=== PATIENT | male | born 1960 | race Caucasian/White ===

== ENCOUNTER 2019-03-13 01:02 | Emergency (ER) | payer BC ==
[2019-03-13 01:11] VITALS: TEMP 97.8
--- NOTE | 2019-03-13 01:55 | ED ---
Neck Injury/Pain HPI - General Chief Complaint: Neck Pain/Injury Stated Complaint: Facial Numbness,Neck Pain Time Seen by Provider: 03/13/19 01:54 Mode of arrival: ambulatory Limitations: no limitations - History of Present Illness Initial Comments: Je is a 58-year-old gentleman up against the ER today for evaluation of neck pain and right lower face pierced seizures. Patient reports he's been experiencing some tightness in the right side of his posterior neck for about 3 weeks. He states that earlier today he was at work when he turned his head and his neck popped. He reports near complete resolution of the discomfort in his neck since that time however after returning home from work he noticed some tingly for numb sensation on the right side of his lower jaw. This persisted throughout the night is not painful he doesn't have any facial droop or drooling. He is having no trouble speaking swallowing or eating. However the tingling became concerning so he came to the ER for evaluation. Patient has no history of TIAs paresthesias in the past. He denies other injuries. - Related Data Allergies Allergy/AdvReac Type Severity Reaction Status Date / Time No Known Allergies Allergy Verified 03/13/19 01:11 Review of Systems ROS Statement: Those systems with pertinent positive or pertinent negative responses have been documented in the HPI. ROS Other: All systems not noted in ROS Statement are negative. Past Medical History Past Medical History: No Reported History History of Any Multi-Drug Resistant Organisms: None Reported Past Surgical History: No Surgical Hx Reported Past Psychological History: No Psychological Hx Reported Smoking Status: Current every day smoker Past Alcohol Use History: Occasional Past Drug Use History: None Reported General Exam - General Exam Comments Initial Comments: Physical Exam GENERAL: Patient is well-developed and well-nourished. Patient is nontoxic and well- hydrated and is in no distress. HENT: Normocephalic, Atraumatic. EYES: PERRL, EOMI PULMONARY: Unlabored respirations. No audible rales rhonchi or wheezing was noted. CARDIOVASCULAR: There is a regular rate and rhythm without any murmurs gallops or rubs. No carotid bruit ABDOMEN: Soft and nontender with normal bowel sounds. SKIN: Skin is clear with no lesions or rashes and otherwise unremarkable. : Deferred NEUROLOGIC: Patient is alert and oriented x3. Moving all extremities spontaneously Cranial nerves II through XII are grossly intact Face is symmetric, there is no facial droop Speech is clear and fluid Tongue protrudes midline MUSCULOSKELETAL: Normal extremities with adequate strength and full range of motion. No lower extremity swelling or edema. No calf tenderness. PSYCHIATRIC: Normal psychiatric evaluation. Limitations: no limitations Course Vital Signs 03/13/19 01:07 Temperature 97.8 F Pulse Rate 75 Respiratory 20 Rate Blood Pressure 131/80 O2 Sat by Pulse 100 Oximetry Medical Decision Making - Medical Decision Making The patient was seen and evaluated history is obtained from the patient at bedside next line patient reported weeks of neck pain, neck pain resolved after he popped his neck however he then noted some pierced seizures in the V3 distribution of cranial nerve V On the right side. Labs were ordered to assess kidney function which was normal patient had a CT angiogram of the head and neck which was normal Results were discussed with the patient at bedside. I did offer to keep the patient in observation to be evaluated by neurology however patient for discharge home he has a appointment with his primary care physician scheduled for later today. All questions pertaining care were answered to the best of my ability return parameters were discussed the patient was discharged home in stable condition. - Lab Data Result diagrams: 03/13/19 02:50 03/13/19 02:50 Lab Results 03/13/19 03/13/19 Range/Units 02:50 02:50 WBC 5.7 (3.8-10.6) k/uL RBC 4.46 (4.30-5.90) m/uL Hgb 13.7 (13.0-17.5) gm/dL Hct 40.0 (39.0-53.0) % MCV 89.8 (80.0-100.0) fL MCH 30.7 (25.0-35.0) pg MCHC 34.1 (31.0-37.0) g/dL RDW 15.1 (11.5-15.5) % Plt Count 326 (150-450) k/uL Neutrophils % 51 % Lymphocytes % 33 % Monocytes % 8 % Eosinophils % 5 % Basophils % 1 % Neutrophils # 2.9 (1.3-7.7) k/uL Lymphocytes # 1.9 (1.0-4.8) k/uL Monocytes # 0.4 (0-1.0) k/uL Eosinophils # 0.3 (0-0.7) k/uL Basophils # 0.0 (0-0.2) k/uL Sodium 138 (137-145) mmol/L Potassium 3.8 (3.5-5.1) mmol/L Chloride 103 (98-107) mmol/L Carbon Dioxide 23 (22-30) mmol/L Anion Gap 12 mmol/L BUN 10 (9-20) mg/dL Creatinine 0.89 (0.66-1.25) mg/dL Est GFR (CKD-EPI)AfAm >90 (>60 ml/min/1.73 sqM) Est GFR (CKD-EPI)NonAf >90 (>60 ml/min/1.73 sqM) Glucose 108 H (74-99) mg/dL Calcium 9.3 (8.4-10.2) mg/dL Total Bilirubin 0.3 (0.2-1.3) mg/dL AST 29 (17-59) U/L ALT 27 (21-72) U/L Alkaline Phosphatase 38 (38-126) U/L Total Protein 6.9 (6.3-8.2) g/dL Albumin 4.2 (3.5-5.0) g/dL Disposition Clinical Impression: Paresthesia Disposition: HOME SELF-CARE Condition: Stable Instructions (If sedation given, give patient instructions): Cervical Strain (ED) Is patient prescribed a controlled substance at d/c from ED?: No Referrals: Araseli Greene MD [Primary Care Provider] - 1-2 days
[2019-03-13 03:21] LABS: ALT 27 U/L (21-72); AST 29 U/L (17-59); African American GFR (CKD) >90 (>60 ml/min/1.73 sqM); Albumin 4.2 g/dL (3.5-5.0); Alkaline Phosphatase 38 U/L (38-126); Anion Gap 12 mmol/L; Blood Urea Nitrogen 10 mg/dL (9-20); Calcium 9.3 mg/dL (8.4-10.2); Carbon Dioxide 23 mmol/L (22-30); Chloride 103 mmol/L (98-107); Glucose 108 mg/dL (74-99); Potassium 3.8 mmol/L (3.5-5.1); Sodium 138 mmol/L (137-145); Total Bilirubin 0.3 mg/dL (0.2-1.3); Total Protein 6.9 g/dL (6.3-8.2)
--- NOTE | 2019-03-13 03:56 | CT ---
EXAMINATION TYPE: CT angio head neck DATE OF EXAM: 03/13/2019 HISTORY: Facial numbness COMPARISON: None CT DLP: 1508.00 mGycm. Automated Exposure Control for Dose Reduction was Utilized. TECHNIQUE: CTA scan of the neck is performed with IV Contrast, patient injected with 65 mL of Isovue 370, axial images are obtained, coronal and sagittal reformatted images are reviewed. Three-D recons tructed images are created on an independent workstation and reviewed. FINDINGS: Noncontrast images of the brain show some cerebral cortical atrophy. There is no mass effect nor midl ine shift. There is no sign of intracranial hemorrhage. There is evidence of mild sphenoid sinusitis. There is arterial flow in both vertebral arteries. There is arterial flow in the common internal and external carotid arteries bilaterally. There is bilateral arterial flow in the subclavian arteries. T here is minimal plaque formation at the carotid artery bifurcations. There is less than 10% stenosis. There is no evidence of carotid or vertebral artery aneurysm or dissection. There is arterial flow in the vertebrobasilar artery system. There is arterial flow in the anterior m iddle and posterior cerebral arteries. There is no evidence of intracranial arterial stenosis. There is normal contrast opacification of the venous sinuses. There is mild ectasia of the tip of the basil ar artery that measures 5 mm. There is no evidence of neovascularity. There is no mass effect. There is wide patency of the right posterior communicating artery. Right posterior cerebral artery fills mo stly through the posterior communicating artery. IMPRESSION: Negative CT angiogram of the neck. Minimal plaque at the carotid artery bifurcations. No evidence of stenosis. 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 Otherwise negative exam. No evidence of i ntracranial arterial stenosis.
[2019-03-13 04:05] LABS: Basophils % (A) 1 %; Eosinophils # (A) 0.3 k/uL (0-0.7); Eosinophils % (A) 5 %; HGB 13.7 gm/dL (13.0-17.5); Lymphocytes # (A) 1.9 k/uL (1.0-4.8); Lymphocytes % (A) 33 %; MCH 30.7 pg (25.0-35.0); MCHC 34.1 g/dL (31.0-37.0); MCV 89.8 fL (80.0-100.0); Monocytes # (A) 0.4 k/uL (0-1.0); Monocytes % (A) 8 %; Neutrophils # (A) 2.9 k/uL (1.3-7.7); Neutrophils % (A) 51 %; Platelet Count 326 k/uL (150-450); RBC 4.46 m/uL (4.30-5.90); RDW 15.1 % (11.5-15.5); WBC 5.7 k/uL (3.8-10.6)
[2019-03-13 04:35] VITALS: BP 103/64; PULSE 78; RESP 18
== END 2019-03-13 04:25 | disposition home or self-care (01) ==
LOC: EC 01:02
DX: R20.2 Paresthesia of skin (principal); R56.9 Unspecified convulsions; M54.2 Cervicalgia; F17.200 Nicotine dependence, unspecified, uncomplicated
CPT/HCPCS: 36415; 80053; 85025; 70496; 70498; 99284; Q9967

== ENCOUNTER 2022-09-13 07:05 | Inpatient (IN) | payer BC ==
[2022-09-13] MEDS ORDERED: ONDANSETRON 4 MG/2 ML VIAL IVP STA (07:20)
[2022-09-13] MEDS ORDERED: SODIUM CHLORIDE 0.9% 1,000 ML IV STA (07:20)
[2022-09-13] MEDS ORDERED: THIAMINE 100 MG/ML 2 ML VIAL IM STA (07:25)
[2022-09-13] MEDS: LORazepam 2 MG/ML INJ IV PRN ×6 (07:38→22:13)
[2022-09-13 07:48] LABS: INR 1.2 (<1.2); Partial Thromboplastin Time 23.4 sec (22.0-30.0); Prothrombin Time 12.5 sec (9.0-12.0)
[2022-09-13 07:55] LABS: Albumin 3.4 g/dL (3.5-5.0); Magnesium 2.3 mg/dL (1.6-2.3); Potassium 4.3 mmol/L (3.5-5.1); Total Bilirubin 2.3 mg/dL (0.2-1.3); Total Protein 6.1 g/dL (6.3-8.2)
[2022-09-13] MEDS ORDERED: HYDROcodone/APAP 7.5-325MG 1 EACH TAB PO ONE (07:57)
[2022-09-13 08:08] LABS: Basophils % (A) 0 %; Eosinophils % (A) 0 %; HCT 38.2 % (39.0-53.0); HGB 13.2 gm/dL (13.0-17.5); Lymphocytes # (A) 0.7 k/uL (1.0-4.8); Lymphocytes % (A) 7 %; MCH 28.4 pg (25.0-35.0); MCHC 34.5 g/dL (31.0-37.0); MCV 82.2 fL (80.0-100.0); Mean Platelet Volume 7.7; Monocytes # (A) 0.6 k/uL (0-1.0); Monocytes % (A) 6 %; Neutrophils # (A) 8.5 k/uL (1.3-7.7); Neutrophils % (A) 86 %; Platelet Count 188 k/uL (150-450); RBC 4.65 m/uL (4.30-5.90); RDW 11.8 % (11.5-15.5); WBC 9.9 k/uL (3.8-10.6)
--- NOTE | 2022-09-13 08:08 | ED ---
Fall HPI - General Chief Complaint: Fall Stated Complaint: Fall Time Seen by Provider: 09/13/22 07:09 Source: EMS Mode of arrival: EMS - History of Present Illness Initial Comments: 62-year-old male with past medical history of alcohol abuse presents to the emergency department for multiple falls. Family is at bedside and states that the patient has not eaten any solid foods in 10 days. He has been drinking a significant amount of beer and recently "added whiskey to his diet". He has been drinking every day for the past 2 years. Reports that his last drink was last night at 11 PM. He has been having multiple falls and therefore family called EMS this morning. He denies any head trauma. Bruising noted to the right cheek however mother states that this has been there for several months. He denies any injuries from the falls. He has had significant diarrhea. No black or bloody stools. He has had some incontinence. No fevers. No sick contacts. Denies any chest pain or shortness of breath. Denies any drug use. Family states that he weighs has a tremor. Reports that his increased respiratory rate has been persistent for the past month. No other alleviating, precipitating or modifying factors - Related Data Home Medications Medication Instructions Recorded Confirmed Atorvastatin Calcium [Lipitor] 80 mg PO HS 09/13/22 09/13/22 Fenofibrate Nanocrystallized 145 mg PO DAILY 09/13/22 09/13/22 [Fenofibrate] HYDROcodone/APAP 7.5-325MG [[place] 1 tab PO QID 09/13/22 09/13/22 7.5-325] Naloxone HCl [Narcan] 4 mg NASAL DIRECTED PRN 09/13/22 09/13/22 PARoxetine HCL [Paxil] 20 mg PO DAILY 09/13/22 09/13/22 hydrOXYzine HCL [Atarax] 25 - 50 mg PO HS 09/13/22 09/13/22 lisinopriL [Zestril] 10 mg PO DAILY 09/13/22 09/13/22 Allergies Allergy/AdvReac Type Severity Reaction Status Date / Time No Known Allergies Allergy Verified 09/13/22 07:32 Review of Systems ROS Statement: Those systems with pertinent positive or pertinent negative responses have been documented in the HPI. ROS Other: All systems not noted in ROS Statement are negative. Past Medical History Past Medical History: No Reported History History of Any Multi-Drug Resistant Organisms: None Reported Past Surgical History: No Surgical Hx Reported Past Psychological History: No Psychological Hx Reported Past Alcohol Use History: Occasional Past Drug Use History: None Reported - Past Family History Mother History Unknown: Yes Family Medical History: Diabetes Mellitus, Hyperlipidemia, Hypertension Father History Unknown: Yes Family Medical History: Cancer, Hypertension General Exam Limitations: altered mental status General appearance: alert, in no apparent distress Head exam: Present: atraumatic, normocephalic, normal inspection Eye exam: Present: normal appearance, PERRL, EOMI. Absent: scleral icterus, conjunctival injection, periorbital swelling ENT exam: Present: normal exam, mucous membranes dry Neck exam: Present: normal inspection. Absent: tenderness, meningismus, lymphadenopathy Respiratory exam: Present: normal lung sounds bilaterally. Absent: respiratory distress, wheezes, rales, rhonchi, stridor Cardiovascular Exam: Present: normal rhythm, tachycardia, normal heart sounds. Absent: systolic murmur, diastolic murmur, rubs, gallop, clicks GI/Abdominal exam: Present: soft, normal bowel sounds, other (tachypnia). Absent: distended, tenderness, guarding, rebound, rigid Extremities exam: Present: normal inspection, full ROM, normal capillary refill. Absent: tenderness, pedal edema, joint swelling, calf tenderness Back exam: Present: normal inspection Neurological exam: Present: alert, oriented X3, CN II-XII intact Psychiatric exam: Present: normal affect, normal mood Skin exam: Present: warm, dry, intact, normal color. Absent: rash Course Vital Signs 09/13/22 09/13/22 09/13/22 07:10 07:48 08:00 Temperature 98.4 F Pulse Rate 111 H 120 H Respiratory 30 H 30 H Rate Blood Pressure 133/69 134/85 105/91 O2 Sat by Pulse 92 L 96 96 Oximetry 09/13/22 09/13/22 09/13/22 08:45 09:00 09:15 Temperature Pulse Rate 99 97 Respiratory 36 H 21 19 Rate Blood Pressure 142/123 121/103 O2 Sat by Pulse 95 Oximetry 09/13/22 09/13/22 09/13/22 09:30 09:45 10:00 Temperature Pulse Rate 98 92 Respiratory 24 19 Rate Blood Pressure 121/103 121/103 94/78 O2 Sat by Pulse 95 89 L 95 Oximetry 09/13/22 09/13/22 09/13/22 10:15 10:30 10:51 Temperature Pulse Rate 90 94 94 Respiratory 16 20 21 Rate Blood Pressure 88/67 97/63 O2 Sat by Pulse 96 95 95 Oximetry 09/13/22 10:52 Temperature Pulse Rate 92 Respiratory 26 H Rate Blood Pressure 97/61 O2 Sat by Pulse 96 Oximetry - Reevaluation(s) Reevaluation #1: Awaiting Dr. Handley call back 09/13/22 09:20 Reevaluation #2: Spoke with Dr. Barajas - will repeat sodium right now 09/13/22 09:34 Reevaluation #3: [employer]ile Attendant paged twice without callback 09/13/22 10:07 Medical Decision Making - Medical Decision Making Was pt. sent in by a medical professional or institution (, PA, [employer]ISHER, urgent care, hospital, or group home...) When possible be specific @ -No Did you speak to anyone other than the patient for history (EMS, parent, family, police, friend...)? What history was obtained from this source @ -EMS, mom, sister Did you review nursing and triage notes (agree or disagree)? Why? @ -I reviewed and agree with nursing and triage notes Were old charts reviewed (outside hosp., previous admission, EMS record, old EKG, old radiological studies, urgent care reports/EKG's, group home records)? Report findings @ -No old charts were reviewed Differential Diagnosis (chest pain, altered mental status, abdominal pain women, abdominal pain men, vaginal bleeding, weakness, fever, dyspnea, syncope, headache, dizziness, GI bleed, back pain, seizure, CVA, palpatations, mental health, musculoskeletal)? @ -alcohol withdrawal, alcohol intoxication, hyponatremia EKG interpreted by me (3pts min.). @ -As above X-rays interpreted by me (1pt min.). @ -yes CT interpreted by me (1pt min.). @ -None done U/S interpreted by me (1pt. min.). @ -None done What testing was considered but not performed or refused? (CT, X-rays, U/S, labs)? Why? @ -None What meds were considered but not given or refused? Why? @ -None Did you discuss the management of the patient with other professionals (professionals i.e. , PA, [employer]ER, lab, RT, psych nurse, social insurance adviser, intellectual property lawyer, teacher, occupational medicine officer, shelter case manager)? Give summary @ -hospitalist, programming director Was smoking cessation discussed for >3mins.? @ -No Was critical care preformed (if so, how long)? @ -48 minutes Were there social determinants of health that impacted care today? How? (Homelessness, low income, unemployed, alcoholism, drug addiction, transportation, low edu. Level, literacy, decrease access to med. care, nursing home, rehab)? @ -alcoholism Was there de-escalation of care discussed even if they declined (Discuss DNR or withdrawal of care, Hospice)? DNR status @ -Yes - spoke with mom and sister at length that patient likely will end up on the ventilator. He demonstrates signs of significant alcohol withdrawal less than 12 hours after his last drink. DTs are likely to get worse and patient may need airway protection, family was okay with this What co-morbidities impacted this encounter? (DM, HTN, Smoking, COPD, CAD, Cancer, CVA, ARF, Chemo, Hep., AIDS, mental health diagnosis, sleep apnea, morbid obesity)? @ -Alcoholism Was patient admitted / discharged? Hospital course, mention meds given and route, prescriptions, significant lab abnormalities, going to OR and other pertinent info. @ -Admitted Undiagnosed new problem with uncertain prognosis? @ -yes Drug Therapy requiring intensive monitoring for toxicity (Heparin, Nitro, Insulin, Cardizem)? @ -No Were any procedures done? @ -No Diagnosis/symptom? @ -acute dt, alcohol withdrawal, hyponatremia Acute, or Chronic, or Acute on Chronic? @ -acute Uncomplicated (without systemic symptoms) or Complicated (systemic symptoms)? @ -complicated Side effects of treatment? @ -No Exacerbation, Progression, or Severe Exacerbation? @ -No Poses a threat to life or bodily function? How? (Chest pain, [place], SD, pneumonia, PE, COPD, DKA, ARF, appy, cholecystitis, CVA, Diverticulitis, Homicidal, Suicidal, threat to staff... and all critical care pts) @ -yes - Lab Data Result diagrams: 09/16/22 04:35 09/16/22 04:35 Lab Results 09/13/22 09/13/22 09/13/22 Range/Units 07:31 07:31 07:31 WBC 9.9 (3.8-10.6) k/uL RBC 4.65 (4.30-5.90) m/uL Hgb 13.2 (13.0-17.5) gm/dL Hct 38.2 L (39.0-53.0) % MCV 82.2 (80.0-100.0) fL MCH 28.4 (25.0-35.0) pg MCHC 34.5 (31.0-37.0) g/dL RDW 11.8 (11.5-15.5) % Plt Count 188 (150-450) k/uL MPV 7.7 Neutrophils % 86 % Lymphocytes % 7 % Monocytes % 6 % Eosinophils % 0 % Basophils % 0 % Neutrophils # 8.5 H (1.3-7.7) k/uL Lymphocytes # 0.7 L (1.0-4.8) k/uL Monocytes # 0.6 (0-1.0) k/uL Eosinophils # 0.0 (0-0.7) k/uL Basophils # 0.0 (0-0.2) k/uL PT 12.5 H (9.0-12.0) sec INR 1.2 H (<1.2) APTT 23.4 (22.0-30.0) sec Sodium 114 L* (137-145) mmol/L Potassium 4.3 (3.5-5.1) mmol/L Chloride 80 L (98-107) mmol/L Carbon Dioxide 14 L (22-30) mmol/L Anion Gap 20 mmol/L BUN 15 (9-20) mg/dL Creatinine 1.16 (0.66-1.25) mg/dL Est GFR (CKD-EPI)AfAm 78 (>60 ml/min/1.73 sqM) Est GFR (CKD-EPI)NonAf 67 (>60 ml/min/1.73 sqM) Glucose 161 H (74-99) mg/dL Osmolality (280-301) mosm/kg Lactic Ac Sepsis Rflx Plasma Lactic Acid Juan F (0.7-2.0) mmol/L Calcium 8.0 L (8.4-10.2) mg/dL Magnesium 2.3 (1.6-2.3) mg/dL Total Bilirubin 2.3 H (0.2-1.3) mg/dL AST 93 H (17-59) U/L ALT 79 H (4-49) U/L Alkaline Phosphatase 77 (38-126) U/L Troponin I (0.000-0.034) ng/mL Total Protein 6.1 L (6.3-8.2) g/dL Albumin 3.4 L (3.5-5.0) g/dL Urine Osmolality (50-1400) mosm/kg Ur Random Sodium (40-220) mmol/L Serum Alcohol mg/dL 09/13/22 09/13/22 09/13/22 Range/Units 07:31 07:31 08:00 WBC (3.8-10.6) k/uL RBC (4.30-5.90) m/uL Hgb (13.0-17.5) gm/dL Hct (39.0-53.0) % MCV (80.0-100.0) fL MCH (25.0-35.0) pg MCHC (31.0-37.0) g/dL RDW (11.5-15.5) % Plt Count (150-450) k/uL MPV Neutrophils % % Lymphocytes % % Monocytes % % Eosinophils % % Basophils % % Neutrophils # (1.3-7.7) k/uL Lymphocytes # (1.0-4.8) k/uL Monocytes # (0-1.0) k/uL Eosinophils # (0-0.7) k/uL Basophils # (0-0.2) k/uL PT (9.0-12.0) sec INR (<1.2) APTT (22.0-30.0) sec Sodium (137-145) mmol/L Potassium (3.5-5.1) mmol/L Chloride (98-107) mmol/L Carbon Dioxide (22-30) mmol/L Anion Gap mmol/L BUN (9-20) mg/dL Creatinine (0.66-1.25) mg/dL Est GFR (CKD-EPI)AfAm (>60 ml/min/1.73 sqM) Est GFR (CKD-EPI)NonAf (>60 ml/min/1.73 sqM) Glucose (74-99) mg/dL Osmolality (280-301) mosm/kg Lactic Ac Sepsis Rflx Y Plasma Lactic Acid Juan F 10.6 H* (0.7-2.0) mmol/L Calcium (8.4-10.2) mg/dL Magnesium (1.6-2.3) mg/dL Total Bilirubin (0.2-1.3) mg/dL AST (17-59) U/L ALT (4-49) U/L Alkaline Phosphatase (38-126) U/L Troponin I <0.012 (0.000-0.034) ng/mL Total Protein (6.3-8.2) g/dL Albumin (3.5-5.0) g/dL Urine Osmolality (50-1400) mosm/kg Ur Random Sodium (40-220) mmol/L Serum Alcohol mg/dL 09/13/22 09/13/22 09/13/22 Range/Units 08:16 08:16 08:16 WBC (3.8-10.6) k/uL RBC (4.30-5.90) m/uL Hgb (13.0-17.5) gm/dL Hct (39.0-53.0) % MCV (80.0-100.0) fL MCH (25.0-35.0) pg MCHC (31.0-37.0) g/dL RDW (11.5-15.5) % Plt Count (150-450) k/uL MPV Neutrophils % % Lymphocytes % % Monocytes % % Eosinophils % % Basophils % % Neutrophils # (1.3-7.7) k/uL Lymphocytes # (1.0-4.8) k/uL Monocytes # (0-1.0) k/uL Eosinophils # (0-0.7) k/uL Basophils # (0-0.2) k/uL PT (9.0-12.0) sec INR (<1.2) APTT (22.0-30.0) sec Sodium (137-145) mmol/L Potassium (3.5-5.1) mmol/L Chloride (98-107) mmol/L Carbon Dioxide (22-30) mmol/L Anion Gap mmol/L BUN (9-20) mg/dL Creatinine (0.66-1.25) mg/dL Est GFR (CKD-EPI)AfAm (>60 ml/min/1.73 sqM) Est GFR (CKD-EPI)NonAf (>60 ml/min/1.73 sqM) Glucose (74-99) mg/dL Osmolality 251 L (280-301) mosm/kg Lactic Ac Sepsis Rflx Plasma Lactic Acid Juan F (0.7-2.0) mmol/L Calcium (8.4-10.2) mg/dL Magnesium (1.6-2.3) mg/dL Total Bilirubin (0.2-1.3) mg/dL AST (17-59) U/L ALT (4-49) U/L Alkaline Phosphatase (38-126) U/L Troponin I (0.000-0.034) ng/mL Total Protein (6.3-8.2) g/dL Albumin (3.5-5.0) g/dL Urine Osmolality 499 (50-1400) mosm/kg Ur Random Sodium <20 L (40-220) mmol/L Serum Alcohol <10 mg/dL - EKG Data EKG Comments: EKG demonstrates sinus tachycardia with a rate of 103. TX interval 210. QRS 88. QTC of 420. No acute ST segment elevations or depressions Critical Care Time Critical Care Time: Yes Critical Care Time: 48 minutes Disposition Clinical Impression: Multiple falls, Alcohol withdrawal, Delirium tremens, Hyponatremia Disposition: ADMITTED IP TO THIS [facility] Condition: Serious Is patient prescribed a controlled substance at d/c from ED?: No Time of Disposition: 08:43 Decision to Admit Reason: Admit from EC Decision Date: 09/13/22 Decision Time: 08:43
[2022-09-13 08:43] LABS: Alcohol <10 mg/dL
[2022-09-13] MEDS ORDERED: SODIUM CHLORIDE 0.9% 500 ML 500 ML IV ONE (08:51)
--- NOTE | 2022-09-13 09:01 | XR ---
EXAMINATION TYPE: XR chest 1V portable DATE OF EXAM: 09/13/2022 HISTORY: Shortness of breath. COMPARISON: None. TECHNIQUE: Single view of the chest is submitted. FINDINGS: Demonstrated are scattered senescent parenchymal change. There is no evidence for focal infiltrate. The heart is stable. Hilar and mediastinal structures are within normal limits. Degenerative changes are seen of the dorsal spine. IMPRESSION: 1. Chronic changes without evidence for acute pulmonary disease.
[2022-09-13] MEDS ORDERED: NALOXONE 0.4 MG/ML 1 ML VIAL IV PRN (09:07)
[2022-09-13] MEDS ORDERED: Magnesium Replacement Protocol 1 EACH MISC MISCELLANE PRN (09:07)
[2022-09-13] MEDS ORDERED: Potassium Replacement Protocol 1 EACH MISC MISCELLANE PRN (09:07)
[2022-09-13] MEDS ORDERED: SODIUM CHLORIDE 3%(HYPERTONIC) 500 ML IV SCH ×2 (10:45→17:49)
[2022-09-13 10:51] LABS: Glucose,Whole Blood 124 mg/dL (70-110)
[2022-09-13 11:28] LABS: Appearance,Urine Cloudy (Clear); Bacteria,Urine Rare /hpf; Bilirubin,Urine 1+ (Negative); Blood,Urine Large (Negative); Color,Urine Dark Yellow; Glucose,Urine (UA) Negative (Negative); Ketones,Urine Negative (Negative); Leukocyte Esterase,Urine Trace (Negative); Mucus,Urine Rare /hpf; Nitrite,Urine Negative (Negative); Protein,Urine 1+ (Negative); RBC,Urine 55 /hpf (0-5); Squamous Epithelial Cell,Urine 1 /hpf (0-4); WBC,Urine 9 /hpf (0-5)
--- NOTE | 2022-09-13 12:39 | P.CNPUL ---
History of Present Illness Consult date: 09/13/22 Chief complaint: Altered mental status History of present illness: 62-year-old male patient, alcoholic, brought into the hospital on [facility] as the patient has not been eating any food for the past 10 days. He has been drinking significantly and he drinks beer and whiskey. He is an alcoholic and has been drinking excessively over the past 2 years at least. He has had multiple falls at home. No injuries to his head or traumatic head injury. He has bruises over the right cheek. No nausea. No emesis. No aspiration. No seizure activity has been noted. No reported chest pain or shortness of breath. No history of any substance abuse other than alcohol. As the patient was brought into the hospital, the patient was found to be in delirium tremens, increased confusion, agitation and tremors. He was given Ativan on the Route to the hospital. Upon arrival, alcohol level was less than 10, his sodium level was 114, bicarb is 15 with a creatinine of 1.1, normal coagulation profile, his troponin was negative, urine osmolality was 499, urine sodium was less than 20, WBC count at 9.9 with hemoglobin 15.3 and a platelet count of 188. The LFTs are abnormal with an AST of 93, ALT of 79, bilirubin level is at 2.3 and the lactic acid level is down to 1.6. The chest x-ray shows no acute abnormalities. Past Medical History Past Medical History: No Reported History, Hyperlipidemia, Hypertension Additional Past Medical History / Comment(s): alcoholism History of Any Multi-Drug Resistant Organisms: None Reported Past Surgical History: No Surgical Hx Reported Past Psychological History: No Psychological Hx Reported Past Alcohol Use History: Occasional Past Drug Use History: None Reported Medications and Allergies Home Medications Medication Instructions Recorded Confirmed Type Atorvastatin Calcium [Lipitor] 80 mg PO HS 09/13/22 09/13/22 History Fenofibrate Nanocrystallized 145 mg PO DAILY 09/13/22 09/13/22 History [Fenofibrate] HYDROcodone/APAP 7.5-325MG [[place] 1 tab PO QID 09/13/22 09/13/22 History 7.5-325] Naloxone HCl [Narcan] 4 mg NASAL DIRECTED PRN 09/13/22 09/13/22 History PARoxetine HCL [Paxil] 20 mg PO DAILY 09/13/22 09/13/22 History hydrOXYzine HCL [Atarax] 25 - 50 mg PO HS 09/13/22 09/13/22 History lisinopriL [Zestril] 10 mg PO DAILY 09/13/22 09/13/22 History Allergies Allergy/AdvReac Type Severity Reaction Status Date / Time No Known Allergies Allergy Verified 09/13/22 07:32 Physical Exam Vitals: Vital Signs Temp Pulse Resp BP Pulse Ox 09/13/22 11:15 88 19 130/79 94 L 09/13/22 11:00 98.5 F 91 15 137/87 93 L 09/13/22 10:52 92 26 H 97/61 96 09/13/22 10:51 94 21 95 09/13/22 10:30 94 20 97/63 95 09/13/22 10:15 90 16 88/67 96 09/13/22 10:00 92 19 94/78 95 09/13/22 09:45 121/103 89 L 09/13/22 09:30 98 24 121/103 95 09/13/22 09:15 97 19 121/103 09/13/22 09:00 99 21 142/123 09/13/22 08:45 36 H 95 09/13/22 08:00 120 H 30 H 105/91 96 09/13/22 07:48 134/85 96 09/13/22 07:10 98.4 F 111 H 30 H 133/69 92 L Intake and Output 09/12/22 09/13/22 09/13/22 22:59 06:59 14:59 Intake Total 15 Output Total 150 Balance -135 Intake: IV 15 Sodium Chloride 3%( 15 Hypertonic) 500 ml @ 30 mls/hr IV .[id number] [facility] Rx #:[id number] Output: Urine 150 Other: Weight 102.058 kg Gen. appearance the patient is calm, sedated, has some resting tremors, on room air oxygen with a pulse ox of 92% The patient appeared well nourished and normally developed. Vital signs as documented. Head exam is unremarkable. No scleral icterus or corneal arcus noted. Neck is without jugular venous distension, thyromegaly, or carotid bruits. Carotid upstrokes are brisk bilaterally. Lungs are clear to auscultation and percussion. Cardiac exam reveals the PMI to be normally sized and situated. Rhythm is regular. First and second heart sounds normal. No murmurs, rubs or gallops. Abdominal exam reveals normal bowel sounds, no masses, no organomegaly and no aortic enlargement. Extremities are nonedematous and both femoral and pedal pulses are normal.Examination of the skin revealed no evidence of significant rashes, suspicious appearing nevi or other concerning lesions. Neurologically, the patient is sedated on of the effect of Ativan. He grimaces to painful stimulation any withdrawal to painful stimulation all 4 extremities. Pupils are equal and reactive to light around 3-4 mm in size. No facial asymmetry. Results - Laboratory Findings CBC and BMP: 09/13/22 07:31 09/13/22 10:43 PT/INR, D-dimer PT 12.5 sec (9.0-12.0) H 09/13/22 07:31 INR 1.2 (<1.2) H 09/13/22 07:31 Abnormal lab findings: Abnormal Labs 09/13/22 09/13/22 09/13/22 07:31 07:31 07:31 Hct 38.2 L Neutrophils # 8.5 H Lymphocytes # 0.7 L PT 12.5 H INR 1.2 H Sodium 114 L* Chloride 80 L Carbon Dioxide 14 L Glucose 161 H POC Glucose (mg/dL) Osmolality Plasma Lactic Acid Juan F Calcium 8.0 L Total Bilirubin 2.3 H AST 93 H ALT 79 H Total Protein 6.1 L Albumin 3.4 L Urine Protein Urine Blood Urine Bilirubin Ur Leukocyte Esterase Urine RBC Urine WBC Urine Bacteria Urine Mucus 09/13/22 09/13/22 09/13/22 07:31 08:16 09:40 Hct Neutrophils # Lymphocytes # PT INR Sodium 113 L* Chloride Carbon Dioxide Glucose POC Glucose (mg/dL) Osmolality 251 L Plasma Lactic Acid Juan F 10.6 H* Calcium Total Bilirubin AST ALT Total Protein Albumin Urine Protein Urine Blood Urine Bilirubin Ur Leukocyte Esterase Urine RBC Urine WBC Urine Bacteria Urine Mucus 09/13/22 09/13/22 09/13/22 10:43 10:49 11:00 Hct Neutrophils # Lymphocytes # PT INR Sodium 114 L* Chloride Carbon Dioxide Glucose POC Glucose (mg/dL) 124 H Osmolality Plasma Lactic Acid Juan F Calcium Total Bilirubin AST ALT Total Protein Albumin Urine Protein 1+ H Urine Blood Large H Urine Bilirubin 1+ H Ur Leukocyte Esterase Trace H Urine RBC 55 H Urine WBC 9 H Urine Bacteria Rare H Urine Mucus Rare H - Diagnostic Findings Chest x-ray: image reviewed Assessment and Plan Plan: Altered mental status, secondary to above a combination of alcohol withdrawal syndrome/delirium tremens and acute hyponatremia Alcoholic Acute hyperchloremic hypernatremia, could be related to excessive beer drinking. Consider also possibility of hypovolemic hyponatremia. Possibility of SIADH cannot be completely ruled out. Patient is currently on hypertonic saline, 3% normal saline at rate of 46 and hour. Alcoholic liver disease with mild elevation of the LFTs History of fall secondary to above Hypertension Hyperlipidemia Plan Continue hypertonic saline infusion Sodium levels every 4 hours Nephrology consultation IV Protonix Lovenox for DVT prophylaxis Continue with Ativan regarding alcohol withdrawal syndrome Thiamine Precedex if needed Aspiration precautions We'll continue to follow. Family the bedside.
--- NOTE | 2022-09-13 12:52 | P.NPCON ---
History of Present Illness - Reason for Consult hyponatremia - History of Present Illness Patient is a 62-year-old male with history of significant alcohol abuse. Patient apparently has 30 beers a day along with 20-30 shots of whiskey daily. He is brought into the hospital with increased weakness. Patient has also been confused and agitated having significant tremors. These symptoms were noted mostly after initial evaluation in the ER. Alcohol level was less than 10. Sodium was noted to be at 114. Serum creatinine 1.1. Urine osmolality was 499 and urine sodium less than 20 Patient received 1 L saline bolus in the ER. Repeat sodium was 113. Patient has been transferred to ICU and started on 3% saline at 30 mL an hour. He is currently not communicating much. Lactic acid was elevated at 10 and it is down to 1.6. No history of fever chills nausea vomiting abdominal pain or diarrhea [place] at Review of Systems As per HPI Past Medical History Past Medical History: No Reported History, Hyperlipidemia, Hypertension Additional Past Medical History / Comment(s): alcoholism History of Any Multi-Drug Resistant Organisms: None Reported Past Surgical History: No Surgical Hx Reported Past Psychological History: No Psychological Hx Reported Past Alcohol Use History: Occasional Past Drug Use History: None Reported Medications and Allergies Home Medications Medication Instructions Recorded Confirmed Type Atorvastatin Calcium [Lipitor] 80 mg PO HS 09/13/22 09/13/22 History Fenofibrate Nanocrystallized 145 mg PO DAILY 09/13/22 09/13/22 History [Fenofibrate] HYDROcodone/APAP 7.5-325MG [[place] 1 tab PO QID 09/13/22 09/13/22 History 7.5-325] Naloxone HCl [Narcan] 4 mg NASAL DIRECTED PRN 09/13/22 09/13/22 History PARoxetine HCL [Paxil] 20 mg PO DAILY 09/13/22 09/13/22 History hydrOXYzine HCL [Atarax] 25 - 50 mg PO HS 09/13/22 09/13/22 History lisinopriL [Zestril] 10 mg PO DAILY 09/13/22 09/13/22 History Allergies Allergy/AdvReac Type Severity Reaction Status Date / Time No Known Allergies Allergy Verified 09/13/22 07:32 Physical Exam Vitals: Vital Signs Temp Pulse Resp BP Pulse Ox 09/13/22 12:30 88 11 L 108/67 94 L 09/13/22 12:15 86 16 111/72 09/13/22 12:00 87 15 118/77 92 L 09/13/22 11:45 89 14 114/65 09/13/22 11:30 86 17 120/71 09/13/22 11:15 88 19 130/79 94 L 09/13/22 11:00 98.5 F 91 15 137/87 93 L 09/13/22 10:52 92 26 H 97/61 96 09/13/22 10:51 94 21 95 09/13/22 10:30 94 20 97/63 95 09/13/22 10:15 90 16 88/67 96 09/13/22 10:00 92 19 94/78 95 09/13/22 09:45 121/103 89 L 09/13/22 09:30 98 24 121/103 95 09/13/22 09:15 97 19 121/103 09/13/22 09:00 99 21 142/123 09/13/22 08:45 36 H 95 09/13/22 08:00 120 H 30 H 105/91 96 09/13/22 07:48 134/85 96 09/13/22 07:10 98.4 F 111 H 30 H 133/69 92 L Intake and Output 09/12/22 09/13/22 09/13/22 22:59 06:59 14:59 Intake Total 45 Output Total 300 Balance -255 Intake: IV 45 Sodium Chloride 3%( 45 Hypertonic) 500 ml @ 30 mls/hr IV .[id number] [facility] Rx #:[id number] Output: Urine 300 Other: Weight 102.058 kg Patient is sleeping but does open his eyes as per nursing staff. He does not communicate much Examination of the heart S1 and S2 Examination lungs bilateral breath sounds are heard Abdomen is soft obese nontender Examination of the lower extremities shows no edema Patient had tremors earlier on today, currently not seeing on exam Results - Lab Results Most recent lab results Calcium 8.0 mg/dL (8.4-10.2) L 09/13/22 07:31 Magnesium 2.3 mg/dL (1.6-2.3) 09/13/22 07:31 09/13/22 07:31 09/13/22 10:43 Assessment and Plan Assessment: 1. Hyponatremia associated with excessive beer/alcohol intake. Patient also appears hypovolemic. He has received a liter of normal saline bolus in the ER. Serum sodium did not change much. Started on 3% saline as there has been change in mentation. There is also most likely a component of withdrawal and DTs. Urine osmolality 499, urine sodium less than 20 2. EtOH abuse 3. Alcoholic liver disease with mildly elevated liver enzymes 4. History of hypertension 5. Microscopic hematuria possibly related to Lal insertion 6. Anion gap metabolic acidosis associated with lactic acidosis Plan: Continue with 3% saline. Repeat sodium in 4 hours Start bicarb drip based on repeat labs. Composition of bicarb drip to be based on his repeat labs in 4 hours. Thank you for the consultation. We will continue to follow the patient with you during his hospitalization
[2022-09-13 13:17] LABS: African American GFR (CKD) >90 (>60 ml/min/1.73 sqM); Anion Gap 5 mmol/L; Blood Urea Nitrogen 17 mg/dL (9-20); Calcium 7.2 mg/dL (8.4-10.2); Carbon Dioxide 23 mmol/L (22-30); Chloride 87 mmol/L (98-107); Glucose 113 mg/dL (74-99); Non-African American GFR(CKD) >90 (>60 ml/min/1.73 sqM); Potassium 3.9 mmol/L (3.5-5.1)
[2022-09-13 13:32] LABS: Sodium 115 mmol/L (137-145)
--- NOTE | 2022-09-13 14:29 | P.HPIM ---
History of Present Illness H&P Date: 09/13/22 History of present illness;. Patient is 62-year-old gentleman with past medical history significant for alcohol abuse, presented to the ER because of multiple falls. Family is at bedside and states that the patient has not eaten any solid foods in 10 days. He has been drinking a significant amount of beer and recently "added whiskey to his diet". He has been drinking every day for the past 2 years. Reports that his last drink was last night at 11 PM. He has been having multiple falls and therefore family called EMS this morning. Patient was worked in the ER, initial lab work showed hemoglobin of 13.0, PTT 20.5, INR 1.2, sodium 140, potassium 4.3, chloride 80, carbonate 14, anion gap 20, lactate level 10.6. Chest x-ray was negative for any acute cardiac process. Patient was admitted to ICU for further evaluation and treatment REVIEW OF SYSTEMS: Detailed review of systems cannot be obtained from patient's current mental mental status PHYSICAL EXAMINATION: GENERAL: The patient is lethargic, not in any acute distress. Well developed, well nourished. HEENT: Pupils are round and equally reacting to light. EOMI. No scleral icterus. No conjunctival pallor. Normocephalic, atraumatic. No pharyngeal erythema. No thyromegaly. CARDIOVASCULAR: S1 and S2 present. No murmurs, rubs, or gallops. PULMONARY: Chest is clear to auscultation, no wheezing or crackles. ABDOMEN: Soft, nontender, nondistended, normoactive bowel sounds. No palpable organomegaly. MUSCULOSKELETAL: No joint swelling or deformity. EXTREMITIES: No cyanosis, clubbing, or pedal edema. NEUROLOGICAL: Gross neurological examination did not reveal any focal deficits. SKIN: No rashes. Assessment and plan Acute metabolic encephalopathy Alcohol withdrawal syndrome Dts Alcohol Abuse Hyponatremia Plan; Monitor vital signs monitor CBC Monitor CMP Continue CIWA protocol Continue Ativan per protocol Continue high-dose thiamine and folic acid Continue hypertonic saline per nephrology Aspiration precautions Patient might require Precedex drip, ICU consulted Past Medical History Past Medical History: No Reported History Additional Past Medical History / Comment(s): alcoholism History of Any Multi-Drug Resistant Organisms: None Reported Past Surgical History: No Surgical Hx Reported Past Psychological History: No Psychological Hx Reported Past Alcohol Use History: Occasional Past Drug Use History: None Reported Medications and Allergies Home Medications Medication Instructions Recorded Confirmed Type Atorvastatin Calcium [Lipitor] 80 mg PO HS 09/13/22 09/13/22 History Fenofibrate Nanocrystallized 145 mg PO DAILY 09/13/22 09/13/22 History [Fenofibrate] HYDROcodone/APAP 7.5-325MG [[place] 1 tab PO QID 09/13/22 09/13/22 History 7.5-325] Naloxone HCl [Narcan] 4 mg NASAL DIRECTED PRN 09/13/22 09/13/22 History PARoxetine HCL [Paxil] 20 mg PO DAILY 09/13/22 09/13/22 History hydrOXYzine HCL [Atarax] 25 - 50 mg PO HS 09/13/22 09/13/22 History lisinopriL [Zestril] 10 mg PO DAILY 09/13/22 09/13/22 History Allergies Allergy/AdvReac Type Severity Reaction Status Date / Time No Known Allergies Allergy Verified 09/13/22 07:32 Physical Exam Vitals: Vital Signs Temp Pulse Resp BP Pulse Ox 09/13/22 13:30 84 14 94 L 09/13/22 13:15 86 16 110/69 93 L 09/13/22 12:45 83 13 119/84 93 L 09/13/22 12:30 88 11 L 108/67 94 L 09/13/22 12:15 86 16 111/72 09/13/22 12:00 87 30 H 118/77 92 L 09/13/22 11:45 89 14 114/65 09/13/22 11:30 86 17 120/71 09/13/22 11:15 88 19 130/79 94 L 09/13/22 11:00 98.5 F 91 15 137/87 93 L 09/13/22 10:52 92 26 H 97/61 96 09/13/22 10:51 94 21 95 09/13/22 10:30 94 20 97/63 95 09/13/22 10:15 90 16 88/67 96 09/13/22 10:00 92 19 94/78 95 09/13/22 09:45 121/103 89 L 09/13/22 09:30 98 24 121/103 95 09/13/22 09:15 97 19 121/103 09/13/22 09:00 99 21 142/123 09/13/22 08:45 36 H 95 09/13/22 08:00 120 H 30 H 105/91 96 09/13/22 07:48 134/85 96 09/13/22 07:10 98.4 F 111 H 30 H 133/69 92 L Intake and Output 09/12/22 09/13/22 09/13/22 22:59 06:59 14:59 Intake Total 75 Output Total 380 Balance -305 Intake: IV 75 Sodium Chloride 3%( 75 Hypertonic) 500 ml @ 30 mls/hr IV .[id number] [facility] Rx #:[id number] Output: Urine 380 Other: Voiding Method Indwelling Catheter Weight 102.058 kg Results CBC & Chem 7: 09/13/22 07:31 09/13/22 12:55 Labs: Abnormal Lab Results - Last 24 Hours (Table) 09/13/22 09/13/22 09/13/22 Range/Units 07:31 07:31 07:31 Hct 38.2 L (39.0-53.0) % Neutrophils # 8.5 H (1.3-7.7) k/uL Lymphocytes # 0.7 L (1.0-4.8) k/uL PT 12.5 H (9.0-12.0) sec INR 1.2 H (<1.2) Sodium 114 L* (137-145) mmol/L Chloride 80 L (98-107) mmol/L Carbon Dioxide 14 L (22-30) mmol/L Glucose 161 H (74-99) mg/dL POC Glucose (mg/dL) (70-110) mg/dL Osmolality (280-301) mosm/kg Plasma Lactic Acid Juan F (0.7-2.0) mmol/L Calcium 8.0 L (8.4-10.2) mg/dL Total Bilirubin 2.3 H (0.2-1.3) mg/dL AST 93 H (17-59) U/L ALT 79 H (4-49) U/L Total Protein 6.1 L (6.3-8.2) g/dL Albumin 3.4 L (3.5-5.0) g/dL Urine Protein (Negative) Urine Blood (Negative) Urine Bilirubin (Negative) Ur Leukocyte Esterase (Negative) Urine RBC (0-5) /hpf Urine WBC (0-5) /hpf Urine Bacteria (None) /hpf Urine Mucus (None) /hpf Ur Random Sodium (40-220) mmol/L 09/13/22 09/13/22 09/13/22 Range/Units 07:31 08:16 08:16 Hct (39.0-53.0) % Neutrophils # (1.3-7.7) k/uL Lymphocytes # (1.0-4.8) k/uL PT (9.0-12.0) sec INR (<1.2) Sodium (137-145) mmol/L Chloride (98-107) mmol/L Carbon Dioxide (22-30) mmol/L Glucose (74-99) mg/dL POC Glucose (mg/dL) (70-110) mg/dL Osmolality 251 L (280-301) mosm/kg Plasma Lactic Acid Juan F 10.6 H* (0.7-2.0) mmol/L Calcium (8.4-10.2) mg/dL Total Bilirubin (0.2-1.3) mg/dL AST (17-59) U/L ALT (4-49) U/L Total Protein (6.3-8.2) g/dL Albumin (3.5-5.0) g/dL Urine Protein (Negative) Urine Blood (Negative) Urine Bilirubin (Negative) Ur Leukocyte Esterase (Negative) Urine RBC (0-5) /hpf Urine WBC (0-5) /hpf Urine Bacteria (None) /hpf Urine Mucus (None) /hpf Ur Random Sodium <20 L (40-220) mmol/L 09/13/22 09/13/22 09/13/22 Range/Units 09:40 10:43 10:49 Hct (39.0-53.0) % Neutrophils # (1.3-7.7) k/uL Lymphocytes # (1.0-4.8) k/uL PT (9.0-12.0) sec INR (<1.2) Sodium 113 L* 114 L* (137-145) mmol/L Chloride (98-107) mmol/L Carbon Dioxide (22-30) mmol/L Glucose (74-99) mg/dL POC Glucose (mg/dL) 124 H (70-110) mg/dL Osmolality (280-301) mosm/kg Plasma Lactic Acid Juan F (0.7-2.0) mmol/L Calcium (8.4-10.2) mg/dL Total Bilirubin (0.2-1.3) mg/dL AST (17-59) U/L ALT (4-49) U/L Total Protein (6.3-8.2) g/dL Albumin (3.5-5.0) g/dL Urine Protein (Negative) Urine Blood (Negative) Urine Bilirubin (Negative) Ur Leukocyte Esterase (Negative) Urine RBC (0-5) /hpf Urine WBC (0-5) /hpf Urine Bacteria (None) /hpf Urine Mucus (None) /hpf Ur Random Sodium (40-220) mmol/L 09/13/22 09/13/22 Range/Units 11:00 12:55 Hct (39.0-53.0) % Neutrophils # (1.3-7.7) k/uL Lymphocytes # (1.0-4.8) k/uL PT (9.0-12.0) sec INR (<1.2) Sodium 115 L* (137-145) mmol/L Chloride 87 L (98-107) mmol/L Carbon Dioxide (22-30) mmol/L Glucose 113 H (74-99) mg/dL POC Glucose (mg/dL) (70-110) mg/dL Osmolality (280-301) mosm/kg Plasma Lactic Acid Juan F (0.7-2.0) mmol/L Calcium 7.2 L (8.4-10.2) mg/dL Total Bilirubin (0.2-1.3) mg/dL AST (17-59) U/L ALT (4-49) U/L Total Protein (6.3-8.2) g/dL Albumin (3.5-5.0) g/dL Urine Protein 1+ H (Negative) Urine Blood Large H (Negative) Urine Bilirubin 1+ H (Negative) Ur Leukocyte Esterase Trace H (Negative) Urine RBC 55 H (0-5) /hpf Urine WBC 9 H (0-5) /hpf Urine Bacteria Rare H (None) /hpf Urine Mucus Rare H (None) /hpf Ur Random Sodium (40-220) mmol/L
[2022-09-13] MEDS: ENOXAPARIN 40 MG/0.4 ML SYRINGE SQ SCH (15:09)
[2022-09-13] MEDS: PANTOPRAZOLE 40 MG/10 ML VIAL IVP SCH (15:09)
[2022-09-13] MEDS: DEXMEDETOMIDINE/0.9% NACL(PMX) 400 MCG in EMPTY BAG 1 BAG IV SCH (15:45)
[2022-09-13 17:16] LABS: African American GFR (CKD) >90 (>60 ml/min/1.73 sqM); Anion Gap 6 mmol/L; Blood Urea Nitrogen 17 mg/dL (9-20); Calcium 7.2 mg/dL (8.4-10.2); Carbon Dioxide 24 mmol/L (22-30); Chloride 88 mmol/L (98-107); Glucose 94 mg/dL (74-99); Non-African American GFR(CKD) >90 (>60 ml/min/1.73 sqM)
[2022-09-13 17:40] LABS: Sodium 118 mmol/L (137-145)
[2022-09-13] MEDS ORDERED: propofoL 100 ML IV ONE (21:36)
[2022-09-13] MEDS ORDERED: SUCCINYLCHOLINE CHLORIDE 200 MG/10 ML VIAL IV ONE (21:48)
[2022-09-13] MEDS ORDERED: PROPOFOL 10 MG/ML 20 ML VIAL IV ONE (21:48)
[2022-09-13 22:16] LABS: ABG Base Excess -1.8 mmol/L; ABG HCO3 23 mmol/L (21-25); ABG PCO2 37 mmHg (35-45); ABG PO2 308 mmHg (83-108); ABG TCO2 24 mmol/L (19-24); Allen Test Performed? Yes
--- NOTE | 2022-09-13 22:37 | XR ---
EXAMINATION TYPE: XR chest 1V portable DATE OF EXAM: 09/13/2022 COMPARISON: Today HISTORY: Respiratory failure TECHNIQUE: FINDINGS: There is an endotracheal tube 3 cm from the lorie. There is nasogastric tube in the stomac h. There is minimal pulmonary congestion. Heart size is normal. No pleural effusion. There are chest leads. IMPRESSION: Mild pulmonary congestion but no heart failure or pulmonary consolidation.
[2022-09-13 23:52] LABS: Glucose,Whole Blood 96 mg/dL (70-110)
[2022-09-14 03:39] LABS: Basophils % (A) 0 %; Eosinophils # (A) 0.1 k/uL (0-0.7); Eosinophils % (A) 1 %; HCT 32.2 % (39.0-53.0); HGB 11.4 gm/dL (13.0-17.5); Lymphocytes # (A) 0.7 k/uL (1.0-4.8); Lymphocytes % (A) 14 %; MCH 29.4 pg (25.0-35.0); MCHC 35.3 g/dL (31.0-37.0); MCV 83.3 fL (80.0-100.0); Mean Platelet Volume 7.6; Monocytes # (A) 0.4 k/uL (0-1.0); Monocytes % (A) 8 %; Neutrophils % (A) 75 %; Platelet Count 129 k/uL (150-450); RBC 3.87 m/uL (4.30-5.90); RDW 12.4 % (11.5-15.5); WBC 5.3 k/uL (3.8-10.6)
[2022-09-14 03:43] LABS: African American GFR (CKD) >90 (>60 ml/min/1.73 sqM); Anion Gap 7 mmol/L; Blood Urea Nitrogen 17 mg/dL (9-20); Calcium 7.4 mg/dL (8.4-10.2); Carbon Dioxide 22 mmol/L (22-30); Chloride 95 mmol/L (98-107); Glucose 79 mg/dL (74-99); Non-African American GFR(CKD) 89 (>60 ml/min/1.73 sqM); Potassium 3.8 mmol/L (3.5-5.1); Sodium 124 mmol/L (137-145)
[2022-09-14] MEDS ORDERED: POTASSIUM BICARBONATE/CIT AC 20 MEQ TABLET.EFF NG-TUBE SCH (04:00)
[2022-09-14] MEDS: LORazepam 2 MG/ML INJ IV PRN ×2 (04:48→23:13)
[2022-09-14 05:04] LABS: ABG Base Excess -1.4 mmol/L; ABG HCO3 23 mmol/L (21-25); ABG PCO2 36 mmHg (35-45); ABG PH 7.42 (7.35-7.45); ABG PO2 179 mmHg (83-108); ABG TCO2 24 mmol/L (19-24); Allen Test Performed? Yes
[2022-09-14] MEDS: DEXMEDETOMIDINE/0.9% NACL(PMX) 400 MCG in EMPTY BAG 1 BAG IV SCH (06:17)
--- NOTE | 2022-09-14 08:51 | P.PN ---
Subjective Progress Note Date: 09/14/22 62-year-old male patient, alcoholic, brought into the hospital on family request. EMS as the patient has not been eating any food for the past 10 days. He has been drinking significantly and he drinks beer and whiskey. He is an alcoholic and has been drinking excessively over the past 2 years at least. He has had multiple falls at home. No injuries to his head or traumatic head injury. He has bruises over the right cheek. No nausea. No emesis. No aspiration. No seizure activity has been noted. No reported chest pain or shortness of breath. No history of any substance abuse other than alcohol. As the patient was brought into the hospital, the patient was found to be in delirium tremens, increased confusion, agitation and tremors. He was given Ativan on the Route to the hospital. Upon arrival, alcohol level was less than 10, his sodium level was 114, bicarb is 15 with a creatinine of 1.1, normal coagulation profile, his troponin was negative, urine osmolality was 499, urine sodium was less than 20, WBC count at 9.9 with hemoglobin 15.3 and a platelet count of 188. The LFTs are abnormal with an AST of 93, ALT of 79, bilirubin level is at 2.3 and the lactic acid level is down to 1.6. The chest x-ray shows no acute abnormalities. On today's evaluation of 09/14/2022, the patient is intubated on a mechanical ventilator. The patient is, comfortable. Overnight, the patient was becoming progressively more agitated and he has required increased dose of Ativan and he was maximized on Precedex without any adequate control of the situation. Based on that, the patient had to be intubated on placed on a mechanical ventilator. No seizure activity was witnessed. The patient was essentially having delirium tremens. This morning, the patient is intubated on a mechanical ventilator. He is on assist control mode at a rate of 20, tidal volume of 500, FiO2 of 50% with a PEEP of 5. His blood gas from today shows a pH of 7.42 with a pCO2 of 36 and pO2 of 179. His chest x-ray from today shows adequate expansion of both lungs. ET tube is in good location. There is no evidence of any pneumothorax. No areas of any consolidation or airspace disease. No respiratory secretions. The patient is oxygenating and ventilating adequately. Is currently on propofol which is running at 75 mL an hour. His well sedated. He is taken off the hypertonic saline. His sodium gradually improved and this morning is up to 124 and subsequently 125. The rest of the electrolytes show a potassium level of 3.8 and these to be replaced, BUN is at 70 with a creatinine of 0.9. His white cell count is 5.3 with a hemoglobin of 11.4 and a platelet count of 129. Lal cath is in place. Urine output is adequate. He is afebrile. Liver function tests were not obtained. Calcium levels at 7.4. Blood sugars at 96. Objective - Vital Signs Vital signs: Vital Signs Temp 98.2 F 09/14/22 04:00 Pulse 80 09/14/22 08:00 Resp 20 09/14/22 08:00 BP 110/70 09/14/22 08:00 Pulse Ox 99 09/14/22 08:00 FiO2 50 09/14/22 08:00 Intake & Output 09/13/22 09/14/22 09/14/22 18:59 06:59 18:59 Intake Total 222.552 407.483 10 Output Total 1255 1800 300 Balance -1032.448 -1392.517 -290 Weight 102.058 kg 104 kg Intake: IV 220 100 10 0.9 Sodium Chloride 10 Sodium Chloride 3%( 220 100 Hypertonic) 500 ml @ 30 mls/hr IV .[id number] [facility] Rx #:[id number] Intake, IV Titration 2.552 307.483 Amount Dexmedetomidine/0.9% NaCl 2.552 64.041 (Pmx) 400 mcg In Empty Bag 1 bag @ 0.2 MCG/KG/HR 5.103 mls/hr IV .[id number] [facility] Rx#:[id number] propofoL 1,000 mg In 243.442 Empty Bag 1 bag @ 15 MCG/ KG/MIN 9.185 mls/hr IV . [id number] [facility] Rx#:[id number] Output: Urine 1255 1800 300 Other: Voiding Method Indwelling Catheter Indwelling Catheter - Exam Gen. appearance the patient is intubated on a mechanical ventilator, currently sedated on propofol, he is calm and comfortable, not in acute respiratory distress. Head exam was generally normal. There was no scleral icterus or corneal arcus. Mucous membranes were moist. Neck was supple and without jugular venous distension, thyromegaly, or carotid bruits. Carotids were easily palpable bilaterally. There was no adenopathy. The patient has an orogastric and orotracheal tube and both of these were in place Lungs were clear to auscultation and percussion, and with normal diaphragmatic excursion. No wheezes or rales were noted. Cardiac exam revealed the PMI to be normally situated and sized. The rhythm was regular and no extrasystoles were noted during several minutes of auscultation. The first and second heart sounds were normal and physiologic splitting of the second heart sound was noted. There were no murmurs, rubs, clicks, or gallops. Abdominal exam revealed normal bowel sounds. The abdomen was soft, non-tender, and without masses, organomegaly, or appreciable enlargement of the abdominal aorta. Examination of the extremities revealed easily palpable radial, femoral and pedal pulses. There was no cyanosis, clubbing or edema. Neurologically, the patient grimaces to painful stimulation. He withdraws to pain. Ablation all 4 extremities. Pupils are equal reactive to light and around 3 mm in size. No facial asymmetry. The patient has an adequate cough and an adequate gag. - Labs CBC & Chem 7: 09/14/22 03:11 09/14/22 07:00 Labs: Abnormal Lab Results - Last 24 Hours (Table) 09/13/22 09/13/22 09/13/22 Range/Units 08:16 08:16 09:40 RBC (4.30-5.90) m/uL Hgb (13.0-17.5) gm/dL Hct (39.0-53.0) % Plt Count (150-450) k/uL Lymphocytes # (1.0-4.8) k/uL ABG pO2 (83-108) mmHg ABG O2 Saturation (94-97) % Sodium 113 L* (137-145) mmol/L Chloride (98-107) mmol/L Glucose (74-99) mg/dL POC Glucose (mg/dL) (70-110) mg/dL Osmolality 251 L (280-301) mosm/kg Calcium (8.4-10.2) mg/dL Urine Protein (Negative) Urine Blood (Negative) Urine Bilirubin (Negative) Ur Leukocyte Esterase (Negative) Urine RBC (0-5) /hpf Urine WBC (0-5) /hpf Urine Bacteria (None) /hpf Urine Mucus (None) /hpf Ur Random Sodium <20 L (40-220) mmol/L 09/13/22 09/13/22 09/13/22 Range/Units 10:43 10:49 11:00 RBC (4.30-5.90) m/uL Hgb (13.0-17.5) gm/dL Hct (39.0-53.0) % Plt Count (150-450) k/uL Lymphocytes # (1.0-4.8) k/uL ABG pO2 (83-108) mmHg ABG O2 Saturation (94-97) % Sodium 114 L* (137-145) mmol/L Chloride (98-107) mmol/L Glucose (74-99) mg/dL POC Glucose (mg/dL) 124 H (70-110) mg/dL Osmolality (280-301) mosm/kg Calcium (8.4-10.2) mg/dL Urine Protein 1+ H (Negative) Urine Blood Large H (Negative) Urine Bilirubin 1+ H (Negative) Ur Leukocyte Esterase Trace H (Negative) Urine RBC 55 H (0-5) /hpf Urine WBC 9 H (0-5) /hpf Urine Bacteria Rare H (None) /hpf Urine Mucus Rare H (None) /hpf Ur Random Sodium (40-220) mmol/L 09/13/22 09/13/22 09/13/22 Range/Units 12:55 16:45 21:34 RBC (4.30-5.90) m/uL Hgb (13.0-17.5) gm/dL Hct (39.0-53.0) % Plt Count (150-450) k/uL Lymphocytes # (1.0-4.8) k/uL ABG pO2 (83-108) mmHg ABG O2 Saturation (94-97) % Sodium 115 L* 118 L* 121 L (137-145) mmol/L Chloride 87 L 88 L (98-107) mmol/L Glucose 113 H (74-99) mg/dL POC Glucose (mg/dL) (70-110) mg/dL Osmolality (280-301) mosm/kg Calcium 7.2 L 7.2 L (8.4-10.2) mg/dL Urine Protein (Negative) Urine Blood (Negative) Urine Bilirubin (Negative) Ur Leukocyte Esterase (Negative) Urine RBC (0-5) /hpf Urine WBC (0-5) /hpf Urine Bacteria (None) /hpf Urine Mucus (None) /hpf Ur Random Sodium (40-220) mmol/L 09/13/22 09/14/22 09/14/22 Range/Units 22:13 03:11 03:11 RBC 3.87 L (4.30-5.90) m/uL Hgb 11.4 L (13.0-17.5) gm/dL Hct 32.2 L (39.0-53.0) % Plt Count 129 L (150-450) k/uL Lymphocytes # 0.7 L (1.0-4.8) k/uL ABG pO2 308 H (83-108) mmHg ABG O2 Saturation 100.0 H (94-97) % Sodium 124 L (137-145) mmol/L Chloride 95 L (98-107) mmol/L Glucose (74-99) mg/dL POC Glucose (mg/dL) (70-110) mg/dL Osmolality (280-301) mosm/kg Calcium 7.4 L (8.4-10.2) mg/dL Urine Protein (Negative) Urine Blood (Negative) Urine Bilirubin (Negative) Ur Leukocyte Esterase (Negative) Urine RBC (0-5) /hpf Urine WBC (0-5) /hpf Urine Bacteria (None) /hpf Urine Mucus (None) /hpf Ur Random Sodium (40-220) mmol/L 09/14/22 09/14/22 09/14/22 Range/Units 03:11 05:00 07:00 RBC (4.30-5.90) m/uL Hgb (13.0-17.5) gm/dL Hct (39.0-53.0) % Plt Count (150-450) k/uL Lymphocytes # (1.0-4.8) k/uL ABG pO2 179 H (83-108) mmHg ABG O2 Saturation 100.0 H (94-97) % Sodium 124 L 125 L (137-145) mmol/L Chloride (98-107) mmol/L Glucose (74-99) mg/dL POC Glucose (mg/dL) (70-110) mg/dL Osmolality (280-301) mosm/kg Calcium (8.4-10.2) mg/dL Urine Protein (Negative) Urine Blood (Negative) Urine Bilirubin (Negative) Ur Leukocyte Esterase (Negative) Urine RBC (0-5) /hpf Urine WBC (0-5) /hpf Urine Bacteria (None) /hpf Urine Mucus (None) /hpf Ur Random Sodium (40-220) mmol/L Assessment and Plan Plan: Acute delirium tremens, failed conventional treatment with benzodiazepines and Precedex and the patient had to be intubated and placed on a mechanical ventilator and currently is on propofol to control his agitation. Currently intubated on a mechanical ventilator Acute hypoxic respiratory failure, improved post intubation. Noted the patient may have also an underlying component of obstructive sleep apnea as the patient was snoring and having prolonged apneas while being on a combination of Ativan and Precedex. Currently oxygenating and ventilating well. Chest x-ray findings are stable. Altered mental status, secondary to above a combination of alcohol withdrawal syndrome/delirium tremens and acute hyponatremia, sodium level is improving Alcoholic Acute hyperchloremic hypernatremia, could be related to excessive beer drinking. Consider also possibility of hypovolemic hyponatremia. Possibility of SIADH cannot be completely ruled out. Patient is currently on hypertonic saline, 3% normal saline. Subsequent sodium level improved and his sodium level is up to 125. The patient was taken off the hypertonic saline solution currently is on normal saline at rate of 20 mL an hour. Alcoholic liver disease with mild elevation of the LFTs History of fall secondary to above Hypertension Hyperlipidemia Plan Continue ventilator support no ventilator changes other than dropped FiO2 down to 40% We'll establish lines Continue propofol running at 75 mcg/kg/m and titrate for agitation and restlessness The patient needs to stay on a mechanical ventilator for the next 24-48 hours to treat his delirium tremens Sodium levels every 4 hours, the patient was taken off the episodic saline and the patient is currently on normal saline Nephrology consultation regarding the hyponatremia Initiate enteral feeding for nutritional support IV Protonix Lovenox for DVT prophylaxis Continue with Ativan regarding alcohol withdrawal syndrome Thiamine Aspiration precautions We'll continue to follow. Family the bedside. Condition is obviously critical and we'll continue to follow make further recommendations based on patient's progress. He was sent a mechanical ventilator for now. There is a critical care evaluation that was done in more than 30 minutes. Time with Patient: Greater than 30
[2022-09-14] MEDS ORDERED: THIAMINE 100 MG TAB PO SCH (09:00)
[2022-09-14] MEDS: THIAMINE 100 MG/ML 2 ML VIAL IVP SCH (10:29)
[2022-09-14] MEDS: CHLORHEXIDINE GLUCONATE 15 ML CUP MUCOUS MEM SCH ×2 (10:29→20:45)
[2022-09-14] MEDS: PANTOPRAZOLE 40 MG/10 ML VIAL IVP SCH (10:29)
[2022-09-14] MEDS: ENOXAPARIN 40 MG/0.4 ML SYRINGE SQ SCH (10:32)
--- NOTE | 2022-09-14 11:19 | P.PN ---
Subjective Patient is seen for follow-up for hyponatremia associated with excessive alcohol intake as well as a hypovolemic component. Status post 3% saline Serum sodium at 124 today. 3% saline has been discontinued. Agitation from DTs had significantly worsened and patient was eventually intubated. He is currently on the vent FiO2 is at 40%. Good urine output Hemodynamically stable Objective - Vital Signs Vital signs: Vital Signs Temp 98.2 F 09/14/22 04:00 Pulse 78 09/14/22 10:00 Resp 20 09/14/22 10:00 BP 116/76 09/14/22 10:00 Pulse Ox 99 09/14/22 10:00 FiO2 40 09/14/22 10:00 Intake & Output 09/13/22 09/14/22 09/14/22 18:59 06:59 18:59 Intake Total 222.552 407.483 50 Output Total 1255 1800 550 Balance -1032.448 -1392.517 -500 Weight 102.058 kg 104 kg 104 kg Intake: IV 220 100 50 0.9 Sodium Chloride 50 Sodium Chloride 3%( 220 100 Hypertonic) 500 ml @ 30 mls/hr IV .[id number] [facility] Rx #:[id number] Intake, IV Titration 2.552 307.483 Amount Dexmedetomidine/0.9% NaCl 2.552 64.041 (Pmx) 400 mcg In Empty Bag 1 bag @ 0.2 MCG/KG/HR 5.103 mls/hr IV .[id number] [facility] Rx#:[id number] propofoL 1,000 mg In 243.442 Empty Bag 1 bag @ 15 MCG/ KG/MIN 9.185 mls/hr IV . [id number] [facility] Rx#:[id number] Output: Urine 1255 1800 550 Other: Voiding Method Indwelling Catheter Indwelling Catheter Indwelling Catheter - Exam Patient is sedated and on the vent Examination of the heart S1 and S2 Examination of the lungs bilateral breath sounds are heard Abdomen is soft nontender Examination of the lower extremities shows no evidence of edema [employer] exam could not be performed - Labs CBC & Chem 7: 09/14/22 03:11 09/14/22 09:22 Labs: Abnormal Lab Results - Last 24 Hours (Table) 09/13/22 09/13/22 09/13/22 Range/Units 08:16 10:43 11:00 RBC (4.30-5.90) m/uL Hgb (13.0-17.5) gm/dL Hct (39.0-53.0) % Plt Count (150-450) k/uL Lymphocytes # (1.0-4.8) k/uL ABG pO2 (83-108) mmHg ABG O2 Saturation (94-97) % Sodium 114 L* (137-145) mmol/L Chloride (98-107) mmol/L Glucose (74-99) mg/dL Calcium (8.4-10.2) mg/dL Urine Protein 1+ H (Negative) Urine Blood Large H (Negative) Urine Bilirubin 1+ H (Negative) Ur Leukocyte Esterase Trace H (Negative) Urine RBC 55 H (0-5) /hpf Urine WBC 9 H (0-5) /hpf Urine Bacteria Rare H (None) /hpf Urine Mucus Rare H (None) /hpf Ur Random Sodium <20 L (40-220) mmol/L 09/13/22 09/13/22 09/13/22 Range/Units 12:55 16:45 21:34 RBC (4.30-5.90) m/uL Hgb (13.0-17.5) gm/dL Hct (39.0-53.0) % Plt Count (150-450) k/uL Lymphocytes # (1.0-4.8) k/uL ABG pO2 (83-108) mmHg ABG O2 Saturation (94-97) % Sodium 115 L* 118 L* 121 L (137-145) mmol/L Chloride 87 L 88 L (98-107) mmol/L Glucose 113 H (74-99) mg/dL Calcium 7.2 L 7.2 L (8.4-10.2) mg/dL Urine Protein (Negative) Urine Blood (Negative) Urine Bilirubin (Negative) Ur Leukocyte Esterase (Negative) Urine RBC (0-5) /hpf Urine WBC (0-5) /hpf Urine Bacteria (None) /hpf Urine Mucus (None) /hpf Ur Random Sodium (40-220) mmol/L 09/13/22 09/14/22 09/14/22 Range/Units 22:13 03:11 03:11 RBC 3.87 L (4.30-5.90) m/uL Hgb 11.4 L (13.0-17.5) gm/dL Hct 32.2 L (39.0-53.0) % Plt Count 129 L (150-450) k/uL Lymphocytes # 0.7 L (1.0-4.8) k/uL ABG pO2 308 H (83-108) mmHg ABG O2 Saturation 100.0 H (94-97) % Sodium 124 L (137-145) mmol/L Chloride 95 L (98-107) mmol/L Glucose (74-99) mg/dL Calcium 7.4 L (8.4-10.2) mg/dL Urine Protein (Negative) Urine Blood (Negative) Urine Bilirubin (Negative) Ur Leukocyte Esterase (Negative) Urine RBC (0-5) /hpf Urine WBC (0-5) /hpf Urine Bacteria (None) /hpf Urine Mucus (None) /hpf Ur Random Sodium (40-220) mmol/L 09/14/22 09/14/22 09/14/22 Range/Units 03:11 05:00 07:00 RBC (4.30-5.90) m/uL Hgb (13.0-17.5) gm/dL Hct (39.0-53.0) % Plt Count (150-450) k/uL Lymphocytes # (1.0-4.8) k/uL ABG pO2 179 H (83-108) mmHg ABG O2 Saturation 100.0 H (94-97) % Sodium 124 L 125 L (137-145) mmol/L Chloride (98-107) mmol/L Glucose (74-99) mg/dL Calcium (8.4-10.2) mg/dL Urine Protein (Negative) Urine Blood (Negative) Urine Bilirubin (Negative) Ur Leukocyte Esterase (Negative) Urine RBC (0-5) /hpf Urine WBC (0-5) /hpf Urine Bacteria (None) /hpf Urine Mucus (None) /hpf Ur Random Sodium (40-220) mmol/L 09/14/22 Range/Units 09:22 RBC (4.30-5.90) m/uL Hgb (13.0-17.5) gm/dL Hct (39.0-53.0) % Plt Count (150-450) k/uL Lymphocytes # (1.0-4.8) k/uL ABG pO2 (83-108) mmHg ABG O2 Saturation (94-97) % Sodium 125 L (137-145) mmol/L Chloride (98-107) mmol/L Glucose (74-99) mg/dL Calcium (8.4-10.2) mg/dL Urine Protein (Negative) Urine Blood (Negative) Urine Bilirubin (Negative) Ur Leukocyte Esterase (Negative) Urine RBC (0-5) /hpf Urine WBC (0-5) /hpf Urine Bacteria (None) /hpf Urine Mucus (None) /hpf Ur Random Sodium (40-220) mmol/L Assessment and Plan Assessment: 1. Hyponatremia associated with excessive beer/alcohol intake and hypovolemic component. Status post 3% saline. Urine osmolality 499, urine sodium less than 20 2. EtOH abuse 3. Alcoholic liver disease with mildly elevated liver enzymes 4. History of hypertension 5. Microscopic hematuria possibly related to Lal insertion 6. Anion gap metabolic acidosis associated with lactic acidosis, improved 7. DTs Plan: Continue off of 3% saline. Repeat sodium in 4-6 hours Sedation for DTs
--- NOTE | 2022-09-14 13:12 | P.PN ---
Subjective Progress Note Date: 09/14/22 Patient is 62-year-old gentleman with past medical history significant for alcohol abuse, presented to the ER because of multiple falls. Family is at bedside and states that the patient has not eaten any solid foods in 10 days. He has been drinking a significant amount of beer and recently "added whiskey to his diet". He has been drinking every day for the past 2 years. Reports that his last drink was last night at 11 PM. He has been having multiple falls and therefore family called EMS this morning. Patient was worked in the ER, initial lab work showed hemoglobin of 13.0, PTT 20.5, INR 1.2, sodium 140, potassium 4.3, chloride 80, carbonate 14, anion gap 20, lactate level 10.6. Chest x-ray was negative for any acute cardiac process. Patient was admitted to ICU for further evaluation and treatment 09/14. Patient seen and examined. Patient overnight became more agitated, was maxed out on precedex Drip. Patient had to be intubated. Currently comfortable on mechanical ventilation. Vital signs stable REVIEW OF SYSTEMS: Unable to obtain a review of systems patient is currently intubated PHYSICAL EXAMINATION: GENERAL: Currently intubated on mechanical ventilation HEENT: Pupils are round and equally reacting to light. CARDIOVASCULAR: S1 and S2 present. No murmurs, rubs, or gallops. PULMONARY: Chest is clear to auscultation, no wheezing or crackles. ABDOMEN: Soft, nontender, nondistended, normoactive bowel sounds. No palpable organomegaly. MUSCULOSKELETAL: No joint swelling or deformity. EXTREMITIES: No cyanosis, clubbing, or pedal edema. NEUROLOGICAL: Unable to obtain neurological exam because patient is currently intubated SKIN: No rashes. Assessment and plan Acute hypoxic respiratory failure currently on mechanical ventilation Acute delirium tremens Alcohol withdrawal syndrome Alcohol Abuse Hyponatremia Plan; Continue vent management per ICU Continue propranolol per ICU Monitor vital signs Monitor CBC Monitor CMP Continue telemetry monitoring Continue IV fluids Patient started on enteral tube feeding Continue Precedex drip Continue high-dose thiamine and folic acid ICU following Nephrology on board Objective - Vital Signs Vital signs: Vital Signs Temp 98.2 F 09/14/22 04:00 Pulse 78 09/14/22 10:00 Resp 20 09/14/22 10:00 BP 116/76 09/14/22 10:00 Pulse Ox 99 09/14/22 10:00 FiO2 40 09/14/22 10:00 Intake & Output 09/13/22 09/14/22 09/14/22 18:59 06:59 18:59 Intake Total 222.552 407.483 50 Output Total 1255 1800 550 Balance -1032.448 -1392.517 -500 Weight 102.058 kg 104 kg Intake: IV 220 100 50 0.9 Sodium Chloride 50 Sodium Chloride 3%( 220 100 Hypertonic) 500 ml @ 30 mls/hr IV .[id number] [facility] Rx #:[id number] Intake, IV Titration 2.552 307.483 Amount Dexmedetomidine/0.9% NaCl 2.552 64.041 (Pmx) 400 mcg In Empty Bag 1 bag @ 0.2 MCG/KG/HR 5.103 mls/hr IV .[id number] [facility] Rx#:[id number] propofoL 1,000 mg In 243.442 Empty Bag 1 bag @ 15 MCG/ KG/MIN 9.185 mls/hr IV . [id number] [facility] Rx#:[id number] Output: Urine 1255 1800 550 Other: Voiding Method Indwelling Catheter Indwelling Catheter - Labs CBC & Chem 7: 09/14/22 03:11 09/14/22 12:48 Labs: Abnormal Lab Results - Last 24 Hours (Table) 09/13/22 09/13/22 09/13/22 Range/Units 08:16 09:40 10:43 RBC (4.30-5.90) m/uL Hgb (13.0-17.5) gm/dL Hct (39.0-53.0) % Plt Count (150-450) k/uL Lymphocytes # (1.0-4.8) k/uL ABG pO2 (83-108) mmHg ABG O2 Saturation (94-97) % Sodium 113 L* 114 L* (137-145) mmol/L Chloride (98-107) mmol/L Glucose (74-99) mg/dL POC Glucose (mg/dL) (70-110) mg/dL Calcium (8.4-10.2) mg/dL Urine Protein (Negative) Urine Blood (Negative) Urine Bilirubin (Negative) Ur Leukocyte Esterase (Negative) Urine RBC (0-5) /hpf Urine WBC (0-5) /hpf Urine Bacteria (None) /hpf Urine Mucus (None) /hpf Ur Random Sodium <20 L (40-220) mmol/L 09/13/22 09/13/22 09/13/22 Range/Units 10:49 11:00 12:55 RBC (4.30-5.90) m/uL Hgb (13.0-17.5) gm/dL Hct (39.0-53.0) % Plt Count (150-450) k/uL Lymphocytes # (1.0-4.8) k/uL ABG pO2 (83-108) mmHg ABG O2 Saturation (94-97) % Sodium 115 L* (137-145) mmol/L Chloride 87 L (98-107) mmol/L Glucose 113 H (74-99) mg/dL POC Glucose (mg/dL) 124 H (70-110) mg/dL Calcium 7.2 L (8.4-10.2) mg/dL Urine Protein 1+ H (Negative) Urine Blood Large H (Negative) Urine Bilirubin 1+ H (Negative) Ur Leukocyte Esterase Trace H (Negative) Urine RBC 55 H (0-5) /hpf Urine WBC 9 H (0-5) /hpf Urine Bacteria Rare H (None) /hpf Urine Mucus Rare H (None) /hpf Ur Random Sodium (40-220) mmol/L 09/13/22 09/13/22 09/13/22 Range/Units 16:45 21:34 22:13 RBC (4.30-5.90) m/uL Hgb (13.0-17.5) gm/dL Hct (39.0-53.0) % Plt Count (150-450) k/uL Lymphocytes # (1.0-4.8) k/uL ABG pO2 308 H (83-108) mmHg ABG O2 Saturation 100.0 H (94-97) % Sodium 118 L* 121 L (137-145) mmol/L Chloride 88 L (98-107) mmol/L Glucose (74-99) mg/dL POC Glucose (mg/dL) (70-110) mg/dL Calcium 7.2 L (8.4-10.2) mg/dL Urine Protein (Negative) Urine Blood (Negative) Urine Bilirubin (Negative) Ur Leukocyte Esterase (Negative) Urine RBC (0-5) /hpf Urine WBC (0-5) /hpf Urine Bacteria (None) /hpf Urine Mucus (None) /hpf Ur Random Sodium (40-220) mmol/L 09/14/22 09/14/22 09/14/22 Range/Units 03:11 03:11 03:11 RBC 3.87 L (4.30-5.90) m/uL Hgb 11.4 L (13.0-17.5) gm/dL Hct 32.2 L (39.0-53.0) % Plt Count 129 L (150-450) k/uL Lymphocytes # 0.7 L (1.0-4.8) k/uL ABG pO2 (83-108) mmHg ABG O2 Saturation (94-97) % Sodium 124 L 124 L (137-145) mmol/L Chloride 95 L (98-107) mmol/L Glucose (74-99) mg/dL POC Glucose (mg/dL) (70-110) mg/dL Calcium 7.4 L (8.4-10.2) mg/dL Urine Protein (Negative) Urine Blood (Negative) Urine Bilirubin (Negative) Ur Leukocyte Esterase (Negative) Urine RBC (0-5) /hpf Urine WBC (0-5) /hpf Urine Bacteria (None) /hpf Urine Mucus (None) /hpf Ur Random Sodium (40-220) mmol/L 09/14/22 09/14/22 09/14/22 Range/Units 05:00 07:00 09:22 RBC (4.30-5.90) m/uL Hgb (13.0-17.5) gm/dL Hct (39.0-53.0) % Plt Count (150-450) k/uL Lymphocytes # (1.0-4.8) k/uL ABG pO2 179 H (83-108) mmHg ABG O2 Saturation 100.0 H (94-97) % Sodium 125 L 125 L (137-145) mmol/L Chloride (98-107) mmol/L Glucose (74-99) mg/dL POC Glucose (mg/dL) (70-110) mg/dL Calcium (8.4-10.2) mg/dL Urine Protein (Negative) Urine Blood (Negative) Urine Bilirubin (Negative) Ur Leukocyte Esterase (Negative) Urine RBC (0-5) /hpf Urine WBC (0-5) /hpf Urine Bacteria (None) /hpf Urine Mucus (None) /hpf Ur Random Sodium (40-220) mmol/L
[2022-09-14] MEDS: ATORVASTATIN 80 MG TAB PO SCH (20:45)
[2022-09-15 00:17] LABS: Glucose,Whole Blood 91 mg/dL (70-110)
[2022-09-15] MEDS: DEXMEDETOMIDINE/0.9% NACL(PMX) 400 MCG in EMPTY BAG 1 BAG IV SCH ×6 (02:47→22:23)
[2022-09-15 04:51] LABS: ABG Base Excess 1.1 mmol/L; ABG HCO3 25 mmol/L (21-25); ABG Oxygen Saturation 97.8 % (94-97); ABG PCO2 33 mmHg (35-45); ABG PH 7.48 (7.35-7.45); ABG PO2 83 mmHg (83-108); ABG TCO2 26 mmol/L (19-24); Allen Test Performed? Yes
[2022-09-15 05:58] LABS: Glucose,Whole Blood 111 mg/dL (70-110)
[2022-09-15 06:37] LABS: Basophils % (A) 0 %; Eosinophils # (A) 0.1 k/uL (0-0.7); Eosinophils % (A) 1 %; HCT 32.1 % (39.0-53.0); HGB 11.1 gm/dL (13.0-17.5); Lymphocytes # (A) 0.8 k/uL (1.0-4.8); Lymphocytes % (A) 14 %; MCH 29.4 pg (25.0-35.0); MCHC 34.7 g/dL (31.0-37.0); MCV 84.8 fL (80.0-100.0); Mean Platelet Volume 7.3; Monocytes # (A) 0.4 k/uL (0-1.0); Monocytes % (A) 7 %; Neutrophils # (A) 4.5 k/uL (1.3-7.7); Neutrophils % (A) 76 %; Platelet Count 146 k/uL (150-450); RBC 3.79 m/uL (4.30-5.90); RDW 12.6 % (11.5-15.5); WBC 5.9 k/uL (3.8-10.6)
[2022-09-15 07:08] LABS: ALT 74 U/L (4-49); AST 150 U/L (17-59); African American GFR (CKD) >90 (>60 ml/min/1.73 sqM); Albumin 2.7 g/dL (3.5-5.0); Alkaline Phosphatase 88 U/L (38-126); Anion Gap 8 mmol/L; Blood Urea Nitrogen 14 mg/dL (9-20); Calcium 7.5 mg/dL (8.4-10.2); Carbon Dioxide 24 mmol/L (22-30); Chloride 95 mmol/L (98-107); Glucose 93 mg/dL (74-99); Non-African American GFR(CKD) >90 (>60 ml/min/1.73 sqM); Potassium 3.5 mmol/L (3.5-5.1); Sodium 127 mmol/L (137-145); Total Bilirubin 2.2 mg/dL (0.2-1.3); Total Protein 5.2 g/dL (6.3-8.2)
[2022-09-15] MEDS ORDERED: Potassium Replacement Protocol 1 EACH MISC MISCELLANE PRN (07:11)
--- NOTE | 2022-09-15 07:59 | XR ---
EXAMINATION TYPE: XR chest 1V portable DATE OF EXAM: 09/15/2022 COMPARISON: 09/13/2022 HISTORY: Tube placement TECHNIQUE: Single frontal view of the chest is obtained. FINDINGS: ET tube is approximately 4 cm above lorie. Subsegmental changes at the left lung base wit h tiny effusion. No failure or pneumothorax. Heart size stable. IMPRESSION: 1. Left basilar atelectasis or infiltrate with tiny effusion.
[2022-09-15] MEDS: POTASSIUM BICARBONATE/CIT AC 20 MEQ TABLET.EFF NG-TUBE SCH ×2 (08:15→09:26)
--- NOTE | 2022-09-15 08:49 | P.PN ---
Subjective Progress Note Date: 09/15/22 62-year-old male patient, alcoholic, brought into the hospital on family request. EMS as the patient has not been eating any food for the past 10 days. He has been drinking significantly and he drinks beer and whiskey. He is an alcoholic and has been drinking excessively over the past 2 years at least. He has had multiple falls at home. No injuries to his head or traumatic head injury. He has bruises over the right cheek. No nausea. No emesis. No aspiration. No seizure activity has been noted. No reported chest pain or shortness of breath. No history of any substance abuse other than alcohol. As the patient was brought into the hospital, the patient was found to be in delirium tremens, increased confusion, agitation and tremors. He was given Ativan on the Route to the hospital. Upon arrival, alcohol level was less than 10, his sodium level was 114, bicarb is 15 with a creatinine of 1.1, normal coagulation profile, his troponin was negative, urine osmolality was 499, urine sodium was less than 20, WBC count at 9.9 with hemoglobin 15.3 and a platelet count of 188. The LFTs are abnormal with an AST of 93, ALT of 79, bilirubin level is at 2.3 and the lactic acid level is down to 1.6. The chest x-ray shows no acute abnormalities. On today's evaluation of 09/14/2022, the patient is intubated on a mechanical ventilator. The patient is, comfortable. Overnight, the patient was becoming progressively more agitated and he has required increased dose of Ativan and he was maximized on Precedex without any adequate control of the situation. Based on that, the patient had to be intubated on placed on a mechanical ventilator. No seizure activity was witnessed. The patient was essentially having delirium tremens. This morning, the patient is intubated on a mechanical ventilator. He is on assist control mode at a rate of 20, tidal volume of 500, FiO2 of 50% with a PEEP of 5. His blood gas from today shows a pH of 7.42 with a pCO2 of 36 and pO2 of 179. His chest x-ray from today shows adequate expansion of both lungs. ET tube is in good location. There is no evidence of any pneumothorax. No areas of any consolidation or airspace disease. No respiratory secretions. The patient is oxygenating and ventilating adequately. Is currently on propofol which is running at 75 mL an hour. His well sedated. He is taken off the hypertonic saline. His sodium gradually improved and this morning is up to 124 and subsequently 125. The rest of the electrolytes show a potassium level of 3.8 and these to be replaced, BUN is at 70 with a creatinine of 0.9. His white cell count is 5.3 with a hemoglobin of 11.4 and a platelet count of 129. Lal cath is in place. Urine output is adequate. He is afebrile. Liver function tests were not obtained. Calcium levels at 7.4. Blood sugars at 96. On today's evaluation of 09/15/2022, seeing the patient for a follow-up. As mentioned, this is a case of DTs, the patient is currently intubated on a mechanical ventilator, sedated with a combination of propofol and is also requiring on enough dose of Ativan throughout the night. The patient this morning is on propofol which is running at 55 mcg/kg/m. He is coming comfortable. The triglyceride levels are elevated and I'm in the process of switching the propofol to Precedex. The same time, his mentation will be evaluated. His abdomen is to wean will be also evaluated on a daily basis. He has remained hemodynamically stable over the past 24 hours. He remains on mechanical ventilator on assist control mode with a rate of 20, tidal volume of 500, FiO2 40% with a PEEP of 5. Blood gases from today shows a pH of 7.5 with a pCO2 of 33 and pO2 of 83. His chest x-ray from today shows no acute abnormalities. The orotracheal tube is in a good location. The lungs are adequately expanded and there are no significant infiltration. There may be some small left-sided pleural effusion/atelectasis. His seconds at 5.9 with a hemoglobin 11.1 and a platelet count of 146. Sodium level has gradually come up to 127. Is currently on IV fluids with normal saline at rate of 20 mL an hour. Urine output is adequate for now. He is on enteral feeding and the patient is receiving vital high-protein at the rate of 10 mL an hour. No seizure activity has been noted. No fever. No significant orotracheal secretions. No other issues for now. His condition is stable. Objective - Vital Signs Vital signs: Vital Signs Temp 100.3 F H 09/15/22 05:30 Pulse 88 09/15/22 07:00 Resp 20 09/15/22 07:00 BP 134/77 09/15/22 06:00 Pulse Ox 96 09/15/22 07:00 FiO2 40 09/15/22 07:32 Intake & Output 09/14/22 09/15/22 09/15/22 18:59 06:59 18:59 Intake Total 654.198 806.470 30 Output Total 1015 875 75 Balance -360.802 -68.530 -45 Weight 104 kg 103 kg Intake: IV 210 240 20 0.9 Sodium Chloride 210 240 20 Intake, IV Titration 384.198 446.470 Amount propofoL 1,000 mg In 384.198 446.470 Empty Bag 1 bag @ 15 MCG/ KG/MIN 9.185 mls/hr IV . [id number] [facility] Rx#:[id number] Tube Feeding 60 120 10 Output: Urine 1015 875 75 Other: Voiding Method Indwelling Catheter Indwelling Catheter # Bowel Movements 1 ABP, PAP, CO, CI - Last Documented Arterial Blood Pressure 131/59 - Exam Gen. appearance the patient is intubated on a mechanical ventilator, currently sedated on propofol, he is calm and comfortable, not in acute respiratory distress. Head exam was generally normal. There was no scleral icterus or corneal arcus. Mucous membranes were moist. Neck was supple and without jugular venous distension, thyromegaly, or carotid bruits. Carotids were easily palpable bilaterally. There was no adenopathy. The patient has an orogastric and orotracheal tube and both of these were in place Lungs were clear to auscultation and percussion, and with normal diaphragmatic excursion. No wheezes or rales were noted. Cardiac exam revealed the PMI to be normally situated and sized. The rhythm was regular and no extrasystoles were noted during several minutes of auscultation. The first and second heart sounds were normal and physiologic splitting of the second heart sound was noted. There were no murmurs, rubs, clicks, or gallops. Abdominal exam revealed normal bowel sounds. The abdomen was soft, non-tender, and without masses, organomegaly, or appreciable enlargement of the abdominal aorta. Examination of the extremities revealed easily palpable radial, femoral and pedal pulses. There was no cyanosis, clubbing or edema. Neurologically, the patient grimaces to painful stimulation. He withdraws to pain. Ablation all 4 extremities. Pupils are equal reactive to light and around 3 mm in size. No facial asymmetry. The patient has an adequate cough and an adequate gag. - Labs CBC & Chem 7: 09/15/22 05:50 09/15/22 05:50 Labs: Abnormal Lab Results - Last 24 Hours (Table) 09/14/22 09/14/22 09/14/22 Range/Units 09:22 12:48 19:05 RBC (4.30-5.90) m/uL Hgb (13.0-17.5) gm/dL Hct (39.0-53.0) % Plt Count (150-450) k/uL Lymphocytes # (1.0-4.8) k/uL ABG pH (7.35-7.45) ABG pCO2 (35-45) mmHg ABG Total CO2 (19-24) mmol/L ABG O2 Saturation (94-97) % Sodium 125 L 125 L 125 L (137-145) mmol/L Chloride (98-107) mmol/L POC Glucose (mg/dL) (70-110) mg/dL Calcium (8.4-10.2) mg/dL Total Bilirubin (0.2-1.3) mg/dL AST (17-59) U/L ALT (4-49) U/L Total Protein (6.3-8.2) g/dL Albumin (3.5-5.0) g/dL Triglycerides 455.00 H (0.00-149.00) mg/dL 09/15/22 09/15/22 09/15/22 Range/Units 04:49 05:50 05:50 RBC 3.79 L (4.30-5.90) m/uL Hgb 11.1 L (13.0-17.5) gm/dL Hct 32.1 L (39.0-53.0) % Plt Count 146 L (150-450) k/uL Lymphocytes # 0.8 L (1.0-4.8) k/uL ABG pH 7.48 H (7.35-7.45) ABG pCO2 33 L (35-45) mmHg ABG Total CO2 26 H (19-24) mmol/L ABG O2 Saturation 97.8 H (94-97) % Sodium 127 L (137-145) mmol/L Chloride 95 L (98-107) mmol/L POC Glucose (mg/dL) (70-110) mg/dL Calcium 7.5 L (8.4-10.2) mg/dL Total Bilirubin 2.2 H (0.2-1.3) mg/dL AST 150 H (17-59) U/L ALT 74 H (4-49) U/L Total Protein 5.2 L (6.3-8.2) g/dL Albumin 2.7 L (3.5-5.0) g/dL Triglycerides (0.00-149.00) mg/dL 09/15/22 Range/Units 05:57 RBC (4.30-5.90) m/uL Hgb (13.0-17.5) gm/dL Hct (39.0-53.0) % Plt Count (150-450) k/uL Lymphocytes # (1.0-4.8) k/uL ABG pH (7.35-7.45) ABG pCO2 (35-45) mmHg ABG Total CO2 (19-24) mmol/L ABG O2 Saturation (94-97) % Sodium (137-145) mmol/L Chloride (98-107) mmol/L POC Glucose (mg/dL) 111 H (70-110) mg/dL Calcium (8.4-10.2) mg/dL Total Bilirubin (0.2-1.3) mg/dL AST (17-59) U/L ALT (4-49) U/L Total Protein (6.3-8.2) g/dL Albumin (3.5-5.0) g/dL Triglycerides (0.00-149.00) mg/dL Microbiology - Last 24 Hours (Table) 09/14/22 08:05 Gram Stain - Preliminary Sputum Sputum Culture - Preliminary Assessment and Plan Plan: Acute delirium tremens, failed conventional treatment with benzodiazepines and Precedex and the patient had to be intubated and placed on a mechanical ventilator and currently is on propofol to control his agitation. Currently intubated on a mechanical ventilator. The patient was intubated on the 09/13/22 and the patient has been kept on sedation since. He remains on propofol and Ativan is also being utilized Acute hypoxic respiratory failure, improved post intubation. Noted the patient may have also an underlying component of obstructive sleep apnea as the patient was snoring and having prolonged apneas while being on a combination of Ativan and Precedex. Currently oxygenating and ventilating well. Chest x-ray findings are stable. Acute hypertriglyceridemia, exacerbated by the use of propofol at the higher dose Altered mental status, secondary to above a combination of alcohol withdrawal s yndrome/delirium tremens and acute hyponatremia, sodium level is improving, sodium level is at 127 Alcoholic Acute hyperchloremic hypernatremia, improving and a sodium level is up to 127 Alcoholic liver disease with mild elevation of the LFTs History of fall secondary to above Hypertension Hyperlipidemia Plan Continue ventilator support and dropped her respiratory rate down to 14 We'll establish lines, arterial line was inserted Gradually wean this patient off the propofol and use Precedex and continue using Ativan as needed based on the protocol The patient needs to stay on a mechanical ventilator and this will largely depend on his level of alertness and mentation His mental status will be reassessed today His sodium level is improving and the free water flushes of been discontinued Continue normal saline at rate of 20 mL an hour Continue vital high-protein IV Protonix Lovenox for DVT prophylaxis Continue with Ativan regarding alcohol withdrawal syndrome Thiamine Aspiration precautions We'll continue to follow. Family the bedside. Condition is obviously critical and we'll continue to follow make further recommendations based on patient's progress. He was sent a mechanical ventilator for now. There is a critical care evaluation that was done in more than 30 minutes. Time with Patient: Greater than 30
[2022-09-15] MEDS: CHLORHEXIDINE GLUCONATE 15 ML CUP MUCOUS MEM SCH ×2 (09:25→21:16)
[2022-09-15] MEDS: PANTOPRAZOLE 40 MG/10 ML VIAL IVP SCH (09:25)
[2022-09-15] MEDS: THIAMINE 100 MG/ML 2 ML VIAL IVP SCH (09:26)
[2022-09-15] MEDS: ENOXAPARIN 40 MG/0.4 ML SYRINGE SQ SCH (09:38)
[2022-09-15] MEDS: PARoxetine 20 MG TAB PO SCH (09:38)
--- NOTE | 2022-09-15 10:32 | P.PN ---
Subjective Patient is seen for follow-up for hyponatremia associated with excessive alcohol intake as well as a hypovolemic component. Status post 3% saline Currently off of IV fluids and free water flushes. Serum sodium at 127 today. Patient remains intubated however he was able to follow commands this morning. Hemodynamically stable. Objective - Vital Signs Vital signs: Vital Signs Temp 100.3 F H 09/15/22 05:30 Pulse 88 09/15/22 07:00 Resp 20 09/15/22 07:00 BP 134/77 09/15/22 06:00 Pulse Ox 96 09/15/22 07:00 FiO2 40 09/15/22 07:32 Intake & Output 09/14/22 09/15/22 09/15/22 18:59 06:59 18:59 Intake Total 654.198 806.470 127.976 Output Total 1015 875 75 Balance -360.802 -68.530 52.976 Weight 104 kg 103 kg Intake: IV 210 240 20 0.9 Sodium Chloride 210 240 20 Intake, IV Titration 384.198 446.470 97.976 Amount propofoL 1,000 mg In 384.198 446.470 97.976 Empty Bag 1 bag @ 15 MCG/ KG/MIN 9.185 mls/hr IV . [id number] [facility] Rx#:[id number] Tube Feeding 60 120 10 Output: Urine 1015 875 75 Other: Voiding Method Indwelling Catheter Indwelling Catheter # Bowel Movements 1 ABP, PAP, CO, CI - Last Documented Arterial Blood Pressure 131/59 - Exam Patient is sedated and on the vent Examination of the heart S1 and S2 Examination of the lungs bilateral breath sounds are heard Abdomen is soft nontender Examination of the lower extremities shows no evidence of edema CRNA exam could not be performed - Labs CBC & Chem 7: 09/15/22 05:50 09/15/22 05:50 Labs: Abnormal Lab Results - Last 24 Hours (Table) 09/14/22 09/14/22 09/14/22 Range/Units 09:22 12:48 19:05 RBC (4.30-5.90) m/uL Hgb (13.0-17.5) gm/dL Hct (39.0-53.0) % Plt Count (150-450) k/uL Lymphocytes # (1.0-4.8) k/uL ABG pH (7.35-7.45) ABG pCO2 (35-45) mmHg ABG Total CO2 (19-24) mmol/L ABG O2 Saturation (94-97) % Sodium 125 L 125 L (137-145) mmol/L Chloride (98-107) mmol/L POC Glucose (mg/dL) (70-110) mg/dL Calcium (8.4-10.2) mg/dL Total Bilirubin (0.2-1.3) mg/dL AST (17-59) U/L ALT (4-49) U/L Total Protein (6.3-8.2) g/dL Albumin (3.5-5.0) g/dL Triglycerides 455.00 H (0.00-149.00) mg/dL 09/15/22 09/15/22 09/15/22 Range/Units 04:49 05:50 05:50 RBC 3.79 L (4.30-5.90) m/uL Hgb 11.1 L (13.0-17.5) gm/dL Hct 32.1 L (39.0-53.0) % Plt Count 146 L (150-450) k/uL Lymphocytes # 0.8 L (1.0-4.8) k/uL ABG pH 7.48 H (7.35-7.45) ABG pCO2 33 L (35-45) mmHg ABG Total CO2 26 H (19-24) mmol/L ABG O2 Saturation 97.8 H (94-97) % Sodium 127 L (137-145) mmol/L Chloride 95 L (98-107) mmol/L POC Glucose (mg/dL) (70-110) mg/dL Calcium 7.5 L (8.4-10.2) mg/dL Total Bilirubin 2.2 H (0.2-1.3) mg/dL AST 150 H (17-59) U/L ALT 74 H (4-49) U/L Total Protein 5.2 L (6.3-8.2) g/dL Albumin 2.7 L (3.5-5.0) g/dL Triglycerides (0.00-149.00) mg/dL 09/15/22 Range/Units 05:57 RBC (4.30-5.90) m/uL Hgb (13.0-17.5) gm/dL Hct (39.0-53.0) % Plt Count (150-450) k/uL Lymphocytes # (1.0-4.8) k/uL ABG pH (7.35-7.45) ABG pCO2 (35-45) mmHg ABG Total CO2 (19-24) mmol/L ABG O2 Saturation (94-97) % Sodium (137-145) mmol/L Chloride (98-107) mmol/L POC Glucose (mg/dL) 111 H (70-110) mg/dL Calcium (8.4-10.2) mg/dL Total Bilirubin (0.2-1.3) mg/dL AST (17-59) U/L ALT (4-49) U/L Total Protein (6.3-8.2) g/dL Albumin (3.5-5.0) g/dL Triglycerides (0.00-149.00) mg/dL Microbiology - Last 24 Hours (Table) 09/14/22 08:05 Gram Stain - Preliminary Sputum Sputum Culture - Preliminary Assessment and Plan Assessment: 1. Hyponatremia associated with excessive beer/alcohol intake and hypovolemic component. Status post 3% saline. Urine osmolality 499, urine sodium less than 20 2. EtOH abuse 3. Alcoholic liver disease with mildly elevated liver enzymes 4. History of hypertension 5. Microscopic hematuria possibly related to Lal insertion 6. Anion gap metabolic acidosis associated with lactic acidosis, improved 7. DTs Plan: Continue off of IV fluids Repeat sodium at known Continue off of free water flushes as well
[2022-09-15] MEDS: LORazepam 2 MG/ML INJ IV PRN ×3 (11:09→18:59)
[2022-09-15] MEDS: SODIUM CHLORIDE 0.9% 1,000 ML IV SCH (13:45)
--- NOTE | 2022-09-15 15:19 | P.PN ---
Subjective Progress Note Date: 09/15/22 Patient is 62-year-old gentleman with past medical history significant for alcohol abuse, presented to the ER because of multiple falls. Family is at bedside and states that the patient has not eaten any solid foods in 10 days. He has been drinking a significant amount of beer and recently "added whiskey to his diet". He has been drinking every day for the past 2 years. Reports that his last drink was last night at 11 PM. He has been having multiple falls and therefore family called EMS this morning. Patient was worked in the ER, initial lab work showed hemoglobin of 13.0, PTT 20.5, INR 1.2, sodium 140, potassium 4.3, chloride 80, carbonate 14, anion gap 20, lactate level 10.6. Chest x-ray was negative for any acute cardiac process. Patient was admitted to ICU for further evaluation and treatment 09/14. Patient seen and examined. Patient overnight became more agitated, was maxed out on precedex Drip. Patient had to be intubated. Currently comfortable on mechanical ventilation. Vital signs stable 09/15. Patient seen and examined. Continues to be on mechanical ventilation. Currently on propofol and Precedex REVIEW OF SYSTEMS: Unable to obtain a review of systems patient is currently intubated PHYSICAL EXAMINATION: GENERAL: Currently intubated on mechanical ventilation HEENT: Pupils are round and equally reacting to light. CARDIOVASCULAR: S1 and S2 present. No murmurs, rubs, or gallops. PULMONARY: Chest is clear to auscultation, no wheezing or crackles. ABDOMEN: Soft, nontender, nondistended, normoactive bowel sounds. No palpable organomegaly. MUSCULOSKELETAL: No joint swelling or deformity. EXTREMITIES: No cyanosis, clubbing, or pedal edema. NEUROLOGICAL: Unable to obtain neurological exam because patient is currently intubated SKIN: No rashes. Assessment and plan Acute hypoxic respiratory failure currently on mechanical ventilation Acute delirium tremens Alcohol withdrawal syndrome Alcohol Abuse Hyponatremia Plan; Continue vent management per ICU Continue propranolol per ICU Monitor vital signs Monitor CBC Monitor CMP Continue telemetry monitoring Continue IV fluids Continue enteral tube feeding Continue to wean off propofol and continue with Precedex drip Continue high-dose thiamine and folic acid ICU following Nephrology on board Objective - Vital Signs Vital signs: Vital Signs Temp 99.4 F 09/15/22 12:00 Pulse 64 03/29/23 14:45 Resp 23 09/15/22 14:45 BP 129/81 09/15/22 12:15 Pulse Ox 98 09/15/22 14:45 FiO2 40 09/15/22 14:44 Intake & Output 09/14/22 09/15/22 09/15/22 18:59 06:59 18:59 Intake Total 654.198 806.470 431.333 Output Total 1015 875 845 Balance -360.802 -68.530 -413.667 Weight 104 kg 103 kg Intake: IV 210 240 181 0.9 Sodium Chloride 210 240 161 Invasive Line 6 20 Intake, IV Titration 384.198 446.470 200.333 Amount Dexmedetomidine/0.9% NaCl 93.172 (Pmx) 400 mcg In Empty Bag 1 bag @ 0.2 MCG/KG/HR 5.15 mls/hr IV .[id number] [facility] Rx#:[id number] propofoL 1,000 mg In 384.198 446.470 107.161 Empty Bag 1 bag @ 15 MCG/ KG/MIN 9.185 mls/hr IV . [id number] [facility] Rx#:[id number] Tube Feeding 60 120 50 Output: Urine 1015 875 845 Other: Voiding Method Indwelling Catheter Indwelling Catheter Indwelling Catheter # Bowel Movements 1 ABP, PAP, CO, CI - Last Documented Arterial Blood Pressure 162/74 - Labs CBC & Chem 7: 09/15/22 05:50 09/15/22 12:23 Labs: Abnormal Lab Results - Last 24 Hours (Table) 09/14/22 09/14/22 09/15/22 Range/Units 09:22 19:05 04:49 RBC (4.30-5.90) m/uL Hgb (13.0-17.5) gm/dL Hct (39.0-53.0) % Plt Count (150-450) k/uL Lymphocytes # (1.0-4.8) k/uL ABG pH 7.48 H (7.35-7.45) ABG pCO2 33 L (35-45) mmHg ABG Total CO2 26 H (19-24) mmol/L ABG O2 Saturation 97.8 H (94-97) % Sodium 125 L (137-145) mmol/L Chloride (98-107) mmol/L POC Glucose (mg/dL) (70-110) mg/dL Calcium (8.4-10.2) mg/dL Total Bilirubin (0.2-1.3) mg/dL AST (17-59) U/L ALT (4-49) U/L Total Protein (6.3-8.2) g/dL Albumin (3.5-5.0) g/dL Triglycerides 455.00 H (0.00-149.00) mg/dL 09/15/22 09/15/22 09/15/22 Range/Units 05:50 05:50 05:57 RBC 3.79 L (4.30-5.90) m/uL Hgb 11.1 L (13.0-17.5) gm/dL Hct 32.1 L (39.0-53.0) % Plt Count 146 L (150-450) k/uL Lymphocytes # 0.8 L (1.0-4.8) k/uL ABG pH (7.35-7.45) ABG pCO2 (35-45) mmHg ABG Total CO2 (19-24) mmol/L ABG O2 Saturation (94-97) % Sodium 127 L (137-145) mmol/L Chloride 95 L (98-107) mmol/L POC Glucose (mg/dL) 111 H (70-110) mg/dL Calcium 7.5 L (8.4-10.2) mg/dL Total Bilirubin 2.2 H (0.2-1.3) mg/dL AST 150 H (17-59) U/L ALT 74 H (4-49) U/L Total Protein 5.2 L (6.3-8.2) g/dL Albumin 2.7 L (3.5-5.0) g/dL Triglycerides (0.00-149.00) mg/dL 09/15/22 Range/Units 12:23 RBC (4.30-5.90) m/uL Hgb (13.0-17.5) gm/dL Hct (39.0-53.0) % Plt Count (150-450) k/uL Lymphocytes # (1.0-4.8) k/uL ABG pH (7.35-7.45) ABG pCO2 (35-45) mmHg ABG Total CO2 (19-24) mmol/L ABG O2 Saturation (94-97) % Sodium 127 L (137-145) mmol/L Chloride (98-107) mmol/L POC Glucose (mg/dL) (70-110) mg/dL Calcium (8.4-10.2) mg/dL Total Bilirubin (0.2-1.3) mg/dL AST (17-59) U/L ALT (4-49) U/L Total Protein (6.3-8.2) g/dL Albumin (3.5-5.0) g/dL Triglycerides (0.00-149.00) mg/dL Microbiology - Last 24 Hours (Table) 09/14/22 08:05 Gram Stain - Preliminary Sputum Sputum Culture - Preliminary
[2022-09-15] MEDS: cloNIDine HCL 0.2 MG TAB PO SCH ×2 (15:53→21:16)
[2022-09-15] MEDS ORDERED: SODIUM CHLORIDE 0.9% 1,000 ML IV ONE (17:11)
[2022-09-15] MEDS: SODIUM CHLORIDE 0.9% 80 ML with fentaNYL (PF) 1,000 MCG IV SCH ×2 (20:04)
[2022-09-15 20:37] LABS: Chloride 100 mmol/L (98-107)
[2022-09-15 20:38] LABS: African American GFR (CKD) >90 (>60 ml/min/1.73 sqM); Anion Gap 8 mmol/L; Blood Urea Nitrogen 14 mg/dL (9-20); Calcium 7.1 mg/dL (8.4-10.2); Carbon Dioxide 20 mmol/L (22-30); Glucose 121 mg/dL (74-99); Non-African American GFR(CKD) >90 (>60 ml/min/1.73 sqM); Sodium 128 mmol/L (137-145)
[2022-09-15] MEDS: ATORVASTATIN 80 MG TAB PO SCH (21:16)
[2022-09-16] MEDS: hydrALAZINE HCL 20 MG/ML 1 ML VIAL IVP PRN ×4 (00:27→21:18)
[2022-09-16] MEDS: DEXMEDETOMIDINE/0.9% NACL(PMX) 400 MCG in EMPTY BAG 1 BAG IV SCH ×7 (00:35→22:03)
[2022-09-16] MEDS: LORazepam 2 MG/ML INJ IV PRN ×4 (02:55→23:12)
[2022-09-16] MEDS: SODIUM CHLORIDE 0.9% 80 ML with fentaNYL (PF) 1,000 MCG IV SCH ×8 (03:15→23:49)
[2022-09-16 04:37] LABS: ABG Base Excess -3.4 mmol/L; ABG HCO3 22 mmol/L (21-25); ABG Oxygen Saturation 97.8 % (94-97); ABG PCO2 36 mmHg (35-45); ABG PH 7.39 (7.35-7.45); ABG PO2 95 mmHg (83-108); ABG TCO2 23 mmol/L (19-24)
[2022-09-16 04:40] LABS: Allen Test Performed? no
[2022-09-16 04:56] LABS: Basophils % (A) 0 %; Eosinophils # (A) 0.2 k/uL (0-0.7); Eosinophils % (A) 2 %; HCT 33.2 % (39.0-53.0); Lymphocytes # (A) 0.9 k/uL (1.0-4.8); Lymphocytes % (A) 13 %; MCH 28.6 pg (25.0-35.0); MCHC 33.2 g/dL (31.0-37.0); Mean Platelet Volume 7.9; Monocytes # (A) 0.5 k/uL (0-1.0); Monocytes % (A) 7 %; Neutrophils % (A) 75 %; Platelet Count 158 k/uL (150-450); RBC 3.86 m/uL (4.30-5.90); RDW 12.6 % (11.5-15.5); WBC 6.7 k/uL (3.8-10.6)
[2022-09-16 05:35] LABS: African American GFR (CKD) >90 (>60 ml/min/1.73 sqM); Anion Gap 8 mmol/L; Blood Urea Nitrogen 14 mg/dL (9-20); Calcium 7.2 mg/dL (8.4-10.2); Carbon Dioxide 20 mmol/L (22-30); Chloride 101 mmol/L (98-107); Glucose 113 mg/dL (74-99); Non-African American GFR(CKD) >90 (>60 ml/min/1.73 sqM); Potassium 4.2 mmol/L (3.5-5.1); Sodium 129 mmol/L (137-145)
[2022-09-16] MEDS: PANTOPRAZOLE 40 MG/10 ML VIAL IVP SCH (08:21)
[2022-09-16] MEDS: CHLORHEXIDINE GLUCONATE 15 ML CUP MUCOUS MEM SCH ×2 (08:21→21:18)
[2022-09-16] MEDS: ENOXAPARIN 40 MG/0.4 ML SYRINGE SQ SCH (08:21)
[2022-09-16] MEDS: PARoxetine 20 MG TAB PO SCH (08:21)
[2022-09-16] MEDS: THIAMINE 100 MG/ML 2 ML VIAL IVP SCH (08:27)
[2022-09-16] MEDS: SODIUM CHLORIDE 0.9% 1,000 ML IV SCH ×2 (08:27→10:00)
[2022-09-16] MEDS: cloNIDine HCL 0.2 MG TAB PO SCH ×3 (08:27→21:18)
--- NOTE | 2022-09-16 08:36 | XR ---
EXAMINATION TYPE: XR chest 1V portable DATE OF EXAM: 09/16/2022 COMPARISON: 09/15/2022 INDICATION: Tube placement TECHNIQUE: Single frontal view of the chest is obtained. FINDINGS: The heart size is normal. The pulmonary vasculature is normal. Some mild infiltrate may be along the left base. Correlate for subsegmental atelectasis. Endotracheal tube is in place with tip above the lorie. Nasogastric tube transverses the thorax. IMPRESSION: 1. Suggestion of mild subsegmental atelectasis left base. 2. Lines and catheters discussed above.
--- NOTE | 2022-09-16 09:48 | P.PN ---
Subjective Progress Note Date: 09/16/22 62-year-old male patient, alcoholic, brought into the hospital on family request. EMS as the patient has not been eating any food for the past 10 days. He has been drinking significantly and he drinks beer and whiskey. He is an alcoholic and has been drinking excessively over the past 2 years at least. He has had multiple falls at home. No injuries to his head or traumatic head injury. He has bruises over the right cheek. No nausea. No emesis. No aspiration. No seizure activity has been noted. No reported chest pain or shortness of breath. No history of any substance abuse other than alcohol. As the patient was brought into the hospital, the patient was found to be in delirium tremens, increased confusion, agitation and tremors. He was given Ativan on the Route to the hospital. Upon arrival, alcohol level was less than 10, his sodium level was 114, bicarb is 15 with a creatinine of 1.1, normal coagulation profile, his troponin was negative, urine osmolality was 499, urine sodium was less than 20, WBC count at 9.9 with hemoglobin 15.3 and a platelet count of 188. The LFTs are abnormal with an AST of 93, ALT of 79, bilirubin level is at 2.3 and the lactic acid level is down to 1.6. The chest x-ray shows no acute abnormalities. On today's evaluation of 09/14/2022, the patient is intubated on a mechanical ventilator. The patient is, comfortable. Overnight, the patient was becoming progressively more agitated and he has required increased dose of Ativan and he was maximized on Precedex without any adequate control of the situation. Based on that, the patient had to be intubated on placed on a mechanical ventilator. No seizure activity was witnessed. The patient was essentially having delirium tremens. This morning, the patient is intubated on a mechanical ventilator. He is on assist control mode at a rate of 20, tidal volume of 500, FiO2 of 50% with a PEEP of 5. His blood gas from today shows a pH of 7.42 with a pCO2 of 36 and pO2 of 179. His chest x-ray from today shows adequate expansion of both lungs. ET tube is in good location. There is no evidence of any pneumothorax. No areas of any consolidation or airspace disease. No respiratory secretions. The patient is oxygenating and ventilating adequately. Is currently on propofol which is running at 75 mL an hour. His well sedated. He is taken off the hypertonic saline. His sodium gradually improved and this morning is up to 124 and subsequently 125. The rest of the electrolytes show a potassium level of 3.8 and these to be replaced, BUN is at 70 with a creatinine of 0.9. His white cell count is 5.3 with a hemoglobin of 11.4 and a platelet count of 129. Lal cath is in place. Urine output is adequate. He is afebrile. Liver function tests were not obtained. Calcium levels at 7.4. Blood sugars at 96. On today's evaluation of 09/15/2022, seeing the patient for a follow-up. As mentioned, this is a case of DTs, the patient is currently intubated on a mechanical ventilator, sedated with a combination of propofol and is also requiring on enough dose of Ativan throughout the night. The patient this morning is on propofol which is running at 55 mcg/kg/m. He is coming comfortable. The triglyceride levels are elevated and I'm in the process of switching the propofol to Precedex. The same time, his mentation will be evaluated. His abdomen is to wean will be also evaluated on a daily basis. He has remained hemodynamically stable over the past 24 hours. He remains on mechanical ventilator on assist control mode with a rate of 20, tidal volume of 500, FiO2 40% with a PEEP of 5. Blood gases from today shows a pH of 7.5 with a pCO2 of 33 and pO2 of 83. His chest x-ray from today shows no acute abnormalities. The orotracheal tube is in a good location. The lungs are adequately expanded and there are no significant infiltration. There may be some small left-sided pleural effusion/atelectasis. His seconds at 5.9 with a hemoglobin 11.1 and a platelet count of 146. Sodium level has gradually come up to 127. Is currently on IV fluids with normal saline at rate of 20 mL an hour. Urine output is adequate for now. He is on enteral feeding and the patient is receiving vital high-protein at the rate of 10 mL an hour. No seizure activity has been noted. No fever. No significant orotracheal secretions. No other issues for now. His condition is stable. On 09/16/2022, the patient is being seen for a follow-up. We managed to get the patient off the propofol and the patient is currently on Precedex which is running at the highest dose of 1.4 mcg/kg/h and the patient is also on fentanyl at 1 mcg/kg/h. Arousable, lethargic, not consistent in following commands, neurologic exam is nonfocal and he continues to move all 4 extremities. He has a very strong cough reflex patient will being suctioned. He remains on a mechanical ventilator. His urine output was low and he was given a bolus of normal saline yesterday which improved his urine output. His electrolytes today are stable. His sodium level is currently at 129 with a potassium level of 4.2, BUN is at 40 with a creatinine of 0.7. His CBC is also stable with a hemoglobin of 11 and a platelet count of 158. On a separate note, the patient remains on a mechanical ventilator. Is currently on a assist control mode rate of 14, tidal volume of 500, FiO2 40% with a PEEP of 5. There is improvement in his acid base status. His pH is at 7.39 with a pCO2 of 36 and pO2 of 95. Repeat chest x-ray from today shows stable findings. No evidence of any pneumonia. There is left lower lobe atelectasis. ET tube is in a I location an NG tube is in place. Is receiving enteral feeding for nutritional support. Is on vital high-protein at the rate of 10 mL an hour. He did spike a temperature 100.5 today. He has been spiking low-grade fever since yesterday. Objective - Vital Signs Vital signs: Vital Signs Temp 100.5 F H 09/16/22 08:00 Pulse 68 09/16/22 08:15 Resp 18 09/16/22 08:15 BP 155/94 09/16/22 07:15 Pulse Ox 94 L 09/16/22 08:15 FiO2 40 09/16/22 08:39 Intake & Output 09/15/22 09/16/22 09/16/22 18:59 06:59 18:59 Intake Total 9855.624 2272.610 215.524 Output Total 981 440 120 Balance 906.118 837.610 95.524 Weight 103 kg Intake: IV 1485.5 636 116 0.9 Sodium Chloride 193 36 6 Invasive Line 4 10 Invasive Line 6 30 Sodium Chloride 0.9% 1, 262.5 600 100 000 ml @ 50 mls/hr IV . Q20H [facility] Rx#:[id number] Sodium Chloride 0.9% 1, 1000 000 ml @ 999 mls/hr IV . Q1H1M ONE Rx#:[id number] Intake, IV Titration 281.618 521.610 89.524 Amount Dexmedetomidine/0.9% NaCl 174.457 447.622 89.524 (Pmx) 400 mcg In Empty Bag 1 bag @ 0.2 MCG/KG/HR 5.15 mls/hr IV .[id number] [facility] Rx#:[id number] Sodium Chloride 0.9% 80 73.988 ml @ 1 MCG/KG/HR 10.3 mls /hr IV .[id number] [facility] with fentaNYL (PF) 1,000 mcg Rx#:[id number] propofoL 1,000 mg In 107.161 Empty Bag 1 bag @ 15 MCG/ KG/MIN 9.185 mls/hr IV . [id number] [facility] Rx#:[id number] Tube Feeding 120 120 10 Output: Urine 981 440 120 Other: Voiding Method Indwelling Catheter Indwelling Catheter ABP, PAP, CO, CI - Last Documented Arterial Blood Pressure 167/73 - Exam Gen. appearance the patient is intubated on a mechanical ventilator, currently sedated on Precedex and fentanyl he is calm and comfortable, not in acute respiratory distress. Head exam was generally normal. There was no scleral icterus or corneal arcus. Mucous membranes were moist. Neck was supple and without jugular venous distension, thyromegaly, or carotid bruits. Carotids were easily palpable bilaterally. There was no adenopathy. The patient has an orogastric and orotracheal tube and both of these were in place Lungs were clear to auscultation and percussion, and with normal diaphragmatic excursion. No wheezes or rales were noted. Cardiac exam revealed the PMI to be normally situated and sized. The rhythm was regular and no extrasystoles were noted during several minutes of auscultation. The first and second heart sounds were normal and physiologic splitting of the second heart sound was noted. There were no murmurs, rubs, clicks, or gallops. Abdominal exam revealed normal bowel sounds. The abdomen was soft, non-tender, and without masses, organomegaly, or appreciable enlargement of the abdominal aorta. Examination of the extremities revealed easily palpable radial, femoral and pedal pulses. There was no cyanosis, clubbing or edema. Neurologically, the patient grimaces to painful stimulation. He withdraws to pain. Ablation all 4 extremities. Pupils are equal reactive to light and around 3 mm in size. No facial asymmetry. The patient has an adequate cough and an adequate gag. - Labs CBC & Chem 7: 09/16/22 04:35 09/16/22 04:35 Labs: Abnormal Lab Results - Last 24 Hours (Table) 09/15/22 09/15/22 09/16/22 Range/Units 12:23 19:28 04:32 RBC (4.30-5.90) m/uL Hgb (13.0-17.5) gm/dL Hct (39.0-53.0) % Lymphocytes # (1.0-4.8) k/uL ABG O2 Saturation 97.8 H (94-97) % Sodium 127 L 128 L (137-145) mmol/L Carbon Dioxide 20 L (22-30) mmol/L Glucose 121 H (74-99) mg/dL Calcium 7.1 L (8.4-10.2) mg/dL 09/16/22 09/16/22 Range/Units 04:35 04:35 RBC 3.86 L (4.30-5.90) m/uL Hgb 11.0 L (13.0-17.5) gm/dL Hct 33.2 L (39.0-53.0) % Lymphocytes # 0.9 L (1.0-4.8) k/uL ABG O2 Saturation (94-97) % Sodium 129 L (137-145) mmol/L Carbon Dioxide 20 L (22-30) mmol/L Glucose 113 H (74-99) mg/dL Calcium 7.2 L (8.4-10.2) mg/dL Microbiology - Last 24 Hours (Table) 09/14/22 08:05 Gram Stain - Preliminary Sputum Sputum Culture - Preliminary Assessment and Plan Plan: Acute delirium tremens, failed conventional treatment with benzodiazepines and Precedex and the patient had to be intubated and placed on a mechanical ventilator and currently is on Precedex and fentanyl drips to control his agitation. Currently intubated on a mechanical ventilator. The patient was intubated on the 09/13/22 and the patient has been kept on sedation since. He remains on Precedex and fentanyl and Ativan is also being utilized Acute hypoxic respiratory failure, improved post intubation. Noted the patient may have also an underlying component of obstructive sleep apnea as the patient was snoring and having prolonged apneas while being on a combination of Ativan and Precedex. Currently oxygenating and ventilating well. Chest x-ray findings are stable.. Noted the patient is having low-grade fever and there is a left lower lobe atelectasis/infiltrates. Consider possibility of a hospital-acquired pneumonia. The patient will be started on IV Zosyn. Pro-calcitonin level will be checked. Sputum samples will be also obtained. Acute hypertriglyceridemia, exacerbated by the use of propofol at the higher dose in addition to some baseline hypertriglyceridemia. The patient was taken off the propofol. Altered mental status, secondary to above a combination of alcohol withdrawal syndrome/delirium tremens and acute hyponatremia, sodium level is improving, sodium level is at 129 Alcoholic Acute hyperchloremic hypernatremia, improving and a sodium level is up to 129 Alcoholic liver disease with mild elevation of the LFTs History of fall secondary to above Hypertension Hyperlipidemia Plan Continue ventilator support and no changes for today Check sputum Gram stain and culture, check pro calcitonin level Start the patient IV Zosyn as an empiric antibiotic coverage for suspected left lower lobe hospital-acquired pneumonia We will gradually wean off the fentanyl and keep some baseline Precedex Assess his mental status and his level of education and decide if he is potentially amenable Continue vital high-protein Increase IV fluids to normal saline at the rate of 75 mL an hour IV Protonix Lovenox for DVT prophylaxis Continue with Ativan regarding alcohol withdrawal syndrome Thiamine Aspiration precautions We'll continue to follow. Family the bedside. Condition is obviously critical and we'll continue to follow make further recommendations based on patient's progress. He was sent a mechanical ventilator for now. There is a critical care evaluation that was done in more than 30 minutes.
--- NOTE | 2022-09-16 11:42 | P.PN ---
Subjective Patient is seen for follow-up for hyponatremia associated with excessive alcohol intake as well as a hypovolemic component. Status post 3% saline Started normal saline last night at 50 mL an hour. Serum sodium was 129 this morning and saline has been increased to 75 mL per hour. Patient remains intubated however he opens his eyes, responds to verbal stimuli but does not follow commands Hemodynamically stable. Objective - Vital Signs Vital signs: Vital Signs Temp 100.5 F H 09/16/22 08:00 Pulse 69 09/16/22 10:00 Resp 20 09/16/22 10:00 BP 155/94 09/16/22 07:15 Pulse Ox 95 09/16/22 10:00 FiO2 40 09/16/22 11:34 Intake & Output 09/15/22 09/16/22 09/16/22 18:59 06:59 18:59 Intake Total 3710.928 1849.610 346.524 Output Total 981 440 180 Balance 906.118 837.610 166.524 Weight 103 kg Intake: IV 1485.5 636 247 0.9 Sodium Chloride 193 36 12 Invasive Line 4 10 Invasive Line 6 30 Sodium Chloride 0.9% 1, 262.5 600 225 000 ml @ 50 mls/hr IV . Q20H [facility] Rx#:[id number] Sodium Chloride 0.9% 1, 1000 000 ml @ 999 mls/hr IV . Q1H1M ONE Rx#:[id number] Intake, IV Titration 281.618 521.610 89.524 Amount Dexmedetomidine/0.9% NaCl 174.457 447.622 89.524 (Pmx) 400 mcg In Empty Bag 1 bag @ 0.2 MCG/KG/HR 5.15 mls/hr IV .[id number] [facility] Rx#:[id number] Sodium Chloride 0.9% 80 73.988 ml @ 1 MCG/KG/HR 10.3 mls /hr IV .[id number] [facility] with fentaNYL (PF) 1,000 mcg Rx#:[id number] propofoL 1,000 mg In 107.161 Empty Bag 1 bag @ 15 MCG/ KG/MIN 9.185 mls/hr IV . [id number] [facility] Rx#:[id number] Tube Feeding 120 120 10 Output: Urine 981 440 180 Other: Voiding Method Indwelling Catheter Indwelling Catheter ABP, PAP, CO, CI - Last Documented Arterial Blood Pressure 153/63 - Exam Patient is sedated and on the vent Examination of the heart S1 and S2 Examination of the lungs bilateral breath sounds are heard Abdomen is soft nontender Examination of the lower extremities shows no evidence of edema SALVAGE GRINDER exam could not be performed - Labs CBC & Chem 7: 09/16/22 04:35 09/16/22 04:35 Labs: Abnormal Lab Results - Last 24 Hours (Table) 09/15/22 09/15/22 09/16/22 Range/Units 12:23 19:28 04:32 RBC (4.30-5.90) m/uL Hgb (13.0-17.5) gm/dL Hct (39.0-53.0) % Lymphocytes # (1.0-4.8) k/uL ABG O2 Saturation 97.8 H (94-97) % Sodium 127 L 128 L (137-145) mmol/L Carbon Dioxide 20 L (22-30) mmol/L Glucose 121 H (74-99) mg/dL Calcium 7.1 L (8.4-10.2) mg/dL 09/16/22 09/16/22 Range/Units 04:35 04:35 RBC 3.86 L (4.30-5.90) m/uL Hgb 11.0 L (13.0-17.5) gm/dL Hct 33.2 L (39.0-53.0) % Lymphocytes # 0.9 L (1.0-4.8) k/uL ABG O2 Saturation (94-97) % Sodium 129 L (137-145) mmol/L Carbon Dioxide 20 L (22-30) mmol/L Glucose 113 H (74-99) mg/dL Calcium 7.2 L (8.4-10.2) mg/dL Microbiology - Last 24 Hours (Table) 09/14/22 08:05 Gram Stain - Preliminary Sputum Sputum Culture - Preliminary Assessment and Plan Assessment: 1. Hyponatremia associated with excessive beer/alcohol intake and hypovolemic component. Status post 3% saline. Urine osmolality 499, urine sodium less than 20. Currently maintained on normal saline. 2. EtOH abuse 3. Alcoholic liver disease with mildly elevated liver enzymes 4. History of hypertension 5. Microscopic hematuria possibly related to Lal insertion 6. Anion gap metabolic acidosis associated with lactic acidosis, improved 7. DTs Plan: Continue saline Repeat sodium this afternoon Continue off of free water flushes.
[2022-09-16] MEDS: PIPERACILLIN-TAZOBACTAM 3.375 GM in SODIUM CHLORIDE 0.9% 100 ML IVPB SCH ×2 (12:55→17:51)
[2022-09-16] MEDS ORDERED: ACETAMINOPHEN IV (For NPO) 1,000 MG in EMPTY BAG 1 BAG IVPB PRN (13:29)
--- NOTE | 2022-09-16 15:11 | P.PCN ---
Date of Procedure: 09/14/22 Preoperative Diagnosis: Delirium tremens Postoperative Diagnosis: Acute hypoxic respiratory failure, delirium tremens Procedure(s) Performed: Insertion of arterial line Anesthesia: local Surgeon: Taylor Scott [employer] Supervisor #1: Isaak Myers Pathology: none sent Condition: critical Disposition: ICU Operative Findings: Indication: Hemodynamic monitoring. A time-out was completed verifying correct patient, procedure, site, positioning, and implant(s) or special equipment if applicable. Allens test was performed to ensure adequate perfusion. The patient s left wrist was prepped and draped in sterile fashion. 1% Lidocaine was used to anesthetize the area. An 18G Arrow arterial line was introduced into the radial artery. The catheter was threaded over the guide wire and the needle was removed with appropriate pulsatile blood return. Blood loss was minimal. The catheter was then sutured in place to the skin and a sterile dressing applied. Perfusion to the extremity distal to the point of catheter insertion was checked and found to be adequate. The patient tolerated the procedure well and there were no complications.
[2022-09-16] MEDS: ATORVASTATIN 80 MG TAB PO SCH (21:18)
[2022-09-17] MEDS: DEXMEDETOMIDINE/0.9% NACL(PMX) 400 MCG in EMPTY BAG 1 BAG IV SCH ×8 (00:39→21:51)
[2022-09-17] MEDS: SODIUM CHLORIDE 0.9% 80 ML with fentaNYL (PF) 1,000 MCG IV SCH ×6 (03:56→17:07)
[2022-09-17] MEDS: LORazepam 2 MG/ML INJ IV PRN ×4 (04:21→20:21)
[2022-09-17] MEDS: PIPERACILLIN-TAZOBACTAM 3.375 GM in SODIUM CHLORIDE 0.9% 100 ML IVPB SCH ×3 (04:27→17:06)
[2022-09-17 04:53] LABS: HCT 31.4 % (39.0-53.0); HGB 10.5 gm/dL (13.0-17.5); MCH 29.1 pg (25.0-35.0); MCHC 33.4 g/dL (31.0-37.0); Platelet Count 206 k/uL (150-450); RBC 3.61 m/uL (4.30-5.90); RDW 12.7 % (11.5-15.5)
[2022-09-17 05:02] LABS: ALT 67 U/L (4-49); AST 88 U/L (17-59); African American GFR (CKD) >90 (>60 ml/min/1.73 sqM); Albumin 2.7 g/dL (3.5-5.0); Alkaline Phosphatase 83 U/L (38-126); Anion Gap 7 mmol/L; Blood Urea Nitrogen 16 mg/dL (9-20); Calcium 7.3 mg/dL (8.4-10.2); Carbon Dioxide 22 mmol/L (22-30); Chloride 104 mmol/L (98-107); Glucose 108 mg/dL (74-99); Magnesium 2.3 mg/dL (1.6-2.3); Non-African American GFR(CKD) >90 (>60 ml/min/1.73 sqM); Potassium 3.9 mmol/L (3.5-5.1); Sodium 133 mmol/L (137-145); Total Protein 5.2 g/dL (6.3-8.2)
[2022-09-17] MEDS: SODIUM CHLORIDE 0.9% 1,000 ML IV SCH ×2 (05:46→17:09)
[2022-09-17 05:47] LABS: ABG Base Excess -4.1 mmol/L; ABG HCO3 22 mmol/L (21-25); ABG Oxygen Saturation 97.3 % (94-97); ABG PCO2 40 mmHg (35-45); ABG PH 7.34 (7.35-7.45); ABG PO2 93 mmHg (83-108); ABG TCO2 23 mmol/L (19-24); Allen Test Performed? Yes
[2022-09-17] MEDS ORDERED: POTASSIUM BICARBONATE/CIT AC 20 MEQ TABLET.EFF NG-TUBE SCH (06:00)
--- NOTE | 2022-09-17 07:44 | XR ---
EXAMINATION TYPE: XR chest 1V portable DATE OF EXAM: 09/17/2022 COMPARISON: 09/16/2022 HISTORY: Postsurgical TECHNIQUE: Single frontal view of the chest is obtained. FINDINGS: ET and NG tube stable. Bilateral consolidation and small effusion. Heart is enlarged. The risks. Limited inspiration. IMPRESSION: Bilateral consolidation and small effusion in the basis of postoperative atelectasis. Mi ld venous congestion not excluded. Findings stable.
[2022-09-17] MEDS: PARoxetine 20 MG TAB PO SCH (08:44)
[2022-09-17] MEDS: THIAMINE 100 MG/ML 2 ML VIAL IVP SCH (08:44)
[2022-09-17] MEDS: PANTOPRAZOLE 40 MG/10 ML VIAL IVP SCH (08:45)
[2022-09-17] MEDS: CHLORHEXIDINE GLUCONATE 15 ML CUP MUCOUS MEM SCH ×2 (08:45→20:20)
[2022-09-17] MEDS: cloNIDine HCL 0.2 MG TAB PO SCH ×3 (08:45→20:21)
[2022-09-17] MEDS: ENOXAPARIN 40 MG/0.4 ML SYRINGE SQ SCH (08:45)
[2022-09-17] MEDS ORDERED: FUROSEMIDE 10 MG/ML 4 ML VIAL IV STA (11:20)
--- NOTE | 2022-09-17 11:25 | P.PN ---
Subjective Progress Note Date: 09/17/22 62-year-old male patient, alcoholic, brought into the hospital on family request. EMS as the patient has not been eating any food for the past 10 days. He has been drinking significantly and he drinks beer and whiskey. He is an alcoholic and has been drinking excessively over the past 2 years at least. He has had multiple falls at home. No injuries to his head or traumatic head injury. He has bruises over the right cheek. No nausea. No emesis. No aspiration. No seizure activity has been noted. No reported chest pain or shortness of breath. No history of any substance abuse other than alcohol. As the patient was brought into the hospital, the patient was found to be in delirium tremens, increased confusion, agitation and tremors. He was given Ativan on the Route to the hospital. Upon arrival, alcohol level was less than 10, his sodium level was 114, bicarb is 15 with a creatinine of 1.1, normal coagulation profile, his troponin was negative, urine osmolality was 499, urine sodium was less than 20, WBC count at 9.9 with hemoglobin 15.3 and a platelet count of 188. The LFTs are abnormal with an AST of 93, ALT of 79, bilirubin level is at 2.3 and the lactic acid level is down to 1.6. The chest x-ray shows no acute abnormalities. On today's evaluation of 09/14/2022, the patient is intubated on a mechanical ventilator. The patient is, comfortable. Overnight, the patient was becoming progressively more agitated and he has required increased dose of Ativan and he was maximized on Precedex without any adequate control of the situation. Based on that, the patient had to be intubated on placed on a mechanical ventilator. No seizure activity was witnessed. The patient was essentially having delirium tremens. This morning, the patient is intubated on a mechanical ventilator. He is on assist control mode at a rate of 20, tidal volume of 500, FiO2 of 50% with a PEEP of 5. His blood gas from today shows a pH of 7.42 with a pCO2 of 36 and pO2 of 179. His chest x-ray from today shows adequate expansion of both lungs. ET tube is in good location. There is no evidence of any pneumothorax. No areas of any consolidation or airspace disease. No respiratory secretions. The patient is oxygenating and ventilating adequately. Is currently on propofol which is running at 75 mL an hour. His well sedated. He is taken off the hypertonic saline. His sodium gradually improved and this morning is up to 124 and subsequently 125. The rest of the electrolytes show a potassium level of 3.8 and these to be replaced, BUN is at 70 with a creatinine of 0.9. His white cell count is 5.3 with a hemoglobin of 11.4 and a platelet count of 129. Lal cath is in place. Urine output is adequate. He is afebrile. Liver function tests were not obtained. Calcium levels at 7.4. Blood sugars at 96. On today's evaluation of 09/15/2022, seeing the patient for a follow-up. As mentioned, this is a case of DTs, the patient is currently intubated on a mechanical ventilator, sedated with a combination of propofol and is also requiring on enough dose of Ativan throughout the night. The patient this morning is on propofol which is running at 55 mcg/kg/m. He is coming comfortable. The triglyceride levels are elevated and I'm in the process of switching the propofol to Precedex. The same time, his mentation will be evaluated. His abdomen is to wean will be also evaluated on a daily basis. He has remained hemodynamically stable over the past 24 hours. He remains on mechanical ventilator on assist control mode with a rate of 20, tidal volume of 500, FiO2 40% with a PEEP of 5. Blood gases from today shows a pH of 7.5 with a pCO2 of 33 and pO2 of 83. His chest x-ray from today shows no acute abnormalities. The orotracheal tube is in a good location. The lungs are adequately expanded and there are no significant infiltration. There may be some small left-sided pleural effusion/atelectasis. His seconds at 5.9 with a hemoglobin 11.1 and a platelet count of 146. Sodium level has gradually come up to 127. Is currently on IV fluids with normal saline at rate of 20 mL an hour. Urine output is adequate for now. He is on enteral feeding and the patient is receiving vital high-protein at the rate of 10 mL an hour. No seizure activity has been noted. No fever. No significant orotracheal secretions. No other issues for now. His condition is stable. On 09/16/2022, the patient is being seen for a follow-up. We managed to get the patient off the propofol and the patient is currently on Precedex which is running at the highest dose of 1.4 mcg/kg/h and the patient is also on fentanyl at 1 mcg/kg/h. Arousable, lethargic, not consistent in following commands, neurologic exam is nonfocal and he continues to move all 4 extremities. He has a very strong cough reflex patient will being suctioned. He remains on a mechanical ventilator. His urine output was low and he was given a bolus of normal saline yesterday which improved his urine output. His electrolytes today are stable. His sodium level is currently at 129 with a potassium level of 4.2, BUN is at 40 with a creatinine of 0.7. His CBC is also stable with a hemoglobin of 11 and a platelet count of 158. On a separate note, the patient remains on a mechanical ventilator. Is currently on a assist control mode rate of 14, tidal volume of 500, FiO2 40% with a PEEP of 5. There is improvement in his acid base status. His pH is at 7.39 with a pCO2 of 36 and pO2 of 95. Repeat chest x-ray from today shows stable findings. No evidence of any pneumonia. There is left lower lobe atelectasis. ET tube is in a I location an NG tube is in place. Is receiving enteral feeding for nutritional support. Is on vital high-protein at the rate of 10 mL an hour. He did spike a temperature 100.5 today. He has been spiking low-grade fever since yesterday. On 09/17/2022, the patient is being seen for a follow-up. Note that this morning, the patient is on a combination of Precedex 1.4 mcg/kg/h and fentanyl at 2 mcg/kg/h. We were able to discontinue propofol. Yesterday, the patient was arousing on a sedation holiday. Nevertheless, he never got to point where he was following commands and he was getting progressively more agitated. At the same time was having fever and the left lower lobe pneumonia was suspected. Based on that, the sedation holiday was aborted and the patient was kept on a mechanical ventilator. The same will be done today. The patient is on assist control mode at a rate of 14, tidal volume of 500, FiO2 of 40% with a PEEP of 5. The chest x-ray showing cardiac regular and left lower lobe consolidation/infiltrate. The white cell count at 6 with a hemoglobin of 10.05 and the patient is not having any fever at this point. Blood pressure was a pH of 7.34 with a pCO2 of 40 and pO2 of 93. BUN is at 60 with a creatinine of 0.58. Sodiums of 133 and a potassium level of 3.9. He does have some mild transaminitis. He remains on vital high-protein running at the rate of 40 mL an hour. IV fluids are currently in the form of 0.9 saline at the rate of 75 mL an hour. Urine output is adequate at 50 mL an hour. Pro-calcitonin level is at 0.14. Objective - Vital Signs Vital signs: Vital Signs Temp 98.6 F 09/17/22 08:00 Pulse 74 09/17/22 11:00 Resp 14 09/17/22 11:00 BP 131/81 09/17/22 08:00 Pulse Ox 95 09/17/22 11:00 FiO2 40 09/17/22 08:00 Intake & Output 09/16/22 09/17/22 09/17/22 18:59 06:59 18:59 Intake Total 2002.485 7822.229 661.255 Output Total 555 430 220 Balance 999.139 0751.229 441.255 Weight 103 kg 105 kg 105 kg Intake: IV 891 966 378 0.9 Sodium Chloride 36 36 3 Invasive Line 4 30 30 Sodium Chloride 0.9% 1, 450 000 ml @ 50 mls/hr IV . Q20H [facility] Rx#:[id number] Sodium Chloride 0.9% 1, 375 900 375 000 ml @ 75 mls/hr IV . [id number] [facility] Rx#:[id number] Intake, IV Titration 436.086 518.229 283.255 Amount Dexmedetomidine/0.9% NaCl 336.086 333.426 99.138 (Pmx) 400 mcg In Empty Bag 1 bag @ 0.2 MCG/KG/HR 5.15 mls/hr IV .[id number] [facility] Rx#:[id number] Piperacillin-Tazobactam 3 100 .375 gm In Sodium Chloride 0.9% 100 ml @ 25 mls/hr IVPB Q8H [facility] Rx#: [id number] Sodium Chloride 0.9% 80 100.000 184.803 84.117 ml @ 1 MCG/KG/HR 10.3 mls /hr IV .[id number] [facility] with fentaNYL (PF) 1,000 mcg Rx#:[id number] Tube Feeding 90 300 Output: Urine 555 430 220 Other: Voiding Method Indwelling Catheter Indwelling Catheter Indwelling Catheter ABP, PAP, CO, CI - Last Documented Arterial Blood Pressure 143/69 - Exam Gen. appearance the patient is intubated on a mechanical ventilator, currently sedated on Precedex and fentanyl he is calm and comfortable, not in acute respiratory distress. Head exam was generally normal. There was no scleral icterus or corneal arcus. Mucous membranes were moist. Neck was supple and without jugular venous distension, thyromegaly, or carotid bruits. Carotids were easily palpable bilaterally. There was no adenopathy. The patient has an orogastric and orotracheal tube and both of these were in place Lungs were clear to auscultation and percussion, and with normal diaphragmatic excursion. No wheezes or rales were noted. Cardiac exam revealed the PMI to be normally situated and sized. The rhythm was regular and no extrasystoles were noted during several minutes of auscultation. The first and second heart sounds were normal and physiologic splitting of the second heart sound was noted. There were no murmurs, rubs, clicks, or gallops. Abdominal exam revealed normal bowel sounds. The abdomen was soft, non-tender, and without masses, organomegaly, or appreciable enlargement of the abdominal aorta. Examination of the extremities revealed easily palpable radial, femoral and pedal pulses. There was no cyanosis, clubbing or edema. Neurologically, the patient grimaces to painful stimulation. He withdraws to pain. Ablation all 4 extremities. Pupils are equal reactive to light and around 3 mm in size. No facial asymmetry. The patient has an adequate cough and an adequate gag. - Labs CBC & Chem 7: 09/17/22 04:38 09/17/22 04:38 Labs: Abnormal Lab Results - Last 24 Hours (Table) 09/16/22 09/17/22 09/17/22 Range/Units 04:35 04:38 04:38 RBC 3.61 L (4.30-5.90) m/uL Hgb 10.5 L (13.0-17.5) gm/dL Hct 31.4 L (39.0-53.0) % ABG pH (7.35-7.45) ABG O2 Saturation (94-97) % Sodium 133 L (137-145) mmol/L Creatinine 0.58 L (0.66-1.25) mg/dL Glucose 108 H (74-99) mg/dL Calcium 7.3 L (8.4-10.2) mg/dL Total Bilirubin 2.0 H (0.2-1.3) mg/dL AST 88 H (17-59) U/L ALT 67 H (4-49) U/L Total Protein 5.2 L (6.3-8.2) g/dL Albumin 2.7 L (3.5-5.0) g/dL Procalcitonin 0.14 H (0.02-0.09) ng/mL 09/17/22 Range/Units 05:46 RBC (4.30-5.90) m/uL Hgb (13.0-17.5) gm/dL Hct (39.0-53.0) % ABG pH 7.34 L (7.35-7.45) ABG O2 Saturation 97.3 H (94-97) % Sodium (137-145) mmol/L Creatinine (0.66-1.25) mg/dL Glucose (74-99) mg/dL Calcium (8.4-10.2) mg/dL Total Bilirubin (0.2-1.3) mg/dL AST (17-59) U/L ALT (4-49) U/L Total Protein (6.3-8.2) g/dL Albumin (3.5-5.0) g/dL Procalcitonin (0.02-0.09) ng/mL Microbiology - Last 24 Hours (Table) 09/16/22 15:19 Gram Stain - Preliminary Sputum Sputum Culture - Preliminary 09/14/22 08:05 Gram Stain - Final Sputum Sputum Culture - Final Assessment and Plan Plan: Acute delirium tremens, failed conventional treatment with benzodiazepines and Precedex and the patient had to be intubated and placed on a mechanical ventilator and currently is on Precedex and fentanyl drips to control his agitation. Currently intubated on a mechanical ventilator. The patient was intubated on the 09/13/22 and the patient has been kept on sedation since. He remains on Precedex and fentanyl and Ativan is also being utilized. The patient failed a sedation holiday yesterday Acute fever, improved and the patient is currently afebrile Suspect hospital-acquired left lower lobe pneumonia, pro-calcitonin level is mildly elevated and the patient is currently on Zosyn chest x-ray showing left lower lobe pneumonia. Acute hypoxic respiratory failure, improved post intubation. Noted the patient may have also an underlying component of obstructive sleep apnea as the patient was snoring and having prolonged apneas while being on a combination of Ativan and Precedex. Currently oxygenating and ventilating well. Chest x-ray findings are stable.. Noted the patient is having low-grade fever and there is a left lower lobe atelectasis/infiltrates. Consider possibility of a hospital-acquired pneumonia. The patient will be started on IV Zosyn. Pro-calcitonin level will be checked. Sputum samples will be also obtained. Acute hypertriglyceridemia, exacerbated by the use of propofol at the higher dose in addition to some baseline hypertriglyceridemia. The patient was taken off the propofol. Altered mental status, secondary to above a combination of alcohol withdrawal syndrome/delirium tremens and acute hyponatremia, sodium level is improving, sodium level is at 133 and the patient is currently on normal saline at rate of 75 mL an hour Alcoholic Acute hyperchloremic hypernatremia, improving and a sodium level is up to 133 Alcoholic liver disease with mild elevation of the LFTs History of fall secondary to above Hypertension Hyperlipidemia Plan Continue ventilator support and no changes for today Change IV fluids to KVO Check sputum Gram stain and culture, check pro calcitonin level was mildly elevated and the patient was covered with IV Zosyn We will gradually wean off the fentanyl and keep some baseline Precedex Assess his mental status and his level of education and decide if he is potentially amenable Continue vital high-protein IV Protonix Lovenox for DVT prophylaxis Continue with Ativan regarding alcohol withdrawal syndrome Thiamine Aspiration precautions We'll continue to follow. Family the bedside. Condition is obviously critical and we'll continue to follow make further recommendations based on patient's progress. He was sent a mechanical ventilator for now. There is a critical care evaluation that was done in more than 30 minutes. I have discussed the findings with the family. We'll continue with our sedation holiday, assess mentation, assess his evidence to wean and decide accordingly.
[2022-09-17 11:49] LABS: Glucose,Whole Blood 118 mg/dL (70-110)
--- NOTE | 2022-09-17 14:58 | P.PN ---
Subjective Patient is seen for follow-up for hyponatremia associated with excessive alcohol intake as well as a hypovolemic component. Status post 3% saline Patient remains intubated however he opens his eyes, responds to verbal stimuli but does not follow commands Hemodynamically stable. Maintained on normal saline now. Increased to 75cc/hr yesterday. Sodium at 133 today. Free water flushes on hold. Objective - Vital Signs Vital signs: Vital Signs Temp 99.5 F 09/17/22 12:00 Pulse 80 09/17/22 14:00 Resp 17 09/17/22 14:00 BP 131/81 09/17/22 08:00 Pulse Ox 94 L 09/17/22 14:00 FiO2 40 09/17/22 12:00 Intake & Output 09/16/22 09/17/22 09/17/22 18:59 06:59 18:59 Intake Total 9318.366 5851.229 973.626 Output Total 555 430 290 Balance 227.159 3370.229 683.626 Weight 103 kg 105 kg 105 kg Intake: IV 891 966 403 0.9 Sodium Chloride 36 36 18 Invasive Line 4 30 30 Sodium Chloride 0.9% 1, 375 900 385 000 ml @ 10 mls/hr IV . Q24H [facility] Rx#:[id number] Sodium Chloride 0.9% 1, 450 000 ml @ 50 mls/hr IV . Q20H [facility] Rx#:[id number] Intake, IV Titration 436.086 518.229 570.626 Amount Dexmedetomidine/0.9% NaCl 336.086 333.426 297.156 (Pmx) 400 mcg In Empty Bag 1 bag @ 0.2 MCG/KG/HR 5.15 mls/hr IV .[id number] [facility] Rx#:[id number] Piperacillin-Tazobactam 3 100 .375 gm In Sodium Chloride 0.9% 100 ml @ 25 mls/hr IVPB Q8H [facility] Rx#: [id number] Sodium Chloride 0.9% 80 100.000 184.803 173.470 ml @ 1 MCG/KG/HR 10.3 mls /hr IV .[id number] [facility] with fentaNYL (PF) 1,000 mcg Rx#:[id number] Tube Feeding 90 300 Output: Urine 555 430 290 Other: Voiding Method Indwelling Catheter Indwelling Catheter Indwelling Catheter ABP, PAP, CO, CI - Last Documented Arterial Blood Pressure 142/64 - Exam Patient is sedated and on the vent Examination of the heart S1 and S2 Examination of the lungs bilateral breath sounds are heard Abdomen is soft nontender Examination of the lower extremities shows no evidence of edema [employer] exam could not be performed - Labs CBC & Chem 7: 09/17/22 04:38 09/17/22 11:55 Labs: Abnormal Lab Results - Last 24 Hours (Table) 09/16/22 09/17/22 09/17/22 Range/Units 04:35 04:38 04:38 RBC 3.61 L (4.30-5.90) m/uL Hgb 10.5 L (13.0-17.5) gm/dL Hct 31.4 L (39.0-53.0) % ABG pH (7.35-7.45) ABG O2 Saturation (94-97) % Sodium 133 L (137-145) mmol/L Creatinine 0.58 L (0.66-1.25) mg/dL Glucose 108 H (74-99) mg/dL POC Glucose (mg/dL) (70-110) mg/dL Calcium 7.3 L (8.4-10.2) mg/dL Total Bilirubin 2.0 H (0.2-1.3) mg/dL AST 88 H (17-59) U/L ALT 67 H (4-49) U/L Total Protein 5.2 L (6.3-8.2) g/dL Albumin 2.7 L (3.5-5.0) g/dL Procalcitonin 0.14 H (0.02-0.09) ng/mL 09/17/22 09/17/22 09/17/22 Range/Units 05:46 11:47 11:55 RBC (4.30-5.90) m/uL Hgb (13.0-17.5) gm/dL Hct (39.0-53.0) % ABG pH 7.34 L (7.35-7.45) ABG O2 Saturation 97.3 H (94-97) % Sodium 135 L (137-145) mmol/L Creatinine (0.66-1.25) mg/dL Glucose (74-99) mg/dL POC Glucose (mg/dL) 118 H (70-110) mg/dL Calcium (8.4-10.2) mg/dL Total Bilirubin (0.2-1.3) mg/dL AST (17-59) U/L ALT (4-49) U/L Total Protein (6.3-8.2) g/dL Albumin (3.5-5.0) g/dL Procalcitonin (0.02-0.09) ng/mL Microbiology - Last 24 Hours (Table) 09/16/22 15:19 Gram Stain - Preliminary Sputum Sputum Culture - Preliminary 09/14/22 08:05 Gram Stain - Final Sputum Sputum Culture - Final Assessment and Plan Assessment: 1. Hyponatremia associated with excessive beer/alcohol intake and hypovolemic component. Status post 3% saline. Urine osmolality 499, urine sodium less than 20. Currently maintained on normal saline. 2. EtOH abuse 3. Alcoholic liver disease with mildly elevated liver enzymes 4. History of hypertension 5. Microscopic hematuria possibly related to Lal insertion 6. Anion gap metabolic acidosis associated with lactic acidosis, improved 7. DTs Plan: Continue saline Repeat sodium at noon Continue to hold free water flushes.
[2022-09-17] MEDS: hydrALAZINE HCL 20 MG/ML 1 ML VIAL IVP PRN (17:06)
[2022-09-17] MEDS: ATORVASTATIN 80 MG TAB PO SCH (20:21)
[2022-09-18] MEDS: LORazepam 2 MG/ML INJ IV PRN ×4 (00:15→15:33)
[2022-09-18] MEDS: SODIUM CHLORIDE 0.9% 80 ML with fentaNYL (PF) 1,000 MCG IV SCH ×2 (00:15)
--- NOTE | 2022-09-18 00:24 | P.PN ---
Subjective Progress Note Date: 09/16/22 Patient is 62-year-old gentleman with past medical history significant for alcohol abuse, presented to the ER because of multiple falls. Family is at bedside and states that the patient has not eaten any solid foods in 10 days. He has been drinking a significant amount of beer and recently "added whiskey to his diet". He has been drinking every day for the past 2 years. Reports that his last drink was last night at 11 PM. He has been having multiple falls and therefore family called EMS this morning. Patient was worked in the ER, initial lab work showed hemoglobin of 13.0, PTT 20.5, INR 1.2, sodium 140, potassium 4.3, chloride 80, carbonate 14, anion gap 20, lactate level 10.6. Chest x-ray w as negative for any acute cardiac process. Patient was admitted to ICU for further evaluation and treatment 09/14. Patient seen and examined. Patient overnight became more agitated, was maxed out on precedex Drip. Patient had to be intubated. Currently comfortable on mechanical ventilation. Vital signs stable 09/15. Patient seen and examined. Continues to be on mechanical ventilation. Currently on propofol and Precedex 09/16/2022 Patient is currently in the MICU. Remains on mechanical ventilator. AC 14 with tidal volume of 500 and FiO2 40% and PEEP of 5. Currently on Precedex. Chest x-ray showed suggestion of mild subsegmental atelectasis left base. Patient is being continued on antibiotics and follow-up Zosyn. Laboratory data showed WBC 6.7 hemoglobin 11.0 and platelets 158 Sodium 129 potassium 4.2 chloride 101 bicarb is 20 BUN 14 and creatinine 0.7 and calcium 7.8 and procalcitonin level was 0.14. Current medications reviewed. REVIEW OF SYSTEMS: Unable to obtain a review of systems patient is currently intubated PHYSICAL EXAMINATION: GENERAL: Currently intubated on mechanical ventilation HEENT: Pupils are round and equally reacting to light. CARDIOVASCULAR: S1 and S2 present. No murmurs, rubs, or gallops. PULMONARY: Chest is clear to auscultation, no wheezing or crackles. ABDOMEN: Soft, nontender, nondistended, normoactive bowel sounds. No palpable organomegaly. MUSCULOSKELETAL: No joint swelling or deformity. EXTREMITIES: No cyanosis, clubbing, or pedal edema. NEUROLOGICAL: Unable to obtain neurological exam because patient is currently intubated SKIN: No rashes. Assessment and plan Acute delirium tremens. Patient is currently intubated and on mechanical ventilator. Was on propofol. Currently on Precedex. Acute hypoxic respiratory failure requiring mechanical ventilator. Alcohol withdrawal syndrome Alcohol Abuse Hyponatremia GI and DVT prophylaxis Plan; Patient is on mechanical ventilator. Off propofol. Currently on Precedex. Continue with empiric antibiotics for home Zosyn. IV hydration with normal saline. Continue telemetry monitoring. Continue with thiamine multivitamins and folic acid. Nephrology and critical care team and nephrology is on board. Discussed with the family at bedside in detail. Objective - Vital Signs Vital signs: Vital Signs Temp 100.5 F H 09/16/22 08:00 Pulse 69 09/16/22 10:00 Resp 20 09/16/22 10:00 BP 155/94 09/16/22 07:15 Pulse Ox 95 09/16/22 10:00 FiO2 40 09/16/22 11:34 Intake & Output 09/15/22 09/16/22 09/16/22 18:59 06:59 18:59 Intake Total 3137.781 7985.610 346.524 Output Total 981 440 180 Balance 906.118 837.610 166.524 Weight 103 kg Intake: IV 1485.5 636 247 0.9 Sodium Chloride 193 36 12 Invasive Line 4 10 Invasive Line 6 30 Sodium Chloride 0.9% 1, 262.5 600 225 000 ml @ 50 mls/hr IV . Q20H [facility] Rx#:[id number] Sodium Chloride 0.9% 1, 1000 000 ml @ 999 mls/hr IV . Q1H1M [facility] Rx#:[id number] Intake, IV Titration 281.618 521.610 89.524 Amount Dexmedetomidine/0.9% NaCl 174.457 447.622 89.524 (Pmx) 400 mcg In Empty Bag 1 bag @ 0.2 MCG/KG/HR 5.15 mls/hr IV .[id number] [facility] Rx#:[id number] Sodium Chloride 0.9% 80 73.988 ml @ 1 MCG/KG/HR 10.3 mls /hr IV .[id number] [facility] with fentaNYL (PF) 1,000 mcg Rx#:[id number] propofoL 1,000 mg In 107.161 Empty Bag 1 bag @ 15 MCG/ KG/MIN 9.185 mls/hr IV . [id number] [facility] Rx#:[id number] Tube Feeding 120 120 10 Output: Urine 981 440 180 Other: Voiding Method Indwelling Catheter Indwelling Catheter ABP, PAP, CO, CI - Last Documented Arterial Blood Pressure 153/63 - Labs CBC & Chem 7: 09/17/22 04:38 09/17/22 17:45 Labs: Abnormal Lab Results - Last 24 Hours (Table) 09/15/22 09/15/22 09/16/22 Range/Units 12:23 19:28 04:32 RBC (4.30-5.90) m/uL Hgb (13.0-17.5) gm/dL Hct (39.0-53.0) % Lymphocytes # (1.0-4.8) k/uL ABG O2 Saturation 97.8 H (94-97) % Sodium 127 L 128 L (137-145) mmol/L Carbon Dioxide 20 L (22-30) mmol/L Glucose 121 H (74-99) mg/dL Calcium 7.1 L (8.4-10.2) mg/dL 09/16/22 09/16/22 Range/Units 04:35 04:35 RBC 3.86 L (4.30-5.90) m/uL Hgb 11.0 L (13.0-17.5) gm/dL Hct 33.2 L (39.0-53.0) % Lymphocytes # 0.9 L (1.0-4.8) k/uL ABG O2 Saturation (94-97) % Sodium 129 L (137-145) mmol/L Carbon Dioxide 20 L (22-30) mmol/L Glucose 113 H (74-99) mg/dL Calcium 7.2 L (8.4-10.2) mg/dL Microbiology - Last 24 Hours (Table) 09/14/22 08:05 Gram Stain - Preliminary Sputum Sputum Culture - Preliminary
--- NOTE | 2022-09-18 00:28 | P.PN ---
Subjective Progress Note Date: 09/17/22 Patient is 62-year-old gentleman with past medical history significant for alcohol abuse, presented to the ER because of multiple falls. Family is at bedside and states that the patient has not eaten any solid foods in 10 days. He has been drinking a significant amount of beer and recently "added whiskey to his diet". He has been drinking every day for the past 2 years. Reports that his last drink was last night at 11 PM. He has been having multiple falls and therefore family called EMS this morning. Patient was worked in the ER, initial lab work showed hemoglobin of 13.0, PTT 20.5, INR 1.2, sodium 140, potassium 4.3, chloride 80, carbonate 14, anion gap 20, lactate level 10.6. Chest x-ray w as negative for any acute cardiac process. Patient was admitted to ICU for further evaluation and treatment 09/14. Patient seen and examined. Patient overnight became more agitated, was maxed out on precedex Drip. Patient had to be intubated. Currently comfortable on mechanical ventilation. Vital signs stable 09/15. Patient seen and examined. Continues to be on mechanical ventilation. Currently on propofol and Precedex 09/16/2022 Patient is currently in the MICU. Remains on mechanical ventilator. AC 14 with tidal volume of 500 and FiO2 40% and PEEP of 5. Currently on Precedex. Chest x-ray showed suggestion of mild subsegmental atelectasis left base. Patient is being continued on antibiotics and follow-up Zosyn. Laboratory data showed WBC 6.7 hemoglobin 11.0 and platelets 158 Sodium 129 potassium 4.2 chloride 101 bicarb is 20 BUN 14 and creatinine 0.7 and calcium 7.8 and procalcitonin level was 0.14. 09/17/2022 Patient is currently in the MICU. On mechanical ventilator. Continued on Precedex and fentanyl. Patient was agitated and was having increased work of breathing with sedation holiday yesterday and was started back on mechanical ventilator with sedation. Chest x-ray showed bilateral consolidation and small effusion in the basis of postoperative atelectasis. Mild venous congestion not excluded. Findings stable. Laboratory data showed WBC 6.0 hemoglobin 10.5 and platelets 206 Sodium 133 potassium 3.9 chloride 104 bicarb is 22 BUN 16 and creatinine 0.58 and calcium 7.3. Albumin 2.7. Patient is being cannula antibiotics in the home Zosyn. Was given a dose of IV Lasix today. Current medications reviewed. REVIEW OF SYSTEMS: Unable to obtain a review of systems patient is currently intubated PHYSICAL EXAMINATION: GENERAL: Currently intubated on mechanical ventilation HEENT: Pupils are round and equally reacting to light. CARDIOVASCULAR: S1 and S2 present. No murmurs, rubs, or gallops. PULMONARY: Chest is clear to auscultation, no wheezing or crackles. ABDOMEN: Soft, nontender, nondistended, normoactive bowel sounds. No palpable organomegaly. MUSCULOSKELETAL: No joint swelling or deformity. EXTREMITIES: No cyanosis, clubbing, or pedal edema. NEUROLOGICAL: Unable to obtain neurological exam because patient is currently intubated SKIN: No rashes. Assessment and plan Acute delirium tremens. Patient is currently intubated and on mechanical ventilator. off propofol. Currently on Precedex. Acute hypoxic respiratory failure requiring mechanical ventilator. Alcohol withdrawal syndrome Alcohol Abuse Hyponatremia GI and DVT prophylaxis Plan; Patient is on mechanical ventilator. Off propofol. Currently on Precedex. Continue with weaning trial with sedation holiday. Continue with empiric antibiotics for home Zosyn. IV hydration with normal saline. Continue telemetry monitoring. Continue with thiamine multivitamins and folic acid. Nephrology and critical care team and nephrology is on board. Discussed with the family at bedside in detail. Objective - Vital Signs Vital signs: Vital Signs Temp 97.4 F L 09/17/22 20:00 Pulse 87 09/17/22 22:00 Resp 17 09/17/22 22:00 BP 140/85 09/17/22 21:00 Pulse Ox 94 L 09/17/22 22:00 FiO2 40 09/17/22 20:00 Intake & Output 09/17/22 09/17/22 09/18/22 06:59 18:59 06:59 Intake Total 8652.879 3829.174 121.833 Output Total 430 635 125 Balance 1354.229 554.174 -3.167 Weight 105 kg 105 kg Intake: IV 966 494 26 0.9 Sodium Chloride 36 39 6 Invasive Line 4 30 Sodium Chloride 0.9% 1, 900 455 20 000 ml @ 10 mls/hr IV . Q24H [facility] Rx#:[id number] Intake, IV Titration 518.229 695.174 95.833 Amount Dexmedetomidine/0.9% NaCl 333.426 392.345 95.833 (Pmx) 400 mcg In Empty Bag 1 bag @ 0.2 MCG/KG/HR 5.15 mls/hr IV .[id number] [facility] Rx#:[id number] Piperacillin-Tazobactam 3 100 .375 gm In Sodium Chloride 0.9% 100 ml @ 25 mls/hr IVPB Q8H [facility] Rx#: [id number] Sodium Chloride 0.9% 80 184.803 202.829 ml @ 1 MCG/KG/HR 10.3 mls /hr IV .[id number] [facility] with fentaNYL (PF) 1,000 mcg Rx#:[id number] Tube Feeding 300 Output: Urine 430 635 125 Other: Voiding Method Indwelling Catheter Indwelling Catheter Indwelling Catheter ABP, PAP, CO, CI - Last Documented Arterial Blood Pressure 143/63 - Labs CBC & Chem 7: 09/17/22 04:38 09/17/22 17:45 Labs: Abnormal Lab Results - Last 24 Hours (Table) 09/16/22 09/17/22 09/17/22 Range/Units 04:35 04:38 04:38 RBC 3.61 L (4.30-5.90) m/uL Hgb 10.5 L (13.0-17.5) gm/dL Hct 31.4 L (39.0-53.0) % ABG pH (7.35-7.45) ABG O2 Saturation (94-97) % Sodium 133 L (137-145) mmol/L Creatinine 0.58 L (0.66-1.25) mg/dL Glucose 108 H (74-99) mg/dL POC Glucose (mg/dL) (70-110) mg/dL Calcium 7.3 L (8.4-10.2) mg/dL Total Bilirubin 2.0 H (0.2-1.3) mg/dL AST 88 H (17-59) U/L ALT 67 H (4-49) U/L Total Protein 5.2 L (6.3-8.2) g/dL Albumin 2.7 L (3.5-5.0) g/dL Procalcitonin 0.14 H (0.02-0.09) ng/mL 09/17/22 09/17/2209/17/23 Range/Units 05:46 11:47 11:55 RBC (4.30-5.90) m/uL Hgb (13.0-17.5) gm/dL Hct (39.0-53.0) % ABG pH 7.34 L (7.35-7.45) ABG O2 Saturation 97.3 H (94-97) % Sodium 135 L (137-145) mmol/L Creatinine (0.66-1.25) mg/dL Glucose (74-99) mg/dL POC Glucose (mg/dL) 118 H (70-110) mg/dL Calcium (8.4-10.2) mg/dL Total Bilirubin (0.2-1.3) mg/dL AST (17-59) U/L ALT (4-49) U/L Total Protein (6.3-8.2) g/dL Albumin (3.5-5.0) g/dL Procalcitonin (0.02-0.09) ng/mL 09/17/22 Range/Units 17:45 RBC (4.30-5.90) m/uL Hgb (13.0-17.5) gm/dL Hct (39.0-53.0) % ABG pH (7.35-7.45) ABG O2 Saturation (94-97) % Sodium 134 L (137-145) mmol/L Creatinine (0.66-1.25) mg/dL Glucose (74-99) mg/dL POC Glucose (mg/dL) (70-110) mg/dL Calcium (8.4-10.2) mg/dL Total Bilirubin (0.2-1.3) mg/dL AST (17-59) U/L ALT (4-49) U/L Total Protein (6.3-8.2) g/dL Albumin (3.5-5.0) g/dL Procalcitonin (0.02-0.09) ng/mL Microbiology - Last 24 Hours (Table) 09/16/22 15:19 Gram Stain - Preliminary Sputum Sputum Culture - Preliminary
[2022-09-18 00:34] LABS: Glucose,Whole Blood 148 mg/dL (70-110)
[2022-09-18] MEDS: DEXMEDETOMIDINE/0.9% NACL(PMX) 400 MCG in EMPTY BAG 1 BAG IV SCH ×6 (01:22→21:19)
[2022-09-18] MEDS: PIPERACILLIN-TAZOBACTAM 3.375 GM in SODIUM CHLORIDE 0.9% 100 ML IVPB SCH ×3 (01:46→16:57)
[2022-09-18] MEDS: hydrALAZINE HCL 20 MG/ML 1 ML VIAL IVP PRN ×2 (04:52→16:03)
[2022-09-18 05:27] LABS: HCT 29.6 % (39.0-53.0); HGB 10.2 gm/dL (13.0-17.5); MCH 29.8 pg (25.0-35.0); MCHC 34.4 g/dL (31.0-37.0); MCV 86.7 fL (80.0-100.0); Mean Platelet Volume 7.5; Platelet Count 227 k/uL (150-450); RBC 3.41 m/uL (4.30-5.90); RDW 12.7 % (11.5-15.5); WBC 4.7 k/uL (3.8-10.6)
[2022-09-18 06:08] LABS: ABG Base Excess 1.9 mmol/L; ABG HCO3 26 mmol/L (21-25); ABG Oxygen Saturation 95.2 % (94-97); ABG PCO2 36 mmHg (35-45); ABG PH 7.46 (7.35-7.45); ABG PO2 70 mmHg (83-108); ABG TCO2 27 mmol/L (19-24); Allen Test Performed? Yes
[2022-09-18 06:25] LABS: Potassium 3.8 mmol/L (3.5-5.1)
[2022-09-18 06:26] LABS: ALT 59 U/L (4-49); AST 68 U/L (17-59); African American GFR (CKD) >90 (>60 ml/min/1.73 sqM); Albumin 2.5 g/dL (3.5-5.0); Alkaline Phosphatase 81 U/L (38-126); Anion Gap 3 mmol/L; Blood Urea Nitrogen 18 mg/dL (9-20); Calcium 7.3 mg/dL (8.4-10.2); Carbon Dioxide 27 mmol/L (22-30); Chloride 106 mmol/L (98-107); Glucose 123 mg/dL (74-99); Non-African American GFR(CKD) >90 (>60 ml/min/1.73 sqM); Sodium 136 mmol/L (137-145); Total Bilirubin 1.4 mg/dL (0.2-1.3); Total Protein 4.9 g/dL (6.3-8.2)
[2022-09-18] MEDS ORDERED: Potassium Replacement Protocol 1 EACH MISC MISCELLANE PRN (06:26)
--- NOTE | 2022-09-18 07:12 | XR ---
EXAMINATION TYPE: XR chest 1V portable DATE OF EXAM: 09/18/2022 CLINICAL HISTORY: Difficulty breathing progress study. TECHNIQUE: Single AP portable semiupright view of the chest is obtained. COMPARISON: Chest x-ray from one day earlier and older studies FINDINGS: Stable endotracheal and orogastric tubes. Persistent cardiomegaly. Persistent low lung vol umes and chronic parenchymal changes with left basilar opacity. Right lung remains clear. Osseous str uctures are intact. IMPRESSION: Cardiomegaly and low lung volumes with left basilar acute infiltrate and/or atelectasis r edemonstrated. No significant change from one day earlier.
[2022-09-18] MEDS ORDERED: POTASSIUM BICARBONATE/CIT AC 20 MEQ TABLET.EFF NG-TUBE SCH (08:00)
[2022-09-18] MEDS ORDERED: FUROSEMIDE 10 MG/ML 4 ML VIAL IV STA (08:10)
--- NOTE | 2022-09-18 08:13 | P.PN ---
Subjective Progress Note Date: 09/18/22 62-year-old male patient, alcoholic, brought into the hospital on family request. EMS as the patient has not been eating any food for the past 10 days. He has been drinking significantly and he drinks beer and whiskey. He is an alcoholic and has been drinking excessively over the past 2 years at least. He has had multiple falls at home. No injuries to his head or traumatic head injury. He has bruises over the right cheek. No nausea. No emesis. No aspiration. No seizure activity has been noted. No reported chest pain or shortness of breath. No history of any substance abuse other than alcohol. As the patient was brought into the hospital, the patient was found to be in delirium tremens, increased confusion, agitation and tremors. He was given Ativan on the Route to the hospital. Upon arrival, alcohol level was less than 10, his sodium level was 114, bicarb is 15 with a creatinine of 1.1, normal coagulation profile, his troponin was negative, urine osmolality was 499, urine sodium was less than 20, WBC count at 9.9 with hemoglobin 15.3 and a platelet count of 188. The LFTs are abnormal with an AST of 93, ALT of 79, bilirubin level is at 2.3 and the lactic acid level is down to 1.6. The chest x-ray shows no acute abnormalities. On today's evaluation of 09/14/2022, the patient is intubated on a mechanical ventilator. The patient is, comfortable. Overnight, the patient was becoming progressively more agitated and he has required increased dose of Ativan and he was maximized on Precedex without any adequate control of the situation. Based on that, the patient had to be intubated on placed on a mechanical ventilator. No seizure activity was witnessed. The patient was essentially having delirium tremens. This morning, the patient is intubated on a mechanical ventilator. He is on assist control mode at a rate of 20, tidal volume of 500, FiO2 of 50% with a PEEP of 5. His blood gas from today shows a pH of 7.42 with a pCO2 of 36 and pO2 of 179. His chest x-ray from today shows adequate expansion of both lungs. ET tube is in good location. There is no evidence of any pneumothorax. No areas of any consolidation or airspace disease. No respiratory secretions. The patient is oxygenating and ventilating adequately. Is currently on propofol which is running at 75 mL an hour. His well sedated. He is taken off the hypertonic saline. His sodium gradually improved and this morning is up to 124 and subsequently 125. The rest of the electrolytes show a potassium level of 3.8 and these to be replaced, BUN is at 70 with a creatinine of 0.9. His white cell count is 5.3 with a hemoglobin of 11.4 and a platelet count of 129. Lal cath is in place. Urine output is adequate. He is afebrile. Liver function tests were not obtained. Calcium levels at 7.4. Blood sugars at 96. On today's evaluation of 09/15/2022, seeing the patient for a follow-up. As mentioned, this is a case of DTs, the patient is currently intubated on a mechanical ventilator, sedated with a combination of propofol and is also requiring on enough dose of Ativan throughout the night. The patient this morning is on propofol which is running at 55 mcg/kg/m. He is coming comfortable. The triglyceride levels are elevated and I'm in the process of switching the propofol to Precedex. The same time, his mentation will be evaluated. His abdomen is to wean will be also evaluated on a daily basis. He has remained hemodynamically stable over the past 24 hours. He remains on mechanical ventilator on assist control mode with a rate of 20, tidal volume of 500, FiO2 40% with a PEEP of 5. Blood gases from today shows a pH of 7.5 with a pCO2 of 33 and pO2 of 83. His chest x-ray from today shows no acute abnormalities. The orotracheal tube is in a good location. The lungs are adequately expanded and there are no significant infiltration. There may be some small left-sided pleural effusion/atelectasis. His seconds at 5.9 with a hemoglobin 11.1 and a platelet count of 146. Sodium level has gradually come up to 127. Is currently on IV fluids with normal saline at rate of 20 mL an hour. Urine output is adequate for now. He is on enteral feeding and the patient is receiving vital high-protein at the rate of 10 mL an hour. No seizure activity has been noted. No fever. No significant orotracheal secretions. No other issues for now. His condition is stable. On 09/16/2022, the patient is being seen for a follow-up. We managed to get the patient off the propofol and the patient is currently on Precedex which is running at the highest dose of 1.4 mcg/kg/h and the patient is also on fentanyl at 1 mcg/kg/h. Arousable, lethargic, not consistent in following commands, neurologic exam is nonfocal and he continues to move all 4 extremities. He has a very strong cough reflex patient will being suctioned. He remains on a mechanical ventilator. His urine output was low and he was given a bolus of normal saline yesterday which improved his urine output. His electrolytes today are stable. His sodium level is currently at 129 with a potassium level of 4.2, BUN is at 40 with a creatinine of 0.7. His CBC is also stable with a hemoglobin of 11 and a platelet count of 158. On a separate note, the patient remains on a mechanical ventilator. Is currently on a assist control mode rate of 14, tidal volume of 500, FiO2 40% with a PEEP of 5. There is improvement in his acid base status. His pH is at 7.39 with a pCO2 of 36 and pO2 of 95. Repeat chest x-ray from today shows stable findings. No evidence of any pneumonia. There is left lower lobe atelectasis. ET tube is in a I location an NG tube is in place. Is receiving enteral feeding for nutritional support. Is on vital high-protein at the rate of 10 mL an hour. He did spike a temperature 100.5 today. He has been spiking low-grade fever since yesterday. On 09/17/2022, the patient is being seen for a follow-up. Note that this morning, the patient is on a combination of Precedex 1.4 mcg/kg/h and fentanyl at 2 mcg/kg/h. We were able to discontinue propofol. Yesterday, the patient was arousing on a sedation holiday. Nevertheless, he never got to point where he was following commands and he was getting progressively more agitated. At the same time was having fever and the left lower lobe pneumonia was suspected. Based on that, the sedation holiday was aborted and the patient was kept on a mechanical ventilator. The same will be done today. The patient is on assist control mode at a rate of 14, tidal volume of 500, FiO2 of 40% with a PEEP of 5. The chest x-ray showing cardiac regular and left lower lobe consolidation/infiltrate. The white cell count at 6 with a hemoglobin of 10.05 and the patient is not having any fever at this point. Blood pressure was a pH of 7.34 with a pCO2 of 40 and pO2 of 93. BUN is at 60 with a creatinine of 0.58. Sodiums of 133 and a potassium level of 3.9. He does have some mild transaminitis. He remains on vital high-protein running at the rate of 40 mL an hour. IV fluids are currently in the form of 0.9 saline at the rate of 75 mL an hour. Urine output is adequate at 50 mL an hour. Pro-calcitonin level is at 0.14. 09/18/2022, the patient is being given a sedation holiday. Earlier this morning is at 7 AM, the patient was taken off the fentanyl. Is currently on Precedex running at 0.9 mcg/kg/h. He is following some simple commands. He remains profoundly weak. He has sweating and somewhat diaphoretic. It's possible that there may be some ongoing withdrawals. Nevertheless, he is able to squeeze using his hands upon demand. Is following some simple commands. When the process of monitoring the patient and weaning of his Precedex slowly. He may need some background Precedex running as were weaning patient off the sedation. Meanwhile, the patient will be kept on a mechanical ventilator. Is on assist control mode at the rate of 40 with a tidal volume of 500 and FiO2 of 40% with a PEEP of 5. Chest x-rays available quality, no new changes. His pH is at 7.46 with a pCO2 of 36 and pO2 of 70. The white cell cause of 4.7 with a hemoglobin of 10.2. BUN is at 80 with a creatinine of 0.6. Sodium is at 136. He remains on IV Zosyn. Sputum Gram stain and culture still pending. The pro-calcitonin level was at 0.14. He is afebrile. He is receiving vital high-protein at the rate of 60 mL an hour. He was noted to have a temperature spike at around 4:00 yesterday afternoon with a T-max of 101.4. His net fluid balance is positive at least 5 L over the past 3 days and over the past 24 hours has been +1.3 L. Objective - Vital Signs Vital signs: Vital Signs Temp 98.6 F 09/18/22 04:00 Pulse 80 09/18/22 07:00 Resp 21 09/18/22 07:00 BP 160/87 09/18/22 07:00 Pulse Ox 94 L 09/18/22 07:00 FiO2 40 09/18/22 07:41 Intake & Output 09/17/22 09/18/22 09/18/22 18:59 06:59 18:59 Intake Total 7145.767 8078.730 83 Output Total 635 575 35 Balance 554.174 767.730 48 Weight 105 kg 109.955 kg Intake: IV 494 213 23 0.9 Sodium Chloride 39 33 3 Sodium Chloride 0.9% 1, 455 180 20 000 ml @ 10 mls/hr IV . Q24H [facility] Rx#:[id number] Intake, IV Titration 695.174 519.730 Amount Dexmedetomidine/0.9% NaCl 392.345 306.172 (Pmx) 400 mcg In Empty Bag 1 bag @ 0.2 MCG/KG/HR 5.15 mls/hr IV .[id number] [facility] Rx#:[id number] Piperacillin-Tazobactam 3 100 100 .375 gm In Sodium Chloride 0.9% 100 ml @ 25 mls/hr IVPB Q8H [facility] Rx#: [id number] Sodium Chloride 0.9% 80 202.829 113.558 ml @ 1 MCG/KG/HR 10.3 mls /hr IV .[id number] [facility] with fentaNYL (PF) 1,000 mcg Rx#:[id number] Tube Feeding 610 60 Output: Urine 635 575 35 Other: Voiding Method Indwelling Catheter Indwelling Catheter ABP, PAP, CO, CI - Last Documented Arterial Blood Pressure 143/63 - Exam Gen. appearance the patient is intubated on a mechanical ventilator, currently sedated on Precedex and off fentanyl he is calm and comfortable, not in acute respiratory distress. The patient is in the process of receiving a sedation holiday. Is gradually waking up. At times, he is noted to cough. Slightly diaphoretic and sweaty. Head exam was generally normal. There was no scleral icterus or corneal arcus. Mucous membranes were moist. Neck was supple and without jugular venous distension, thyromegaly, or carotid bruits. Carotids were easily palpable bilaterally. There was no adenopathy. The patient has an orogastric and orotracheal tube and both of these were in place Lungs were clear to auscultation and percussion, and with normal diaphragmatic excursion. No wheezes or rales were noted. Cardiac exam revealed the PMI to be normally situated and sized. The rhythm was regular and no extrasystoles were noted during several minutes of auscultation. The first and second heart sounds were normal and physiologic splitting of the second heart sound was noted. There were no murmurs, rubs, clicks, or gallops. Abdominal exam revealed normal bowel sounds. The abdomen was soft, non-tender, and without masses, organomegaly, or appreciable enlargement of the abdominal aorta. Examination of the extremities revealed easily palpable radial, femoral and pedal pulses. There was no cyanosis, clubbing or edema. Neurologically, the patient grimaces to painful stimulation. He withdraws to pain. Ablation all 4 extremities. Pupils are equal reactive to light and around 3 mm in size. No facial asymmetry. The patient has an adequate cough and an adequate gag. He was able to follow some simple commands based on my morning evaluation. Still deeply sedated. - Labs CBC & Chem 7: 09/18/22 04:25 09/18/22 04:25 Labs: Abnormal Lab Results - Last 24 Hours (Table) 09/17/22 09/17/22 09/17/22 Range/Units 11:47 11:55 17:45 RBC (4.30-5.90) m/uL Hgb (13.0-17.5) gm/dL Hct (39.0-53.0) % ABG pH (7.35-7.45) ABG pO2 (83-108) mmHg ABG HCO3 (21-25) mmol/L ABG Total CO2 (19-24) mmol/L Sodium 135 L 134 L (137-145) mmol/L Creatinine (0.66-1.25) mg/dL Glucose (74-99) mg/dL POC Glucose (mg/dL) 118 H (70-110) mg/dL Calcium (8.4-10.2) mg/dL Total Bilirubin (0.2-1.3) mg/dL AST (17-59) U/L ALT (4-49) U/L Total Protein (6.3-8.2) g/dL Albumin (3.5-5.0) g/dL 09/18/22 09/18/22 09/18/22 Range/Units 00:32 04:25 04:25 RBC 3.41 L (4.30-5.90) m/uL Hgb 10.2 L (13.0-17.5) gm/dL Hct 29.6 L (39.0-53.0) % ABG pH (7.35-7.45) ABG pO2 (83-108) mmHg ABG HCO3 (21-25) mmol/L ABG Total CO2 (19-24) mmol/L Sodium 136 L (137-145) mmol/L Creatinine 0.61 L (0.66-1.25) mg/dL Glucose 123 H (74-99) mg/dL POC Glucose (mg/dL) 148 H (70-110) mg/dL Calcium 7.3 L (8.4-10.2) mg/dL Total Bilirubin 1.4 H (0.2-1.3) mg/dL AST 68 H (17-59) U/L ALT 59 H (4-49) U/L Total Protein 4.9 L (6.3-8.2) g/dL Albumin 2.5 L (3.5-5.0) g/dL 09/18/22 Range/Units 05:45 RBC (4.30-5.90) m/uL Hgb (13.0-17.5) gm/dL Hct (39.0-53.0) % ABG pH 7.46 H (7.35-7.45) ABG pO2 70 L (83-108) mmHg ABG HCO3 26 H (21-25) mmol/L ABG Total CO2 27 H (19-24) mmol/L Sodium (137-145) mmol/L Creatinine (0.66-1.25) mg/dL Glucose (74-99) mg/dL POC Glucose (mg/dL) (70-110) mg/dL Calcium (8.4-10.2) mg/dL Total Bilirubin (0.2-1.3) mg/dL AST (17-59) U/L ALT (4-49) U/L Total Protein (6.3-8.2) g/dL Albumin (3.5-5.0) g/dL Microbiology - Last 24 Hours (Table) 09/16/22 15:19 Gram Stain - Preliminary Sputum Sputum Culture - Preliminary Assessment and Plan Plan: Acute delirium tremens, failed conventional treatment with benzodiazepines and Precedex and the patient had to be intubated and placed on a mechanical venti lator and currently is on Precedex and fentanyl drips to control his agitation. Currently intubated on a mechanical ventilator. The patient was intubated on the 09/13/22 and the patient has been kept on sedation since. He remains on Precedex and fentanyl and Ativan is also being utilized. The patient failed a sedation holiday yesterday, due to extreme agitation and failure to show reasonable neurologic recovery and alertness. The same is being done today. The patient is currently off fentanyl, Precedex is gradually being weaned off also. Acute fever, improved and the patient is currently afebrile, last temperature spike was 101.4 from yesterday, remains on IV Zosyn, cultures are negative Suspect hospital-acquired left lower lobe pneumonia, pro-calcitonin level is mildly elevated and the patient is currently on Zosyn chest x-ray showing left lower lobe pneumonia. Acute hypoxic respiratory failure, improved post intubation. Noted the patient may have also an underlying component of obstructive sleep apnea as the patient was snoring and having prolonged apneas while being on a combination of Ativan and Precedex. Currently oxygenating and ventilating well. Chest x-ray findings are stable.. Noted the patient is having low-grade fever and there is a left lower lobe atelectasis/infiltrates. Consider possibility of a hospital-acquired pneumonia. The patient will be started on IV Zosyn. Pro-calcitonin level will be checked. Sputum samples will be also obtained. Acute hypertriglyceridemia, exacerbated by the use of propofol at the higher dose in addition to some baseline hypertriglyceridemia. The patient was taken off the propofol. Altered mental status, secondary to above a combination of alcohol withdrawal syndrome/delirium tremens and acute hyponatremia, sodium level is improving, sodium level is at 133 and the patient is currently on normal saline at rate of 75 mL an hour Alcoholic Acute hyperchloremic hypernatremia, improving and a sodium level is up to 133 Alcoholic liver disease with mild elevation of the LFTs History of fall secondary to above Hypertension Hyperlipidemia Enteral feeding for nutritional support with vital high-protein Plan We'll continue our efforts to do daily sedation holidays and assess the patient's mentation and readiness to wean Continue ventilator support and no changes for today Change IV fluids to KVO Is a patient dose of Lasix 40 mg IV push His hyponatremia has recovered Check sputum Gram stain and culture was done and there is also still pending, check pro calcitonin level was mildly elevated and the patient was covered with IV Zosyn We will gradually wean off Precedex Assess his mental status and his level of education and decide if he is potentially amenable Continue vital high-protein IV Protonix Lovenox for DVT prophylaxis Continue with Ativan regarding alcohol withdrawal syndrome Thiamine Aspiration precautions We'll continue to follow. Family the bedside. Condition is obviously critical and we'll continue to follow make further recommendations based on patient's progress. He was sent a mechanical ventilator for now. There is a critical care evaluation that was done in more than 30 minutes. I have discussed the findings with the family. We'll continue with our sedation holiday, assess mentation, assess his evidence to wean and decide accordingly. Time with Patient: Greater than 30
[2022-09-18] MEDS: PANTOPRAZOLE 40 MG/10 ML VIAL IVP SCH (08:23)
[2022-09-18] MEDS: ENOXAPARIN 40 MG/0.4 ML SYRINGE SQ SCH (08:23)
[2022-09-18] MEDS: CHLORHEXIDINE GLUCONATE 15 ML CUP MUCOUS MEM SCH ×2 (08:23→20:32)
[2022-09-18] MEDS: PARoxetine 20 MG TAB PO SCH (08:24)
[2022-09-18] MEDS: cloNIDine HCL 0.2 MG TAB PO SCH ×3 (08:24→20:32)
[2022-09-18] MEDS: THIAMINE 100 MG/ML 2 ML VIAL IVP SCH (08:24)
[2022-09-18 09:26] LABS: ABG Base Excess 4.2 mmol/L; ABG HCO3 27 mmol/L (21-25); ABG Oxygen Saturation 97.9 % (94-97); ABG PCO2 34 mmHg (35-45); ABG PH 7.51 (7.35-7.45); ABG PO2 82 mmHg (83-108); ABG TCO2 28 mmol/L (19-24)
[2022-09-18 09:28] LABS: Allen Test Performed? no
[2022-09-18 11:51] LABS: Glucose,Whole Blood 134 mg/dL (70-110)
--- NOTE | 2022-09-18 14:21 | P.PN ---
Subjective Progress Note Date: 09/18/22 Follow-up for hyponatremia. Family at bedside. Good urine output. Objective - Vital Signs Vital signs: Vital Signs Temp 99.9 F H 09/18/22 12:00 Pulse 86 09/18/22 13:30 Resp 28 H 09/18/22 13:30 BP 160/85 09/18/22 10:00 Pulse Ox 94 L 09/18/22 13:30 FiO2 40 09/18/22 08:00 Intake & Output 09/17/22 09/18/22 09/18/22 18:59 06:59 18:59 Intake Total 3372.873 1044.730 1141.271 Output Total 466 402 3477 Balance 554.174 767.730 -463.729 Weight 105 kg 109.955 kg Intake: IV 494 213 312 0.9 Sodium Chloride 39 33 6 Invasive Line 4 6 Invasive Line 6 180 Piperacillin-Tazobactam 3 100 .375 gm In Sodium Chloride 0.9% 100 ml @ 25 mls/hr IVPB Q8H [facility] Rx#: [id number] Sodium Chloride 0.9% 1, 455 180 20 000 ml @ 10 mls/hr IV . Q24H [facility] Rx#:[id number] Intake, IV Titration 695.174 519.730 89.271 Amount Dexmedetomidine/0.9% NaCl 392.345 306.172 89.271 (Pmx) 400 mcg In Empty Bag 1 bag @ 0.2 MCG/KG/HR 5.15 mls/hr IV .[id number] [facility] Rx#:[id number] Piperacillin-Tazobactam 3 100 100 .375 gm In Sodium Chloride 0.9% 100 ml @ 25 mls/hr IVPB Q8H [facility] Rx#: [id number] Sodium Chloride 0.9% 80 202.829 113.558 ml @ 1 MCG/KG/HR 10.3 mls /hr IV .[id number] [facility] with fentaNYL (PF) 1,000 mcg Rx#:[id number] Tube Feeding 610 240 Other 500 Output: Urine 343 425 0074 Other: Voiding Method Indwelling Catheter Indwelling Catheter Indwelling Catheter ABP, PAP, CO, CI - Last Documented Arterial Blood Pressure 159/69 - Exam No acute distress S1-S2 heard Decreased breath sounds Edema - Labs CBC & Chem 7: 09/18/22 04:25 09/18/22 04:25 Labs: Abnormal Lab Results - Last 24 Hours (Table) 09/17/22 09/18/22 09/18/22 Range/Units 17:45 00:32 04:25 RBC 3.41 L (4.30-5.90) m/uL Hgb 10.2 L (13.0-17.5) gm/dL Hct 29.6 L (39.0-53.0) % ABG pH (7.35-7.45) ABG pCO2 (35-45) mmHg ABG pO2 (83-108) mmHg ABG HCO3 (21-25) mmol/L ABG Total CO2 (19-24) mmol/L ABG O2 Saturation (94-97) % Sodium 134 L (137-145) mmol/L Creatinine (0.66-1.25) mg/dL Glucose (74-99) mg/dL POC Glucose (mg/dL) 148 H (70-110) mg/dL Calcium (8.4-10.2) mg/dL Total Bilirubin (0.2-1.3) mg/dL AST (17-59) U/L ALT (4-49) U/L Total Protein (6.3-8.2) g/dL Albumin (3.5-5.0) g/dL 09/18/22 09/18/22 09/18/22 Range/Units 04:25 05:45 09:25 RBC (4.30-5.90) m/uL Hgb (13.0-17.5) gm/dL Hct (39.0-53.0) % ABG pH 7.46 H 7.51 H (7.35-7.45) ABG pCO2 34 L (35-45) mmHg ABG pO2 70 L 82 L (83-108) mmHg ABG HCO3 26 H 27 H (21-25) mmol/L ABG Total CO2 27 H 28 H (19-24) mmol/L ABG O2 Saturation 97.9 H (94-97) % Sodium 136 L (137-145) mmol/L Creatinine 0.61 L (0.66-1.25) mg/dL Glucose 123 H (74-99) mg/dL POC Glucose (mg/dL) (70-110) mg/dL Calcium 7.3 L (8.4-10.2) mg/dL Total Bilirubin 1.4 H (0.2-1.3) mg/dL AST 68 H (17-59) U/L ALT 59 H (4-49) U/L Total Protein 4.9 L (6.3-8.2) g/dL Albumin 2.5 L (3.5-5.0) g/dL 09/18/22 Range/Units 11:50 RBC (4.30-5.90) m/uL Hgb (13.0-17.5) gm/dL Hct (39.0-53.0) % ABG pH (7.35-7.45) ABG pCO2 (35-45) mmHg ABG pO2 (83-108) mmHg ABG HCO3 (21-25) mmol/L ABG Total CO2 (19-24) mmol/L ABG O2 Saturation (94-97) % Sodium (137-145) mmol/L Creatinine (0.66-1.25) mg/dL Glucose (74-99) mg/dL POC Glucose (mg/dL) 134 H (70-110) mg/dL Calcium (8.4-10.2) mg/dL Total Bilirubin (0.2-1.3) mg/dL AST (17-59) U/L ALT (4-49) U/L Total Protein (6.3-8.2) g/dL Albumin (3.5-5.0) g/dL Microbiology - Last 24 Hours (Table) 09/16/22 15:19 Gram Stain - Preliminary Sputum Sputum Culture - Preliminary Gram Neg Bacilli Assessment and Plan Assessment: #1 hyponatremia multifactorial, status post 3% saline. #2 EtOH abuse #3 alcoholic liver disease #4 volume overload with edema #5. Delirium tremens Plan: #1 sodium back to baseline. #2 agree with Lasix, increase to 40 IV twice a day #3 daily labs
[2022-09-18] MEDS ORDERED: ACETAMINOPHEN IV (For NPO) 1,000 MG in EMPTY BAG 1 BAG IVPB PRN (15:58)
[2022-09-18] MEDS ORDERED: HALOPERIDOL LACTATE 5 MG/ML 1 ML VIAL IVP STA (16:13)
[2022-09-18] MEDS: SODIUM CHLORIDE 0.9% 1,000 ML IV SCH (16:50)
[2022-09-18] MEDS: MIDAZOLAM HCL 50 MG in SODIUM CHLORIDE 0.9% 40 ML IV SCH (18:46)
[2022-09-18] MEDS: CLEVIDIPINE BUTYRATE 25 MG in EMPTY BAG 1 BAG IV SCH (20:05)
[2022-09-18] MEDS: ATORVASTATIN 80 MG TAB PO SCH (20:32)
[2022-09-19] MEDS: DEXMEDETOMIDINE/0.9% NACL(PMX) 400 MCG in EMPTY BAG 1 BAG IV SCH ×7 (00:06→22:55)
[2022-09-19] MEDS: MIDAZOLAM HCL 50 MG in SODIUM CHLORIDE 0.9% 40 ML IV SCH (00:06)
[2022-09-19] MEDS: CLEVIDIPINE BUTYRATE 25 MG in EMPTY BAG 1 BAG IV SCH ×5 (01:03→18:40)
[2022-09-19] MEDS: PIPERACILLIN-TAZOBACTAM 3.375 GM in SODIUM CHLORIDE 0.9% 100 ML IVPB SCH ×3 (01:07→18:40)
[2022-09-19 04:45] LABS: ALT 60 U/L (4-49); AST 70 U/L (17-59); African American GFR (CKD) >90 (>60 ml/min/1.73 sqM); Albumin 2.6 g/dL (3.5-5.0); Alkaline Phosphatase 75 U/L (38-126); Anion Gap 5 mmol/L; Blood Urea Nitrogen 15 mg/dL (9-20); Calcium 7.8 mg/dL (8.4-10.2); Carbon Dioxide 26 mmol/L (22-30); Chloride 107 mmol/L (98-107); Glucose 106 mg/dL (74-99); Non-African American GFR(CKD) >90 (>60 ml/min/1.73 sqM); Potassium 3.6 mmol/L (3.5-5.1); Sodium 138 mmol/L (137-145); Total Bilirubin 1.4 mg/dL (0.2-1.3); Total Protein 5.1 g/dL (6.3-8.2)
[2022-09-19] MEDS: POTASSIUM CHLORIDE 10 MEQ in WATER FOR INJECTION 1 100ML.BAG IVPB SCH ×2 (05:00→06:13)
[2022-09-19 05:16] LABS: HCT 30.3 % (39.0-53.0); HGB 10.5 gm/dL (13.0-17.5); MCH 29.4 pg (25.0-35.0); MCHC 34.7 g/dL (31.0-37.0); MCV 84.7 fL (80.0-100.0); Mean Platelet Volume 8.1; Platelet Count 272 k/uL (150-450); RBC 3.57 m/uL (4.30-5.90); WBC 4.5 k/uL (3.8-10.6)
--- NOTE | 2022-09-19 06:54 | XR ---
EXAMINATION TYPE: XR chest 1V portable DATE OF EXAM: 09/19/2022 CLINICAL HISTORY: Difficulty breathing progress study. TECHNIQUE: Single AP portable semiupright view of the chest is obtained. COMPARISON: Chest x-ray from one day earlier and older studies FINDINGS: Interval extubation with removal of endotracheal and orogastric tubes. Persistent cardiomegaly. Improved inspiration. Increased interstitial markings bilaterally. Osseous s tructures are intact. IMPRESSION: Interval extubation. Improved inspiration. Cardiomegaly with mild to moderate interstitia l edema is present.
[2022-09-19 07:17] LABS: Band Neutrophils % 1 %; Eosinophils # (M) 0.09 k/uL (0-0.7); Lymphocytes # (M) 0.86 k/uL (1.0-4.8); Monocytes # (M) 0.27 k/uL (0-1.0); Neutrophils % (M) 72 %; Nucleated Red Blood Cells 0 /100 WBC (0-0); Total Cells Counted 100
[2022-09-19] MEDS ORDERED: PROPOFOL 10 MG/ML 20 ML VIAL IV ONE (07:53)
[2022-09-19] MEDS ORDERED: propofoL 100 ML IV ONE (07:54)
[2022-09-19] MEDS ORDERED: CISATRACURIUM 2 MG/ML 5 ML VIAL IV ONE ×2 (07:54→09:34)
--- NOTE | 2022-09-19 07:56 | P.PN ---
Subjective Progress Note Date: 09/19/22 62-year-old male patient, alcoholic, brought into the hospital on family request. EMS as the patient has not been eating any food for the past 10 days. He has been drinking significantly and he drinks beer and whiskey. He is an alcoholic and has been drinking excessively over the past 2 years at least. He has had multiple falls at home. No injuries to his head or traumatic head injury. He has bruises over the right cheek. No nausea. No emesis. No aspiration. No seizure activity has been noted. No reported chest pain or shortness of breath. No history of any substance abuse other than alcohol. As the patient was brought into the hospital, the patient was found to be in delirium tremens, increased confusion, agitation and tremors. He was given Ativan on the Route to the hospital. Upon arrival, alcohol level was less than 10, his sodium level was 114, bicarb is 15 with a creatinine of 1.1, normal coagulation profile, his troponin was negative, urine osmolality was 499, urine sodium was less than 20, WBC count at 9.9 with hemoglobin 15.3 and a platelet count of 188. The LFTs are abnormal with an AST of 93, ALT of 79, bilirubin level is at 2.3 and the lactic acid level is down to 1.6. The chest x-ray shows no acute abnormalities. On today's evaluation of 09/14/2022, the patient is intubated on a mechanical ventilator. The patient is, comfortable. Overnight, the patient was becoming progressively more agitated and he has required increased dose of Ativan and he was maximized on Precedex without any adequate control of the situation. Based on that, the patient had to be intubated on placed on a mechanical ventilator. No seizure activity was witnessed. The patient was essentially having delirium tremens. This morning, the patient is intubated on a mechanical ventilator. He is on assist control mode at a rate of 20, tidal volume of 500, FiO2 of 50% with a PEEP of 5. His blood gas from today shows a pH of 7.42 with a pCO2 of 36 and pO2 of 179. His chest x-ray from today shows adequate expansion of both lungs. ET tube is in good location. There is no evidence of any pneumothorax. No areas of any consolidation or airspace disease. No respiratory secretions. The patient is oxygenating and ventilating adequately. Is currently on propofol which is running at 75 mL an hour. His well sedated. He is taken off the hypertonic saline. His sodium gradually improved and this morning is up to 124 and subsequently 125. The rest of the electrolytes show a potassium level of 3.8 and these to be replaced, BUN is at 70 with a creatinine of 0.9. His white cell count is 5.3 with a hemoglobin of 11.4 and a platelet count of 129. Lal cath is in place. Urine output is adequate. He is afebrile. Liver function tests were not obtained. Calcium levels at 7.4. Blood sugars at 96. On today's evaluation of 09/15/2022, seeing the patient for a follow-up. As mentioned, this is a case of DTs, the patient is currently intubated on a mechanical ventilator, sedated with a combination of propofol and is also requiring on enough dose of Ativan throughout the night. The patient this morning is on propofol which is running at 55 mcg/kg/m. He is coming comfortable. The triglyceride levels are elevated and I'm in the process of switching the propofol to Precedex. The same time, his mentation will be evaluated. His abdomen is to wean will be also evaluated on a daily basis. He has remained hemodynamically stable over the past 24 hours. He remains on mechanical ventilator on assist control mode with a rate of 20, tidal volume of 500, FiO2 40% with a PEEP of 5. Blood gases from today shows a pH of 7.5 with a pCO2 of 33 and pO2 of 83. His chest x-ray from today shows no acute abnormalities. The orotracheal tube is in a good location. The lungs are adequately expanded and there are no significant infiltration. There may be some small left-sided pleural effusion/atelectasis. His seconds at 5.9 with a hemoglobin 11.1 and a platelet count of 146. Sodium level has gradually come up to 127. Is currently on IV fluids with normal saline at rate of 20 mL an hour. Urine output is adequate for now. He is on enteral feeding and the patient is receiving vital high-protein at the rate of 10 mL an hour. No seizure activity has been noted. No fever. No significant orotracheal secretions. No other issues for now. His condition is stable. On 09/16/2022, the patient is being seen for a follow-up. We managed to get the patient off the propofol and the patient is currently on Precedex which is running at the highest dose of 1.4 mcg/kg/h and the patient is also on fentanyl at 1 mcg/kg/h. Arousable, lethargic, not consistent in following commands, neurologic exam is nonfocal and he continues to move all 4 extremities. He has a very strong cough reflex patient will being suctioned. He remains on a mechanical ventilator. His urine output was low and he was given a bolus of normal saline yesterday which improved his urine output. His electrolytes today are stable. His sodium level is currently at 129 with a potassium level of 4.2, BUN is at 40 with a creatinine of 0.7. His CBC is also stable with a hemoglobin of 11 and a platelet count of 158. On a separate note, the patient remains on a mechanical ventilator. Is currently on a assist control mode rate of 14, tidal volume of 500, FiO2 40% with a PEEP of 5. There is improvement in his acid base status. His pH is at 7.39 with a pCO2 of 36 and pO2 of 95. Repeat chest x-ray from today shows stable findings. No evidence of any pneumonia. There is left lower lobe atelectasis. ET tube is in a I location an NG tube is in place. Is receiving enteral feeding for nutritional support. Is on vital high-protein at the rate of 10 mL an hour. He did spike a temperature 100.5 today. He has been spiking low-grade fever since yesterday. On 09/17/2022, the patient is being seen for a follow-up. Note that this morning, the patient is on a combination of Precedex 1.4 mcg/kg/h and fentanyl at 2 mcg/kg/h. We were able to discontinue propofol. Yesterday, the patient was arousing on a sedation holiday. Nevertheless, he never got to point where he was following commands and he was getting progressively more agitated. At the same time was having fever and the left lower lobe pneumonia was suspected. Based on that, the sedation holiday was aborted and the patient was kept on a mechanical ventilator. The same will be done today. The patient is on assist control mode at a rate of 14, tidal volume of 500, FiO2 of 40% with a PEEP of 5. The chest x-ray showing cardiac regular and left lower lobe consolidation/infiltrate. The white cell count at 6 with a hemoglobin of 10.05 and the patient is not having any fever at this point. Blood pressure was a pH of 7.34 with a pCO2 of 40 and pO2 of 93. BUN is at 60 with a creatinine of 0.58. Sodiums of 133 and a potassium level of 3.9. He does have some mild transaminitis. He remains on vital high-protein running at the rate of 40 mL an hour. IV fluids are currently in the form of 0.9 saline at the rate of 75 mL an hour. Urine output is adequate at 50 mL an hour. Pro-calcitonin level is at 0.14. 09/18/2022, the patient is being given a sedation holiday. Earlier this morning is at 7 AM, the patient was taken off the fentanyl. Is currently on Precedex running at 0.9 mcg/kg/h. He is following some simple commands. He remains profoundly weak. He has sweating and somewhat diaphoretic. It's possible that there may be some ongoing withdrawals. Nevertheless, he is able to squeeze using his hands upon demand. Is following some simple commands. When the process of monitoring the patient and weaning of his Precedex slowly. He may need some background Precedex running as were weaning patient off the sedation. Meanwhile, the patient will be kept on a mechanical ventilator. Is on assist control mode at the rate of 40 with a tidal volume of 500 and FiO2 of 40% with a PEEP of 5. Chest x-rays available quality, no new changes. His pH is at 7.46 with a pCO2 of 36 and pO2 of 70. The white cell cause of 4.7 with a hemoglobin of 10.2. BUN is at 80 with a creatinine of 0.6. Sodium is at 136. He remains on IV Zosyn. Sputum Gram stain and culture still pending. The pro-calcitonin level was at 0.14. He is afebrile. He is receiving vital high-protein at the rate of 60 mL an hour. He was noted to have a temperature spike at around 4:00 yesterday afternoon with a T-max of 101.4. His net fluid balance is positive at least 5 L over the past 3 days and over the past 24 hours has been +1.3 L. 4 2022, I'm seeing the patient for a follow-up. Patient was weaned off the fentanyl yesterday and he was kept on a low-dose Precedex. Subsequently, he was able to follow commands and he looks quite comfortable. We gave him a spontaneous breathing trial and he did well and at that point, we decided to go ahead and extubate the patient. The patient was extubated on 09/18/2022. He did well for quite some time and subsequently became more agitated, restless, a nd continued to have encephalopathy and tremors. He was moving all 4 extremities without any limitation. At that point, the Precedex dose was gradually increased. He was given Haldol. Based on failure to control his agitation, I started him on low-dose Versed drip which is currently running at 4 mg an hour. He is also on Precedex at 1.4 mcg/kg/m. His blood pressure was elevated and he is also on Cleviprex 8 mg an hour. patient is arousable. He is only oriented 1. His breathing is nonlabored. He is on oxygen at 10 L and his pulse ox in the order of 91%. Repeat chest x-ray was done today and the chest x-ray shows or respiratory efforts, cardiomegaly and some mild interstitial edema. IV fluids are currently at 20 mL an hour. BUN is a 50 with a creatinine of 0.5. His sodium level is at 138. The white cell cause of 4.5 with a hemoglobin of 10.5 and a platelet count of 272. Mild transaminitis related to his chronic alcoholic liver disease with a bilirubin level of 1.4. No seizure activity has been noted. No aspiration the patient is currently nothing by mouth. He has an arterial line in his left upper extremity. He is afebrile this morning. He remains on IV Zosyn. Sputum Gram stain is showing gram-negative bacillus. Objective - Vital Signs Vital signs: Vital Signs Temp 97.7 F 09/19/22 04:00 Pulse 86 09/19/22 07:00 Resp 20 09/19/22 07:00 BP 144/86 09/19/22 07:00 Pulse Ox 93 L 09/19/22 07:00 FiO2 40 09/18/22 08:00 Intake & Output 09/18/22 09/19/22 09/19/22 18:59 06:59 18:59 Intake Total 1558.271 813.000 3 Output Total 2029 1120 100 Balance -471.729 -307.000 -97 Weight 108.273 kg Intake: IV 529 316 3 0.9 Sodium Chloride 30 36 3 Invasive Line 4 9 Invasive Line 6 270 270 Invasive Line 7 10 Piperacillin-Tazobactam 3 200 .375 gm In Sodium Chloride 0.9% 100 ml @ 25 mls/hr IVPB Q8H [facility] Rx#: [id number] Sodium Chloride 0.9% 1, 20 000 ml @ 10 mls/hr IV . Q24H [facility] Rx#:[id number] Intake, IV Titration 289.271 497.000 Amount Clevidipine Butyrate 25 79.567 mg In Empty Bag 1 bag @ 1 MG/HR 2 mls/hr IV .Q24H [facility] Rx#:[id number] Dexmedetomidine/0.9% NaCl 289.271 396.734 (Pmx) 400 mcg In Empty Bag 1 bag @ 0.2 MCG/KG/HR 5.15 mls/hr IV .[id number] [facility] Rx#:[id number] Midazolam HCl 50 mg In 20.699 Sodium Chloride 0.9% 40 ml @ 2 MG/HR 2 mls/hr IV .Q24H [facility] Rx#:[id number] Tube Feeding 240 Other 500 Output: Urine 2029 1120 100 Other: Voiding Method Indwelling Catheter Indwelling Catheter ABP, PAP, CO, CI - Last Documented Arterial Blood Pressure 158/69 - Exam Gen. appearance the patient is extubated currently on 10 L of action by nasal cannula. He is on a combination of Versed and high-dose Precedex. Unfortunately, he remains encephalopathic. Currently is on a 4 point restraint. A following commands regularly. Head exam was generally normal. There was no scleral icterus or corneal arcus. Mucous membranes were moist. Neck was supple and without jugular venous distension, thyromegaly, or carotid bruits. Carotids were easily palpable bilaterally. There was no adenopathy. The patient has an orogastric and orotracheal tube and both of these were in place Lungs were clear to auscultation and percussion, and with normal diaphragmatic excursion. No wheezes or rales were noted. Cardiac exam revealed the PMI to be normally situated and sized. The rhythm was regular and no extrasystoles were noted during several minutes of auscultation. The first and second heart sounds were normal and physiologic splitting of the second heart sound was noted. There were no murmurs, rubs, clicks, or gallops. Abdominal exam revealed normal bowel sounds. The abdomen was soft, non-tender, and without masses, organomegaly, or appreciable enlargement of the abdominal aorta. Examination of the extremities revealed easily palpable radial, femoral and pedal pulses. There was no cyanosis, clubbing or edema. Neurologically, the patient grimaces to painful stimulation. He withdraws to pain. Moving all 4 extremities. Patient remains significantly lethargic, at times restless and agitated builds up with limited amount of stimulation. pupils are equal and reactive to light. No facial asymmetry. - Labs CBC & Chem 7: 09/19/22 04:05 09/19/22 04:05 Labs: Abnormal Lab Results - Last 24 Hours (Table) 09/18/22 09/18/22 09/19/22 Range/Units 09:25 11:50 04:05 RBC 3.57 L (4.30-5.90) m/uL Hgb 10.5 L (13.0-17.5) gm/dL Hct 30.3 L (39.0-53.0) % Lymphocytes # (Manual) 0.86 L (1.0-4.8) k/uL ABG pH 7.51 H (7.35-7.45) ABG pCO2 34 L (35-45) mmHg ABG pO2 82 L (83-108) mmHg ABG HCO3 27 H (21-25) mmol/L ABG Total CO2 28 H (19-24) mmol/L ABG O2 Saturation 97.9 H (94-97) % Creatinine (0.66-1.25) mg/dL Glucose (74-99) mg/dL POC Glucose (mg/dL) 134 H (70-110) mg/dL Calcium (8.4-10.2) mg/dL Total Bilirubin (0.2-1.3) mg/dL AST (17-59) U/L ALT (4-49) U/L Total Protein (6.3-8.2) g/dL Albumin (3.5-5.0) g/dL 09/19/22 Range/Units 04:05 RBC (4.30-5.90) m/uL Hgb (13.0-17.5) gm/dL Hct (39.0-53.0) % Lymphocytes # (Manual) (1.0-4.8) k/uL ABG pH (7.35-7.45) ABG pCO2 (35-45) mmHg ABG pO2 (83-108) mmHg ABG HCO3 (21-25) mmol/L ABG Total CO2 (19-24) mmol/L ABG O2 Saturation (94-97) % Creatinine 0.53 L (0.66-1.25) mg/dL Glucose 106 H (74-99) mg/dL POC Glucose (mg/dL) (70-110) mg/dL Calcium 7.8 L (8.4-10.2) mg/dL Total Bilirubin 1.4 H (0.2-1.3) mg/dL AST 70 H (17-59) U/L ALT 60 H (4-49) U/L Total Protein 5.1 L (6.3-8.2) g/dL Albumin 2.6 L (3.5-5.0) g/dL Microbiology - Last 24 Hours (Table) 09/16/22 15:19 Gram Stain - Preliminary Sputum Sputum Culture - Preliminary Gram Neg Bacilli Assessment and Plan Plan: Acute delirium tremens, failed conventional treatment with benzodiazepines and Precedex and the patient had to be intubated and placed on a mechanical ventilator and currently is on Precedex and fentanyl drips to control his agitation. Currently intubated on a mechanical ventilator. The patient was intubated on the 09/13/22 and the patient was extubated on 09/18/2022. After some limited success initially, the patient continued to have encephalopathy and active signs of delirium tremens. He was maximized on Precedex and he was also kept on Versed at 4 mg an hour. Unfortunately, his condition this morning is suboptimal and there is obvious concerns with airway protection specially him be ing on a Versed drip. Based on that, I am going to reintubate this patient. Acute hypoxic respiratory failure currently on 10 L of oxygen by nasal cannula, rule out a component of pneumonia and the patient has gram-negative bacillus in the sputum. Acute fever, improved and the patient is currently afebrile, last temperature spike was 101.4 from yesterday, remains on IV Zosyn, cultures are pending and the patient on gram-negative bacillus in the sputum. Suspect hospital-acquired left lower lobe pneumonia, pro-calcitonin level is mildly elevated and the patient is currently on Zosyn chest x-ray showing left lower lobe pneumonia. The chest x-ray from today showing diffuse bilateral pulmonary infiltrates/interstitial edema. Left lower lobe consolidation is somewhat improved. Acute hypertriglyceridemia, exacerbated by the use of propofol at the higher dose in addition to some baseline hypertriglyceridemia. The patient was taken off the propofol. Altered mental status, secondary to above a combination of alcohol withdrawal syndrome/delirium tremens and acute hyponatremia, sodium level is improving, sodium level is at 133 and the patient is currently on normal saline at rate of 75 mL an hour Alcoholic Acute hyperchloremic hypernatremia, improving and a sodium level is up to 138 Alcoholic liver disease with mild elevation of the LFTs History of fall secondary to above Hypertension Hyperlipidemia Enteral feeding for nutritional support with vital high-protein Plan The patient was extubated yesterday. Unfortunately, neurologically is still not absolutely ready. Is still requiring a combination of Precedex and Versed drip. I'm concerned of his underlying respiratory status and possibility of having respiratory compromise while being on both of these infusions. I'm going to reintubate the patient Was titrated Versed drip We'll continue the Precedex Change IV fluids to KVO His hyponatremia has recovered Check sputum Gram stain and culture was done and there is also still pending for now it's growing gram-negative bacillus , check pro calcitonin level was mildly elevated and the patient was covered with IV Zosyn Continue vital high-protein, tube feeds are going to be restarted IV Protonix Lovenox for DVT prophylaxis Thiamine Aspiration precautions We'll continue to follow. Family the bedside. Condition is obviously critical and we'll continue to follow make further recommendations based on patient's progress. He was sent a mechanical ventil ator for now. There is a critical care evaluation that was done in more than 30 minutes. I am going to reintubate the patient for reasons mentioned above Time with Patient: Greater than 30
--- NOTE | 2022-09-19 08:59 | P.PCN ---
Date of Procedure: 09/19/22 Preoperative Diagnosis: Acute hypoxic respiratory failure Postoperative Diagnosis: Acute hypoxic respiratory failure Procedure(s) Performed: Central line insertion, intubation Surgeon: Taylor Scott Condition: critical Disposition: ICU Operative Findings: Indication: Respiratory compromise. A time-out was completed verifying correct patient, procedure, site, positioning, and implant(s) or special equipment if applicable. The patient was positioned appropriately and a #8 endotracheal tube was placed under direct laryngoscopy. The tube was anchored at 22 cm at the teeth. Correct placement was confirmed by presence of bilateral breath sounds without air sounds in the abdomen on auscultation. An end-tidal CO2 monitor was also used to confirm tracheal placement of the ET tube. A chest x-ray was ordered to assess for pneumothorax and verify endotracheal tube placement. The patient tolerated the procedure well and there were no complications. Indication: Hemodynamic monitoring/Intravenous access. A time-out was completed verifying correct patient, procedure, site, positioning , and implant(s) or special equipment if applicable. The patient was placed in a dependent position appropriate for central line placement based on the vein to be cannulated. The patients left neck was prepped and draped in sterile fashion. 1% Lidocaine was used to anesthetize the surrounding skin area. A triple lumen 9F Cordis catheter was introduced into the left internal jugular vein using Seldinger technique. The catheter was threaded smoothly over the guide wire and appropriate blood return was obtained. Each lumen of the catheter was evacuated of air and flushed with sterile sa line. The catheter was then sutured in place to the skin and a sterile dressing applied. Perfusion to the extremity distal to the point of catheter insertion was checked and found to be adequate. The patient tolerated the procedure well and there were no complications.
--- NOTE | 2022-09-19 09:24 | XR ---
EXAMINATION TYPE: XR chest 1V DATE OF EXAM: 09/19/2022 CLINICAL HISTORY: Difficulty breathing have to be intubated. TECHNIQUE: Single AP portable semiupright view of the chest is obtained. COMPARISON: Chest x-ray from earlier today FINDINGS: There is new left internal jugular central venous catheter with tip terminating in SVC. Th ere is new endotracheal tube with tip terminating at the aortic knob level approximately 3 cm above t he lorie. There is new orogastric tube with tip projecting below diaphragm. Persistent bilateral increased opacities and left basilar opacity now silhouetting left hemidiaphragm . Cardiac silhouette size is stable and upper limits of normal. Osseous structures are intact. . IMPRESSION: 1. New endotracheal and orogastric tubes are satisfactory in position. 2. New left internal jugular central venous catheter terminating in SVC without pneumothorax. 3. Persistent bilateral multifocal acute infiltrates and/or edema similar to prior. Worsening left ba silar opacity could reflect worsening acute infiltrate and/or atelectasis at this level.
[2022-09-19] MEDS ORDERED: SODIUM CHLORIDE 0.9% 80 ML with fentaNYL (PF) 1,000 MCG IV SCH ×2 (09:45)
--- NOTE | 2022-09-19 10:09 | XR ---
EXAMINATION TYPE: XR chest 1V portable DATE OF EXAM: 09/19/2022 CLINICAL HISTORY: Difficulty breathing progress study. TECHNIQUE: Single AP portable supine view of the chest is obtained. COMPARISON: Chest x-ray from earlier today FINDINGS: Stable left internal jugular central venous catheter, endotracheal tube, and orogastric tu be. Persistent bilateral increased opacities. Cardiac silhouette size is mildly enlarged. Osseous structu res are intact. IMPRESSION: Mild cardiomegaly with bilateral multifocal acute edema and/or infiltrates and small bila teral pleural effusions redemonstrated. No significant change from most recent study earlier today.
[2022-09-19] MEDS: PANTOPRAZOLE 40 MG/10 ML VIAL IVP SCH (10:18)
[2022-09-19] MEDS: cloNIDine HCL 0.2 MG TAB PO SCH ×3 (10:19→20:43)
[2022-09-19] MEDS: ENOXAPARIN 40 MG/0.4 ML SYRINGE SQ SCH (10:19)
[2022-09-19] MEDS: THIAMINE 100 MG/ML 2 ML VIAL IVP SCH (10:21)
[2022-09-19] MEDS: PARoxetine 20 MG TAB PO SCH (10:21)
[2022-09-19] MEDS: MIDAZOLAM HCL 200 MG in SODIUM CHLORIDE 0.9% 60 ML IV SCH ×2 (10:52→19:45)
[2022-09-19] MEDS: CHLORHEXIDINE GLUCONATE 15 ML CUP MUCOUS MEM SCH ×2 (10:59→20:42)
[2022-09-19 13:23] LABS: ABG HCO3 23 mmol/L (21-25); ABG PCO2 40 mmHg (35-45); ABG PH 7.37 (7.35-7.45); ABG PO2 221 mmHg (83-108); ABG TCO2 24 mmol/L (19-24); Allen Test Performed? Yes
[2022-09-19] MEDS: SODIUM CHLORIDE 0.9% 1,000 ML IV SCH (14:00)
[2022-09-19] MEDS: SODIUM CHLORIDE 0.9% IV SCH ×4 (14:24→23:39)
[2022-09-19] MEDS: FENTANYL IV SCH ×4 (14:24→23:39)
--- NOTE | 2022-09-19 15:10 | P.PN ---
Subjective Progress Note Date: 09/19/22 Follow-up for hyponatremia.Good urine output, 3 L in the last 24 hours. Objective - Vital Signs Vital signs: Vital Signs Temp 98.8 F 09/19/22 12:00 Pulse 69 09/19/22 14:30 Resp 19 09/19/22 14:30 BP 135/87 09/19/22 14:15 Pulse Ox 96 09/19/22 14:30 FiO2 60 09/19/22 13:32 Intake & Output 09/18/22 09/19/22 09/19/22 18:59 06:59 18:59 Intake Total 1558.271 813.000 522.590 Output Total 2030 1120 350 Balance -471.729 -307.000 172.590 Weight 108.273 kg Intake: IV 529 316 132 0.9 Sodium Chloride 30 36 12 Invasive Line 4 9 Invasive Line 6 270 270 20 Invasive Line 7 10 Piperacillin-Tazobactam 3 200 100 .375 gm In Sodium Chloride 0.9% 100 ml @ 25 mls/hr IVPB Q8H [facility] Rx#: [id number] Sodium Chloride 0.9% 1, 20 000 ml @ 10 mls/hr IV . Q24H [facility] Rx#:[id number] Intake, IV Titration 289.271 497.000 390.590 Amount Clevidipine Butyrate 25 79.567 50 mg In Empty Bag 1 bag @ 1 MG/HR 2 mls/hr IV .Q24H [facility] Rx#:[id number] Dexmedetomidine/0.9% NaCl 289.271 396.734 200 (Pmx) 400 mcg In Empty Bag 1 bag @ 0.2 MCG/KG/HR 5.15 mls/hr IV .[id number] [facility] Rx#:[id number] Midazolam HCl 50 mg In 20.699 50.000 Sodium Chloride 0.9% 40 ml @ 2 MG/HR 2 mls/hr IV .Q24H [facility] Rx#:[id number] Sodium Chloride 0.9% 80 90.59 ml @ 2 MCG/KG/HR 21.655 mls/hr IV .Q4H38M [facility] with fentaNYL (PF) 1,000 mcg Rx#:[id number] Tube Feeding 240 0 Other 500 Output: Urine 2030 1120 350 Other: Voiding Method Indwelling Catheter Indwelling Catheter Indwelling Catheter ABP, PAP, CO, CI - Last Documented Arterial Blood Pressure 115/81 - Exam No acute distress S1-S2 heard Decreased breath sounds Edema - Labs CBC & Chem 7: 09/19/22 04:05 09/19/22 04:05 Labs: Abnormal Lab Results - Last 24 Hours (Table) 09/19/22 09/19/22 09/19/22 Range/Units 04:05 04:05 13:18 RBC 3.57 L (4.30-5.90) m/uL Hgb 10.5 L (13.0-17.5) gm/dL Hct 30.3 L (39.0-53.0) % Lymphocytes # (Manual) 0.86 L (1.0-4.8) k/uL ABG pO2 221 H (83-108) mmHg ABG O2 Saturation 100.0 H (94-97) % Creatinine 0.53 L (0.66-1.25) mg/dL Glucose 106 H (74-99) mg/dL Calcium 7.8 L (8.4-10.2) mg/dL Total Bilirubin 1.4 H (0.2-1.3) mg/dL AST 70 H (17-59) U/L ALT 60 H (4-49) U/L Total Protein 5.1 L (6.3-8.2) g/dL Albumin 2.6 L (3.5-5.0) g/dL Microbiology - Last 24 Hours (Table) 09/16/22 15:19 Gram Stain - Preliminary Sputum Sputum Culture - Preliminary Gram Neg Bacilli Assessment and Plan Assessment: #1 hyponatremia multifactorial, status post 3% saline. #2 EtOH abuse #3 alcoholic liver disease #4 volume overload with edema #5. Delirium tremens Plan: #1 sodium back to baseline. #2 on Lasix as needed. #3 daily labs
[2022-09-19 16:35] LABS: Glucose,Whole Blood 113 mg/dL (70-110)
[2022-09-19] MEDS: ATORVASTATIN 80 MG TAB PO SCH (20:42)
[2022-09-20] MEDS: PIPERACILLIN-TAZOBACTAM 3.375 GM in SODIUM CHLORIDE 0.9% 100 ML IVPB SCH ×3 (01:55→17:32)
--- NOTE | 2022-09-20 01:57 | P.PN ---
Subjective Progress Note Date: 09/18/22 Patient is 62-year-old gentleman with past medical history significant for alcohol abuse, presented to the ER because of multiple falls. Family is at bedside and states that the patient has not eaten any solid foods in 10 days. He has been drinking a significant amount of beer and recently "added whiskey to his diet". He has been drinking every day for the past 2 years. Reports that his last drink was last night at 11 PM. He has been having multiple falls and therefore family called EMS this morning. Patient was worked in the ER, initial lab work showed hemoglobin of 13.0, PTT 20.5, INR 1.2, sodium 140, potassium 4.3, chloride 80, carbonate 14, anion gap 20, lactate level 10.6. Chest x-ray w as negative for any acute cardiac process. Patient was admitted to ICU for further evaluation and treatment 09/14. Patient seen and examined. Patient overnight became more agitated, was maxed out on precedex Drip. Patient had to be intubated. Currently comfortable on mechanical ventilation. Vital signs stable 09/15. Patient seen and examined. Continues to be on mechanical ventilation. Currently on propofol and Precedex 09/16/2022 Patient is currently in the MICU. Remains on mechanical ventilator. AC 14 with tidal volume of 500 and FiO2 40% and PEEP of 5. Currently on Precedex. Chest x-ray showed suggestion of mild subsegmental atelectasis left base. Patient is being continued on antibiotics and follow-up Zosyn. Laboratory data showed WBC 6.7 hemoglobin 11.0 and platelets 158 Sodium 129 potassium 4.2 chloride 101 bicarb is 20 BUN 14 and creatinine 0.7 and calcium 7.8 and procalcitonin level was 0.14. 09/17/2022 Patient is currently in the MICU. On mechanical ventilator. Continued on Precedex and fentanyl. Patient was agitated and was having increased work of breathing with sedation holiday yesterday and was started back on mechanical ventilator with sedation. Chest x-ray showed bilateral consolidation and small effusion in the basis of postoperative atelectasis. Mild venous congestion not excluded. Findings stable. Laboratory data showed WBC 6.0 hemoglobin 10.5 and platelets 206 Sodium 133 potassium 3.9 chloride 104 bicarb is 22 BUN 16 and creatinine 0.58 and calcium 7.3. Albumin 2.7. Patient is being cannula antibiotics in the home Zosyn. Was given a dose of IV Lasix today. 09/18/2022 Patient was extubated this morning. Otherwise patient is very drowsy and lethargic but only follows simple commands. Chest x-ray showed cardiomegaly and low lung volumes with left basilar acute infiltrate and atelectasis redemonstrated. No significant change from 1 day earlier. Patient remains on antibiotics in the form of Zosyn. Laboratory data showed WBC 4.7 hemoglobin 10.2 and platelets 227 Sodium 136 potassium 3.8 chloride 106 bicarb is 27 BUN 18 and creatinine 0.61. Total bilirubin is 1.4 AST 68 ALT 57 alk phos 81 and albumin 2.5. Patient is being continued on Protonix and IV thiamine. Current medications reviewed. REVIEW OF SYSTEMS: Unable to obtain a review of systems patient is currently intubated PHYSICAL EXAMINATION: GENERAL: Currently intubated on mechanical ventilation HEENT: Pupils are round and equally reacting to light. CARDIOVASCULAR: S1 and S2 present. No murmurs, rubs, or gallops. PULMONARY: Chest is clear to auscultation, no wheezing or crackles. ABDOMEN: Soft, nontender, nondistended, normoactive bowel sounds. No palpable organomegaly. MUSCULOSKELETAL: No joint swelling or deformity. EXTREMITIES: No cyanosis, clubbing, or pedal edema. NEUROLOGICAL: Unable to obtain neurological exam because patient is currently intubated SKIN: No rashes. Assessment and plan Acute delirium tremens. Patient is off Precedex. extubated today Acute hypoxic respiratory failure requiring mechanical ventilator. Alcohol withdrawal syndrome Alcohol Abuse Hyponatremia GI and DVT prophylaxis Plan; Patient is extubated Continue with empiric antibiotics for home Zosyn. IV hydration with normal saline. Continue telemetry monitoring. Continue with thiamine multivitamins and folic acid. Nephrology and critical care team and nephrology is on board. Discussed with the family at bedside in detail. Objective - Vital Signs Vital signs: Vital Signs Temp 99.6 F 09/18/22 16:52 Pulse 79 09/18/22 22:00 Resp 25 H 09/18/22 22:00 BP 152/86 09/18/22 22:00 Pulse Ox 93 L 09/18/22 22:00 FiO2 40 09/18/22 08:00 Intake & Output 09/18/22 09/18/22 09/19/22 06:59 18:59 06:59 Intake Total 2641.662 9139.271 226.099 Output Total 575 2030 425 Balance 767.730 -471.729 -198.901 Weight 109.955 kg Intake: IV 213 529 112 0.9 Sodium Chloride 33 30 12 Invasive Line 4 9 Invasive Line 6 270 90 Invasive Line 7 10 Piperacillin-Tazobactam 3 200 .375 gm In Sodium Chloride 0.9% 100 ml @ 25 mls/hr IVPB Q8H [facility] Rx#: [id number] Sodium Chloride 0.9% 1, 180 20 000 ml @ 10 mls/hr IV . Q24H [facility] Rx#:[id number] Intake, IV Titration 519.730 289.271 114.099 Amount Clevidipine Butyrate 25 6.200 mg In Empty Bag 1 bag @ 1 MG/HR 2 mls/hr IV .Q24H [facility] Rx#:[id number] Dexmedetomidine/0.9% NaCl 306.172 289.271 100 (Pmx) 400 mcg In Empty Bag 1 bag @ 0.2 MCG/KG/HR 5.15 mls/hr IV .[id number] [facility] Rx#:[id number] Midazolam HCl 50 mg In 7.899 Sodium Chloride 0.9% 40 ml @ 2 MG/HR 2 mls/hr IV .Q24H [facility] Rx#:[id number] Piperacillin-Tazobactam 3 100 .375 gm In Sodium Chloride 0.9% 100 ml @ 25 mls/hr IVPB Q8H [facility] Rx#: [id number] Sodium Chloride 0.9% 80 113.558 ml @ 1 MCG/KG/HR 10.3 mls /hr IV .Q9H43M [facility] with fentaNYL (PF) 1,000 mcg Rx#:[id number] Tube Feeding 610 240 Other 500 Output: Urine 575 2030 425 Other: Voiding Method Indwelling Catheter Indwelling Catheter Indwelling Catheter ABP, PAP, CO, CI - Last Documented Arterial Blood Pressure 158/63 - Labs CBC & Chem 7: 09/19/22 04:05 09/19/22 04:05 Labs: Abnormal Lab Results - Last 24 Hours (Table) 09/18/22 09/18/22 09/18/22 Range/Units 00:32 04:25 04:25 RBC 3.41 L (4.30-5.90) m/uL Hgb 10.2 L (13.0-17.5) gm/dL Hct 29.6 L (39.0-53.0) % ABG pH (7.35-7.45) ABG pCO2 (35-45) mmHg ABG pO2 (83-108) mmHg ABG HCO3 (21-25) mmol/L ABG Total CO2 (19-24) mmol/L ABG O2 Saturation (94-97) % Sodium 136 L (137-145) mmol/L Creatinine 0.61 L (0.66-1.25) mg/dL Glucose 123 H (74-99) mg/dL POC Glucose (mg/dL) 148 H (70-110) mg/dL Calcium 7.3 L (8.4-10.2) mg/dL Total Bilirubin 1.4 H (0.2-1.3) mg/dL AST 68 H (17-59) U/L ALT 59 H (4-49) U/L Total Protein 4.9 L (6.3-8.2) g/dL Albumin 2.5 L (3.5-5.0) g/dL 09/18/22 09/18/22 09/18/22 Range/Units 05:45 09:25 11:50 RBC (4.30-5.90) m/uL Hgb (13.0-17.5) gm/dL Hct (39.0-53.0) % ABG pH 7.46 H 7.51 H (7.35-7.45) ABG pCO2 34 L (35-45) mmHg ABG pO2 70 L 82 L (83-108) mmHg ABG HCO3 26 H 27 H (21-25) mmol/L ABG Total CO2 27 H 28 H (19-24) mmol/L ABG O2 Saturation 97.9 H (94-97) % Sodium (137-145) mmol/L Creatinine (0.66-1.25) mg/dL Glucose (74-99) mg/dL POC Glucose (mg/dL) 134 H (70-110) mg/dL Calcium (8.4-10.2) mg/dL Total Bilirubin (0.2-1.3) mg/dL AST (17-59) U/L ALT (4-49) U/L Total Protein (6.3-8.2) g/dL Albumin (3.5-5.0) g/dL Microbiology - Last 24 Hours (Table) 09/16/22 15:19 Gram Stain - Preliminary Sputum Sputum Culture - Preliminary Gram Neg Bacilli
[2022-09-20] MEDS: DEXMEDETOMIDINE/0.9% NACL(PMX) 400 MCG in EMPTY BAG 1 BAG IV SCH ×5 (02:01→17:32)
--- NOTE | 2022-09-20 02:02 | P.PN ---
Subjective Progress Note Date: 09/19/22 Patient is 62-year-old gentleman with past medical history significant for alcohol abuse, presented to the ER because of multiple falls. Family is at bedside and states that the patient has not eaten any solid foods in 10 days. He has been drinking a significant amount of beer and recently "added whiskey to his diet". He has been drinking every day for the past 2 years. Reports that his last drink was last night at 11 PM. He has been having multiple falls and therefore family called EMS this morning. Patient was worked in the ER, initial lab work showed hemoglobin of 13.0, PTT 20.5, INR 1.2, sodium 140, potassium 4.3, chloride 80, carbonate 14, anion gap 20, lactate level 10.6. Chest x-ray w as negative for any acute cardiac process. Patient was admitted to ICU for further evaluation and treatment 09/14. Patient seen and examined. Patient overnight became more agitated, was maxed out on precedex Drip. Patient had to be intubated. Currently comfortable on mechanical ventilation. Vital signs stable 09/15. Patient seen and examined. Continues to be on mechanical ventilation. Currently on propofol and Precedex 09/16/2022 Patient is currently in the MICU. Remains on mechanical ventilator. AC 14 with tidal volume of 500 and FiO2 40% and PEEP of 5. Currently on Precedex. Chest x-ray showed suggestion of mild subsegmental atelectasis left base. Patient is being continued on antibiotics and follow-up Zosyn. Laboratory data showed WBC 6.7 hemoglobin 11.0 and platelets 158 Sodium 129 potassium 4.2 chloride 101 bicarb is 20 BUN 14 and creatinine 0.7 and calcium 7.8 and procalcitonin level was 0.14. 09/17/2022 Patient is currently in the MICU. On mechanical ventilator. Continued on Precedex and fentanyl. Patient was agitated and was having increased work of breathing with sedation holiday yesterday and was started back on mechanical ventilator with sedation. Chest x-ray showed bilateral consolidation and small effusion in the basis of postoperative atelectasis. Mild venous congestion not excluded. Findings stable. Laboratory data showed WBC 6.0 hemoglobin 10.5 and platelets 206 Sodium 133 potassium 3.9 chloride 104 bicarb is 22 BUN 16 and creatinine 0.58 and calcium 7.3. Albumin 2.7. Patient is being cannula antibiotics in the home Zosyn. Was given a dose of IV Lasix today. 09/18/2022 Patient was extubated this morning. Otherwise patient is very drowsy and lethargic but only follows simple commands. Chest x-ray showed cardiomegaly and low lung volumes with left basilar acute infiltrate and atelectasis redemonstrated. No significant change from 1 day earlier. Patient remains on antibiotics in the form of Zosyn. Laboratory data showed WBC 4.7 hemoglobin 10.2 and platelets 227 Sodium 136 potassium 3.8 chloride 106 bicarb is 27 BUN 18 and creatinine 0.61. Total bilirubin is 1.4 AST 68 ALT 57 alk phos 81 and albumin 2.5. Patient is being continued on Protonix and IV thiamine. 09-19-22 Patient is currently in the MICU. Was extubated yesterday. He did well for some time and subsequently more agitated and restless and became encephalopathic. Patient was started back on Precedex for the patient was still agitated. Patient was started on Versed drip and was reintubated. Chest x-ray showed new endotracheal and orogastric tubes are satisfactory in position. Left internal jugular vein central venous catheter terminating in SVC without pneumothorax. Persistent bilateral multifocal acute infiltrate and edema similar to prior. Worsening left basilar opacity could reflect worsening acute infiltrate and atelectasis. Laboratory data showed WBC 4.5 hemoglobin 10.4 and platelets 272 sodium 138 potassium 3.6 chloride 107 bicarb is 26 BUN 15 and creatinine of 1.3. Pulmonary and nephrology is on board. Current medications reviewed. REVIEW OF SYSTEMS: Unable to obtain a review of systems patient is currently intubated PHYSICAL EXAMINATION: GENERAL: Currently intubated on mechanical ventilation HEENT: Pupils are round and equally reacting to light. CARDIOVASCULAR: S1 and S2 present. No murmurs, rubs, or gallops. PULMONARY: Chest is clear to auscultation, no wheezing or crackles. ABDOMEN: Soft, nontender, nondistended, normoactive bowel sounds. No palpable organomegaly. MUSCULOSKELETAL: No joint swelling or deformity. EXTREMITIES: No cyanosis, clubbing, or pedal edema. NEUROLOGICAL: Unable to obtain neurological exam because patient is currently intubated SKIN: No rashes. Assessment and plan Acute delirium tremens. Patient was reintubated. Currently on sedation with Cleviprex. Acute hypoxic respiratory failure requiring mechanical ventilator. Alcohol withdrawal syndrome Alcohol Abuse Hyponatremia GI and DVT prophylaxis Plan; Patient is intubated and sedated Continue with empiric antibiotics for home Zosyn. IV hydration with normal saline. Continue telemetry monitoring. Continue with thiamine multivitamins and folic acid. Nephrology and critical care team and nephrology is on board. Objective - Vital Signs Vital signs: Vital Signs Temp 98.8 F 09/19/22 16:00 Pulse 67 09/19/22 19:00 Resp 20 09/19/22 19:00 BP 135/87 09/19/22 18:00 Pulse Ox 94 L 09/19/22 19:00 FiO2 50 09/19/22 16:00 Intake & Output 09/19/22 09/19/22 09/20/22 06:59 18:59 06:59 Intake Total 910.356 3465.176 31.217 Output Total 1120 805 30 Balance -307.000 250.176 1.217 Weight 108.273 kg Intake: IV 316 380 23 0.9 Sodium Chloride 36 30 3 Invasive Line 4 10 Invasive Line 6 270 20 Invasive Line 7 10 Piperacillin-Tazobactam 3 200 .375 gm In Sodium Chloride 0.9% 100 ml @ 25 mls/hr IVPB Q8H [facility] Rx#: [id number] Sodium Chloride 0.9% 1, 120 20 000 ml @ 10 mls/hr IV . Q24H [facility] Rx#:[id number] Intake, IV Titration 497.000 575.176 8.217 Amount Clevidipine Butyrate 25 79.567 121.067 3.067 mg In Empty Bag 1 bag @ 1 MG/HR 2 mls/hr IV .Q24H [facility] Rx#:[id number] Dexmedetomidine/0.9% NaCl 396.734 313.519 5.15 (Pmx) 400 mcg In Empty Bag 1 bag @ 0.2 MCG/KG/HR 5.15 mls/hr IV .[id number] [facility] Rx#:[id number] Midazolam HCl 50 mg In 20.699 50.000 Sodium Chloride 0.9% 40 ml @ 2 MG/HR 2 mls/hr IV .Q24H [facility] Rx#:[id number] Sodium Chloride 0.9% 80 90.59 ml @ 2 MCG/KG/HR 21.655 mls/hr IV .Q4H38M [facility] with fentaNYL (PF) 1,000 mcg Rx#:[id number] Tube Feeding 70 Other 30 Output: Urine 1120 805 30 Other: Voiding Method Indwelling Catheter Indwelling Catheter ABP, PAP, CO, CI - Last Documented Arterial Blood Pressure 127/56 - Labs CBC & Chem 7: 09/19/22 04:05 09/19/22 04:05 Labs: Abnormal Lab Results - Last 24 Hours (Table) 09/19/22 09/19/22 09/19/22 Range/Units 04:05 04:05 13:18 RBC 3.57 L (4.30-5.90) m/uL Hgb 10.5 L (13.0-17.5) gm/dL Hct 30.3 L (39.0-53.0) % Lymphocytes # (Manual) 0.86 L (1.0-4.8) k/uL ABG pO2 221 H (83-108) mmHg ABG O2 Saturation 100.0 H (94-97) % Creatinine 0.53 L (0.66-1.25) mg/dL Glucose 106 H (74-99) mg/dL POC Glucose (mg/dL) (70-110) mg/dL Calcium 7.8 L (8.4-10.2) mg/dL Total Bilirubin 1.4 H (0.2-1.3) mg/dL AST 70 H (17-59) U/L ALT 60 H (4-49) U/L Total Protein 5.1 L (6.3-8.2) g/dL Albumin 2.6 L (3.5-5.0) g/dL 09/19/22 Range/Units 16:33 RBC (4.30-5.90) m/uL Hgb (13.0-17.5) gm/dL Hct (39.0-53.0) % Lymphocytes # (Manual) (1.0-4.8) k/uL ABG pO2 (83-108) mmHg ABG O2 Saturation (94-97) % Creatinine (0.66-1.25) mg/dL Glucose (74-99) mg/dL POC Glucose (mg/dL) 113 H (70-110) mg/dL Calcium (8.4-10.2) mg/dL Total Bilirubin (0.2-1.3) mg/dL AST (17-59) U/L ALT (4-49) U/L Total Protein (6.3-8.2) g/dL Albumin (3.5-5.0) g/dL
[2022-09-20 04:43] LABS: HCT 31.3 % (39.0-53.0); HGB 10.3 gm/dL (13.0-17.5); MCH 28.5 pg (25.0-35.0); MCHC 32.9 g/dL (31.0-37.0); MCV 86.7 fL (80.0-100.0); Mean Platelet Volume 7.6; Platelet Count 308 k/uL (150-450); RBC 3.61 m/uL (4.30-5.90); RDW 13.3 % (11.5-15.5); WBC 4.6 k/uL (3.8-10.6)
[2022-09-20] MEDS: CLEVIDIPINE BUTYRATE 25 MG in EMPTY BAG 1 BAG IV SCH ×2 (05:06→12:27)
[2022-09-20 05:07] LABS: ALT 71 U/L (4-49); AST 84 U/L (17-59); African American GFR (CKD) >90 (>60 ml/min/1.73 sqM); Albumin 2.6 g/dL (3.5-5.0); Alkaline Phosphatase 83 U/L (38-126); Blood Urea Nitrogen 17 mg/dL (9-20); Calcium 7.8 mg/dL (8.4-10.2); Carbon Dioxide 28 mmol/L (22-30); Glucose 114 mg/dL (74-99); Non-African American GFR(CKD) >90 (>60 ml/min/1.73 sqM); Total Bilirubin 1.2 mg/dL (0.2-1.3); Total Protein 5.2 g/dL (6.3-8.2)
[2022-09-20 05:10] LABS: Band Neutrophils % 2 %; Eosinophils # (M) 0.14 k/uL (0-0.7); Lymphocytes # (M) 1.01 k/uL (1.0-4.8); Monocytes # (M) 0.69 k/uL (0-1.0); Neutrophils % (M) 58 %; Nucleated Red Blood Cells 0 /100 WBC (0-0); Total Cells Counted 100
[2022-09-20 05:54] LABS: Anion Gap 5 mmol/L; Chloride 107 mmol/L (98-107); Potassium 3.7 mmol/L (3.5-5.1); Sodium 140 mmol/L (137-145)
[2022-09-20 06:33] LABS: ABG Base Excess 2.9 mmol/L; ABG HCO3 27 mmol/L (21-25); ABG PCO2 40 mmHg (35-45); ABG PH 7.44 (7.35-7.45); ABG PO2 74 mmHg (83-108); ABG TCO2 28 mmol/L (19-24); Allen Test Performed? Yes
[2022-09-20] MEDS ORDERED: POTASSIUM BICARBONATE/CIT AC 20 MEQ TABLET.EFF NG-TUBE SCH (07:00)
--- NOTE | 2022-09-20 08:48 | XR ---
EXAMINATION TYPE: XR chest 1V portable DATE OF EXAM: 09/20/2022 COMPARISON: 09/19/2022 HISTORY: Shortness of breath TECHNIQUE: Single frontal view of the chest is obtained. FINDINGS: Stable left internal jugular central venous catheter, endotracheal tube, and orogastric tu be. Persistent bilateral increased opacities. Cardiac silhouette size is mildly enlarged. Osseous str uctures are intact. IMPRESSION: 1. Correlate for CHF otherwise consider pneumonia. Findings stable.
[2022-09-20] MEDS: PARoxetine 20 MG TAB PO SCH (09:45)
[2022-09-20] MEDS: CHLORHEXIDINE GLUCONATE 15 ML CUP MUCOUS MEM SCH ×2 (09:45→21:28)
[2022-09-20] MEDS: THIAMINE 100 MG/ML 2 ML VIAL IVP SCH (09:45)
[2022-09-20] MEDS: ENOXAPARIN 40 MG/0.4 ML SYRINGE SQ SCH (09:45)
[2022-09-20] MEDS: PANTOPRAZOLE 40 MG/10 ML VIAL IVP SCH (09:45)
[2022-09-20] MEDS: cloNIDine HCL 0.2 MG TAB PO SCH ×3 (09:45→21:28)
[2022-09-20] MEDS ORDERED: FUROSEMIDE 10 MG/ML 4 ML VIAL IV STA (10:05)
--- NOTE | 2022-09-20 10:07 | P.PN ---
Subjective Patient is seen in follow-up for hyponatremia. Sodium level now normal. Intubated. Hemodynamically stable. Vital signs are stable. HEENT: Intubated. LUNGS: No audible rhonchi or wheezes. HEART: Rate and Rhythm are regular. ABDOMEN: No distention. EXTREMITITES: 1+ edema. Objective - Vital Signs Vital signs: Vital Signs Temp 100.3 F H 09/20/22 08:00 Pulse 72 09/20/22 08:45 Resp 20 09/20/22 08:45 BP 135/87 09/20/22 06:30 Pulse Ox 92 L 09/20/22 08:45 FiO2 50 09/20/22 08:17 Intake & Output 09/19/22 09/20/22 09/20/22 18:59 06:59 18:59 Intake Total 7950.363 1856.048 194.412 Output Total 805 470 75 Balance 250.176 742.048 119.412 Intake: IV 380 386 56 0.9 Sodium Chloride 30 36 6 Invasive Line 4 10 30 10 Invasive Line 6 20 Piperacillin-Tazobactam 3 200 100 .375 gm In Sodium Chloride 0.9% 100 ml @ 25 mls/hr IVPB Q8H [facility] Rx#: [id number] Sodium Chloride 0.9% 1, 120 220 40 000 ml @ 10 mls/hr IV . Q24H [facility] Rx#:[id number] Intake, IV Titration 575.176 586.048 108.412 Amount Clevidipine Butyrate 25 121.067 40.367 mg In Empty Bag 1 bag @ 1 MG/HR 2 mls/hr IV .Q24H [facility] Rx#:[id number] Dexmedetomidine/0.9% NaCl 313.519 242.222 108.412 (Pmx) 400 mcg In Empty Bag 1 bag @ 0.2 MCG/KG/HR 5.15 mls/hr IV .[id number] [facility] Rx#:[id number] Midazolam HCl 200 mg In 103.150 Sodium Chloride 0.9% 60 ml @ 10 MG/HR 5 mls/hr IV .Q20H [facility] Rx#:[id number] Midazolam HCl 50 mg In 50.000 Sodium Chloride 0.9% 40 ml @ 2 MG/HR 2 mls/hr IV .Q24H [facility] Rx#:[id number] Sodium Chloride 0.9% 200 200.309 ml @ 2 MCG/KG/HR 21.655 mls/hr IV .[id number] [facility] with fentaNYL (PF) 2,500 mcg Rx#:[id number] Sodium Chloride 0.9% 80 90.59 ml @ 2 MCG/KG/HR 21.655 mls/hr IV .Q4H38M [facility] with fentaNYL (PF) 1,000 mcg Rx#:[id number] Tube Feeding 70 240 30 Other 30 Output: Urine 805 470 75 Other: Voiding Method Indwelling Catheter Indwelling Catheter Indwelling Catheter ABP, PAP, CO, CI - Last Documented Arterial Blood Pressure 155/57 - Labs CBC & Chem 7: 09/20/22 04:15 09/20/22 04:15 Labs: Abnormal Lab Results - Last 24 Hours (Table) 09/19/22 09/19/22 09/20/22 Range/Units 13:18 16:33 04:15 RBC 3.61 L (4.30-5.90) m/uL Hgb 10.3 L (13.0-17.5) gm/dL Hct 31.3 L (39.0-53.0) % ABG pO2 221 H (83-108) mmHg ABG HCO3 (21-25) mmol/L ABG Total CO2 (19-24) mmol/L ABG O2 Saturation 100.0 H (94-97) % Creatinine (0.66-1.25) mg/dL Glucose (74-99) mg/dL POC Glucose (mg/dL) 113 H (70-110) mg/dL Calcium (8.4-10.2) mg/dL AST (17-59) U/L ALT (4-49) U/L Total Protein (6.3-8.2) g/dL Albumin (3.5-5.0) g/dL 09/20/22 09/20/22 Range/Units 04:15 06:29 RBC (4.30-5.90) m/uL Hgb (13.0-17.5) gm/dL Hct (39.0-53.0) % ABG pO2 74 L (83-108) mmHg ABG HCO3 27 H (21-25) mmol/L ABG Total CO2 28 H (19-24) mmol/L ABG O2 Saturation (94-97) % Creatinine 0.53 L (0.66-1.25) mg/dL Glucose 114 H (74-99) mg/dL POC Glucose (mg/dL) (70-110) mg/dL Calcium 7.8 L (8.4-10.2) mg/dL AST 84 H (17-59) U/L ALT 71 H (4-49) U/L Total Protein 5.2 L (6.3-8.2) g/dL Albumin 2.6 L (3.5-5.0) g/dL Assessment and Plan Plan: Assessment: 1. Hypervolemic hyponatremia status post 3% saline and diuresis this admission. Resolved. Urine sodium less than 20 and urine osmolality 499 dated 09/13/2022. 2. Alcohol abuse. 3. Alcohol liver disease. 4. Volume overload. Plan: Lasix 40 mg IV once today. Wean FiO2.
[2022-09-20] MEDS: SODIUM CHLORIDE 0.9% IV SCH ×4 (10:50→22:26)
[2022-09-20] MEDS: FENTANYL IV SCH ×4 (10:50→22:26)
[2022-09-20] MEDS: SODIUM CHLORIDE 0.9% 1,000 ML IV SCH (10:56)
[2022-09-20 11:35] LABS: Glucose,Whole Blood 120 mg/dL (70-110)
[2022-09-20] MEDS: MIDAZOLAM HCL 200 MG in SODIUM CHLORIDE 0.9% 60 ML IV SCH (11:46)
--- NOTE | 2022-09-20 14:03 | P.PN ---
Subjective Progress Note Date: 09/20/22 Principal diagnosis: Acute delirium tremens requiring intubation and mechanical ventilation 62-year-old male patient, alcoholic, brought into the hospital on family request. EMS as the patient has not been eating any food for the past 10 days. He has been drinking significantly and he drinks beer and whiskey. He is an alcoholic and has been drinking excessively over the past 2 years at least. He has had multiple falls at home. No injuries to his head or traumatic head in jury. He has bruises over the right cheek. No nausea. No emesis. No aspiration. No seizure activity has been noted. No reported chest pain or shortness of breath. No history of any substance abuse other than alcohol. As the patient was brought into the hospital, the patient was found to be in delirium tremens, increased confusion, agitation and tremors. He was given Ativan on the Route to the hospital. Upon arrival, alcohol level was less than 10, his sodium level was 114, bicarb is 15 with a creatinine of 1.1, normal coagulation profile, his troponin was negative, urine osmolality was 499, urine sodium was less than 20, WBC count at 9.9 with hemoglobin 15.3 and a platelet count of 188. The LFTs are abnormal with an AST of 93, ALT of 79, bilirubin level is at 2.3 and the lactic acid level is down to 1.6. The chest x-ray shows no acute abnormalities. On today's evaluation of 09/14/2022, the patient is intubated on a mechanical ventilator. The patient is, comfortable. Overnight, the patient was becoming progressively more agitated and he has required increased dose of Ativan and he was maximized on Precedex without any adequate control of the situation. Based on that, the patient had to be intubated on placed on a mechanical ventilator. No seizure activity was witnessed. The patient was essentially having delirium tremens. This morning, the patient is intubated on a mechanical ventilator. He is on assist control mode at a rate of 20, tidal volume of 500, FiO2 of 50% with a PEEP of 5. His blood gas from today shows a pH of 7.42 with a pCO2 of 36 and pO2 of 179. His chest x-ray from today shows adequate expansion of both lungs. ET tube is in good location. There is no evidence of any pneumothorax. No areas of any consolidation or airspace disease. No respiratory secretions. The patient is oxygenating and ventilating adequately. Is currently on propofol which is running at 75 mL an hour. His well sedated. He is taken off the hypertonic saline. His sodium gradually improved and this morning is up to 124 and subsequently 125. The rest of the electrolytes show a potassium level of 3.8 and these to be replaced, BUN is at 70 with a creatinine of 0.9. His white cell count is 5.3 with a hemoglobin of 11.4 and a platelet count of 129. Lal cath is in place. Urine output is adequate. He is afebrile. Liver function tests were not obtained. Calcium levels at 7.4. Blood sugars at 96. On today's evaluation of 09/15/2022, seeing the patient for a follow-up. As mentioned, this is a case of DTs, the patient is currently intubated on a mechanical ventilator, sedated with a combination of propofol and is also requiring on enough dose of Ativan throughout the night. The patient this morning is on propofol which is running at 55 mcg/kg/m. He is coming comfortable. The triglyceride levels are elevated and I'm in the process of sw itching the propofol to Precedex. The same time, his mentation will be evaluated. His abdomen is to wean will be also evaluated on a daily basis. He has remained hemodynamically stable over the past 24 hours. He remains on mechanical ventilator on assist control mode with a rate of 20, tidal volume of 500, FiO2 40% with a PEEP of 5. Blood gases from today shows a pH of 7.5 with a pCO2 of 33 and pO2 of 83. His chest x-ray from today shows no acute abnormalities. The orotracheal tube is in a good location. The lungs are adequately expanded and there are no significant infiltration. There may be some small left-sided pleural effusion/atelectasis. His seconds at 5.9 with a hemoglobin 11.1 and a platelet count of 146. Sodium level has gradually come up to 127. Is currently on IV fluids with normal saline at rate of 20 mL an hour. Urine output is adequate for now. He is on enteral feeding and the patient is receiving vital high-protein at the rate of 10 mL an hour. No sei zure activity has been noted. No fever. No significant orotracheal secretions. No other issues for now. His condition is stable. On 09/16/2022, the patient is being seen for a follow-up. We managed to get the patient off the propofol and the patient is currently on Precedex which is running at the highest dose of 1.4 mcg/kg/h and the patient is also on fentanyl at 1 mcg/kg/h. Arousable, lethargic, not consistent in following commands, neurologic exam is nonfocal and he continues to move all 4 extremities. He has a very strong cough reflex patient will being suctioned. He remains on a mechanical ventilator. His urine output was low and he was given a bolus of normal saline yesterday which improved his urine output. His electrolytes today are stable. His sodium level is currently at 129 with a potassium level of 4.2, BUN is at 40 with a creatinine of 0.7. His CBC is also stable with a hemoglobin of 11 and a platelet count of 158. On a separate note, the patient remains on a mechanical ventilator. Is currently on a assist control mode rate of 14, tidal volume of 500, FiO2 40% with a PEEP of 5. There is improvement in his acid base status. His pH is at 7.39 with a pCO2 of 36 and pO2 of 95. Repeat chest x-ray from today shows stable findings. No evidence of any pneumonia. There is left lower lobe atelectasis. ET tube is in a I location an NG tube is in place. Is receiving enteral feeding for nutritional support. Is on vital high-protein at the rate of 10 mL an hour. He did spike a temperature 100.5 today. He has been spiking low-grade fever since yesterday. On 09/17/2022, the patient is being seen for a follow-up. Note that this morning, the patient is on a combination of Precedex 1.4 mcg/kg/h and fentanyl at 2 mcg/kg/h. We were able to discontinue propofol. Yesterday, the patient was arousing on a sedation holiday. Nevertheless, he never got to point where he was following commands and he was getting progressively more agitated. At the same time was having fever and the left lower lobe pneumonia was suspected. Based on that, the sedation holiday was aborted and the patient was kept on a mechanical ventilator. The same will be done today. The patient is on assist control mode at a rate of 14, tidal volume of 500, FiO2 of 40% with a PEEP of 5. The chest x-ray showing cardiac regular and left lower lobe consolidation/infiltrate. The white cell count at 6 with a hemoglobin of 10.05 and the patient is not having any fever at this point. Blood pressure was a pH of 7.34 with a pCO2 of 40 and pO2 of 93. BUN is at 60 with a creatinine of 0.58. Sodiums of 133 and a potassium level of 3.9. He does have some mild transaminitis. He remains on vital high-protein running at the rate of 40 mL an hour. IV fluids are currently in the form of 0.9 saline at the rate of 75 mL an hour. Urine output is adequate at 50 mL an hour. Pro-calcitonin level is at 0.14. 09/18/2022, the patient is being given a sedation holiday. Earlier this morning is at 7 AM, the patient was taken off the fentanyl. Is currently on Precedex running at 0.9 mcg/kg/h. He is following some simple commands. He remains profoundly weak. He has sweating and somewhat diaphoretic. It's possible that there may be some ongoing withdrawals. Nevertheless, he is able to squeeze using his hands upon demand. Is following some simple commands. When the pr ocess of monitoring the patient and weaning of his Precedex slowly. He may need some background Precedex running as were weaning patient off the sedation. Meanwhile, the patient will be kept on a mechanical ventilator. Is on assist control mode at the rate of 40 with a tidal volume of 500 and FiO2 of 40% with a PEEP of 5. Chest x-rays available quality, no new changes. His pH is at 7.46 with a pCO2 of 36 and pO2 of 70. The white cell cause of 4.7 with a hemoglobin of 10.2. BUN is at 80 with a creatinine of 0.6. Sodium is at 136. He remains on IV Zosyn. Sputum Gram stain and culture still pending. The pro-calcitonin level was at 0.14. He is afebrile. He is receiving vital high-protein at the rate of 60 mL an hour. He was noted to have a temperature spike at around 4:00 yesterday afternoon with a T-max of 101.4. His net fluid balance is positive at least 5 L over the past 3 days and over the past 24 hours has been +1.3 L. 4 2022, I'm seeing the patient for a follow-up. Patient was weaned off the fentanyl yesterday and he was kept on a low-dose Precedex. Subsequently, he was able to follow commands and he looks quite comfortable. We gave him a spontaneous breathing trial and he did well and at that point, we decided to go ahead and extubate the patient. The patient was extubated on 09/18/2022. He did well for quite some time and subsequently became more agitated, restless, and continued to have encephalopathy and tremors. He was moving all 4 extremities without any limitation. At that point, the Precedex dose was gradually increased. He was given Haldol. Based on failure to control his agitation, I started him on low-dose Versed drip which is currently running at 4 mg an hour. He is also on Precedex at 1.4 mcg/kg/m. His blood pressure was elevated and he is also on Cleviprex 8 mg an hour. patient is arousable. He is only oriented 1. His breathing is nonlabored. He is on oxygen at 10 L and his pulse ox in the order of 91%. Repeat chest x-ray was done today and the chest x-ray shows or respiratory efforts, cardiomegaly and some mild interstitial edema. IV fluids are currently at 20 mL an hour. BUN is a 50 with a creatinine of 0.5. His sodium level is at 138. The white cell cause of 4.5 with a hemoglobin of 10.5 and a platelet count of 272. Mild transaminitis related to his chronic alcoholic liver disease with a bilirubin level of 1.4. No seizure activity has been noted. No aspiration the patient is currently nothing by mouth. He has an arterial line in his left upper extremity. He is afebrile this morning. He remains on IV Zosyn. Sputum Gram stain is showing gram-negative bacillus. Patient was reevaluated today on 09/20/2022, patient remains in the ICU, intubated and mechanically ventilated. Patient is on assist control rate of 20 tidal volume 450 FiO2 50% and PEEP of 10 ABG showed a pO2 of 74 pCO2 40 pH of 7.44 hence no changes were made in the ventilator settings. Patient is requiring fentanyl at 2 mcg/kg/h is also on Versed and Precedex, he is also on Cleviprex. His a Versed doses 12 mg per hour. And Precedex is 1 mcg/kg/h. Apparently the patient required intubation yesterday by Dr. Scott, although he was on mechanical ventilation before and he was extubated on 09/18/2022, but had to be re intubated yesterday.09/19/2022 his agitation was in extreme and he could not be controlled with the medications and with Haldol, and required intubation and mechanical ventilation again. Patient had sputum cultures showing Serratia marcescens, sensitive to Zosyn. he is maintained on Zosyn. Patient is now on day #7 from his last drink. Chest x-ray is clearly showing significant left lower lobe infiltrate/consolidation and right lower lobe infiltrate/atelectasis. WBC count is 4.6 hemoglobin is 10.3. Rest of the labs including basic metabolic profile renal profile liver profile are unremarkable slightly elevated liver enzymes noted Objective - Vital Signs Vital signs: Vital Signs Temp 100.9 F H 09/20/22 13:02 Pulse 68 09/20/22 13:00 Resp 20 09/20/22 13:00 BP 135/87 09/20/22 11:00 Pulse Ox 95 09/20/22 13:00 FiO2 50 09/20/22 12:00 Intake & Output 09/19/22 09/20/22 09/20/22 18:59 06:59 18:59 Intake Total 4863.052 0209.048 1006.104 Output Total 782 570 2342 Balance 250.176 742.048 -368.896 Weight 108.273 kg Intake: IV 380 386 258 0.9 Sodium Chloride 30 36 18 Invasive Line 4 10 30 20 Invasive Line 6 20 Piperacillin-Tazobactam 3 200 100 100 .375 gm In Sodium Chloride 0.9% 100 ml @ 25 mls/hr IVPB Q8H [facility] Rx#: [id number] Sodium Chloride 0.9% 1, 120 220 120 000 ml @ 10 mls/hr IV . Q24H [facility] Rx#:[id number] Intake, IV Titration 575.176 586.048 568.104 Amount Clevidipine Butyrate 25 121.067 40.367 50.0 mg In Empty Bag 1 bag @ 1 MG/HR 2 mls/hr IV .Q24H [facility] Rx#:[id number] Dexmedetomidine/0.9% NaCl 313.519 242.222 237.162 (Pmx) 400 mcg In Empty Bag 1 bag @ 0.2 MCG/KG/HR 5.15 mls/hr IV .[id number] [facility] Rx#:[id number] Midazolam HCl 200 mg In 103.150 38.767 Sodium Chloride 0.9% 60 ml @ 10 MG/HR 5 mls/hr IV .Q20H [facility] Rx#:[id number] Midazolam HCl 50 mg In 50.000 Sodium Chloride 0.9% 40 ml @ 2 MG/HR 2 mls/hr IV .Q24H [facility] Rx#:[id number] Sodium Chloride 0.9% 200 200.309 242.175 ml @ 2 MCG/KG/HR 21.655 mls/hr IV .[id number] [facility] with fentaNYL (PF) 2,500 mcg Rx#:[id number] Sodium Chloride 0.9% 80 90.59 ml @ 2 MCG/KG/HR 21.655 mls/hr IV .[id number] [facility] with fentaNYL (PF) 1,000 mcg Rx#:[id number] Tube Feeding 70 240 150 Other 30 30 Output: Urine 556 092 8618 Stool 0 Other: Voiding Method Indwelling Catheter Indwelling Catheter Indwelling Catheter # Bowel Movements 0 ABP, PAP, CO, CI - Last Documented Arterial Blood Pressure 247/220 - Exam Physical Exam: Revealed a 62-year-old white male obese, intubated, mechanically ventilated, in no distress. Head: Atraumatic, normocephalic, endotracheal tube and orogastric tube are int act. HEENT:[Neck is supple.] [No neck masses.] [No thyromegaly.] [No JVD.] Chest: [Clear throughout, no crackles, no rhonchi, no wheezes.] Cardiac Exam: [Normal S1 and S2, no S3 gallop, no murmur.] Abdomen: [Soft, nontender, no megaly, no rebound, no guarding, normal bowel sounds.] Extremities: [No clubbing, no edema, no cyanosis.] Neurological Exam: Could not assess. Patient is fully sedated. Psychiatric: Could not assess. - Labs CBC & Chem 7: 09/20/22 04:15 09/20/22 04:15 Labs: Abnormal Lab Results - Last 24 Hours (Table) 09/19/22 09/20/22 09/20/22 Range/Units 16:33 04:15 04:15 RBC 3.61 L (4.30-5.90) m/uL Hgb 10.3 L (13.0-17.5) gm/dL Hct 31.3 L (39.0-53.0) % ABG pO2 (83-108) mmHg ABG HCO3 (21-25) mmol/L ABG Total CO2 (19-24) mmol/L Creatinine 0.53 L (0.66-1.25) mg/dL Glucose 114 H (74-99) mg/dL POC Glucose (mg/dL) 113 H (70-110) mg/dL Calcium 7.8 L (8.4-10.2) mg/dL AST 84 H (17-59) U/L ALT 71 H (4-49) U/L Total Protein 5.2 L (6.3-8.2) g/dL Albumin 2.6 L (3.5-5.0) g/dL 09/20/22 09/20/22 Range/Units 06:29 11:34 RBC (4.30-5.90) m/uL Hgb (13.0-17.5) gm/dL Hct (39.0-53.0) % ABG pO2 74 L (83-108) mmHg ABG HCO3 27 H (21-25) mmol/L ABG Total CO2 28 H (19-24) mmol/L Creatinine (0.66-1.25) mg/dL Glucose (74-99) mg/dL POC Glucose (mg/dL) 120 H (70-110) mg/dL Calcium (8.4-10.2) mg/dL AST (17-59) U/L ALT (4-49) U/L Total Protein (6.3-8.2) g/dL Albumin (3.5-5.0) g/dL Microbiology - Last 24 Hours (Table) 09/16/22 15:19 Gram Stain - Preliminary Sputum Sputum Culture - Preliminary Serratia marcescens Assessment and Plan Assessment: Impression: Acute hypoxic respiratory failure secondary to acute delirium tremens and left lower lobe pneumonia secondary to Serratia marcescens Acute delirium tremens Dyslipidemia Altered mental status secondary to alcohol withdrawal well and possibly toxic metabolic encephalopathy History of alcoholism History of alcohol liver disease with bilateral elevated liver enzymes Benign essential hypertension Recommendation: Continue ventilatory support Continue sedation, titrate for said accordingly, continue fentanyl. And continue Precedex. Continue IV fluids Adjust IV fluids according to electrolytes, and address electrolytes accordingly. Continue GI and DVT prophylaxis. Continue antibiotics/Zosyn, patient is being treated for Serratia marcescens in the sputum/left lower lobe pneumonia secondary to Serratia marcescens Continue Lovenox/DVT prophylaxis Continue Protonix. Continue thiamine Continue alcohol withdrawal protocol Continue aspiration precautions Patient remains critically ill, and no plans to extubate or wean anytime soon at this point. Patient is critically ill and critical care time is over 30 minutes Time with Patient: Greater than 30
--- NOTE | 2022-09-20 16:01 | P.PN ---
Subjective Progress Note Date: 09/20/22 Patient is 62-year-old gentleman with past medical history significant for alcohol abuse, presented to the ER because of multiple falls. Family is at bedside and states that the patient has not eaten any solid foods in 10 days. He has been drinking a significant amount of beer and recently "added whiskey to his diet". He has been drinking every day for the past 2 years. Reports that his last drink was last night at 11 PM. He has been having multiple falls and therefore family called EMS this morning. Patient was worked in the ER, initial lab work showed hemoglobin of 13.0, PTT 20.5, INR 1.2, sodium 140, potassium 4.3, chloride 80, carbonate 14, anion gap 20, lactate level 10.6. Chest x-ray was negative for any acute cardiac process. Patient was admitted to ICU for further evaluation and treatment 09/14. Patient seen and examined. Patient overnight became more agitated, was maxed out on precedex Drip. Patient had to be intubated. Currently comfortable on mechanical ventilation. Vital signs stable 09/15. Patient seen and examined. Continues to be on mechanical ventilation. Currently on propofol and Precedex 09/16/2022 Patient is currently in the MICU. Remains on mechanical ventilator. AC 14 with tidal volume of 500 and FiO2 40% and PEEP of 5. Currently on Precedex. Chest x-ray showed suggestion of mild subsegmental atelectasis left base. Patient is being continued on antibiotics and follow-up Zosyn. Laboratory data showed WBC 6.7 hemoglobin 11.0 and platelets 158 Sodium 129 potassium 4.2 chloride 101 bicarb is 20 BUN 14 and creatinine 0.7 and calcium 7.8 and procalcitonin level was 0.14. 09/17/2022 Patient is currently in the MICU. On mechanical ventilator. Continued on Precedex and fentanyl. Patient was agitated and was having increased work of breathing with sedation holiday yesterday and was started back on mechanical ventilator with sedation. Chest x-ray showed bilateral consolidation and small effusion in the basis of postoperative atelectasis. Mild venous congestion not excluded. Findings stable. Laboratory data showed WBC 6.0 hemoglobin 10.5 and platelets 206 Sodium 133 potassium 3.9 chloride 104 bicarb is 22 BUN 16 and creatinine 0.58 and calcium 7.3. Albumin 2.7. Patient is being cannula antibiotics in the home Zosyn. Was given a dose of IV Lasix today. 09/18/2022 Patient was extubated this morning. Otherwise patient is very drowsy and lethargic but only follows simple commands. Chest x-ray showed cardiomegaly and low lung volumes with left basilar acute infiltrate and atelectasis redemonstrated. No significant change from 1 day earlier. Patient remains on antibiotics in the form of Zosyn. Laboratory data showed WBC 4.7 hemoglobin 10.2 and platelets 227 Sodium 136 potassium 3.8 chloride 106 bicarb is 27 BUN 18 and creatinine 0.61. Total bilirubin is 1.4 AST 68 ALT 57 alk phos 81 and albumin 2.5. Patient is being continued on Protonix and IV thiamine. 09-19-22 Patient is currently in the MICU. Was extubated yesterday. He did well for some time and subsequently more agitated and restless and became encephalopathic. Patient was started back on Precedex for the patient was still agitated. Patient was started on Versed drip and was reintubated. Chest x-ray showed new endotracheal and orogastric tubes are satisfactory in position. Left internal jugular vein central venous catheter terminating in SVC without pneumothorax. Persistent bilateral multifocal acute infiltrate and edema similar to prior. Worsening left basilar opacity could reflect worsening acute infiltrate and atelectasis. Laboratory data showed WBC 4.5 hemoglobin 10.4 and platelets 272 sodium 138 potassium 3.6 chloride 107 bicarb is 26 BUN 15 and creatinine of 1.3. Pulmonary and nephrology is on board. 09/20/2022 Patient continues to be monitored closely in intensive care unit he is currently intubated and sedated. On mechanical ventilator with FiO2 of 50%. Patient continues on IV cleviprex, IV precedex, IV versed, IV fentanyl. Patient continues to spike temp T max in the last 24 hours 100.3. Patient continues on IV zosyn. Chest xray today shows CHF vs pneumonia. There is persistent bilateral increased opacities. Sputum culture is showing serratia marcescens. AST/ALT continue be elevated. Patient received a one time dose of IV lasix. Labs today are stable, white count 4.6, sodium 140, potassium 3.7, total bili 1.2. Kidney function stable. Unable to complete review of systems patient is intubated and sedated PHYSICAL EXAMINATION: GENERAL: The patient is intubated and sedated , not in any acute distress. Well developed, well nourished. HEENT: Pupils are round and equally reacting to light. EOMI. No scleral icterus. No conjunctival pallor. Normocephalic, atraumatic. No pharyngeal erythema. No thyromegaly. CARDIOVASCULAR: S1 and S2 present. No murmurs, rubs, or gallops. PULMONARY: Scattered ronchi ABDOMEN: Soft, nontender, nondistended, normoactive bowel sounds. No palpable organomegaly. MUSCULOSKELETAL: No joint swelling or deformity. EXTREMITIES: No cyanosis, clubbing, or pedal edema. Mild peripheral edema NEUROLOGICAL: Unable to complete patient is sedated. SKIN: No rashes. Blanchable area on left wrist. Assessment and plan Assessment Acute delirium tremens. Patient was reintubated. Currently on sedation with Cleviprex. Acute hypoxic respiratory failure requiring mechanical ventilator. Pneumonia left lower lobe with sepsis, sputum culture showing serratia marcescens Alcohol withdrawal syndrome Elevated LFT's likely from alcoholic hepatitis Alcohol Abuse Hyponatremia GI and DVT prophylaxis Full Code Plan; Patient is intubated and sedated Continue with IV zosyn antibiotic coverage for positive sputum ID consultation as patient remains febrile Blood culture and repeat urinalysis IV hydration with normal saline. Continue telemetry monitoring. Continue with thiamine multivitamins and folic acid. Nephrology and critical care team and nephrology is on board. AM labs The impression and plan of care has been dictated by Iram Latham Nurse Practitioner as directed. Dr. Suly MD I have performed a history and physical examination and medical decision making of this patient, discussed the same with the dictator, and agree with the dictators assessment and plan as written, documented as a scribe. Based on total visit time, I have performed more than 50% of this visit. Objective - Vital Signs Vital signs: Vital Signs Temp 100.9 F H 09/20/22 13:02 Pulse 70 09/20/22 15:15 Resp 20 09/20/22 15:15 BP 135/87 09/20/22 11:00 Pulse Ox 94 L 09/20/22 15:15 FiO2 50 09/20/22 12:00 Intake & Output 09/19/22 09/20/22 09/20/22 18:59 06:59 18:59 Intake Total 4343.792 4107.048 1055.754 Output Total 329 379 6237 Balance 250.176 742.048 -574.246 Weight 108.273 kg Intake: IV 380 386 304 0.9 Sodium Chloride 30 36 24 Invasive Line 4 10 30 20 Invasive Line 6 20 Piperacillin-Tazobactam 3 200 100 100 .375 gm In Sodium Chloride 0.9% 100 ml @ 25 mls/hr IVPB Q8H [facility] Rx#: [id number] Sodium Chloride 0.9% 1, 120 220 160 000 ml @ 10 mls/hr IV . Q24H [facility] Rx#:[id number] Intake, IV Titration 575.176 586.048 571.754 Amount Clevidipine Butyrate 25 121.067 40.367 50.0 mg In Empty Bag 1 bag @ 1 MG/HR 2 mls/hr IV .Q24H [facility] Rx#:[id number] Dexmedetomidine/0.9% NaCl 313.519 242.222 237.162 (Pmx) 400 mcg In Empty Bag 1 bag @ 0.2 MCG/KG/HR 5.15 mls/hr IV .[id number] [facility] Rx#:[id number] Midazolam HCl 200 mg In 103.150 42.417 Sodium Chloride 0.9% 60 ml @ 10 MG/HR 5 mls/hr IV .Q20H [facility] Rx#:[id number] Midazolam HCl 50 mg In 50.000 Sodium Chloride 0.9% 40 ml @ 2 MG/HR 2 mls/hr IV .Q24H [facility] Rx#:[id number] Sodium Chloride 0.9% 200 200.309 242.175 ml @ 2 MCG/KG/HR 21.655 mls/hr IV .[id number] [facility] with fentaNYL (PF) 2,500 mcg Rx#:[id number] Sodium Chloride 0.9% 80 90.59 ml @ 2 MCG/KG/HR 21.655 mls/hr IV .[id number] [facility] with fentaNYL (PF) 1,000 mcg Rx#:[id number] Tube Feeding 70 240 150 Other 30 30 Output: Urine [phone] Stool 0 Other: Voiding Method Indwelling Catheter Indwelling Catheter Indwelling Catheter # Bowel Movements 0 ABP, PAP, CO, CI - Last Documented Arterial Blood Pressure 148/57 - Labs CBC & Chem 7: 09/20/22 04:15 09/20/22 04:15 Labs: Abnormal Lab Results - Last 24 Hours (Table) 09/19/22 09/20/22 09/20/22 Range/Units 16:33 04:15 04:15 RBC 3.61 L (4.30-5.90) m/uL Hgb 10.3 L (13.0-17.5) gm/dL Hct 31.3 L (39.0-53.0) % ABG pO2 (83-108) mmHg ABG HCO3 (21-25) mmol/L ABG Total CO2 (19-24) mmol/L Creatinine 0.53 L (0.66-1.25) mg/dL Glucose 114 H (74-99) mg/dL POC Glucose (mg/dL) 113 H (70-110) mg/dL Calcium 7.8 L (8.4-10.2) mg/dL AST 84 H (17-59) U/L ALT 71 H (4-49) U/L Total Protein 5.2 L (6.3-8.2) g/dL Albumin 2.6 L (3.5-5.0) g/dL 09/20/22 09/20/22 Range/Units 06:29 11:34 RBC (4.30-5.90) m/uL Hgb (13.0-17.5) gm/dL Hct (39.0-53.0) % ABG pO2 74 L (83-108) mmHg ABG HCO3 27 H (21-25) mmol/L ABG Total CO2 28 H (19-24) mmol/L Creatinine (0.66-1.25) mg/dL Glucose (74-99) mg/dL POC Glucose (mg/dL) 120 H (70-110) mg/dL Calcium (8.4-10.2) mg/dL AST (17-59) U/L ALT (4-49) U/L Total Protein (6.3-8.2) g/dL Albumin (3.5-5.0) g/dL Microbiology - Last 24 Hours (Table) 09/16/22 15:19 Gram Stain - Preliminary Sputum Sputum Culture - Preliminary Serratia marcescens Assessment and Plan Time with Patient: Less than 30
[2022-09-20 17:50] LABS: Glucose,Whole Blood 114 mg/dL (70-110)
[2022-09-20 19:02] LABS: Appearance,Urine Clear (Clear); Bilirubin,Urine 1+ (Negative); Blood,Urine Negative (Negative); Color,Urine Dark Yellow; Glucose,Urine (UA) Negative (Negative); Ketones,Urine Negative (Negative); Leukocyte Esterase,Urine Negative (Negative); Nitrite,Urine Negative (Negative); PH, Urine 5.5 (5.0-8.0); Protein,Urine Trace (Negative); Specific Gravity,Urine 1.024 (1.001-1.035)
[2022-09-20] MEDS: ATORVASTATIN 80 MG TAB PO SCH (21:27)
[2022-09-21] MEDS: DEXMEDETOMIDINE/0.9% NACL(PMX) 400 MCG in EMPTY BAG 1 BAG IV SCH (01:22)
[2022-09-21] MEDS: CLEVIDIPINE BUTYRATE 25 MG in EMPTY BAG 1 BAG IV SCH (01:23)
[2022-09-21] MEDS: MIDAZOLAM HCL 200 MG in SODIUM CHLORIDE 0.9% 60 ML IV SCH ×2 (01:27→15:22)
[2022-09-21] MEDS: PIPERACILLIN-TAZOBACTAM 3.375 GM in SODIUM CHLORIDE 0.9% 100 ML IVPB SCH ×2 (02:23→08:27)
[2022-09-21] MEDS: ACETAMINOPHEN TAB 325 MG TAB PO PRN ×2 (02:42→17:59)
[2022-09-21 05:19] LABS: Glucose,Whole Blood 115 mg/dL (70-110)
[2022-09-21 05:36] LABS: Basophils % (A) 0 %; Eosinophils # (A) 0.1 k/uL (0-0.7); Eosinophils % (A) 2 %; HCT 28.7 % (39.0-53.0); HGB 9.4 gm/dL (13.0-17.5); Lymphocytes # (A) 0.9 k/uL (1.0-4.8); Lymphocytes % (A) 18 %; MCH 28.4 pg (25.0-35.0); MCV 86.1 fL (80.0-100.0); Mean Platelet Volume 8.4; Monocytes # (A) 0.3 k/uL (0-1.0); Monocytes % (A) 6 %; Neutrophils # (A) 3.6 k/uL (1.3-7.7); Neutrophils % (A) 70 %; Platelet Count 328 k/uL (150-450); RBC 3.33 m/uL (4.30-5.90); RDW 13.5 % (11.5-15.5); WBC 5.1 k/uL (3.8-10.6)
[2022-09-21 05:52] LABS: Potassium 3.4 mmol/L (3.5-5.1)
[2022-09-21 05:53] LABS: ALT 86 U/L (4-49); AST 109 U/L (17-59); African American GFR (CKD) >90 (>60 ml/min/1.73 sqM); Albumin 2.4 g/dL (3.5-5.0); Alkaline Phosphatase 80 U/L (38-126); Anion Gap 2 mmol/L; Blood Urea Nitrogen 19 mg/dL (9-20); Calcium 7.5 mg/dL (8.4-10.2); Carbon Dioxide 29 mmol/L (22-30); Chloride 109 mmol/L (98-107); Glucose 111 mg/dL (74-99); Non-African American GFR(CKD) >90 (>60 ml/min/1.73 sqM); Sodium 140 mmol/L (137-145); Total Bilirubin 1.2 mg/dL (0.2-1.3); Total Protein 4.8 g/dL (6.3-8.2)
[2022-09-21 06:05] LABS: ABG HCO3 29 mmol/L (21-25); ABG PCO2 47 mmHg (35-45); ABG PO2 75 mmHg (83-108); ABG TCO2 30 mmol/L (19-24); Allen Test Performed? Yes
[2022-09-21 06:06] LABS: ABG Base Excess 3.9 mmol/L
--- NOTE | 2022-09-21 07:51 | XR ---
EXAMINATION TYPE: XR chest 1V portable DATE OF EXAM: 09/21/2022 COMPARISON: 09/20/2022 HISTORY: Shortness of breath TECHNIQUE: Single frontal view of the chest is obtained. FINDINGS: Stable left internal jugular central venous catheter, endotracheal tube, and orogastric tu be. Persistent bilateral increased opacities. Cardiac silhouette size is mildly enlarged. Osseous str uctures are intact. IMPRESSION: Correlate for CHF otherwise consider pneumonia. Findings stable.
[2022-09-21] MEDS ORDERED: POTASSIUM CHLORIDE 10 MEQ in WATER FOR INJECTION 1 100ML.BAG IVPB SCH (08:00)
[2022-09-21] MEDS: ENOXAPARIN 40 MG/0.4 ML SYRINGE SQ SCH (08:25)
[2022-09-21] MEDS: PANTOPRAZOLE 40 MG/10 ML VIAL IVP SCH (08:25)
[2022-09-21] MEDS: cloNIDine HCL 0.2 MG TAB PO SCH ×3 (08:26→21:45)
[2022-09-21] MEDS: POTASSIUM BICARBONATE/CIT AC 20 MEQ TABLET.EFF PO SCH ×2 (08:26→10:44)
[2022-09-21] MEDS: THIAMINE 100 MG/ML 2 ML VIAL IVP SCH (08:26)
[2022-09-21] MEDS: CHLORHEXIDINE GLUCONATE 15 ML CUP MUCOUS MEM SCH ×2 (08:26→21:45)
[2022-09-21] MEDS: PARoxetine 20 MG TAB PO SCH (08:26)
[2022-09-21] MEDS: SODIUM CHLORIDE 0.9% IV SCH ×4 (08:49→20:01)
[2022-09-21] MEDS: FENTANYL IV SCH ×4 (08:49→20:01)
[2022-09-21] MEDS ORDERED: FUROSEMIDE 10 MG/ML 2 ML VIAL IV ONE (11:15)
[2022-09-21 11:50] LABS: Glucose,Whole Blood 120 mg/dL (70-110)
--- NOTE | 2022-09-21 12:54 | P.PN ---
Subjective Progress Note Date: 09/21/22 Principal diagnosis: Acute delirium tremens requiring intubation and mechanical ventilation 62-year-old male patient, alcoholic, brought into the hospital on family request. EMS as the patient has not been eating any food for the past 10 days. He has been drinking significantly and he drinks beer and whiskey. He is an alcoholic and has been drinking excessively over the past 2 years at least. He has had multiple falls at home. No injuries to his head or traumatic head in jury. He has bruises over the right cheek. No nausea. No emesis. No aspiration. No seizure activity has been noted. No reported chest pain or shortness of breath. No history of any substance abuse other than alcohol. As the patient was brought into the hospital, the patient was found to be in delirium tremens, increased confusion, agitation and tremors. He was given Ativan on the Route to the hospital. Upon arrival, alcohol level was less than 10, his sodium level was 114, bicarb is 15 with a creatinine of 1.1, normal coagulation profile, his troponin was negative, urine osmolality was 499, urine sodium was less than 20, WBC count at 9.9 with hemoglobin 15.3 and a platelet count of 188. The LFTs are abnormal with an AST of 93, ALT of 79, bilirubin level is at 2.3 and the lactic acid level is down to 1.6. The chest x-ray shows no acute abnormalities. On today's evaluation of 09/14/2022, the patient is intubated on a mechanical ventilator. The patient is, comfortable. Overnight, the patient was becoming progressively more agitated and he has required increased dose of Ativan and he was maximized on Precedex without any adequate control of the situation. Based on that, the patient had to be intubated on placed on a mechanical ventilator. No seizure activity was witnessed. The patient was essentially having delirium tremens. This morning, the patient is intubated on a mechanical ventilator. He is on assist control mode at a rate of 20, tidal volume of 500, FiO2 of 50% with a PEEP of 5. His blood gas from today shows a pH of 7.42 with a pCO2 of 36 and pO2 of 179. His chest x-ray from today shows adequate expansion of both lungs. ET tube is in good location. There is no evidence of any pneumothorax. No areas of any consolidation or airspace disease. No respiratory secretions. The patient is oxygenating and ventilating adequately. Is currently on propofol which is running at 75 mL an hour. His well sedated. He is taken off the hypertonic saline. His sodium gradually improved and this morning is up to 124 and subsequently 125. The rest of the electrolytes show a potassium level of 3.8 and these to be replaced, BUN is at 70 with a creatinine of 0.9. His white cell count is 5.3 with a hemoglobin of 11.4 and a platelet count of 129. Lal cath is in place. Urine output is adequate. He is afebrile. Liver function tests were not obtained. Calcium levels at 7.4. Blood sugars at 96. On today's evaluation of 09/15/2022, seeing the patient for a follow-up. As mentioned, this is a case of DTs, the patient is currently intubated on a mechanical ventilator, sedated with a combination of propofol and is also requiring on enough dose of Ativan throughout the night. The patient this morning is on propofol which is running at 55 mcg/kg/m. He is coming comfortable. The triglyceride levels are elevated and I'm in the process of sw itching the propofol to Precedex. The same time, his mentation will be evaluated. His abdomen is to wean will be also evaluated on a daily basis. He has remained hemodynamically stable over the past 24 hours. He remains on mechanical ventilator on assist control mode with a rate of 20, tidal volume of 500, FiO2 40% with a PEEP of 5. Blood gases from today shows a pH of 7.5 with a pCO2 of 33 and pO2 of 83. His chest x-ray from today shows no acute abnormalities. The orotracheal tube is in a good location. The lungs are adequately expanded and there are no significant infiltration. There may be some small left-sided pleural effusion/atelectasis. His seconds at 5.9 with a hemoglobin 11.1 and a platelet count of 146. Sodium level has gradually come up to 127. Is currently on IV fluids with normal saline at rate of 20 mL an hour. Urine output is adequate for now. He is on enteral feeding and the patient is receiving vital high-protein at the rate of 10 mL an hour. No sei zure activity has been noted. No fever. No significant orotracheal secretions. No other issues for now. His condition is stable. On 09/16/2022, the patient is being seen for a follow-up. We managed to get the patient off the propofol and the patient is currently on Precedex which is running at the highest dose of 1.4 mcg/kg/h and the patient is also on fentanyl at 1 mcg/kg/h. Arousable, lethargic, not consistent in following commands, neurologic exam is nonfocal and he continues to move all 4 extremities. He has a very strong cough reflex patient will being suctioned. He remains on a mechanical ventilator. His urine output was low and he was given a bolus of normal saline yesterday which improved his urine output. His electrolytes today are stable. His sodium level is currently at 129 with a potassium level of 4.2, BUN is at 40 with a creatinine of 0.7. His CBC is also stable with a hemoglobin of 11 and a platelet count of 158. On a separate note, the patient remains on a mechanical ventilator. Is currently on a assist control mode rate of 14, tidal volume of 500, FiO2 40% with a PEEP of 5. There is improvement in his acid base status. His pH is at 7.39 with a pCO2 of 36 and pO2 of 95. Repeat chest x-ray from today shows stable findings. No evidence of any pneumonia. There is left lower lobe atelectasis. ET tube is in a I location an NG tube is in place. Is receiving enteral feeding for nutritional support. Is on vital high-protein at the rate of 10 mL an hour. He did spike a temperature 100.5 today. He has been spiking low-grade fever since yesterday. On 09/17/2022, the patient is being seen for a follow-up. Note that this morning, the patient is on a combination of Precedex 1.4 mcg/kg/h and fentanyl at 2 mcg/kg/h. We were able to discontinue propofol. Yesterday, the patient was arousing on a sedation holiday. Nevertheless, he never got to point where he was following commands and he was getting progressively more agitated. At the same time was having fever and the left lower lobe pneumonia was suspected. Based on that, the sedation holiday was aborted and the patient was kept on a mechanical ventilator. The same will be done today. The patient is on assist control mode at a rate of 14, tidal volume of 500, FiO2 of 40% with a PEEP of 5. The chest x-ray showing cardiac regular and left lower lobe consolidation/infiltrate. The white cell count at 6 with a hemoglobin of 10.05 and the patient is not having any fever at this point. Blood pressure was a pH of 7.34 with a pCO2 of 40 and pO2 of 93. BUN is at 60 with a creatinine of 0.58. Sodiums of 133 and a potassium level of 3.9. He does have some mild transaminitis. He remains on vital high-protein running at the rate of 40 mL an hour. IV fluids are currently in the form of 0.9 saline at the rate of 75 mL an hour. Urine output is adequate at 50 mL an hour. Pro-calcitonin level is at 0.14. 09/18/2022, the patient is being given a sedation holiday. Earlier this morning is at 7 AM, the patient was taken off the fentanyl. Is currently on Precedex running at 0.9 mcg/kg/h. He is following some simple commands. He remains profoundly weak. He has sweating and somewhat diaphoretic. It's possible that there may be some ongoing withdrawals. Nevertheless, he is able to squeeze using his hands upon demand. Is following some simple commands. When the pr ocess of monitoring the patient and weaning of his Precedex slowly. He may need some background Precedex running as were weaning patient off the sedation. Meanwhile, the patient will be kept on a mechanical ventilator. Is on assist control mode at the rate of 40 with a tidal volume of 500 and FiO2 of 40% with a PEEP of 5. Chest x-rays available quality, no new changes. His pH is at 7.46 with a pCO2 of 36 and pO2 of 70. The white cell cause of 4.7 with a hemoglobin of 10.2. BUN is at 80 with a creatinine of 0.6. Sodium is at 136. He remains on IV Zosyn. Sputum Gram stain and culture still pending. The pro-calcitonin level was at 0.14. He is afebrile. He is receiving vital high-protein at the rate of 60 mL an hour. He was noted to have a temperature spike at around 4:00 yesterday afternoon with a T-max of 101.4. His net fluid balance is positive at least 5 L over the past 3 days and over the past 24 hours has been +1.3 L. 4 2022, I'm seeing the patient for a follow-up. Patient was weaned off the fentanyl yesterday and he was kept on a low-dose Precedex. Subsequently, he was able to follow commands and he looks quite comfortable. We gave him a spontaneous breathing trial and he did well and at that point, we decided to go ahead and extubate the patient. The patient was extubated on 09/18/2022. He did well for quite some time and subsequently became more agitated, restless, and continued to have encephalopathy and tremors. He was moving all 4 extremities without any limitation. At that point, the Precedex dose was gradually increased. He was given Haldol. Based on failure to control his agitation, I started him on low-dose Versed drip which is currently running at 4 mg an hour. He is also on Precedex at 1.4 mcg/kg/m. His blood pressure was elevated and he is also on Cleviprex 8 mg an hour. patient is arousable. He is only oriented 1. His breathing is nonlabored. He is on oxygen at 10 L and his pulse ox in the order of 91%. Repeat chest x-ray was done today and the chest x-ray shows or respiratory efforts, cardiomegaly and some mild interstitial edema. IV fluids are currently at 20 mL an hour. BUN is a 50 with a creatinine of 0.5. His sodium level is at 138. The white cell cause of 4.5 with a hemoglobin of 10.5 and a platelet count of 272. Mild transaminitis related to his chronic alcoholic liver disease with a bilirubin level of 1.4. No seizure activity has been noted. No aspiration the patient is currently nothing by mouth. He has an arterial line in his left upper extremity. He is afebrile this morning. He remains on IV Zosyn. Sputum Gram stain is showing gram-negative bacillus. Patient was reevaluated today on 09/20/2022, patient remains in the ICU, intubated and mechanically ventilated. Patient is on assist control rate of 20 tidal volume 450 FiO2 50% and PEEP of 10 ABG showed a pO2 of 74 pCO2 40 pH of 7.44 hence no changes were made in the ventilator settings. Patient is requiring fentanyl at 2 mcg/kg/h is also on Versed and Precedex, he is also on Cleviprex. His a Versed doses 12 mg per hour. And Precedex is 1 mcg/kg/h. Apparently the patient required intubation yesterday by Dr. Scott, although he was on mechanical ventilation before and he was extubated on 09/18/2022, but had to be re intubated yesterday.09/19/2022 his agitation was in extreme and he could not be controlled with the medications and with Haldol, and required intubation and mechanical ventilation again. Patient had sputum cultures showing Serratia marcescens, sensitive to Zosyn. he is maintained on Zosyn. Patient is now on day #7 from his last drink. Chest x-ray is clearly showing significant left lower lobe infiltrate/consolidation and right lower lobe infiltrate/atelectasis. WBC count is 4.6 hemoglobin is 10.3. Rest of the labs including basic metabolic profile renal profile liver profile are unremarkable slightly elevated liver enzymes noted Reevaluated today on 09/21/2022, patient remains in the ICU intubated and mechanically ventilated he is on assist control rate of 20 tidal volume 450 FiO2 50% PEEP is 10 ABG showed a pO2 of 75 pCO2 47 pH of 7.40, I decreased his PEEP from 10-8. Patient remains on Versed, fentanyl, and Precedex, hence I plan to discontinue Precedex and keep the patient for now on Versed and fentanyl. His Versed dose is 15 mg per hour fentanyl is at 2 mcg/kg/h and he was placed on Cleviprex last night for elevated blood pressure. This morning he is off the Cleviprex. Patient is tolerating enteral feedings receiving vital HPI 35 mL per hour. Chest x-ray shows left lower lobe atelectasis/infiltrates, doubt pulmonary edema. WBC count today is 5.1 hemoglobin is 9.4. Basic metabolic profile is normal except for low potassium of 3.4. Objective - Vital Signs Vital signs: Vital Signs Temp 99.8 F H 09/21/22 12:00 Pulse 70 09/21/22 12:15 Resp 20 09/21/22 12:15 BP 135/87 09/21/22 12:15 Pulse Ox 97 09/21/22 12:15 FiO2 50 09/21/22 12:00 Intake & Output 09/20/22 09/21/22 09/21/22 18:59 06:59 18:59 Intake Total 5168.192 8301.292 782.317 Output Total 1950 478 510 Balance -617.992 770.292 272.317 Weight 108.273 kg Intake: IV 506 353 238 0.9 Sodium Chloride 36 33 18 Invasive Line 4 30 Piperacillin-Tazobactam 3 200 100 100 .375 gm In Sodium Chloride 0.9% 100 ml @ 25 mls/hr IVPB Q8H [facility] Rx#: [id number] Sodium Chloride 0.9% 1, 240 220 120 000 ml @ 10 mls/hr IV . Q24H [facility] Rx#:[id number] Intake, IV Titration 646.008 390.292 334.317 Amount Clevidipine Butyrate 25 96.400 3.6 13.933 mg In Empty Bag 1 bag @ 1 MG/HR 2 mls/hr IV .Q24H [facility] Rx#:[id number] Dexmedetomidine/0.9% NaCl 265.016 40.342 95.533 (Pmx) 400 mcg In Empty Bag 1 bag @ 0.2 MCG/KG/HR 5.15 mls/hr IV .[id number] [facility] Rx#:[id number] Midazolam HCl 200 mg In 42.417 96.35 Sodium Chloride 0.9% 60 ml @ 10 MG/HR 5 mls/hr IV .Q20H [facility] Rx#:[id number] Sodium Chloride 0.9% 200 242.175 250 224.851 ml @ 2 MCG/KG/HR 21.655 mls/hr IV .[id number] [facility] with fentaNYL (PF) 2,500 mcg Rx#:[id number] Tube Feeding 150 385 210 Other 30 120 Output: Urine 1950 478 510 Stool 0 Other: Voiding Method Indwelling Catheter Indwelling Catheter Indwelling Catheter # Bowel Movements 0 ABP, PAP, CO, CI - Last Documented Arterial Blood Pressure 139/57 - Exam Physical Exam: Revealed a 62-year-old white male obese, intubated, mechanically ventilated, in no distress. Head: Atraumatic, normocephalic, endotracheal tube and orogastric tube are intac t. HEENT:[Neck is supple.] [No neck masses.] [No thyromegaly.] [No JVD.] Chest: [Clear throughout, no crackles, no rhonchi, no wheezes.] Cardiac Exam: [Normal S1 and S2, no S3 gallop, no murmur.] Abdomen: [Soft, nontender, no megaly, no rebound, no guarding, normal bowel sounds.] Extremities: [No clubbing, no edema, no cyanosis.] Neurological Exam: Could not assess. Patient is fully sedated. Psychiatric: Could not assess. - Labs CBC & Chem 7: 09/21/22 05:15 09/21/22 05:15 Labs: Abnormal Lab Results - Last 24 Hours (Table) 09/20/22 09/20/22 09/21/22 Range/Units 17:49 18:17 05:15 RBC 3.33 L (4.30-5.90) m/uL Hgb 9.4 L (13.0-17.5) gm/dL Hct 28.7 L (39.0-53.0) % Lymphocytes # 0.9 L (1.0-4.8) k/uL ABG pCO2 (35-45) mmHg ABG pO2 (83-108) mmHg ABG HCO3 (21-25) mmol/L ABG Total CO2 (19-24) mmol/L Potassium (3.5-5.1) mmol/L Chloride (98-107) mmol/L Creatinine (0.66-1.25) mg/dL Glucose (74-99) mg/dL POC Glucose (mg/dL) 114 H (70-110) mg/dL Calcium (8.4-10.2) mg/dL AST (17-59) U/L ALT (4-49) U/L Total Protein (6.3-8.2) g/dL Albumin (3.5-5.0) g/dL Urine Protein Trace H (Negative) Urine Bilirubin 1+ H (Negative) 09/21/22 09/21/22 09/21/22 Range/Units 05:15 05:16 06:03 RBC (4.30-5.90) m/uL Hgb (13.0-17.5) gm/dL Hct (39.0-53.0) % Lymphocytes # (1.0-4.8) k/uL ABG pCO2 47 H (35-45) mmHg ABG pO2 75 L (83-108) mmHg ABG HCO3 29 H (21-25) mmol/L ABG Total CO2 30 H (19-24) mmol/L Potassium 3.4 L (3.5-5.1) mmol/L Chloride 109 H (98-107) mmol/L Creatinine 0.62 L (0.66-1.25) mg/dL Glucose 111 H (74-99) mg/dL POC Glucose (mg/dL) 115 H (70-110) mg/dL Calcium 7.5 L (8.4-10.2) mg/dL AST 109 H (17-59) U/L ALT 86 H (4-49) U/L Total Protein 4.8 L (6.3-8.2) g/dL Albumin 2.4 L (3.5-5.0) g/dL Urine Protein (Negative) Urine Bilirubin (Negative) 09/21/22 Range/Units 11:48 RBC (4.30-5.90) m/uL Hgb (13.0-17.5) gm/dL Hct (39.0-53.0) % Lymphocytes # (1.0-4.8) k/uL ABG pCO2 (35-45) mmHg ABG pO2 (83-108) mmHg ABG HCO3 (21-25) mmol/L ABG Total CO2 (19-24) mmol/L Potassium (3.5-5.1) mmol/L Chloride (98-107) mmol/L Creatinine (0.66-1.25) mg/dL Glucose (74-99) mg/dL POC Glucose (mg/dL) 120 H (70-110) mg/dL Calcium (8.4-10.2) mg/dL AST (17-59) U/L ALT (4-49) U/L Total Protein (6.3-8.2) g/dL Albumin (3.5-5.0) g/dL Urine Protein (Negative) Urine Bilirubin (Negative) Microbiology - Last 24 Hours (Table) 09/16/22 15:19 Gram Stain - Preliminary Sputum Sputum Culture - Preliminary Serratia marcescens Assessment and Plan Assessment: Impression: Acute hypoxic respiratory failure secondary to acute delirium tremens and left lower lobe pneumonia secondary to Serratia marcescens Acute delirium tremens Dyslipidemia Altered mental status secondary to alcohol withdrawal well and possibly toxic metabolic encephalopathy History of alcoholism History of alcohol liver disease with bilateral elevated liver enzymes Benign essential hypertension Recommendation: Continue sedation however discontinue Precedex and keep patient on Versed and fentanyl. Continue ventilatory support Continue IV fluids, consider urine output is marginal will give the patient 1 dose of Lasix this morning 20 mg IV push. Adjust IV fluids according to electrolytes, and address electrolytes accordingly. Continue GI and DVT prophylaxis Continue Zosyn for Serratia marcescens pneumonia involving left lower lobe Continue DVT prophylaxis/Lovenox Continue Protonix. Continue thiamine Continue alcohol withdrawal protocol Patient remains critically ill patient is not ready for weaning however I'm cutting down his PEEP to 8 Patient is critically ill and critical care time is over 30 minutes Time with Patient: Greater than 30
--- NOTE | 2022-09-21 14:40 | P.PN ---
Subjective Patient is seen in follow-up for hyponatremia. Sodium level remains normal. Intubated. Hemodynamically stable. Received IV Lasix yesterday and today. Vital signs are stable. HEENT: Intubated. LUNGS: No audible rhonchi or wheezes. HEART: Rate and Rhythm are regular. ABDOMEN: No distention. EXTREMITITES: 1+ edema. Objective - Vital Signs Vital signs: Vital Signs Temp 99.8 F H 09/21/22 12:00 Pulse 70 09/21/22 13:15 Resp 20 09/21/22 13:15 BP 135/87 09/21/22 12:15 Pulse Ox 98 09/21/22 13:15 FiO2 50 09/21/22 12:00 Intake & Output 09/20/22 09/21/22 09/21/22 18:59 06:59 18:59 Intake Total 6293.909 9463.292 840.317 Output Total 1950 478 740 Balance -617.992 770.292 100.317 Weight 108.273 kg Intake: IV 506 353 261 0.9 Sodium Chloride 36 33 21 Invasive Line 4 30 Piperacillin-Tazobactam 3 200 100 100 .375 gm In Sodium Chloride 0.9% 100 ml @ 25 mls/hr IVPB Q8H [facility] Rx#: [id number] Sodium Chloride 0.9% 1, 240 220 140 000 ml @ 10 mls/hr IV . Q24H [facility] Rx#:[id number] Intake, IV Titration 646.008 390.292 334.317 Amount Clevidipine Butyrate 25 96.400 3.6 13.933 mg In Empty Bag 1 bag @ 1 MG/HR 2 mls/hr IV .Q24H [facility] Rx#:[id number] Dexmedetomidine/0.9% NaCl 265.016 40.342 95.533 (Pmx) 400 mcg In Empty Bag 1 bag @ 0.2 MCG/KG/HR 5.15 mls/hr IV .[id number] [facility] Rx#:[id number] Midazolam HCl 200 mg In 42.417 96.35 Sodium Chloride 0.9% 60 ml @ 10 MG/HR 5 mls/hr IV .Q20H [facility] Rx#:[id number] Sodium Chloride 0.9% 200 242.175 250 224.851 ml @ 2 MCG/KG/HR 21.655 mls/hr IV .[id number] [facility] with fentaNYL (PF) 2,500 mcg Rx#:[id number] Tube Feeding 150 385 245 Other 30 120 Output: Urine 1950 478 740 Stool 0 Other: Voiding Method Indwelling Catheter Indwelling Catheter Indwelling Catheter # Bowel Movements 0 ABP, PAP, CO, CI - Last Documented Arterial Blood Pressure 143/57 - Labs CBC & Chem 7: 09/21/22 05:15 09/21/22 05:15 Labs: Abnormal Lab Results - Last 24 Hours (Table) 09/20/22 09/20/22 09/21/22 Range/Units 17:49 18:17 05:15 RBC 3.33 L (4.30-5.90) m/uL Hgb 9.4 L (13.0-17.5) gm/dL Hct 28.7 L (39.0-53.0) % Lymphocytes # 0.9 L (1.0-4.8) k/uL ABG pCO2 (35-45) mmHg ABG pO2 (83-108) mmHg ABG HCO3 (21-25) mmol/L ABG Total CO2 (19-24) mmol/L Potassium (3.5-5.1) mmol/L Chloride (98-107) mmol/L Creatinine (0.66-1.25) mg/dL Glucose (74-99) mg/dL POC Glucose (mg/dL) 114 H (70-110) mg/dL Calcium (8.4-10.2) mg/dL AST (17-59) U/L ALT (4-49) U/L Total Protein (6.3-8.2) g/dL Albumin (3.5-5.0) g/dL Urine Protein Trace H (Negative) Urine Bilirubin 1+ H (Negative) 09/21/22 09/21/22 09/21/22 Range/Units 05:15 05:16 06:03 RBC (4.30-5.90) m/uL Hgb (13.0-17.5) gm/dL Hct (39.0-53.0) % Lymphocytes # (1.0-4.8) k/uL ABG pCO2 47 H (35-45) mmHg ABG pO2 75 L (83-108) mmHg ABG HCO3 29 H (21-25) mmol/L ABG Total CO2 30 H (19-24) mmol/L Potassium 3.4 L (3.5-5.1) mmol/L Chloride 109 H (98-107) mmol/L Creatinine 0.62 L (0.66-1.25) mg/dL Glucose 111 H (74-99) mg/dL POC Glucose (mg/dL) 115 H (70-110) mg/dL Calcium 7.5 L (8.4-10.2) mg/dL AST 109 H (17-59) U/L ALT 86 H (4-49) U/L Total Protein 4.8 L (6.3-8.2) g/dL Albumin 2.4 L (3.5-5.0) g/dL Urine Protein (Negative) Urine Bilirubin (Negative) 09/21/22 Range/Units 11:48 RBC (4.30-5.90) m/uL Hgb (13.0-17.5) gm/dL Hct (39.0-53.0) % Lymphocytes # (1.0-4.8) k/uL ABG pCO2 (35-45) mmHg ABG pO2 (83-108) mmHg ABG HCO3 (21-25) mmol/L ABG Total CO2 (19-24) mmol/L Potassium (3.5-5.1) mmol/L Chloride (98-107) mmol/L Creatinine (0.66-1.25) mg/dL Glucose (74-99) mg/dL POC Glucose (mg/dL) 120 H (70-110) mg/dL Calcium (8.4-10.2) mg/dL AST (17-59) U/L ALT (4-49) U/L Total Protein (6.3-8.2) g/dL Albumin (3.5-5.0) g/dL Urine Protein (Negative) Urine Bilirubin (Negative) Microbiology - Last 24 Hours (Table) 09/16/22 15:19 Gram Stain - Preliminary Sputum Sputum Culture - Preliminary Serratia marcescens Assessment and Plan Plan: Assessment: 1. Hypervolemic hyponatremia status post 3% saline and diuresis this admission. Resolved. Urine sodium less than 20 and urine osmolality 499 dated 09/13/2022. 2. Alcohol abuse. 3. Alcohol liver disease. 4. Volume overload. 5. Hypokalemia from diuresis. Plan: Status post IV Lasix this morning. Wean FiO2. Potassium replaced. Receiving tube feeds.
--- NOTE | 2022-09-21 15:43 | P.PN ---
Subjective Progress Note Date: 09/21/22 Patient is 62-year-old gentleman with past medical history significant for alcohol abuse, presented to the ER because of multiple falls. Family is at bedside and states that the patient has not eaten any solid foods in 10 days. He has been drinking a significant amount of beer and recently "added whiskey to his diet". He has been drinking every day for the past 2 years. Reports that his last drink was last night at 11 PM. He has been having multiple falls and therefore family called EMS this morning. Patient was worked in the ER, initial lab work showed hemoglobin of 13.0, PTT 20.5, INR 1.2, sodium 140, potassium 4.3, chloride 80, carbonate 14, anion gap 20, lactate level 10.6. Chest x-ray was negative for any acute cardiac process. Patient was admitted to ICU for further evaluation and treatment 09/14. Patient seen and examined. Patient overnight became more agitated, was maxed out on precedex Drip. Patient had to be intubated. Currently comfortable on mechanical ventilation. Vital signs stable 09/15. Patient seen and examined. Continues to be on mechanical ventilation. Currently on propofol and Precedex 09/16/2022 Patient is currently in the MICU. Remains on mechanical ventilator. AC 14 with tidal volume of 500 and FiO2 40% and PEEP of 5. Currently on Precedex. Chest x-ray showed suggestion of mild subsegmental atelectasis left base. Patient is being continued on antibiotics and follow-up Zosyn. Laboratory data showed WBC 6.7 hemoglobin 11.0 and platelets 158 Sodium 129 potassium 4.2 chloride 101 bicarb is 20 BUN 14 and creatinine 0.7 and calcium 7.8 and procalcitonin level was 0.14. 09/17/2022 Patient is currently in the MICU. On mechanical ventilator. Continued on Precedex and fentanyl. Patient was agitated and was having increased work of breathing with sedation holiday yesterday and was started back on mechanical ventilator with sedation. Chest x-ray showed bilateral consolidation and small effusion in the basis of postoperative atelectasis. Mild venous congestion not excluded. Findings stable. Laboratory data showed WBC 6.0 hemoglobin 10.5 and platelets 206 Sodium 133 potassium 3.9 chloride 104 bicarb is 22 BUN 16 and creatinine 0.58 and calcium 7.3. Albumin 2.7. Patient is being cannula antibiotics in the home Zosyn. Was given a dose of IV Lasix today. 09/18/2022 Patient was extubated this morning. Otherwise patient is very drowsy and lethargic but only follows simple commands. Chest x-ray showed cardiomegaly and low lung volumes with left basilar acute infiltrate and atelectasis redemonstrated. No significant change from 1 day earlier. Patient remains on antibiotics in the form of Zosyn. Laboratory data showed WBC 4.7 hemoglobin 10.2 and platelets 227 Sodium 136 potassium 3.8 chloride 106 bicarb is 27 BUN 18 and creatinine 0.61. Total bilirubin is 1.4 AST 68 ALT 57 alk phos 81 and albumin 2.5. Patient is being continued on Protonix and IV thiamine. 09-19-22 Patient is currently in the MICU. Was extubated yesterday. He did well for some time and subsequently more agitated and restless and became encephalopathic. Patient was started back on Precedex for the patient was still agitated. Patient was started on Versed drip and was reintubated. Chest x-ray showed new endotracheal and orogastric tubes are satisfactory in position. Left internal jugular vein central venous catheter terminating in SVC without pneumothorax. Persistent bilateral multifocal acute infiltrate and edema similar to prior. Worsening left basilar opacity could reflect worsening acute infiltrate and atelectasis. Laboratory data showed WBC 4.5 hemoglobin 10.4 and platelets 272 sodium 138 potassium 3.6 chloride 107 bicarb is 26 BUN 15 and creatinine of 1.3. Pulmonary and nephrology is on board. 09/20/2022 Patient continues to be monitored closely in intensive care unit he is currently intubated and sedated. On mechanical ventilator with FiO2 of 50%. Patient continues on IV cleviprex, IV precedex, IV versed, IV fentanyl. Patient continues to spike temp T max in the last 24 hours 100.3. Patient continues on IV zosyn. Chest xray today shows CHF vs pneumonia. There is persistent bilateral increased opacities. Sputum culture is showing serratia marcescens. AST/ALT continue be elevated. Patient received a one time dose of IV lasix. Labs today are stable, white count 4.6, sodium 140, potassium 3.7, total bili 1.2. Kidney function stable. 09/21/2022 Patient is evaluated today in intensive care unit. Remains on sedated and intubated on mechanical ventilator with FiO2 of 50%. Chest xray follow up shows persistent bilateral increased opacities, CHF vs. pneumonia. He remains on IV zosyn. Continues with persistent temperature T-Max of 101.4 over the last 24 hours. He remains IV versed and IV fentanyl infusion. He received a dose of IV lasix x 1 today. Nephrology following. He is receiving enteral nutrition with vital high protein running at 35 mls/hr. LFT's remain elevated, sodium stable at 140, potassium 3.4, hemoglobin of 9.4. Blood pressure 143/57. Unable to complete review of systems patient is intubated and sedated PHYSICAL EXAMINATION: GENERAL: The patient is intubated and sedated , not in any acute distress. Well developed, well nourished. HEENT: Pupils are round and equally reacting to light. EOMI. No scleral icterus. No conjunctival pallor. Normocephalic, atraumatic. No pharyngeal erythema. No thyromegaly. CARDIOVASCULAR: S1 and S2 present. No murmurs, rubs, or gallops. PULMONARY: Scattered ronchi ABDOMEN: Soft, nontender, nondistended, normoactive bowel sounds. No palpable organomegaly. MUSCULOSKELETAL: No joint swelling or deformity. EXTREMITIES: No cyanosis, clubbing, or pedal edema. Mild peripheral edema NEUROLOGICAL: Unable to complete patient is sedated. SKIN: No rashes. Blanchable area on left wrist. Assessment and plan Assessment Acute delirium tremens. Patient was reintubated FiO2 of 50%. He is sedated and on IV versed. Acute hypoxic respiratory failure requiring mechanical ventilator. Pneumonia left lower lobe with sepsis, sputum culture showing serratia marcescens Alcohol withdrawal syndrome Elevated LFT's likely from alcoholic hepatitis Alcohol Abuse Hyponatremia resolved GI and DVT prophylaxis Full Code Plan; Patient is intubated and sedated Continue with IV zosyn antibiotic coverage for positive sputum Patient remains on IV versed Tylenol and supportive care for fever ID consultation as patient remains febrile Blood culture pending Repeat labs in AM The impression and plan of care has been dictated by Iram Latham, Nurse Practitioner as directed. Dr. Suly MD I have performed a history and physical examination and medical decision making of this patient, discussed the same with the dictator, and agree with the dictators assessment and plan as written, documented as a scribe. Based on total visit time, I have performed more than 50% of this visit. Objective - Vital Signs Vital signs: Vital Signs Temp 99.8 F H 09/21/22 12:00 Pulse 70 09/21/22 13:15 Resp 20 09/21/22 13:15 BP 135/87 09/21/22 12:15 Pulse Ox 98 09/21/22 13:15 FiO2 50 09/21/22 12:00 Intake & Output 09/20/22 09/21/22 09/21/22 18:59 06:59 18:59 Intake Total 5744.500 3933.292 940.317 Output Total 1950 478 740 Balance -617.992 770.292 200.317 Weight 108.273 kg Intake: IV 506 353 261 0.9 Sodium Chloride 36 33 21 Invasive Line 4 30 Piperacillin-Tazobactam 3 200 100 100 .375 gm In Sodium Chloride 0.9% 100 ml @ 25 mls/hr IVPB Q8H [facility] Rx#: [id number] Sodium Chloride 0.9% 1, 240 220 140 000 ml @ 10 mls/hr IV . Q24H [facility] Rx#:[id number] Intake, IV Titration 646.008 390.292 434.317 Amount Clevidipine Butyrate 25 96.400 3.6 13.933 mg In Empty Bag 1 bag @ 1 MG/HR 2 mls/hr IV .Q24H [facility] Rx#:[id number] Dexmedetomidine/0.9% NaCl 265.016 40.342 95.533 (Pmx) 400 mcg In Empty Bag 1 bag @ 0.2 MCG/KG/HR 5.15 mls/hr IV .[id number] [facility] Rx#:[id number] Midazolam HCl 200 mg In 42.417 96.35 100 Sodium Chloride 0.9% 60 ml @ 10 MG/HR 5 mls/hr IV .Q20H [facility] Rx#:[id number] Sodium Chloride 0.9% 200 242.175 250 224.851 ml @ 2 MCG/KG/HR 21.655 mls/hr IV .[id number] [facility] with fentaNYL (PF) 2,500 mcg Rx#:[id number] Tube Feeding 150 385 245 Other 30 120 Output: Urine 1950 478 740 Stool 0 Other: Voiding Method Indwelling Catheter Indwelling Catheter Indwelling Catheter # Bowel Movements 0 ABP, PAP, CO, CI - Last Documented Arterial Blood Pressure 143/57 - Labs CBC & Chem 7: 09/21/22 05:15 09/21/22 05:15 Labs: Abnormal Lab Results - Last 24 Hours (Table) 09/20/22 09/20/22 09/21/22 Range/Units 17:49 18:17 05:15 RBC 3.33 L (4.30-5.90) m/uL Hgb 9.4 L (13.0-17.5) gm/dL Hct 28.7 L (39.0-53.0) % Lymphocytes # 0.9 L (1.0-4.8) k/uL ABG pCO2 (35-45) mmHg ABG pO2 (83-108) mmHg ABG HCO3 (21-25) mmol/L ABG Total CO2 (19-24) mmol/L Potassium (3.5-5.1) mmol/L Chloride (98-107) mmol/L Creatinine (0.66-1.25) mg/dL Glucose (74-99) mg/dL POC Glucose (mg/dL) 114 H (70-110) mg/dL Calcium (8.4-10.2) mg/dL AST (17-59) U/L ALT (4-49) U/L Total Protein (6.3-8.2) g/dL Albumin (3.5-5.0) g/dL Urine Protein Trace H (Negative) Urine Bilirubin 1+ H (Negative) 09/21/22 09/21/22 09/21/22 Range/Units 05:15 05:16 06:03 RBC (4.30-5.90) m/uL Hgb (13.0-17.5) gm/dL Hct (39.0-53.0) % Lymphocytes # (1.0-4.8) k/uL ABG pCO2 47 H (35-45) mmHg ABG pO2 75 L (83-108) mmHg ABG HCO3 29 H (21-25) mmol/L ABG Total CO2 30 H (19-24) mmol/L Potassium 3.4 L (3.5-5.1) mmol/L Chloride 109 H (98-107) mmol/L Creatinine 0.62 L (0.66-1.25) mg/dL Glucose 111 H (74-99) mg/dL POC Glucose (mg/dL) 115 H (70-110) mg/dL Calcium 7.5 L (8.4-10.2) mg/dL AST 109 H (17-59) U/L ALT 86 H (4-49) U/L Total Protein 4.8 L (6.3-8.2) g/dL Albumin 2.4 L (3.5-5.0) g/dL Urine Protein (Negative) Urine Bilirubin (Negative) 09/21/22 Range/Units 11:48 RBC (4.30-5.90) m/uL Hgb (13.0-17.5) gm/dL Hct (39.0-53.0) % Lymphocytes # (1.0-4.8) k/uL ABG pCO2 (35-45) mmHg ABG pO2 (83-108) mmHg ABG HCO3 (21-25) mmol/L ABG Total CO2 (19-24) mmol/L Potassium (3.5-5.1) mmol/L Chloride (98-107) mmol/L Creatinine (0.66-1.25) mg/dL Glucose (74-99) mg/dL POC Glucose (mg/dL) 120 H (70-110) mg/dL Calcium (8.4-10.2) mg/dL AST (17-59) U/L ALT (4-49) U/L Total Protein (6.3-8.2) g/dL Albumin (3.5-5.0) g/dL Urine Protein (Negative) Urine Bilirubin (Negative) Assessment and Plan Time with Patient: Less than 30
[2022-09-21 18:05] LABS: Glucose,Whole Blood 116 mg/dL (70-110)
[2022-09-21] MEDS: CEFEPIME 2 GM in SODIUM CHLORIDE 0.9% 100 ML IVPB SCH (18:17)
[2022-09-21] MEDS: SODIUM CHLORIDE 0.9% 1,000 ML IV SCH (18:18)
[2022-09-21] MEDS: ATORVASTATIN 80 MG TAB PO SCH (21:45)
[2022-09-21] MEDS ORDERED: VANCOMYCIN IV PER PHARMACY 1 EACH MISC MISCELLANE PRN (23:23)
--- NOTE | 2022-09-21 23:23 | P.CONS ---
History of Present Illness - Reason for Consult Consult date: 09/21/22 Fever/pneumonia Requesting physician: Estephania Peralta - Chief Complaint shortness of breath x days - History of Present Illness Patient is a 62-year-old male presented to the hospital more than a week ago on 09/13/2022 for multiple falls and this patient apparently did have a history of alcohol abuse and apparently patient has not eaten any solid food for 10 days before the patient was brought to the hospital and the patient has been mostly drinking beer and whiskey patient on presentation to the hospital was afebrile however the patient has been running a fever since 09/15 and 09/16/2022 patient did have a normal white count during this admission kidney function has been normal liver enzymes are mildly elevated procalcitonin was mildly with a 0.14 urine has been negative on admission serum alcohol was less than 10 influenza RSV and COVID testing was not done on presentation to the hospital patient did have a chest x-ray on admission chronic change without evidence for acute pulmonary process last chest x-ray correlate for CHF otherwise consider pneumonia patient did have a blood culture dose has been negative sputum did grew Serratia marcescens patient has been treated with the Zosyn however with persistent fever despite being on Zosyn infectious disease was consulted for further management of antibiotic therapy patient is currently on the vent ap parently patient extubated 2 days ago however has to be repeated him because of worsening respiratory distress patient is currently on 50% FiO2 and eval requiring any pressor support no diarrhea has been reported most information has been obtained from review the chart and talking to nursing staff the patient cannot provide any history Review of Systems Positive point has been mentioned in HPI complete review could not be obtained because of underlying mental status Past Medical History Past Medical History: No Reported History Additional Past Medical History / Comment(s): alcoholism History of Any Multi-Drug Resistant Organisms: None Reported Past Surgical History: No Surgical Hx Reported Past Psychological History: No Psychological Hx Reported Past Alcohol Use History: Occasional Past Drug Use History: None Reported - Past Family History Mother History Unknown: Yes Family Medical History: Diabetes Mellitus, Hyperlipidemia, Hypertension Father History Unknown: Yes Family Medical History: Cancer, Hypertension Medications and Allergies Allergies Allergy/AdvReac Type Severity Reaction Status Date / Time No Known Allergies Allergy Verified 09/13/22 07:32 Physical Exam Vitals: Vital Signs Temp Pulse Resp Pulse Ox FiO2 09/21/22 11:50 50 09/21/22 11:29 50 09/21/22 11:15 67 20 97 09/21/22 11:00 68 20 97 09/21/22 10:45 66 20 97 09/21/22 10:30 65 20 97 09/21/22 10:15 65 20 97 09/21/22 10:00 66 20 97 09/21/22 09:45 67 20 97 09/21/22 09:30 67 20 97 09/21/22 09:24 50 09/21/22 09:18 50 09/21/22 09:15 68 20 96 09/21/22 09:00 71 20 95 09/21/22 08:45 66 20 97 09/21/22 08:30 66 20 92 L 09/21/22 08:15 65 20 97 09/21/22 08:00 99.8 F H 64 20 97 50 09/21/22 07:45 65 20 97 09/21/22 07:42 50 09/21/22 07:30 66 20 95 09/21/22 07:15 66 20 95 09/21/22 07:00 100.9 F H 66 20 95 09/21/22 06:45 66 20 95 09/21/22 06:30 65 20 96 09/21/22 06:15 66 20 95 09/21/22 06:00 66 20 95 09/21/22 05:45 65 20 95 09/21/22 05:30 66 20 95 09/21/22 05:15 70 20 95 09/21/22 05:00 73 20 94 L 09/21/22 04:45 71 20 91 L 09/21/22 04:30 68 20 95 09/21/22 04:15 67 20 94 L 09/21/22 04:00 100.8 F H 68 20 94 L 50 09/21/22 03:53 50 09/21/22 03:45 68 20 94 L 09/21/22 03:30 69 20 93 L 09/21/22 03:15 70 20 93 L 09/21/22 03:00 73 20 93 L 09/21/22 02:45 73 20 92 L 09/21/22 02:30 76 20 92 L 09/21/22 02:15 80 20 91 L 09/21/22 02:00 70 20 93 L 09/21/22 01:45 70 20 93 L 09/21/22 01:30 69 20 93 L 09/21/22 01:15 70 20 93 L 09/21/22 01:00 69 20 93 L 09/21/22 00:45 70 20 93 L 09/21/22 00:30 69 20 93 L 09/21/22 00:15 69 20 93 L 09/21/22 00:00 101.4 F H 70 20 93 L 50 09/20/22 23:45 70 20 93 L 09/20/22 23:39 50 09/20/22 23:30 69 20 93 L 09/20/22 23:15 69 20 94 L 09/20/22 23:09 68 20 94 L 09/20/22 23:00 69 20 93 L 09/20/22 22:45 69 20 94 L 09/20/22 22:30 69 20 94 L 09/20/22 22:15 70 20 93 L 09/20/22 22:00 71 20 91 L 09/20/22 21:45 70 20 94 L 09/20/22 21:30 71 20 94 L 09/20/22 21:15 70 20 94 L 09/20/22 21:00 70 20 93 L 09/20/22 20:45 70 20 94 L 09/20/22 20:30 71 20 93 L 09/20/22 20:15 71 20 93 L 09/20/22 20:00 101.4 F H 75 20 93 L 50 09/20/22 19:50 50 09/20/22 19:45 69 20 94 L 09/20/22 19:30 68 20 96 09/20/22 19:15 68 20 96 09/20/22 19:00 68 20 96 09/20/22 18:45 69 20 97 09/20/22 18:30 68 20 97 09/20/22 18:15 69 20 96 09/20/22 18:00 70 20 96 09/20/22 17:45 68 20 96 09/20/22 17:30 70 20 95 09/20/22 17:15 69 20 95 09/20/22 17:00 70 20 95 09/20/22 16:45 70 20 95 09/20/22 16:30 69 20 95 09/20/22 16:15 70 18 95 09/20/22 16:00 100.9 F H 69 20 95 50 09/20/22 15:56 50 09/20/22 15:45 70 20 94 L 09/20/22 15:30 70 20 94 L 09/20/22 15:15 70 20 94 L 09/20/22 15:00 69 20 96 09/20/22 14:45 69 20 97 09/20/22 14:30 69 20 97 09/20/22 14:15 68 20 97 09/20/22 14:00 68 20 96 09/20/22 13:45 70 20 94 L 09/20/22 13:30 70 20 93 L 09/20/22 13:15 69 20 93 L 09/20/22 13:02 100.9 F H 09/20/22 13:00 68 20 95 09/20/22 12:45 68 20 92 L 09/20/22 12:30 70 20 92 L 09/20/22 12:15 70 18 93 L 09/20/22 12:00 100.9 F H 70 19 93 L 50 Intake and Output 09/20/22 09/21/22 09/21/22 22:59 06:59 14:59 Intake Total 773.978 760.692 782.317 Output Total 578 350 510 Balance 195.978 410.692 272.317 Intake: IV 294 284 238 0.9 Sodium Chloride 24 24 18 Invasive Line 4 10 Piperacillin-Tazobactam 3 100 100 100 .375 gm In Sodium Chloride 0.9% 100 ml @ 25 mls/hr IVPB Q8H [facility] Rx#: [id number] Sodium Chloride 0.9% 1, 160 160 120 000 ml @ 10 mls/hr IV . Q24H [facility] Rx#:[id number] Intake, IV Titration 314.978 136.692 334.317 Amount Clevidipine Butyrate 25 50.000 13.933 mg In Empty Bag 1 bag @ 1 MG/HR 2 mls/hr IV .Q24H [facility] Rx#:[id number] Dexmedetomidine/0.9% NaCl 14.978 40.342 95.533 (Pmx) 400 mcg In Empty Bag 1 bag @ 0.2 MCG/KG/HR 5.15 mls/hr IV .[id number] [facility] Rx#:[id number] Midazolam HCl 200 mg In 96.35 Sodium Chloride 0.9% 60 ml @ 10 MG/HR 5 mls/hr IV .Q20H [facility] Rx#:[id number] Sodium Chloride 0.9% 200 250 224.851 ml @ 2 MCG/KG/HR 21.655 mls/hr IV .[id number] [facility] with fentaNYL (PF) 2,500 mcg Rx#:[id number] Tube Feeding 105 280 210 Other 60 60 Output: Urine 578 350 510 Other: Voiding Method Indwelling Catheter Indwelling Catheter Indwelling Catheter ABP, PAP, CO, CI - Last 8 Hours Arterial Blood Pressure 136/52 Arterial Blood Pressure 131/50 Arterial Blood Pressure 144/57 Arterial Blood Pressure 149/59 Arterial Blood Pressure 147/58 Arterial Blood Pressure 146/58 Arterial Blood Pressure 145/58 Arterial Blood Pressure 140/58 Arterial Blood Pressure 143/57 Arterial Blood Pressure 134/55 Arterial Blood Pressure 142/54 Arterial Blood Pressure 140/54 Arterial Blood Pressure 147/56 Arterial Blood Pressure 157/60 Arterial Blood Pressure 152/58 Arterial Blood Pressure 142/55 Arterial Blood Pressure 141/54 Arterial Blood Pressure 141/54 Arterial Blood Pressure 144/55 Arterial Blood Pressure 140/54 Arterial Blood Pressure 142/55 Arterial Blood Pressure 135/54 Arterial Blood Pressure 136/53 Arterial Blood Pressure 132/52 Arterial Blood Pressure 84/51 Arterial Blood Pressure 124/53 Arterial Blood Pressure 93/48 Arterial Blood Pressure 141/54 Arterial Blood Pressure 142/57 Arterial Blood Pressure 143/57 GENERAL DESCRIPTION: Middle-aged male intubated on the vent HEENT: Shows Pallor , no scleral icterus. Oral mucous membrane is dry. NECK: Trachea central, no thyromegaly. LUNGS: Unlabored breathing. Decreased breath sounds at base HEART: S1, S2, regular rate and rhythm. ABDOMEN: Soft, no tenderness , guarding or rigidity EXTREMITIES: No edema of feet. SKIN: No rash, no masses palpable. NEUROLOGICAL: The patient is sedated on the vent Results CBC & Chem 7: 09/27/22 04:20 09/27/22 04:20 Labs: Abnormal Lab Results - Last 24 Hours (Table) 09/20/22 09/20/22 09/21/22 Range/Units 17:49 18:17 05:15 RBC 3.33 L (4.30-5.90) m/uL Hgb 9.4 L (13.0-17.5) gm/dL Hct 28.7 L (39.0-53.0) % Lymphocytes # 0.9 L (1.0-4.8) k/uL ABG pCO2 (35-45) mmHg ABG pO2 (83-108) mmHg ABG HCO3 (21-25) mmol/L ABG Total CO2 (19-24) mmol/L Potassium (3.5-5.1) mmol/L Chloride (98-107) mmol/L Creatinine (0.66-1.25) mg/dL Glucose (74-99) mg/dL POC Glucose (mg/dL) 114 H (70-110) mg/dL Calcium (8.4-10.2) mg/dL AST (17-59) U/L ALT (4-49) U/L Total Protein (6.3-8.2) g/dL Albumin (3.5-5.0) g/dL Urine Protein Trace H (Negative) Urine Bilirubin 1+ H (Negative) 09/21/22 09/21/22 09/21/22 Range/Units 05:15 05:16 06:03 RBC (4.30-5.90) m/uL Hgb (13.0-17.5) gm/dL Hct (39.0-53.0) % Lymphocytes # (1.0-4.8) k/uL ABG pCO2 47 H (35-45) mmHg ABG pO2 75 L (83-108) mmHg ABG HCO3 29 H (21-25) mmol/L ABG Total CO2 30 H (19-24) mmol/L Potassium 3.4 L (3.5-5.1) mmol/L Chloride 109 H (98-107) mmol/L Creatinine 0.62 L (0.66-1.25) mg/dL Glucose 111 H (74-99) mg/dL POC Glucose (mg/dL) 115 H (70-110) mg/dL Calcium 7.5 L (8.4-10.2) mg/dL AST 109 H (17-59) U/L ALT 86 H (4-49) U/L Total Protein 4.8 L (6.3-8.2) g/dL Albumin 2.4 L (3.5-5.0) g/dL Urine Protein (Negative) Urine Bilirubin (Negative) 09/21/22 Range/Units 11:48 RBC (4.30-5.90) m/uL Hgb (13.0-17.5) gm/dL Hct (39.0-53.0) % Lymphocytes # (1.0-4.8) k/uL ABG pCO2 (35-45) mmHg ABG pO2 (83-108) mmHg ABG HCO3 (21-25) mmol/L ABG Total CO2 (19-24) mmol/L Potassium (3.5-5.1) mmol/L Chloride (98-107) mmol/L Creatinine (0.66-1.25) mg/dL Glucose (74-99) mg/dL POC Glucose (mg/dL) 120 H (70-110) mg/dL Calcium (8.4-10.2) mg/dL AST (17-59) U/L ALT (4-49) U/L Total Protein (6.3-8.2) g/dL Albumin (3.5-5.0) g/dL Urine Protein (Negative) Urine Bilirubin (Negative) Microbiology - Last 24 Hours (Table) 09/16/22 15:19 Gram Stain - Preliminary Sputum Sputum Culture - Preliminary Serratia marcescens Assessment and Plan (1) Fever Status: Acute Code(s): R50.9 - FEVER, UNSPECIFIED SNOMED Code(s): 145285324 (2) Pneumonia Status: Acute Code(s): J18.9 - PNEUMONIA, UNSPECIFIED ORGANISM SNOMED Code(s): 697655670 Plan: 1patient with a fever in this patient who do have a history of alcoholism presented to hospital with weakness fall and decreased oral intake with acute respiratory failure requiring intubation concern for possible pneumonia sputum has been Serratia marcescens despite good antibiotic coverage the patient is still running a fever however did not have any elevated white count with a question of possible viral etiology versus DTs 2-we will obtain influenza vaccine and COVID testing 3-follow-up on the blood cultures and we will check a CRP and procalcitonin level 4-we will check ultrasound of the abdomen 5-switch Zosyn to cefepime for better Serratia coverage and add vancomycin We will follow on clinical condition and cultures to further adjust medication if needed Thank you for this consultation we will follow the patient along with you Time with Patient: Greater than 30
[2022-09-21] MEDS ORDERED: VANCOMYCIN 1,750 MG in SODIUM CHLORIDE 0.9% 500 ML 500 ML IVPB ONE (23:30)
[2022-09-21 23:37] LABS: Glucose,Whole Blood 113 mg/dL (70-110)
[2022-09-22] MEDS: CEFEPIME 2 GM in SODIUM CHLORIDE 0.9% 100 ML IVPB SCH ×4 (02:04→23:17)
[2022-09-22 06:24] LABS: ABG Base Excess 4.8 mmol/L; ABG HCO3 30 mmol/L (21-25); ABG PCO2 48 mmHg (35-45); ABG PO2 93 mmHg (83-108); ABG TCO2 31 mmol/L (19-24); Allen Test Performed? Yes
[2022-09-22 06:25] LABS: ABG Oxygen Saturation 97.7 % (94-97)
[2022-09-22] MEDS: MIDAZOLAM HCL 200 MG in SODIUM CHLORIDE 0.9% 60 ML IV SCH ×2 (06:28→18:42)
[2022-09-22] MEDS: SODIUM CHLORIDE 0.9% IV SCH ×4 (06:39→09:28)
[2022-09-22] MEDS: FENTANYL IV SCH ×4 (06:39→09:28)
[2022-09-22 06:57] LABS: Basophils % (A) 0 %; Eosinophils # (A) 0.1 k/uL (0-0.7); Eosinophils % (A) 2 %; HCT 27.3 % (39.0-53.0); Lymphocytes # (A) 0.8 k/uL (1.0-4.8); Lymphocytes % (A) 16 %; MCH 28.9 pg (25.0-35.0); MCHC 32.9 g/dL (31.0-37.0); MCV 87.8 fL (80.0-100.0); Mean Platelet Volume 8.9; Monocytes # (A) 0.3 k/uL (0-1.0); Monocytes % (A) 5 %; Neutrophils # (A) 3.9 k/uL (1.3-7.7); Neutrophils % (A) 75 %; Platelet Count 351 k/uL (150-450); RBC 3.11 m/uL (4.30-5.90); WBC 5.1 k/uL (3.8-10.6)
[2022-09-22 07:09] LABS: Glucose,Whole Blood 118 mg/dL (70-110)
[2022-09-22 07:32] LABS: African American GFR (CKD) >90 (>60 ml/min/1.73 sqM); Anion Gap 3 mmol/L; Blood Urea Nitrogen 18 mg/dL (9-20); Calcium 7.7 mg/dL (8.4-10.2); Carbon Dioxide 30 mmol/L (22-30); Chloride 109 mmol/L (98-107); Glucose 113 mg/dL (74-99); Non-African American GFR(CKD) >90 (>60 ml/min/1.73 sqM); Potassium 3.7 mmol/L (3.5-5.1); Sodium 142 mmol/L (137-145)
--- NOTE | 2022-09-22 07:38 | US ---
EXAMINATION TYPE: US abdomen complete DATE OF EXAM: 09/22/2022 COMPARISON: NONE CLINICAL HISTORY: fever. Fever TECHNIQUE: Multiple sonographic images of the abdomen are obtained. FINDINGS: EXAM MEASUREMENTS: Liver Length: 21.6 cm Gallbladder Wall: 0.2 cm CBD: 0.6 cm Spleen: Unable to visualize Right Kidney: 12.4 x 5.6 x 5.3 cm Left Kidney: 12.5 x 6.3 x 5.9 cm [employer] NOTES: Obese, unresponsive pt in the ICU, difficult exam Pancreas: Body wnl, head and tail obscured by overlying bowel gas Liver: Enlarged, heterogeneous, difficult to penetrate Gallbladder: wnl Evidence for sonographic Camarena's sign: No CBD: wnl Spleen: Unable to visualize Right Kidney: No evidence of hydro, limited views Left Kidney: No evidence of hydro, limited views Upper IVC: wnl Abd Aorta: Obscured by overlying bowel gas Visualized liver is heterogeneously hyperechoic and enlarged in size. Evaluation for focal masses sub optimal due to the heterogeneity. No intraluminal gallstones. Common bile duct measures upper limits of normal. Suboptimal visualization of pancreas and spleen. Kidneys are normal in size without hydron ephrosis. IMPRESSION: Suboptimal study. There is hepatomegaly with diffuse fatty infiltration and/or underlying hepatocellular disease present. No ascites. No biliary dilatation.
[2022-09-22] MEDS ORDERED: POTASSIUM BICARBONATE/CIT AC 20 MEQ TABLET.EFF NG-TUBE SCH (08:00)
[2022-09-22] MEDS: CHLORHEXIDINE GLUCONATE 15 ML CUP MUCOUS MEM SCH ×2 (08:19→21:09)
[2022-09-22] MEDS: THIAMINE 100 MG/ML 2 ML VIAL IVP SCH (08:19)
[2022-09-22] MEDS: cloNIDine HCL 0.2 MG TAB PO SCH ×3 (08:19→21:08)
[2022-09-22] MEDS: PANTOPRAZOLE 40 MG/10 ML VIAL IVP SCH (08:19)
[2022-09-22] MEDS: ENOXAPARIN 40 MG/0.4 ML SYRINGE SQ SCH (08:19)
[2022-09-22] MEDS: PARoxetine 20 MG TAB PO SCH (08:19)
--- NOTE | 2022-09-22 08:20 | XR ---
EXAMINATION TYPE: XR chest 1V portable DATE OF EXAM: 09/22/2022 COMPARISON: 09/21/2022 HISTORY: Shortness of breath TECHNIQUE: Single frontal view of the chest is obtained. FINDINGS: Stable left internal jugular central venous catheter, endotracheal tube, and orogastric tu be. Persistent bilateral increased opacities. No pneumothorax. Small bilateral pleural effusions. Car diac silhouette size is mildly enlarged. Osseous structures are intact. A prominence of the mediastin um could reflect positioning and reduced inspiration. IMPRESSION: Persistent bilateral infiltrate and pleural effusion correlate for CHF otherwise conside r pneumonia.
[2022-09-22] MEDS ORDERED: FUROSEMIDE 10 MG/ML 4 ML VIAL IV STA (08:56)
[2022-09-22] MEDS ORDERED: ALBUMIN HUMAN 25% 50 ML in EMPTY BAG 1 BAG IVPB ONE (09:00)
[2022-09-22] MEDS: VANCOMYCIN 1,750 MG in SODIUM CHLORIDE 0.9% 500 ML 500 ML IVPB SCH ×3 (09:25→23:17)
--- NOTE | 2022-09-22 10:14 | P.PN ---
Subjective Patient is seen in follow-up for hyponatremia. Sodium level remains normal. Intubated. Hemodynamically stable. Again received IV Lasix this morning. Receiving tube feeds. Vital signs are stable. HEENT: Intubated. LUNGS: No audible rhonchi or wheezes. HEART: Rate and Rhythm are regular. ABDOMEN: No distention. EXTREMITITES: 1+ edema. Objective - Vital Signs Vital signs: Vital Signs Temp 99.2 F 09/22/22 08:00 Pulse 84 09/22/22 09:00 Resp 20 09/22/22 09:00 BP 135/87 09/22/22 04:00 Pulse Ox 98 09/22/22 09:00 FiO2 50 09/22/22 08:15 Intake & Output 09/21/22 09/22/22 09/22/22 18:59 06:59 18:59 Intake Total 7217.466 4121.801 797.108 Output Total 950 560 185 Balance 270.317 788.801 612.108 Weight 111.5 kg Intake: IV 376 276 69 0.9 Sodium Chloride 36 36 9 Piperacillin-Tazobactam 3 100 .375 gm In Sodium Chloride 0.9% 100 ml @ 25 mls/hr IVPB Q8H [facility] Rx#: [id number] Sodium Chloride 0.9% 1, 240 240 60 000 ml @ 10 mls/hr IV . Q24H [facility] Rx#:[id number] Intake, IV Titration 459.317 597.801 658.108 Amount Cefepime 2 gm In Sodium 25 25 100 Chloride 0.9% 100 ml @ 25 mls/hr IVPB Q8HR [facility] Rx# :[id number] Clevidipine Butyrate 25 13.933 mg In Empty Bag 1 bag @ 1 MG/HR 2 mls/hr IV .Q24H [facility] Rx#:[id number] Dexmedetomidine/0.9% NaCl 95.533 (Pmx) 400 mcg In Empty Bag 1 bag @ 0.2 MCG/KG/HR 5.15 mls/hr IV .[id number] [facility] Rx#:[id number] Midazolam HCl 200 mg In 100 100 Sodium Chloride 0.9% 60 ml @ 10 MG/HR 5 mls/hr IV .Q20H [facility] Rx#:[id number] Sodium Chloride 0.9% 200 224.851 472.801 58.108 ml @ 1 MCG/KG/HR 10.827 mls/hr IV .[id number] [facility] with fentaNYL (PF) 2,500 mcg Rx#:[id number] Vancomycin 1,750 mg In 500 Sodium Chloride 0.9% 500 ml 500 ml @ 167 mls/hr IVPB Q8H [facility] Rx#: [id number] Tube Feeding 385 385 70 Other 90 Output: Urine 950 560 185 Stool 0 Other: Voiding Method Indwelling Catheter Indwelling Catheter Indwelling Catheter ABP, PAP, CO, CI - Last Documented Arterial Blood Pressure 127/53 - Labs CBC & Chem 7: 09/22/22 06:00 09/22/22 07:07 Labs: Abnormal Lab Results - Last 24 Hours (Table) 09/21/22 09/21/22 09/21/22 Range/Units 11:48 18:03 23:36 RBC (4.30-5.90) m/uL Hgb (13.0-17.5) gm/dL Hct (39.0-53.0) % Lymphocytes # (1.0-4.8) k/uL ABG pCO2 (35-45) mmHg ABG HCO3 (21-25) mmol/L ABG Total CO2 (19-24) mmol/L ABG O2 Saturation (94-97) % Chloride (98-107) mmol/L Creatinine (0.66-1.25) mg/dL Glucose (74-99) mg/dL POC Glucose (mg/dL) 120 H 116 H 113 H (70-110) mg/dL Calcium (8.4-10.2) mg/dL 09/22/22 09/22/22 09/22/22 Range/Units 06:00 06:18 07:07 RBC 3.11 L (4.30-5.90) m/uL Hgb 9.0 L (13.0-17.5) gm/dL Hct 27.3 L (39.0-53.0) % Lymphocytes # 0.8 L (1.0-4.8) k/uL ABG pCO2 48 H (35-45) mmHg ABG HCO3 30 H (21-25) mmol/L ABG Total CO2 31 H (19-24) mmol/L ABG O2 Saturation 97.7 H (94-97) % Chloride 109 H (98-107) mmol/L Creatinine 0.58 L (0.66-1.25) mg/dL Glucose 113 H (74-99) mg/dL POC Glucose (mg/dL) (70-110) mg/dL Calcium 7.7 L (8.4-10.2) mg/dL 09/22/22 Range/Units 07:08 RBC (4.30-5.90) m/uL Hgb (13.0-17.5) gm/dL Hct (39.0-53.0) % Lymphocytes # (1.0-4.8) k/uL ABG pCO2 (35-45) mmHg ABG HCO3 (21-25) mmol/L ABG Total CO2 (19-24) mmol/L ABG O2 Saturation (94-97) % Chloride (98-107) mmol/L Creatinine (0.66-1.25) mg/dL Glucose (74-99) mg/dL POC Glucose (mg/dL) 118 H (70-110) mg/dL Calcium (8.4-10.2) mg/dL Microbiology - Last 24 Hours (Table) 09/20/22 16:25 Blood Culture - Preliminary Blood No Growth after 24 hours Assessment and Plan Plan: Assessment: 1. Hypervolemic hyponatremia status post 3% saline and diuresis this admission. Resolved. Urine sodium less than 20 and urine osmolality 499 dated 09/13/2022. 2. Alcohol abuse. 3. Alcohol liver disease. 4. Volume overload. Improving with diuresis. 5. Hypokalemia from diuresis. Plan: Status post IV Lasix this morning. Wean FiO2. Potassium replaced. Receiving tube feeds.
[2022-09-22] MEDS ORDERED: POTASSIUM BICARBONATE/CIT AC 20 MEQ TABLET.EFF PO ONE (10:43)
--- NOTE | 2022-09-22 12:33 | P.PN ---
Subjective Progress Note Date: 09/22/22 Principal diagnosis: Acute delirium tremens requiring intubation and mechanical ventilation 62-year-old male patient, alcoholic, brought into the hospital on family request. EMS as the patient has not been eating any food for the past 10 days. He has been drinking significantly and he drinks beer and whiskey. He is an alcoholic and has been drinking excessively over the past 2 years at least. He has had multiple falls at home. No injuries to his head or traumatic head in jury. He has bruises over the right cheek. No nausea. No emesis. No aspiration. No seizure activity has been noted. No reported chest pain or shortness of breath. No history of any substance abuse other than alcohol. As the patient was brought into the hospital, the patient was found to be in delirium tremens, increased confusion, agitation and tremors. He was given Ativan on the Route to the hospital. Upon arrival, alcohol level was less than 10, his sodium level was 114, bicarb is 15 with a creatinine of 1.1, normal coagulation profile, his troponin was negative, urine osmolality was 499, urine sodium was less than 20, WBC count at 9.9 with hemoglobin 15.3 and a platelet count of 188. The LFTs are abnormal with an AST of 93, ALT of 79, bilirubin level is at 2.3 and the lactic acid level is down to 1.6. The chest x-ray shows no acute abnormalities. On today's evaluation of 09/14/2022, the patient is intubated on a mechanical ventilator. The patient is, comfortable. Overnight, the patient was becoming progressively more agitated and he has required increased dose of Ativan and he was maximized on Precedex without any adequate control of the situation. Based on that, the patient had to be intubated on placed on a mechanical ventilator. No seizure activity was witnessed. The patient was essentially having delirium tremens. This morning, the patient is intubated on a mechanical ventilator. He is on assist control mode at a rate of 20, tidal volume of 500, FiO2 of 50% with a PEEP of 5. His blood gas from today shows a pH of 7.42 with a pCO2 of 36 and pO2 of 179. His chest x-ray from today shows adequate expansion of both lungs. ET tube is in good location. There is no evidence of any pneumothorax. No areas of any consolidation or airspace disease. No respiratory secretions. The patient is oxygenating and ventilating adequately. Is currently on propofol which is running at 75 mL an hour. His well sedated. He is taken off the hypertonic saline. His sodium gradually improved and this morning is up to 124 and subsequently 125. The rest of the electrolytes show a potassium level of 3.8 and these to be replaced, BUN is at 70 with a creatinine of 0.9. His white cell count is 5.3 with a hemoglobin of 11.4 and a platelet count of 129. Lal cath is in place. Urine output is adequate. He is afebrile. Liver function tests were not obtained. Calcium levels at 7.4. Blood sugars at 96. On today's evaluation of 09/15/2022, seeing the patient for a follow-up. As mentioned, this is a case of DTs, the patient is currently intubated on a mechanical ventilator, sedated with a combination of propofol and is also requiring on enough dose of Ativan throughout the night. The patient this morning is on propofol which is running at 55 mcg/kg/m. He is coming comfortable. The triglyceride levels are elevated and I'm in the process of sw itching the propofol to Precedex. The same time, his mentation will be evaluated. His abdomen is to wean will be also evaluated on a daily basis. He has remained hemodynamically stable over the past 24 hours. He remains on mechanical ventilator on assist control mode with a rate of 20, tidal volume of 500, FiO2 40% with a PEEP of 5. Blood gases from today shows a pH of 7.5 with a pCO2 of 33 and pO2 of 83. His chest x-ray from today shows no acute abnormalities. The orotracheal tube is in a good location. The lungs are adequately expanded and there are no significant infiltration. There may be some small left-sided pleural effusion/atelectasis. His seconds at 5.9 with a hemoglobin 11.1 and a platelet count of 146. Sodium level has gradually come up to 127. Is currently on IV fluids with normal saline at rate of 20 mL an hour. Urine output is adequate for now. He is on enteral feeding and the patient is receiving vital high-protein at the rate of 10 mL an hour. No sei zure activity has been noted. No fever. No significant orotracheal secretions. No other issues for now. His condition is stable. On 09/16/2022, the patient is being seen for a follow-up. We managed to get the patient off the propofol and the patient is currently on Precedex which is running at the highest dose of 1.4 mcg/kg/h and the patient is also on fentanyl at 1 mcg/kg/h. Arousable, lethargic, not consistent in following commands, neurologic exam is nonfocal and he continues to move all 4 extremities. He has a very strong cough reflex patient will being suctioned. He remains on a mechanical ventilator. His urine output was low and he was given a bolus of normal saline yesterday which improved his urine output. His electrolytes today are stable. His sodium level is currently at 129 with a potassium level of 4.2, BUN is at 40 with a creatinine of 0.7. His CBC is also stable with a hemoglobin of 11 and a platelet count of 158. On a separate note, the patient remains on a mechanical ventilator. Is currently on a assist control mode rate of 14, tidal volume of 500, FiO2 40% with a PEEP of 5. There is improvement in his acid base status. His pH is at 7.39 with a pCO2 of 36 and pO2 of 95. Repeat chest x-ray from today shows stable findings. No evidence of any pneumonia. There is left lower lobe atelectasis. ET tube is in a I location an NG tube is in place. Is receiving enteral feeding for nutritional support. Is on vital high-protein at the rate of 10 mL an hour. He did spike a temperature 100.5 today. He has been spiking low-grade fever since yesterday. On 09/17/2022, the patient is being seen for a follow-up. Note that this morning, the patient is on a combination of Precedex 1.4 mcg/kg/h and fentanyl at 2 mcg/kg/h. We were able to discontinue propofol. Yesterday, the patient was arousing on a sedation holiday. Nevertheless, he never got to point where he was following commands and he was getting progressively more agitated. At the same time was having fever and the left lower lobe pneumonia was suspected. Based on that, the sedation holiday was aborted and the patient was kept on a mechanical ventilator. The same will be done today. The patient is on assist control mode at a rate of 14, tidal volume of 500, FiO2 of 40% with a PEEP of 5. The chest x-ray showing cardiac regular and left lower lobe consolidation/infiltrate. The white cell count at 6 with a hemoglobin of 10.05 and the patient is not having any fever at this point. Blood pressure was a pH of 7.34 with a pCO2 of 40 and pO2 of 93. BUN is at 60 with a creatinine of 0.58. Sodiums of 133 and a potassium level of 3.9. He does have some mild transaminitis. He remains on vital high-protein running at the rate of 40 mL an hour. IV fluids are currently in the form of 0.9 saline at the rate of 75 mL an hour. Urine output is adequate at 50 mL an hour. Pro-calcitonin level is at 0.14. 09/18/2022, the patient is being given a sedation holiday. Earlier this morning is at 7 AM, the patient was taken off the fentanyl. Is currently on Precedex running at 0.9 mcg/kg/h. He is following some simple commands. He remains profoundly weak. He has sweating and somewhat diaphoretic. It's possible that there may be some ongoing withdrawals. Nevertheless, he is able to squeeze using his hands upon demand. Is following some simple commands. When the pr ocess of monitoring the patient and weaning of his Precedex slowly. He may need some background Precedex running as were weaning patient off the sedation. Meanwhile, the patient will be kept on a mechanical ventilator. Is on assist control mode at the rate of 40 with a tidal volume of 500 and FiO2 of 40% with a PEEP of 5. Chest x-rays available quality, no new changes. His pH is at 7.46 with a pCO2 of 36 and pO2 of 70. The white cell cause of 4.7 with a hemoglobin of 10.2. BUN is at 80 with a creatinine of 0.6. Sodium is at 136. He remains on IV Zosyn. Sputum Gram stain and culture still pending. The pro-calcitonin level was at 0.14. He is afebrile. He is receiving vital high-protein at the rate of 60 mL an hour. He was noted to have a temperature spike at around 4:00 yesterday afternoon with a T-max of 101.4. His net fluid balance is positive at least 5 L over the past 3 days and over the past 24 hours has been +1.3 L. 4 2022, I'm seeing the patient for a follow-up. Patient was weaned off the fentanyl yesterday and he was kept on a low-dose Precedex. Subsequently, he was able to follow commands and he looks quite comfortable. We gave him a spontaneous breathing trial and he did well and at that point, we decided to go ahead and extubate the patient. The patient was extubated on 09/18/2022. He did well for quite some time and subsequently became more agitated, restless, and continued to have encephalopathy and tremors. He was moving all 4 extremities without any limitation. At that point, the Precedex dose was gradually increased. He was given Haldol. Based on failure to control his agitation, I started him on low-dose Versed drip which is currently running at 4 mg an hour. He is also on Precedex at 1.4 mcg/kg/m. His blood pressure was elevated and he is also on Cleviprex 8 mg an hour. patient is arousable. He is only oriented 1. His breathing is nonlabored. He is on oxygen at 10 L and his pulse ox in the order of 91%. Repeat chest x-ray was done today and the chest x-ray shows or respiratory efforts, cardiomegaly and some mild interstitial edema. IV fluids are currently at 20 mL an hour. BUN is a 50 with a creatinine of 0.5. His sodium level is at 138. The white cell cause of 4.5 with a hemoglobin of 10.5 and a platelet count of 272. Mild transaminitis related to his chronic alcoholic liver disease with a bilirubin level of 1.4. No seizure activity has been noted. No aspiration the patient is currently nothing by mouth. He has an arterial line in his left upper extremity. He is afebrile this morning. He remains on IV Zosyn. Sputum Gram stain is showing gram-negative bacillus. Patient was reevaluated today on 09/20/2022, patient remains in the ICU, intubated and mechanically ventilated. Patient is on assist control rate of 20 tidal volume 450 FiO2 50% and PEEP of 10 ABG showed a pO2 of 74 pCO2 40 pH of 7.44 hence no changes were made in the ventilator settings. Patient is requiring fentanyl at 2 mcg/kg/h is also on Versed and Precedex, he is also on Cleviprex. His a Versed doses 12 mg per hour. And Precedex is 1 mcg/kg/h. Apparently the patient required intubation yesterday by Dr. Scott, although he was on mechanical ventilation before and he was extubated on 09/18/2022, but had to be re intubated yesterday.09/19/2022 his agitation was in extreme and he could not be controlled with the medications and with Haldol, and required intubation and mechanical ventilation again. Patient had sputum cultures showing Serratia marcescens, sensitive to Zosyn. he is maintained on Zosyn. Patient is now on day #7 from his last drink. Chest x-ray is clearly showing significant left lower lobe infiltrate/consolidation and right lower lobe infiltrate/atelectasis. WBC count is 4.6 hemoglobin is 10.3. Rest of the labs including basic metabolic profile renal profile liver profile are unremarkable slightly elevated liver enzymes noted Reevaluated today on 09/21/2022, patient remains in the ICU intubated and mechanically ventilated he is on assist control rate of 20 tidal volume 450 FiO2 50% PEEP is 10 ABG showed a pO2 of 75 pCO2 47 pH of 7.40, I decreased his PEEP from 10-8. Patient remains on Versed, fentanyl, and Precedex, hence I plan to discontinue Precedex and keep the patient for now on Versed and fentanyl. His Versed dose is 15 mg per hour fentanyl is at 2 mcg/kg/h and he was placed on Cleviprex last night for elevated blood pressure. This morning he is off the Cleviprex. Patient is tolerating enteral feedings receiving vital HPI 35 mL per hour. Chest x-ray shows left lower lobe atelectasis/infiltrates, doubt pulmonary edema. WBC count today is 5.1 hemoglobin is 9.4. Basic metabolic profile is normal except for low potassium of 3.4. reevaluated today on 09/23/19-, patient remains in the ICU intubated and mechanically ventilated. He is an assist-control rate of 20, tidal volume 450 FiO2 45% and I cut down from 50% he is also on a PEEP of 8. ABG showed a pO2 of 93 pCO2 of 48 pH of 7.40.patient is requiring fentanyl at 2 mcg/kg/h and he is also on Darvocet at 15 mg per hour. My plan today is discontinue fentanyl if possible and addressed mental status on this patient and decide whether the patient could be considered for weaning. Patient is still receiving vital HPF 35 mL per hour, chest x-ray showed evidence of pneumonia possible interstitial edema, the recommended dose of Lasix 40 mg IV push 1WBC count is 5.1 hemoglobin is 9 hematocrit is 27.3 *Normal, renal profile remains normal. Objective - Vital Signs Vital signs: Vital Signs Temp 99.2 F 09/22/22 08:00 Pulse 84 09/22/22 09:00 Resp 20 09/22/22 09:00 BP 135/87 09/22/22 04:00 Pulse Ox 98 09/22/22 09:00 FiO2 50 09/22/22 12:00 Intake & Output 09/21/22 09/22/22 09/22/22 18:59 06:59 18:59 Intake Total 8815.594 7275.801 866.108 Output Total 861 913 8657 Balance 270.317 788.801 -243.892 Weight 111.5 kg Intake: IV 376 276 138 0.9 Sodium Chloride 36 36 18 Piperacillin-Tazobactam 3 100 .375 gm In Sodium Chloride 0.9% 100 ml @ 25 mls/hr IVPB Q8H [facility] Rx#: [id number] Sodium Chloride 0.9% 1, 240 240 120 000 ml @ 10 mls/hr IV . Q24H [facility] Rx#:[id number] Intake, IV Titration 459.317 597.801 658.108 Amount Cefepime 2 gm In Sodium 25 25 100 Chloride 0.9% 100 ml @ 25 mls/hr IVPB Q8HR [facility] Rx# :[id number] Clevidipine Butyrate 25 13.933 mg In Empty Bag 1 bag @ 1 MG/HR 2 mls/hr IV .Q24H [facility] Rx#:[id number] Dexmedetomidine/0.9% NaCl 95.533 (Pmx) 400 mcg In Empty Bag 1 bag @ 0.2 MCG/KG/HR 5.15 mls/hr IV .[id number] [facility] Rx#:[id number] Midazolam HCl 200 mg In 100 100 Sodium Chloride 0.9% 60 ml @ 10 MG/HR 5 mls/hr IV .Q20H [facility] Rx#:[id number] Sodium Chloride 0.9% 200 224.851 472.801 58.108 ml @ 1 MCG/KG/HR 10.827 mls/hr IV .[id number] [facility] with fentaNYL (PF) 2,500 mcg Rx#:[id number] Vancomycin 1,750 mg In 500 Sodium Chloride 0.9% 500 ml 500 ml @ 167 mls/hr IVPB Q8H [facility] Rx#: [id number] Tube Feeding 385 385 70 Other 90 Output: Urine 354 838 5953 Stool 0 Other: Voiding Method Indwelling Catheter Indwelling Catheter Indwelling Catheter ABP, PAP, CO, CI - Last Documented Arterial Blood Pressure 127/53 - Exam Physical Exam: Revealed a 62-year-old white male obese, intubated, mechanically ventilated, in no distress. Head: Atraumatic, normocephalic, endotracheal tube and orogastric tube are intact. HEENT:[Neck is supple.] [No neck masses.] [No thyromegaly.] [No JVD.] Chest: [Clear throughout, no crackles, no rhonchi, no wheezes.] Cardiac Exam: [Normal S1 and S2, no S3 gallop, no murmur.] Abdomen: [Soft, nontender, no megaly, no rebound, no guarding, normal bowel sounds.] Extremities: [No clubbing, no edema, no cyanosis.] Neurological Exam: Could not assess. Patient is fully sedated. Psychiatric: Could not assess. - Labs CBC & Chem 7: 09/22/22 06:00 09/22/22 07:07 Labs: Abnormal Lab Results - Last 24 Hours (Table) 09/21/22 09/21/22 09/22/22 Range/Units 18:03 23:36 06:00 RBC 3.11 L (4.30-5.90) m/uL Hgb 9.0 L (13.0-17.5) gm/dL Hct 27.3 L (39.0-53.0) % Lymphocytes # 0.8 L (1.0-4.8) k/uL ABG pCO2 (35-45) mmHg ABG HCO3 (21-25) mmol/L ABG Total CO2 (19-24) mmol/L ABG O2 Saturation (94-97) % Chloride (98-107) mmol/L Creatinine (0.66-1.25) mg/dL Glucose (74-99) mg/dL POC Glucose (mg/dL) 116 H 113 H (70-110) mg/dL Calcium (8.4-10.2) mg/dL 09/22/22 09/22/22 09/22/22 Range/Units 06:18 07:07 07:08 RBC (4.30-5.90) m/uL Hgb (13.0-17.5) gm/dL Hct (39.0-53.0) % Lymphocytes # (1.0-4.8) k/uL ABG pCO2 48 H (35-45) mmHg ABG HCO3 30 H (21-25) mmol/L ABG Total CO2 31 H (19-24) mmol/L ABG O2 Saturation 97.7 H (94-97) % Chloride 109 H (98-107) mmol/L Creatinine 0.58 L (0.66-1.25) mg/dL Glucose 113 H (74-99) mg/dL POC Glucose (mg/dL) 118 H (70-110) mg/dL Calcium 7.7 L (8.4-10.2) mg/dL Microbiology - Last 24 Hours (Table) 09/20/22 16:25 Blood Culture - Preliminary Blood No Growth after 24 hours Assessment and Plan Assessment: Impression: Acute hypoxic respiratory failure secondary to acute delirium tremens and left lower lobe pneumonia secondary to Serratia marcescens Acute delirium tremens Dyslipidemia Altered mental status secondary to alcohol withdrawal well and possibly toxic metabolic encephalopathy History of alcoholism History of alcohol liver disease with bilateral elevated liver enzymes Benign essential hypertension Recommendation: Continue ventilatory support cut down the dose and possibly discontinue fentanyl today. Lasix 40 mg IV push 1 given today. Adjust IV fluids according to electrolytes, and address electrolytes accordingly. Continue GI and DVT prophylaxis Continue Zosyn for Serratia marcescens pneumonia involving left lower lobe Continue DVT prophylaxis/Lovenox Continue Protonix. Continue thiamine Continue alcohol withdrawal protocol Patient remains critically ill patient will be given possibly sedation holiday today if possible but not quite ready for weaning and extubation at this point yet. Patient is critically ill and critical care time is over 30 minutes Time with Patient: Greater than 30
--- NOTE | 2022-09-22 14:57 | P.PN ---
Subjective Progress Note Date: 09/22/22 Patient is 62-year-old gentleman with past medical history significant for alcohol abuse, presented to the ER because of multiple falls. Family is at bedside and states that the patient has not eaten any solid foods in 10 days. He has been drinking a significant amount of beer and recently "added whiskey to his diet". He has been drinking every day for the past 2 years. Reports that his last drink was last night at 11 PM. He has been having multiple falls and therefore family called EMS this morning. Patient was worked in the ER, initial lab work showed hemoglobin of 13.0, PTT 20.5, INR 1.2, sodium 140, potassium 4.3, chloride 80, carbonate 14, anion gap 20, lactate level 10.6. Chest x-ray was negative for any acute cardiac process. Patient was admitted to ICU for further evaluation and treatment 09/14. Patient seen and examined. Patient overnight became more agitated, was maxed out on precedex Drip. Patient had to be intubated. Currently comfortable on mechanical ventilation. Vital signs stable 09/15. Patient seen and examined. Continues to be on mechanical ventilation. Currently on propofol and Precedex 09/16/2022 Patient is currently in the MICU. Remains on mechanical ventilator. AC 14 with tidal volume of 500 and FiO2 40% and PEEP of 5. Currently on Precedex. Chest x-ray showed suggestion of mild subsegmental atelectasis left base. Patient is being continued on antibiotics and follow-up Zosyn. Laboratory data showed WBC 6.7 hemoglobin 11.0 and platelets 158 Sodium 129 potassium 4.2 chloride 101 bicarb is 20 BUN 14 and creatinine 0.7 and calcium 7.8 and procalcitonin level was 0.14. 09/17/2022 Patient is currently in the MICU. On mechanical ventilator. Continued on Precedex and fentanyl. Patient was agitated and was having increased work of breathing with sedation holiday yesterday and was started back on mechanical ventilator with sedation. Chest x-ray showed bilateral consolidation and small effusion in the basis of postoperative atelectasis. Mild venous congestion not excluded. Findings stable. Laboratory data showed WBC 6.0 hemoglobin 10.5 and platelets 206 Sodium 133 potassium 3.9 chloride 104 bicarb is 22 BUN 16 and creatinine 0.58 and calcium 7.3. Albumin 2.7. Patient is being cannula antibiotics in the home Zosyn. Was given a dose of IV Lasix today. 09/18/2022 Patient was extubated this morning. Otherwise patient is very drowsy and lethargic but only follows simple commands. Chest x-ray showed cardiomegaly and low lung volumes with left basilar acute infiltrate and atelectasis redemonstrated. No significant change from 1 day earlier. Patient remains on antibiotics in the form of Zosyn. Laboratory data showed WBC 4.7 hemoglobin 10.2 and platelets 227 Sodium 136 potassium 3.8 chloride 106 bicarb is 27 BUN 18 and creatinine 0.61. Total bilirubin is 1.4 AST 68 ALT 57 alk phos 81 and albumin 2.5. Patient is being continued on Protonix and IV thiamine. 09-19-22 Patient is currently in the MICU. Was extubated yesterday. He did well for some time and subsequently more agitated and restless and became encephalopathic. Patient was started back on Precedex for the patient was still agitated. Patient was started on Versed drip and was reintubated. Chest x-ray showed new endotracheal and orogastric tubes are satisfactory in position. Left internal jugular vein central venous catheter terminating in SVC without pneumothorax. Persistent bilateral multifocal acute infiltrate and edema similar to prior. Worsening left basilar opacity could reflect worsening acute infiltrate and atelectasis. Laboratory data showed WBC 4.5 hemoglobin 10.4 and platelets 272 sodium 138 potassium 3.6 chloride 107 bicarb is 26 BUN 15 and creatinine of 1.3. Pulmonary and nephrology is on board. 09/20/2022 Patient continues to be monitored closely in intensive care unit he is currently intubated and sedated. On mechanical ventilator with FiO2 of 50%. Patient continues on IV cleviprex, IV precedex, IV versed, IV fentanyl. Patient continues to spike temp T max in the last 24 hours 100.3. Patient continues on IV zosyn. Chest xray today shows CHF vs pneumonia. There is persistent bilateral increased opacities. Sputum culture is showing serratia marcescens. AST/ALT continue be elevated. Patient received a one time dose of IV lasix. Labs today are stable, white count 4.6, sodium 140, potassium 3.7, total bili 1.2. Kidney function stable. 09/21/2022 Patient is evaluated today in intensive care unit. Remains on sedated and intubated on mechanical ventilator with FiO2 of 50%. Chest xray follow up shows persistent bilateral increased opacities, CHF vs. pneumonia. He remains on IV zosyn. Continues with persistent temperature T-Max of 101.4 over the last 24 hours. He remains IV versed and IV fentanyl infusion. He received a dose of IV lasix x 1 today. Nephrology following. He is receiving enteral nutrition with vital high protein running at 35 mls/hr. LFT's remain elevated, sodium stable at 140, potassium 3.4, hemoglobin of 9.4. Blood pressure 143/57. 09/22/2022 Patient is evaluated today in ICU remains sedated and intubated he is on mechanical ventilator. He has been evaluated by infectious disease antibiotics have been changed to IV cefepime and IV vancomycin. Fevers are improving down to 99.3 max. FiO2 has been decreased to 45%. Chest xray today showing persistent bilateral infiltrate and pleural effusion. CHF vs. Pneumonia, he is given a dose of IV lasix today. Kidney function remains stable. Unable to complete review of systems patient is intubated and sedated PHYSICAL EXAMINATION: GENERAL: The patient is intubated and sedated , not in any acute distress. Well developed, well nourished. HEENT: Pupils are round and equally reacting to light. EOMI. No scleral icterus. No conjunctival pallor. Normocephalic, atraumatic. No pharyngeal erythema. No thyromegaly. CARDIOVASCULAR: S1 and S2 present. No murmurs, rubs, or gallops. PULMONARY: Scattered ronchi ABDOMEN: Soft, nontender, nondistended, normoactive bowel sounds. No palpable organomegaly. MUSCULOSKELETAL: No joint swelling or deformity. EXTREMITIES: No cyanosis, clubbing, or pedal edema. Mild peripheral edema NEUROLOGICAL: Unable to complete patient is sedated. SKIN: No rashes. Blanchable area on left wrist. Assessment and plan Assessment Acute delirium tremens. Patient was reintubated FiO2 of 45%. He is sedated and on IV versed. Acute hypoxic respiratory failure requiring mechanical ventilator. Pneumonia left lower lobe with sepsis, sputum culture showing serratia marcescens Alcohol withdrawal syndrome Elevated LFT's likely from alcoholic hepatitis Alcohol Abuse Hyponatremia resolved GI and DVT prophylaxis Full Code Plan; Patient is intubated and sedated ID consultation and antibiotics have been changed to IV zosyn and IV cefepime Patient remains on IV versed IV lasix x 1 given today Echocardiogram ordered Repeat labs in AM The impression and plan of care has been dictated by Iram Latham, Nurse Practitioner as directed. Dr. Suly MD I have performed a history and physical examination and medical decision making of this patient, discussed the same with the dictator, and agree with the dictators assessment and plan as written, documented as a scribe. Based on total visit time, I have performed more than 50% of this visit. Objective - Vital Signs Vital signs: Vital Signs Temp 99.3 F 09/22/22 04:00 Pulse 78 09/22/22 07:00 Resp 20 09/22/22 07:00 BP 135/87 09/22/22 04:00 Pulse Ox 99 09/22/22 07:00 FiO2 50 09/22/22 08:15 Intake & Output 09/21/22 09/22/22 09/22/22 18:59 06:59 18:59 Intake Total 6478.270 4349.801 216 Output Total 950 560 350 Balance 270.317 788.801 -134 Weight 111.5 kg Intake: IV 376 276 46 0.9 Sodium Chloride 36 36 6 Piperacillin-Tazobactam 3 100 .375 gm In Sodium Chloride 0.9% 100 ml @ 25 mls/hr IVPB Q8H [facility] Rx#: [id number] Sodium Chloride 0.9% 1, 240 240 40 000 ml @ 10 mls/hr IV . Q24H [facility] Rx#:[id number] Intake, IV Titration 459.317 597.801 100 Amount Cefepime 2 gm In Sodium 25 25 100 Chloride 0.9% 100 ml @ 25 mls/hr IVPB Q8HR [facility] Rx# :[id number] Clevidipine Butyrate 25 13.933 mg In Empty Bag 1 bag @ 1 MG/HR 2 mls/hr IV .Q24H [facility] Rx#:[id number] Dexmedetomidine/0.9% NaCl 95.533 (Pmx) 400 mcg In Empty Bag 1 bag @ 0.2 MCG/KG/HR 5.15 mls/hr IV .[id number] [facility] Rx#:[id number] Midazolam HCl 200 mg In 100 100 Sodium Chloride 0.9% 60 ml @ 10 MG/HR 5 mls/hr IV .Q20H [facility] Rx#:[id number] Sodium Chloride 0.9% 200 224.851 472.801 ml @ 2 MCG/KG/HR 21.655 mls/hr IV .[id number] [facility] with fentaNYL (PF) 2,500 mcg Rx#:[id number] Tube Feeding 385 385 70 Other 90 Output: Urine 950 560 350 Stool 0 Other: Voiding Method Indwelling Catheter Indwelling Catheter Indwelling Catheter ABP, PAP, CO, CI - Last Documented Arterial Blood Pressure 122/56 - Labs CBC & Chem 7: 09/22/22 06:00 09/22/22 07:07 Labs: Abnormal Lab Results - Last 24 Hours (Table) 09/21/22 09/21/22 09/21/22 Range/Units 11:48 18:03 23:36 RBC (4.30-5.90) m/uL Hgb (13.0-17.5) gm/dL Hct (39.0-53.0) % Lymphocytes # (1.0-4.8) k/uL ABG pCO2 (35-45) mmHg ABG HCO3 (21-25) mmol/L ABG Total CO2 (19-24) mmol/L ABG O2 Saturation (94-97) % Chloride (98-107) mmol/L Creatinine (0.66-1.25) mg/dL Glucose (74-99) mg/dL POC Glucose (mg/dL) 120 H 116 H 113 H (70-110) mg/dL Calcium (8.4-10.2) mg/dL 09/22/22 09/22/22 09/22/22 Range/Units 06:00 06:18 07:07 RBC 3.11 L (4.30-5.90) m/uL Hgb 9.0 L (13.0-17.5) gm/dL Hct 27.3 L (39.0-53.0) % Lymphocytes # 0.8 L (1.0-4.8) k/uL ABG pCO2 48 H (35-45) mmHg ABG HCO3 30 H (21-25) mmol/L ABG Total CO2 31 H (19-24) mmol/L ABG O2 Saturation 97.7 H (94-97) % Chloride 109 H (98-107) mmol/L Creatinine 0.58 L (0.66-1.25) mg/dL Glucose 113 H (74-99) mg/dL POC Glucose (mg/dL) (70-110) mg/dL Calcium 7.7 L (8.4-10.2) mg/dL 09/22/22 Range/Units 07:08 RBC (4.30-5.90) m/uL Hgb (13.0-17.5) gm/dL Hct (39.0-53.0) % Lymphocytes # (1.0-4.8) k/uL ABG pCO2 (35-45) mmHg ABG HCO3 (21-25) mmol/L ABG Total CO2 (19-24) mmol/L ABG O2 Saturation (94-97) % Chloride (98-107) mmol/L Creatinine (0.66-1.25) mg/dL Glucose (74-99) mg/dL POC Glucose (mg/dL) 118 H (70-110) mg/dL Calcium (8.4-10.2) mg/dL Microbiology - Last 24 Hours (Table) 09/20/22 16:25 Blood Culture - Preliminary Blood No Growth after 24 hours Assessment and Plan Time with Patient: Less than 30
--- NOTE | 2022-09-22 15:16 | P.PN ---
Subjective Progress Note Date: 09/22/22 Principal diagnosis: Fever/pneumonia Patient is a 62-year-old male presented to the hospital more than a week ago on 09/13/2022 for multiple falls and this patient apparently did have a history of alcohol abuse, patient did have worsening respiratory status requiring intubation sputum has been positive for Serratia marcescens on today's evaluation and that is 09/22/2022, the patient overall fever pattern has improved did have a low-grade fever of 99.4 this afternoon, the patient is hemodynamically stable not requiring any pressor support no significant purulent secretion through the ET, patient has been tolerating his tube feeds and no diarrhea has been reported Objective - Vital Signs Vital signs: Vital Signs Temp 99.4 F 09/22/22 12:00 Pulse 80 09/22/22 12:00 Resp 20 09/22/22 12:00 BP 135/87 09/22/22 12:00 Pulse Ox 95 09/22/22 12:00 FiO2 45 09/22/22 12:00 Intake & Output 09/21/22 09/22/22 09/22/22 18:59 06:59 18:59 Intake Total 0355.592 3422.801 866.108 Output Total 453 980 1919 Balance 270.317 788.801 -243.892 Weight 111.5 kg Intake: IV 376 276 138 0.9 Sodium Chloride 36 36 18 Piperacillin-Tazobactam 3 100 .375 gm In Sodium Chloride 0.9% 100 ml @ 25 mls/hr IVPB Q8H [facility] Rx#: [id number] Sodium Chloride 0.9% 1, 240 240 120 000 ml @ 10 mls/hr IV . Q24H [facility] Rx#:[id number] Intake, IV Titration 459.317 597.801 658.108 Amount Cefepime 2 gm In Sodium 25 25 100 Chloride 0.9% 100 ml @ 25 mls/hr IVPB Q8HR [facility] Rx# :[id number] Clevidipine Butyrate 25 13.933 mg In Empty Bag 1 bag @ 1 MG/HR 2 mls/hr IV .Q24H [facility] Rx#:[id number] Dexmedetomidine/0.9% NaCl 95.533 (Pmx) 400 mcg In Empty Bag 1 bag @ 0.2 MCG/KG/HR 5.15 mls/hr IV .[id number] [facility] Rx#:[id number] Midazolam HCl 200 mg In 100 100 Sodium Chloride 0.9% 60 ml @ 10 MG/HR 5 mls/hr IV .Q20H [facility] Rx#:[id number] Sodium Chloride 0.9% 200 224.851 472.801 58.108 ml @ 1 MCG/KG/HR 10.827 mls/hr IV .Q23H6M [facility] with fentaNYL (PF) 2,500 mcg Rx#:[id number] Vancomycin 1,750 mg In 500 Sodium Chloride 0.9% 500 ml 500 ml @ 167 mls/hr IVPB Q8H [facility] Rx#: [id number] Tube Feeding 385 385 70 Other 90 Output: Urine 637 532 1945 Stool 0 Other: Voiding Method Indwelling Catheter Indwelling Catheter Indwelling Catheter ABP, PAP, CO, CI - Last Documented Arterial Blood Pressure 126/56 - Exam GENERAL DESCRIPTION: A middle-age male intubated on the vent RESPIRATORY SYSTEM: Unlabored breathing , decreased breath sounds at bases HEART: S1 S2 regular rate and rhythm , ABDOMEN: Soft , mild distention EXTREMITIES: No edema feet - Labs CBC & Chem 7: 09/22/22 06:00 09/22/22 07:07 Labs: Abnormal Lab Results - Last 24 Hours (Table) 09/21/22 09/21/22 09/22/22 Range/Units 18:03 23:36 06:00 RBC 3.11 L (4.30-5.90) m/uL Hgb 9.0 L (13.0-17.5) gm/dL Hct 27.3 L (39.0-53.0) % Lymphocytes # 0.8 L (1.0-4.8) k/uL ABG pCO2 (35-45) mmHg ABG HCO3 (21-25) mmol/L ABG Total CO2 (19-24) mmol/L ABG O2 Saturation (94-97) % Chloride (98-107) mmol/L Creatinine (0.66-1.25) mg/dL Glucose (74-99) mg/dL POC Glucose (mg/dL) 116 H 113 H (70-110) mg/dL Calcium (8.4-10.2) mg/dL 09/22/22 09/22/22 09/22/22 Range/Units 06:18 07:07 07:08 RBC (4.30-5.90) m/uL Hgb (13.0-17.5) gm/dL Hct (39.0-53.0) % Lymphocytes # (1.0-4.8) k/uL ABG pCO2 48 H (35-45) mmHg ABG HCO3 30 H (21-25) mmol/L ABG Total CO2 31 H (19-24) mmol/L ABG O2 Saturation 97.7 H (94-97) % Chloride 109 H (98-107) mmol/L Creatinine 0.58 L (0.66-1.25) mg/dL Glucose 113 H (74-99) mg/dL POC Glucose (mg/dL) 118 H (70-110) mg/dL Calcium 7.7 L (8.4-10.2) mg/dL Microbiology - Last 24 Hours (Table) 09/20/22 16:25 Blood Culture - Preliminary Blood No Growth after 24 hours Assessment and Plan (1) Fever Current Visit: Yes Status: Acute Code(s): R50.9 - FEVER, UNSPECIFIED SNOMED Code(s): 505034405 (2) Pneumonia Current Visit: Yes Status: Acute Code(s): J18.9 - PNEUMONIA, UNSPECIFIED ORGANISM SNOMED Code(s): 046814210 Plan: 1patient with a fever in this patient who do have a history of alcoholism presented to hospital with weakness fall and decreased oral intake with acute respiratory failure requiring intubation concern for possible pneumonia sputum has been Serratia marcescens despite good antibiotic coverage the patient is s till running a fever however did not have any elevated white count with a question of possible viral etiology versus DTs 2-patient did have a negative influenza vaccine and COVID testing, negative uri ne for Legionella antigen 3- blood cultures so far negative, CRP mildly elevated and procalcitonin level is currently pending 4- ultrasound of the abdomen did not show any acute abnormality 5- patient to continue with cefepime and vancomycin while waiting for the cultures to finalize Time with Patient: Less than 30
[2022-09-22] MEDS: SODIUM CHLORIDE 0.9% 1,000 ML IV SCH (16:02)
[2022-09-22 17:49] LABS: Glucose,Whole Blood 124 mg/dL (70-110)
[2022-09-22] MEDS: ATORVASTATIN 80 MG TAB PO SCH (21:09)
[2022-09-22] MEDS: ACETAMINOPHEN TAB 325 MG TAB PO PRN (23:25)
[2022-09-22 23:39] LABS: Glucose,Whole Blood 107 mg/dL (70-110)
[2022-09-23] MEDS: SODIUM CHLORIDE 0.9% IV SCH ×2 (01:53)
[2022-09-23] MEDS: FENTANYL IV SCH ×2 (01:53)
[2022-09-23 04:49] LABS: Basophils % (A) 0 %; Eosinophils # (A) 0.1 k/uL (0-0.7); Eosinophils % (A) 2 %; HCT 27.1 % (39.0-53.0); HGB 8.9 gm/dL (13.0-17.5); Lymphocytes # (A) 0.8 k/uL (1.0-4.8); Lymphocytes % (A) 16 %; MCH 28.5 pg (25.0-35.0); MCHC 32.7 g/dL (31.0-37.0); Monocytes # (A) 0.3 k/uL (0-1.0); Monocytes % (A) 6 %; Neutrophils # (A) 3.7 k/uL (1.3-7.7); Neutrophils % (A) 73 %; Platelet Count 379 k/uL (150-450); RBC 3.11 m/uL (4.30-5.90); RDW 13.4 % (11.5-15.5)
[2022-09-23 05:49] LABS: African American GFR (CKD) >90 (>60 ml/min/1.73 sqM); Anion Gap 4 mmol/L; Blood Urea Nitrogen 21 mg/dL (9-20); Calcium 7.7 mg/dL (8.4-10.2); Carbon Dioxide 29 mmol/L (22-30); Chloride 109 mmol/L (98-107); Glucose 116 mg/dL (74-99); Non-African American GFR(CKD) >90 (>60 ml/min/1.73 sqM); Potassium 3.9 mmol/L (3.5-5.1); Sodium 142 mmol/L (137-145)
[2022-09-23] MEDS ORDERED: Potassium Replacement Protocol 1 EACH MISC MISCELLANE PRN (05:50)
[2022-09-23] MEDS ORDERED: POTASSIUM BICARBONATE/CIT AC 20 MEQ TABLET.EFF NG-TUBE SCH (06:00)
[2022-09-23 06:04] LABS: ABG Base Excess 5.4 mmol/L; ABG HCO3 30 mmol/L (21-25); ABG PCO2 45 mmHg (35-45); ABG PH 7.43 (7.35-7.45); ABG PO2 95 mmHg (83-108); ABG TCO2 31 mmol/L (19-24); Allen Test Performed? Yes
[2022-09-23 06:12] LABS: ABG Oxygen Saturation 97.8 % (94-97)
[2022-09-23 06:32] LABS: Glucose,Whole Blood 113 mg/dL (70-110)
[2022-09-23] MEDS ORDERED: VANCOMYCIN TROUGH DUE 1 EACH MISC MISCELLANE ONE (07:00)
[2022-09-23] MEDS: MIDAZOLAM HCL 200 MG in SODIUM CHLORIDE 0.9% 60 ML IV SCH (07:59)
[2022-09-23] MEDS: CEFEPIME 2 GM in SODIUM CHLORIDE 0.9% 100 ML IVPB SCH ×3 (08:13→23:09)
[2022-09-23] MEDS: PANTOPRAZOLE 40 MG/10 ML VIAL IVP SCH (08:19)
[2022-09-23] MEDS: PARoxetine 20 MG TAB PO SCH (08:19)
[2022-09-23] MEDS: THIAMINE 100 MG/ML 2 ML VIAL IVP SCH (08:19)
[2022-09-23] MEDS: ACETAMINOPHEN TAB 325 MG TAB PO PRN ×2 (08:19→20:44)
[2022-09-23] MEDS: cloNIDine HCL 0.2 MG TAB PO SCH ×3 (08:19→20:45)
[2022-09-23] MEDS: ENOXAPARIN 40 MG/0.4 ML SYRINGE SQ SCH (08:19)
[2022-09-23] MEDS: VANCOMYCIN 1,500 MG in SODIUM CHLORIDE 0.9% 500 ML 500 ML IVPB SCH ×3 (08:20→23:10)
[2022-09-23] MEDS: CHLORHEXIDINE GLUCONATE 15 ML CUP MUCOUS MEM SCH ×2 (08:20→20:45)
--- NOTE | 2022-09-23 09:41 | XR ---
EXAMINATION TYPE: XR chest 1V portable DATE OF EXAM: 09/23/2022 COMPARISON: 09/22/2022 HISTORY: Shortness of breath TECHNIQUE: Single frontal view of the chest is obtained. FINDINGS: ET and NG tube and central line stable. Bilateral infiltrate and diffuse interstitial linda leighton stable. No pneumothorax. Bilateral pleural effusions stable IMPRESSION: Persistent bilateral infiltrate and pleural effusion correlate for CHF otherwise conside r pneumonia.
[2022-09-23] MEDS ORDERED: FUROSEMIDE 10 MG/ML 4 ML VIAL IV STA (09:55)
--- NOTE | 2022-09-23 10:33 | CA ---
Transthoracic Echo Report Name: Je Mei Age: 62 Gender: M : 1960 Exam Date: 09/22/2022 15:59 Exam Location: [place] [facility] Ht (in): 72 Wt (lb): 245 Ordering Physician: Iram Latham Attending/Referring Phys: Yeison KYLE Digital Print Operator William Nixon, EMMANUEL Procedure CPT: Indications: chf Cardiac Hx: CHF; Technical Quality: Fair Contrast 1: Total Dose (mL): Contrast 2: Total Dose (mL): MEASUREMENTS (Male / Female) Normal Values 2D ECHO LV Diastolic Diameter PLAX 4.6 cm 4.2 - 5.9 / 3.9 - 5.3 cm LV Systolic Diameter PLAX 3.3 cm LV Fractional Shortening PLAX 28.2 % IVS Diastolic Thickness 1.6 cm 0.6 - 1.0 / 0.6 - 0.9 cm IVS Systolic Thickness 1.9 cm LVPW Diastolic Thickness 1.7 cm 0.6 - 1.0 / 0.6 - 0.9 cm LVPW Systolic Thickness 1.8 cm LV Relative Wall Thickness 0.7 RV Internal Dim ED PLAX 2.9 cm LVOT Diameter 2.0 cm LA Systolic Diameter LX 3.6 cm 3.0 - 4.0 / 2.7 - 3.8 cm LV Diastolic Volume MOD BP 77.1 cm??? 67 - 155 / 56 - 104 cm??? LV Systolic Volume MOD BP 30.7 cm??? 22 - 58 / 19 - 49 cm??? LV Ejection Fraction MOD BP 60.2 % >= 55 % LV Stroke Volume MOD BP 46.4 cm??? LV Diastolic Volume MOD 4C 95.0 cm??? LV Systolic Volume MOD 4C 31.8 cm??? LV Ejection Fraction MOD 4C 66.5 % LV Stroke Volume MOD 4C 63.2 cm??? LV Diastolic Length 4C 7.9 cm LV Systolic Length 4C 6.5 cm LV Diastolic Volume MOD 2C 62.3 cm??? LV Systolic Volume MOD 2C 29.5 cm??? LV Ejection Fraction MOD 2C 52.6 % LV Stroke Volume MOD 2C 32.8 cm??? LV Diastolic Length 2C 7.9 cm LV Systolic Length 2C 6.6 cm Ascending Aorta Diameter 2.7 cm M-MODE Aortic Root Diameter MM 3.5 cm LA Systolic Diameter MM 4.1 cm LA Ao Ratio MM 1.2 MV E Point Septal Separation 0.5 cm AV Cusp Separation MM 2.2 cm DOPPLER AV Peak Velocity 141.3 cm/s AV Peak Gradient 8.0 mmHg LVOT Peak Velocity 114.4 cm/s LVOT Peak Gradient 5.2 mmHg AV Area Cont Eq pk 2.6 cm??? MV Deceleration [facility] 526.0 cm/s??? Mitral E Point Velocity 75.3 cm/s Mitral A Point Velocity 90.5 cm/s Mitral E to A Ratio 0.8 MV Deceleration Time 143.2 ms MV E' Velocity 7.7 cm/s Mitral E to MV E' Ratio 9.8 PV Peak Velocity 85.3 cm/s PV Peak Gradient 2.9 mmHg FINDINGS Left Ventricle Left ventricular ejection fraction is estimated at 55-60%. Moderate concentric left ventricular hypertrophy. Grade 1 diastolic dysfunction. Right Ventricle Normal right ventricular size and function. Right Atrium Normal right atrial size. Left Atrium Normal left atrial size. Mitral Valve Mitral valve thickened. Trace to mild mitral regurgitation. Aortic Valve Trileaflet aortic valve. Tricuspid Valve Trace to mild tricuspid regurgitation. Pulmonic Valve Pulmonic valve not well visualized. Pericardium Normal pericardium. Aorta Mild aortic dilatation at the level of the sinuses of valsalva (root). CONCLUSIONS Normal LV size and systolic function. Mild mitral and tricuspid insufficiency. No pericardial effusion Previewed by: Dr. Elysia Murillo MD (Electronically Signed) Final Date: 23 September 2022 10:32
--- NOTE | 2022-09-23 10:36 | P.PN ---
Subjective Patient is seen in follow-up for hyponatremia. Sodium level remains normal. Intubated. Hemodynamically stable. Receiving tube feeds. Vital signs are stable. HEENT: Intubated. LUNGS: No audible rhonchi or wheezes. HEART: Rate and Rhythm are regular. ABDOMEN: No distention. EXTREMITITES: 1+ edema. Objective - Vital Signs Vital signs: Vital Signs Temp 99.5 F 09/23/22 07:43 Pulse 70 09/23/22 10:00 Resp 20 09/23/22 10:00 BP 135/87 09/23/22 07:00 Pulse Ox 97 09/23/22 10:00 FiO2 45 09/23/22 08:00 Intake & Output 09/22/22 09/23/22 09/23/22 18:59 06:59 18:59 Intake Total 1468.858 432.187 842.707 Output Total 1460 610 145 Balance 8.858 -177.813 697.707 Weight 108.1 kg Intake: IV 299 253 652 0.9 Sodium Chloride 39 33 12 Cefepime 2 gm In Sodium 100 Chloride 0.9% 100 ml @ 25 mls/hr IVPB Q8HR [facility] Rx# :[id number] Sodium Chloride 0.9% 1, 260 220 40 000 ml @ 10 mls/hr IV . Q24H [facility] Rx#:[id number] Vancomycin 1,500 mg In 500 Sodium Chloride 0.9% 500 ml 500 ml @ 167 mls/hr IVPB Q8HR [facility] Rx#: [id number] Intake, IV Titration 749.858 179.187 190.707 Amount Cefepime 2 gm In Sodium 100 Chloride 0.9% 100 ml @ 25 mls/hr IVPB Q8HR [facility] Rx# :[id number] Midazolam HCl 200 mg In 91.75 117.083 Sodium Chloride 0.9% 60 ml @ 10 MG/HR 5 mls/hr IV .Q20H [facility] Rx#:[id number] Sodium Chloride 0.9% 200 58.108 179.187 73.624 ml @ 1 MCG/KG/HR 10.827 mls/hr IV .Q23H6M [facility] with fentaNYL (PF) 2,500 mcg Rx#:[id number] Vancomycin 1,750 mg In 500 Sodium Chloride 0.9% 500 ml 500 ml @ 167 mls/hr IVPB Q8H [facility] Rx#: [id number] Tube Feeding 420 Output: Urine 1460 610 145 Other: Voiding Method Indwelling Catheter Indwelling Catheter Indwelling Catheter ABP, PAP, CO, CI - Last Documented Arterial Blood Pressure 140/59 - Labs CBC & Chem 7: 09/23/22 04:30 09/23/22 04:30 Labs: Abnormal Lab Results - Last 24 Hours (Table) 09/22/22 09/22/22 09/22/22 Range/Units 04:46 04:46 17:47 RBC (4.30-5.90) m/uL Hgb (13.0-17.5) gm/dL Hct (39.0-53.0) % Lymphocytes # (1.0-4.8) k/uL ABG HCO3 (21-25) mmol/L ABG Total CO2 (19-24) mmol/L ABG O2 Saturation (94-97) % Chloride (98-107) mmol/L BUN (9-20) mg/dL Creatinine (0.66-1.25) mg/dL Glucose (74-99) mg/dL POC Glucose (mg/dL) 124 H (70-110) mg/dL Calcium (8.4-10.2) mg/dL C-Reactive Protein 13.8 H (<1.0) mg/dL Procalcitonin 0.14 H (0.02-0.09) ng/mL 09/23/22 09/23/22 09/23/22 Range/Units 04:30 04:30 06:10 RBC 3.11 L (4.30-5.90) m/uL Hgb 8.9 L (13.0-17.5) gm/dL Hct 27.1 L (39.0-53.0) % Lymphocytes # 0.8 L (1.0-4.8) k/uL ABG HCO3 30 H (21-25) mmol/L ABG Total CO2 31 H (19-24) mmol/L ABG O2 Saturation 97.8 H (94-97) % Chloride 109 H (98-107) mmol/L BUN 21 H (9-20) mg/dL Creatinine 0.56 L (0.66-1.25) mg/dL Glucose 116 H (74-99) mg/dL POC Glucose (mg/dL) (70-110) mg/dL Calcium 7.7 L (8.4-10.2) mg/dL C-Reactive Protein (<1.0) mg/dL Procalcitonin (0.02-0.09) ng/mL 09/23/22 Range/Units 06:30 RBC (4.30-5.90) m/uL Hgb (13.0-17.5) gm/dL Hct (39.0-53.0) % Lymphocytes # (1.0-4.8) k/uL ABG HCO3 (21-25) mmol/L ABG Total CO2 (19-24) mmol/L ABG O2 Saturation (94-97) % Chloride (98-107) mmol/L BUN (9-20) mg/dL Creatinine (0.66-1.25) mg/dL Glucose (74-99) mg/dL POC Glucose (mg/dL) 113 H (70-110) mg/dL Calcium (8.4-10.2) mg/dL C-Reactive Protein (<1.0) mg/dL Procalcitonin (0.02-0.09) ng/mL Microbiology - Last 24 Hours (Table) 09/22/22 07:07 Blood Culture - Preliminary Blood No Growth after 24 hours 09/20/22 16:25 Blood Culture - Preliminary Blood No Growth after 48 hours Assessment and Plan Plan: Assessment: 1. Hypervolemic hyponatremia status post 3% saline and diuresis this admission. Resolved. Urine sodium less than 20 and urine osmolality 499 dated 09/13/2022. 2. Alcohol abuse. 3. Alcohol liver disease. 4. Volume overload. Improving with diuresis. 5. Hypokalemia from diuresis. Being replaced. Better. Plan: Lasix 40 mg IV once today. Wean FiO2. Potassium replaced. Receiving tube feeds.
[2022-09-23] MEDS: SODIUM CHLORIDE 0.9% 1,000 ML IV SCH (11:30)
[2022-09-23 12:09] LABS: Glucose,Whole Blood 136 mg/dL (70-110)
[2022-09-23] MEDS: hydrALAZINE HCL 20 MG/ML 1 ML VIAL IVP PRN ×2 (14:15→19:20)
--- NOTE | 2022-09-23 14:24 | P.PN ---
Subjective Progress Note Date: 09/23/22 Principal diagnosis: Acute delirium tremens requiring intubation and mechanical ventilation 62-year-old male patient, alcoholic, brought into the hospital on family request. EMS as the patient has not been eating any food for the past 10 days. He has been drinking significantly and he drinks beer and whiskey. He is an alcoholic and has been drinking excessively over the past 2 years at least. He has had multiple falls at home. No injuries to his head or traumatic head in jury. He has bruises over the right cheek. No nausea. No emesis. No aspiration. No seizure activity has been noted. No reported chest pain or shortness of breath. No history of any substance abuse other than alcohol. As the patient was brought into the hospital, the patient was found to be in delirium tremens, increased confusion, agitation and tremors. He was given Ativan on the Route to the hospital. Upon arrival, alcohol level was less than 10, his sodium level was 114, bicarb is 15 with a creatinine of 1.1, normal coagulation profile, his troponin was negative, urine osmolality was 499, urine sodium was less than 20, WBC count at 9.9 with hemoglobin 15.3 and a platelet count of 188. The LFTs are abnormal with an AST of 93, ALT of 79, bilirubin level is at 2.3 and the lactic acid level is down to 1.6. The chest x-ray shows no acute abnormalities. On today's evaluation of 09/14/2022, the patient is intubated on a mechanical ventilator. The patient is, comfortable. Overnight, the patient was becoming progressively more agitated and he has required increased dose of Ativan and he was maximized on Precedex without any adequate control of the situation. Based on that, the patient had to be intubated on placed on a mechanical ventilator. No seizure activity was witnessed. The patient was essentially having delirium tremens. This morning, the patient is intubated on a mechanical ventilator. He is on assist control mode at a rate of 20, tidal volume of 500, FiO2 of 50% with a PEEP of 5. His blood gas from today shows a pH of 7.42 with a pCO2 of 36 and pO2 of 179. His chest x-ray from today shows adequate expansion of both lungs. ET tube is in good location. There is no evidence of any pneumothorax. No areas of any consolidation or airspace disease. No respiratory secretions. The patient is oxygenating and ventilating adequately. Is currently on propofol which is running at 75 mL an hour. His well sedated. He is taken off the hypertonic saline. His sodium gradually improved and this morning is up to 124 and subsequently 125. The rest of the electrolytes show a potassium level of 3.8 and these to be replaced, BUN is at 70 with a creatinine of 0.9. His white cell count is 5.3 with a hemoglobin of 11.4 and a platelet count of 129. Lal cath is in place. Urine output is adequate. He is afebrile. Liver function tests were not obtained. Calcium levels at 7.4. Blood sugars at 96. On today's evaluation of 09/15/2022, seeing the patient for a follow-up. As mentioned, this is a case of DTs, the patient is currently intubated on a mechanical ventilator, sedated with a combination of propofol and is also requiring on enough dose of Ativan throughout the night. The patient this morning is on propofol which is running at 55 mcg/kg/m. He is coming comfortable. The triglyceride levels are elevated and I'm in the process of sw itching the propofol to Precedex. The same time, his mentation will be evaluated. His abdomen is to wean will be also evaluated on a daily basis. He has remained hemodynamically stable over the past 24 hours. He remains on mechanical ventilator on assist control mode with a rate of 20, tidal volume of 500, FiO2 40% with a PEEP of 5. Blood gases from today shows a pH of 7.5 with a pCO2 of 33 and pO2 of 83. His chest x-ray from today shows no acute abnormalities. The orotracheal tube is in a good location. The lungs are adequately expanded and there are no significant infiltration. There may be some small left-sided pleural effusion/atelectasis. His seconds at 5.9 with a hemoglobin 11.1 and a platelet count of 146. Sodium level has gradually come up to 127. Is currently on IV fluids with normal saline at rate of 20 mL an hour. Urine output is adequate for now. He is on enteral feeding and the patient is receiving vital high-protein at the rate of 10 mL an hour. No sei zure activity has been noted. No fever. No significant orotracheal secretions. No other issues for now. His condition is stable. On 09/16/2022, the patient is being seen for a follow-up. We managed to get the patient off the propofol and the patient is currently on Precedex which is running at the highest dose of 1.4 mcg/kg/h and the patient is also on fentanyl at 1 mcg/kg/h. Arousable, lethargic, not consistent in following commands, neurologic exam is nonfocal and he continues to move all 4 extremities. He has a very strong cough reflex patient will being suctioned. He remains on a mechanical ventilator. His urine output was low and he was given a bolus of normal saline yesterday which improved his urine output. His electrolytes today are stable. His sodium level is currently at 129 with a potassium level of 4.2, BUN is at 40 with a creatinine of 0.7. His CBC is also stable with a hemoglobin of 11 and a platelet count of 158. On a separate note, the patient remains on a mechanical ventilator. Is currently on a assist control mode rate of 14, tidal volume of 500, FiO2 40% with a PEEP of 5. There is improvement in his acid base status. His pH is at 7.39 with a pCO2 of 36 and pO2 of 95. Repeat chest x-ray from today shows stable findings. No evidence of any pneumonia. There is left lower lobe atelectasis. ET tube is in a I location an NG tube is in place. Is receiving enteral feeding for nutritional support. Is on vital high-protein at the rate of 10 mL an hour. He did spike a temperature 100.5 today. He has been spiking low-grade fever since yesterday. On 09/17/2022, the patient is being seen for a follow-up. Note that this morning, the patient is on a combination of Precedex 1.4 mcg/kg/h and fentanyl at 2 mcg/kg/h. We were able to discontinue propofol. Yesterday, the patient was arousing on a sedation holiday. Nevertheless, he never got to point where he was following commands and he was getting progressively more agitated. At the same time was having fever and the left lower lobe pneumonia was suspected. Based on that, the sedation holiday was aborted and the patient was kept on a mechanical ventilator. The same will be done today. The patient is on assist control mode at a rate of 14, tidal volume of 500, FiO2 of 40% with a PEEP of 5. The chest x-ray showing cardiac regular and left lower lobe consolidation/infiltrate. The white cell count at 6 with a hemoglobin of 10.05 and the patient is not having any fever at this point. Blood pressure was a pH of 7.34 with a pCO2 of 40 and pO2 of 93. BUN is at 60 with a creatinine of 0.58. Sodiums of 133 and a potassium level of 3.9. He does have some mild transaminitis. He remains on vital high-protein running at the rate of 40 mL an hour. IV fluids are currently in the form of 0.9 saline at the rate of 75 mL an hour. Urine output is adequate at 50 mL an hour. Pro-calcitonin level is at 0.14. 09/18/2022, the patient is being given a sedation holiday. Earlier this morning is at 7 AM, the patient was taken off the fentanyl. Is currently on Precedex running at 0.9 mcg/kg/h. He is following some simple commands. He remains profoundly weak. He has sweating and somewhat diaphoretic. It's possible that there may be some ongoing withdrawals. Nevertheless, he is able to squeeze using his hands upon demand. Is following some simple commands. When the pr ocess of monitoring the patient and weaning of his Precedex slowly. He may need some background Precedex running as were weaning patient off the sedation. Meanwhile, the patient will be kept on a mechanical ventilator. Is on assist control mode at the rate of 40 with a tidal volume of 500 and FiO2 of 40% with a PEEP of 5. Chest x-rays available quality, no new changes. His pH is at 7.46 with a pCO2 of 36 and pO2 of 70. The white cell cause of 4.7 with a hemoglobin of 10.2. BUN is at 80 with a creatinine of 0.6. Sodium is at 136. He remains on IV Zosyn. Sputum Gram stain and culture still pending. The pro-calcitonin level was at 0.14. He is afebrile. He is receiving vital high-protein at the rate of 60 mL an hour. He was noted to have a temperature spike at around 4:00 yesterday afternoon with a T-max of 101.4. His net fluid balance is positive at least 5 L over the past 3 days and over the past 24 hours has been +1.3 L. 4 2022, I'm seeing the patient for a follow-up. Patient was weaned off the fentanyl yesterday and he was kept on a low-dose Precedex. Subsequently, he was able to follow commands and he looks quite comfortable. We gave him a spontaneous breathing trial and he did well and at that point, we decided to go ahead and extubate the patient. The patient was extubated on 09/18/2022. He did well for quite some time and subsequently became more agitated, restless, and continued to have encephalopathy and tremors. He was moving all 4 extremities without any limitation. At that point, the Precedex dose was gradually increased. He was given Haldol. Based on failure to control his agitation, I started him on low-dose Versed drip which is currently running at 4 mg an hour. He is also on Precedex at 1.4 mcg/kg/m. His blood pressure was elevated and he is also on Cleviprex 8 mg an hour. patient is arousable. He is only oriented 1. His breathing is nonlabored. He is on oxygen at 10 L and his pulse ox in the order of 91%. Repeat chest x-ray was done today and the chest x-ray shows or respiratory efforts, cardiomegaly and some mild interstitial edema. IV fluids are currently at 20 mL an hour. BUN is a 50 with a creatinine of 0.5. His sodium level is at 138. The white cell cause of 4.5 with a hemoglobin of 10.5 and a platelet count of 272. Mild transaminitis related to his chronic alcoholic liver disease with a bilirubin level of 1.4. No seizure activity has been noted. No aspiration the patient is currently nothing by mouth. He has an arterial line in his left upper extremity. He is afebrile this morning. He remains on IV Zosyn. Sputum Gram stain is showing gram-negative bacillus. Patient was reevaluated today on 09/20/2022, patient remains in the ICU, intubated and mechanically ventilated. Patient is on assist control rate of 20 tidal volume 450 FiO2 50% and PEEP of 10 ABG showed a pO2 of 74 pCO2 40 pH of 7.44 hence no changes were made in the ventilator settings. Patient is requiring fentanyl at 2 mcg/kg/h is also on Versed and Precedex, he is also on Cleviprex. His a Versed doses 12 mg per hour. And Precedex is 1 mcg/kg/h. Apparently the patient required intubation yesterday by Dr. Scott, although he was on mechanical ventilation before and he was extubated on 09/18/2022, but had to be re intubated yesterday.09/19/2022 his agitation was in extreme and he could not be controlled with the medications and with Haldol, and required intubation and mechanical ventilation again. Patient had sputum cultures showing Serratia marcescens, sensitive to Zosyn. he is maintained on Zosyn. Patient is now on day #7 from his last drink. Chest x-ray is clearly showing significant left lower lobe infiltrate/consolidation and right lower lobe infiltrate/atelectasis. WBC count is 4.6 hemoglobin is 10.3. Rest of the labs including basic metabolic profile renal profile liver profile are unremarkable slightly elevated liver enzymes noted Reevaluated today on 09/21/2022, patient remains in the ICU intubated and mechanically ventilated he is on assist control rate of 20 tidal volume 450 FiO2 50% PEEP is 10 ABG showed a pO2 of 75 pCO2 47 pH of 7.40, I decreased his PEEP from 10-8. Patient remains on Versed, fentanyl, and Precedex, hence I plan to discontinue Precedex and keep the patient for now on Versed and fentanyl. His Versed dose is 15 mg per hour fentanyl is at 2 mcg/kg/h and he was placed on Cleviprex last night for elevated blood pressure. This morning he is off the Cleviprex. Patient is tolerating enteral feedings receiving vital HPI 35 mL per hour. Chest x-ray shows left lower lobe atelectasis/infiltrates, doubt pulmonary edema. WBC count today is 5.1 hemoglobin is 9.4. Basic metabolic profile is normal except for low potassium of 3.4. reevaluated today on 09/22/2022, patient remains in the ICU intubated and mechanically ventilated. He is an assist-control rate of 20, tidal volume 450 FiO2 45% and I cut down from 50% he is also on a PEEP of 8. ABG showed a pO2 of 93 pCO2 of 48 pH of 7.40.patient is requiring fentanyl at 2 mcg/kg/h and he is also on Darvocet at 15 mg per hour. My plan today is discontinue fentanyl if possible and addressed mental status on this patient and decide whether the patient could be considered for weaning. Patient is still receiving vital HPF 35 mL per hour, chest x-ray showed evidence of pneumonia possible interstitial edema, the recommended dose of Lasix 40 mg IV push 1WBC count is 5.1 hemoglobin is 9 hematocrit is 27.3 *Normal, renal profile remains normal. Patient was reevaluated today on 09/23/2022, remains in the ICU, intubated and mechanically ventilated. Patient is on assist control rate of 20, tidal volume 450 FiO2 45% PEEP of 8 remains on vancomycin and cefepime, he does have Serratia marcescens in the sputum and looks like he may have Serratia marcescens pneumonia. And Comycin was added by infectious disease mostly because the patient kept having fevers in spite of good course of antibiotics, he was on Zo syn all along. Today I his chest x-ray showing worsening interstitial edema, I recommended Lasix 40 mg IV push. Patient is on Versed 15 mg per hour he is on vital HPI 35/35 he is also on fentanyl of 0.5 mg/kg/h and I am planning to discontinue fentanyl. ABG showed a pO2 of 95 pCO2 45 pH of 7.43. The plan is to wake of the patient today, cut down on the sedation significantly, addressed mental status, address possibly a weaning trial and if tolerated be even extubate. WBC count is 5 hemoglobin 8.9 lites are normal, renal profile is normal Objective - Vital Signs Vital signs: Vital Signs Temp 100.2 F H 09/23/22 12:00 Pulse 85 09/23/22 14:00 Resp 22 09/23/22 14:00 BP 135/87 09/23/22 07:00 Pulse Ox 93 L 09/23/22 14:00 FiO2 45 09/23/22 12:08 Intake & Output 09/22/22 09/23/22 09/23/22 18:59 06:59 18:59 Intake Total 1468.858 432.187 901.223 Output Total 2929 759 1129 Balance 8.858 -177.813 -493.777 Weight 108.1 kg 108.1 kg Intake: IV 299 253 694 0.9 Sodium Chloride 39 33 24 Cefepime 2 gm In Sodium 100 Chloride 0.9% 100 ml @ 25 mls/hr IVPB Q8HR [facility] Rx# :[id number] Sodium Chloride 0.9% 1, 260 220 70 000 ml @ 10 mls/hr IV . Q24H [facility] Rx#:[id number] Vancomycin 1,500 mg In 500 Sodium Chloride 0.9% 500 ml 500 ml @ 167 mls/hr IVPB Q8[facility] Rx#: [id number] Intake, IV Titration 749.858 179.187 207.223 Amount Cefepime 2 gm In Sodium 100 Chloride 0.9% 100 ml @ 25 mls/hr IVPB Q8HR [facility] Rx# :[id number] Midazolam HCl 200 mg In 91.75 124.666 Sodium Chloride 0.9% 60 ml @ 10 MG/HR 5 mls/hr IV .Q20H [facility] Rx#:[id number] Sodium Chloride 0.9% 200 58.108 179.187 82.557 ml @ 1 MCG/KG/HR 10.827 mls/hr IV .Q23H6M [facility] with fentaNYL (PF) 2,500 mcg Rx#:[id number] Vancomycin 1,750 mg In 500 Sodium Chloride 0.9% 500 ml 500 ml @ 167 mls/hr IVPB Q8H [facility] Rx#: [id number] Tube Feeding 420 Output: Urine 6476 725 3608 Stool 0 Other: Voiding Method Indwelling Catheter Indwelling Catheter Indwelling Catheter # Bowel Movements 1 ABP, PAP, CO, CI - Last Documented Arterial Blood Pressure 156/65 - Exam Physical Exam: Revealed a 62-year-old white male obese, intubated, mechanically ventilated, in no distress. Head: Atraumatic, normocephalic, endotracheal tube and orogastric tube are intact. HEENT:[Neck is supple.] [No neck masses.] [No thyromegaly.] [No JVD.] Chest: Crackles and rhonchi noted bilaterally. Cardiac Exam: [Normal S1 and S2, no S3 gallop, no murmur.] Abdomen: [Soft, nontender, no megaly, no rebound, no guarding, normal bowel sounds.] Extremities: [No clubbing, no edema, no cyanosis.] Neurological Exam: Could not assess. Patient is fully sedated. Psychiatric: Could not assess. - Labs CBC & Chem 7: 09/23/22 04:30 09/23/22 12:10 Labs: Abnormal Lab Results - Last 24 Hours (Table) 09/22/22 09/22/22 09/23/22 Range/Units 04:46 17:47 04:30 RBC 3.11 L (4.30-5.90) m/uL Hgb 8.9 L (13.0-17.5) gm/dL Hct 27.1 L (39.0-53.0) % Lymphocytes # 0.8 L (1.0-4.8) k/uL ABG HCO3 (21-25) mmol/L ABG Total CO2 (19-24) mmol/L ABG O2 Saturation (94-97) % Chloride (98-107) mmol/L BUN (9-20) mg/dL Creatinine (0.66-1.25) mg/dL Glucose (74-99) mg/dL POC Glucose (mg/dL) 124 H (70-110) mg/dL Calcium (8.4-10.2) mg/dL Procalcitonin 0.14 H (0.02-0.09) ng/mL 09/23/22 09/23/22 09/23/22 Range/Units 04:30 06:10 06:30 RBC (4.30-5.90) m/uL Hgb (13.0-17.5) gm/dL Hct (39.0-53.0) % Lymphocytes # (1.0-4.8) k/uL ABG HCO3 30 H (21-25) mmol/L ABG Total CO2 31 H (19-24) mmol/L ABG O2 Saturation 97.8 H (94-97) % Chloride 109 H (98-107) mmol/L BUN 21 H (9-20) mg/dL Creatinine 0.56 L (0.66-1.25) mg/dL Glucose 116 H (74-99) mg/dL POC Glucose (mg/dL) 113 H (70-110) mg/dL Calcium 7.7 L (8.4-10.2) mg/dL Procalcitonin (0.02-0.09) ng/mL 09/23/22 Range/Units 11:57 RBC (4.30-5.90) m/uL Hgb (13.0-17.5) gm/dL Hct (39.0-53.0) % Lymphocytes # (1.0-4.8) k/uL ABG HCO3 (21-25) mmol/L ABG Total CO2 (19-24) mmol/L ABG O2 Saturation (94-97) % Chloride (98-107) mmol/L BUN (9-20) mg/dL Creatinine (0.66-1.25) mg/dL Glucose (74-99) mg/dL POC Glucose (mg/dL) 136 H (70-110) mg/dL Calcium (8.4-10.2) mg/dL Procalcitonin (0.02-0.09) ng/mL Microbiology - Last 24 Hours (Table) 09/22/22 07:07 Blood Culture - Preliminary Blood No Growth after 24 hours 09/20/22 16:25 Blood Culture - Preliminary Blood No Growth after 48 hours Assessment and Plan Assessment: Impression: Acute hypoxic respiratory failure secondary to acute delirium tremens and left lower lobe pneumonia secondary to Serratia marcescens Acute delirium tremens Dyslipidemia Altered mental status secondary to alcohol withdrawal well and possibly toxic metabolic encephalopathy History of alcoholism History of alcohol liver disease with bilateral elevated liver enzymes Benign essential hypertension Recommendation: Continue ventilatory support however the patient may be given a weaning trial today depending on his mental status off sedation Discontinue fentanyl and titrate down his Versed dose Lasix 40 mg IV push 1 given today. Continue GI and DVT prophylaxis Continue cefepime and vancomycin for now. Continue DVT prophylaxis/Lovenox Continue Protonix. Continue thiamine Continue alcohol withdrawal protocol Patient remains critically ill Prognosis remains quite guarded. Patient is critically ill and critical care time is over 30 minutes Time with Patient: Greater than 30
[2022-09-23] MEDS: DEXMEDETOMIDINE/0.9% NACL(PMX) 400 MCG in EMPTY BAG 1 BAG IV SCH ×2 (15:00→20:57)
--- NOTE | 2022-09-23 17:47 | P.PN ---
Subjective Progress Note Date: 09/23/22 Principal diagnosis: Fever/pneumonia Patient is a 62-year-old male presented to the hospital more than a week ago on 09/13/2022 for multiple falls and this patient apparently did have a history of alcohol abuse, patient did have worsening respiratory status requiring intubation sputum has been positive for Serratia marcescens on today's evaluation and that is 09/23/2022, the patient did have low-grade fever 100.2F this morning, the patient is hemodynamically stable not requiring any pressor support no significant purulent secretion through the ET, FiO2 is currently stable at 45%, patient has been tolerating his tube feeds and no diarrhea has been reported Objective - Vital Signs Vital signs: Vital Signs Temp 100.2 F H 09/23/22 12:00 Pulse 76 09/23/22 12:00 Resp 20 09/23/22 12:00 BP 135/87 09/23/22 07:00 Pulse Ox 97 09/23/22 12:00 FiO2 45 09/23/22 12:08 Intake & Output 09/22/22 09/23/22 09/23/22 18:59 06:59 18:59 Intake Total 1468.858 432.187 875.223 Output Total 7780 429 3960 Balance 8.858 -177.813 -319.777 Weight 108.1 kg 108.1 kg Intake: IV 299 253 668 0.9 Sodium Chloride 39 33 18 Cefepime 2 gm In Sodium 100 Chloride 0.9% 100 ml @ 25 mls/hr IVPB Q8HR [facility] Rx# :[id number] Sodium Chloride 0.9% 1, 260 220 50 000 ml @ 10 mls/hr IV . Q24H [facility] Rx#:[id number] Vancomycin 1,500 mg In 500 Sodium Chloride 0.9% 500 ml 500 ml @ 167 mls/hr IVPB Q8HR [facility] Rx#: [id number] Intake, IV Titration 749.858 179.187 207.223 Amount Cefepime 2 gm In Sodium 100 Chloride 0.9% 100 ml @ 25 mls/hr IVPB Q8HR [facility] Rx# :[id number] Midazolam HCl 200 mg In 91.75 124.666 Sodium Chloride 0.9% 60 ml @ 10 MG/HR 5 mls/hr IV .Q20H [facility] Rx#:[id number] Sodium Chloride 0.9% 200 58.108 179.187 82.557 ml @ 1 MCG/KG/HR 10.827 mls/hr IV .Q23H6M [facility] with fentaNYL (PF) 2,500 mcg Rx#:[id number] Vancomycin 1,750 mg In 500 Sodium Chloride 0.9% 500 ml 500 ml @ 167 mls/hr IVPB Q8H [facility] Rx#: [id number] Tube Feeding 420 Output: Urine 7650 065 1384 Stool 0 Other: Voiding Method Indwelling Catheter Indwelling Catheter Indwelling Catheter ABP, PAP, CO, CI - Last Documented Arterial Blood Pressure 149/60 - Exam GENERAL DESCRIPTION: A middle-age male intubated on the vent RESPIRATORY SYSTEM: Unlabored breathing , decreased breath sounds at bases HEART: S1 S2 regular rate and rhythm , ABDOMEN: Soft , mild distention EXTREMITIES: No edema feet - Labs CBC & Chem 7: 09/23/22 04:30 09/23/22 12:10 Labs: Abnormal Lab Results - Last 24 Hours (Table) 09/22/22 09/22/22 09/22/22 Range/Units 04:46 04:46 17:47 RBC (4.30-5.90) m/uL Hgb (13.0-17.5) gm/dL Hct (39.0-53.0) % Lymphocytes # (1.0-4.8) k/uL ABG HCO3 (21-25) mmol/L ABG Total CO2 (19-24) mmol/L ABG O2 Saturation (94-97) % Chloride (98-107) mmol/L BUN (9-20) mg/dL Creatinine (0.66-1.25) mg/dL Glucose (74-99) mg/dL POC Glucose (mg/dL) 124 H (70-110) mg/dL Calcium (8.4-10.2) mg/dL C-Reactive Protein 13.8 H (<1.0) mg/dL Procalcitonin 0.14 H (0.02-0.09) ng/mL 09/23/22 09/23/22 09/23/22 Range/Units 04:30 04:30 06:10 RBC 3.11 L (4.30-5.90) m/uL Hgb 8.9 L (13.0-17.5) gm/dL Hct 27.1 L (39.0-53.0) % Lymphocytes # 0.8 L (1.0-4.8) k/uL ABG HCO3 30 H (21-25) mmol/L ABG Total CO2 31 H (19-24) mmol/L ABG O2 Saturation 97.8 H (94-97) % Chloride 109 H (98-107) mmol/L BUN 21 H (9-20) mg/dL Creatinine 0.56 L (0.66-1.25) mg/dL Glucose 116 H (74-99) mg/dL POC Glucose (mg/dL) (70-110) mg/dL Calcium 7.7 L (8.4-10.2) mg/dL C-Reactive Protein (<1.0) mg/dL Procalcitonin (0.02-0.09) ng/mL 09/23/22 09/23/22 Range/Units 06:30 11:57 RBC (4.30-5.90) m/uL Hgb (13.0-17.5) gm/dL Hct (39.0-53.0) % Lymphocytes # (1.0-4.8) k/uL ABG HCO3 (21-25) mmol/L ABG Total CO2 (19-24) mmol/L ABG O2 Saturation (94-97) % Chloride (98-107) mmol/L BUN (9-20) mg/dL Creatinine (0.66-1.25) mg/dL Glucose (74-99) mg/dL POC Glucose (mg/dL) 113 H 136 H (70-110) mg/dL Calcium (8.4-10.2) mg/dL C-Reactive Protein (<1.0) mg/dL Procalcitonin (0.02-0.09) ng/mL Microbiology - Last 24 Hours (Table) 09/22/22 07:07 Blood Culture - Preliminary Blood No Growth after 24 hours 09/20/22 16:25 Blood Culture - Preliminary Blood No Growth after 48 hours Assessment and Plan (1) Fever Current Visit: Yes Status: Acute Code(s): R50.9 - FEVER, UNSPECIFIED SNOMED Code(s): 468742391 (2) Pneumonia Current Visit: Yes Status: Acute Code(s): J18.9 - PNEUMONIA, UNSPECIFIED ORGANISM SNOMED Code(s): 648114089 Plan: 1patient with a fever in this patient who do have a history of alcoholism presented to hospital with weakness fall and decreased oral intake with acute respiratory failure requiring intubation concern for possible pneumonia sputum has been Serratia marcescens despite good antibiotic coverage the patient is still running a fever however did not have any elevated white count with a question of possible viral etiology versus DTs 2-patient did have a negative influenza vaccine and COVID testing, negative urine for Legionella antigen 3- blood cultures repeat has been negative, CRP mildly elevated and procalcitonin level is mildly elevated at 0.14 4- ultrasound of the abdomen did not show any acute abnormality 5- patient fever pattern has improved and the patient will continue with cefepime and vancomycin while waiting for the cultures to finalize
[2022-09-23] MEDS: LORazepam 2 MG/ML INJ IV PRN (19:45)
[2022-09-23] MEDS: ATORVASTATIN 80 MG TAB PO SCH (20:44)
[2022-09-23] MEDS: MORPHINE SULFATE 2 MG/ML SYRINGE IVP PRN (21:36)
[2022-09-23] MEDS: CLEVIDIPINE BUTYRATE 25 MG in EMPTY BAG 1 BAG IV SCH (22:44)
[2022-09-23] MEDS: SODIUM CHLORIDE 0.9% 80 ML with fentaNYL (PF) 1,000 MCG IV SCH ×2 (23:12)
[2022-09-23 23:45] LABS: Glucose,Whole Blood 138 mg/dL (70-110)
[2022-09-24] MEDS: CLEVIDIPINE BUTYRATE 25 MG in EMPTY BAG 1 BAG IV SCH ×12 (02:11→23:45)
[2022-09-24] MEDS: DEXMEDETOMIDINE/0.9% NACL(PMX) 400 MCG in EMPTY BAG 1 BAG IV SCH ×4 (02:34→11:58)
[2022-09-24] MEDS: LORazepam 2 MG/ML INJ IV PRN ×3 (02:56→11:56)
[2022-09-24 04:55] LABS: Basophils % (A) 0 %; Eosinophils # (A) 0.1 k/uL (0-0.7); Eosinophils % (A) 2 %; Lymphocytes # (A) 1.1 k/uL (1.0-4.8); Lymphocytes % (A) 18 %; MCHC 33.4 g/dL (31.0-37.0); MCV 86.8 fL (80.0-100.0); Mean Platelet Volume 7.6; Monocytes # (A) 0.3 k/uL (0-1.0); Monocytes % (A) 5 %; Neutrophils # (A) 4.7 k/uL (1.3-7.7); Neutrophils % (A) 73 %; Platelet Count 416 k/uL (150-450); RBC 3.45 m/uL (4.30-5.90); RDW 13.1 % (11.5-15.5); WBC 6.4 k/uL (3.8-10.6)
[2022-09-24 05:02] VITALS: BP 152/76
[2022-09-24 05:02] LABS: African American GFR (CKD) >90 (>60 ml/min/1.73 sqM); Anion Gap 3 mmol/L; Blood Urea Nitrogen 23 mg/dL (9-20); Calcium 8.1 mg/dL (8.4-10.2); Carbon Dioxide 28 mmol/L (22-30); Chloride 111 mmol/L (98-107); Glucose 147 mg/dL (74-99); Non-African American GFR(CKD) >90 (>60 ml/min/1.73 sqM); Potassium 3.8 mmol/L (3.5-5.1); Sodium 142 mmol/L (137-145)
[2022-09-24 05:51] LABS: Glucose,Whole Blood 155 mg/dL (70-110)
[2022-09-24 05:56] LABS: ABG Base Excess 4.9 mmol/L; ABG HCO3 28 mmol/L (21-25); ABG Oxygen Saturation 92.2 % (94-97); ABG PCO2 38 mmHg (35-45); ABG PH 7.48 (7.35-7.45); ABG PO2 61 mmHg (83-108); ABG TCO2 30 mmol/L (19-24); Allen Test Performed? Yes
[2022-09-24] MEDS ORDERED: POTASSIUM BICARBONATE/CIT AC 20 MEQ TABLET.EFF NG-TUBE SCH (06:00)
[2022-09-24] MEDS: SODIUM CHLORIDE 0.9% 80 ML with fentaNYL (PF) 1,000 MCG IV SCH ×6 (06:17→19:25)
--- NOTE | 2022-09-24 07:36 | XR ---
EXAMINATION TYPE: XR chest 1V DATE OF EXAM: 09/24/2022 5:44 AM COMPARISON: Chest radiographs from 09/23/2022 TECHNIQUE: XR chest 1V Frontal view of the chest. CLINICAL INDICATION:Male, 62 years old with history of mechanical ventilation; FINDINGS: Lungs/Pleura: Small left pleural effusion with improved right basilar airspace opacities. Diffuse int erstitial prominence. No pneumothorax. Heart/mediastinum: Cardiomediastinal silhouette is enlarged and stable. Musculoskeletal: No acute osseous pathology. Other findings: None Lines/Tubes: Endotracheal tube with distal tip 5.2 cm above the lorie Nasogastric tube with its distal tip in the left upper quadrant with side hole in the distal esophagu s. Recommend advancement of approximately 6 cm. Left internal jugular central venous catheter with distal tip at the superior vena cava brachiocephal ic vein junction stable position. IMPRESSION: 1. Small left pleural effusion with persistent cardiomegaly and interstitial prominence. Improved ri ght basilar airspace opacity. Correlate for CHF exacerbation. Superimposed infection is not excluded. 2. NG tube sidehole is demonstrated within the distal esophagus. Recommend advancing approximately 6 cm. 3. Stable endotracheal tube and left IJ central venous catheter.
[2022-09-24] MEDS: ENOXAPARIN 40 MG/0.4 ML SYRINGE SQ SCH (08:14)
[2022-09-24] MEDS: PARoxetine 20 MG TAB PO SCH (08:14)
[2022-09-24] MEDS: cloNIDine HCL 0.2 MG TAB PO SCH ×3 (08:14→21:06)
[2022-09-24] MEDS: CEFEPIME 2 GM in SODIUM CHLORIDE 0.9% 100 ML IVPB SCH ×2 (08:15→16:29)
[2022-09-24] MEDS: VANCOMYCIN 1,500 MG in SODIUM CHLORIDE 0.9% 500 ML 500 ML IVPB SCH ×2 (08:15→16:28)
[2022-09-24] MEDS: CHLORHEXIDINE GLUCONATE 15 ML CUP MUCOUS MEM SCH ×2 (08:15→20:54)
[2022-09-24] MEDS: PANTOPRAZOLE 40 MG/10 ML VIAL IVP SCH (08:15)
[2022-09-24] MEDS: THIAMINE 100 MG/ML 2 ML VIAL IVP SCH (08:16)
[2022-09-24] MEDS: MORPHINE SULFATE 2 MG/ML SYRINGE IVP PRN ×3 (08:33→18:43)
[2022-09-24] MEDS ORDERED: FUROSEMIDE 10 MG/ML 4 ML VIAL IV STA (09:21)
--- NOTE | 2022-09-24 10:19 | P.PN ---
Subjective Patient is seen in follow-up for hyponatremia. Sodium level remains normal. Intubated. Hemodynamically stable. Receiving tube feeds. No changes overnight. Vital signs are stable. HEENT: Intubated. LUNGS: No audible rhonchi or wheezes. HEART: Rate and Rhythm are regular. ABDOMEN: No distention. EXTREMITITES: 1+ edema. Objective - Vital Signs Vital signs: Vital Signs Temp 98.7 F 09/24/22 04:00 Pulse 121 H 09/24/22 10:00 Resp 40 H 09/24/22 10:00 BP 152/76 09/24/22 04:15 Pulse Ox 88 L 09/24/22 10:00 FiO2 50 09/24/22 09:20 Intake & Output 09/23/22 09/24/22 09/24/22 18:59 06:59 18:59 Intake Total 0900.478 4498.914 868.181 Output Total 1630 630 310 Balance -88.401 523.914 558.181 Weight 108.1 kg 112.5 kg Intake: IV 1306 772 656 0.9 Sodium Chloride 36 172 50 Cefepime 2 gm In Sodium 200 100 75 Chloride 0.9% 100 ml @ 25 mls/hr IVPB Q8HR [facility] Rx# :[id number] Sodium Chloride 0.9% 1, 70 30 000 ml @ 10 mls/hr IV . Q24H [facility] Rx#:[id number] Vancomycin 1,500 mg In 1000 500 501 Sodium Chloride 0.9% 500 ml 500 ml @ 167 mls/hr IVPB Q8HR [facility] Rx#: [id number] Intake, IV Titration 235.599 381.914 212.181 Amount Clevidipine Butyrate 25 78.334 96.334 mg In Empty Bag 1 bag @ 1 MG/HR 2 mls/hr IV .Q24H [facility] Rx#:[id number] Dexmedetomidine/0.9% NaCl 28.376 227.009 81.075 (Pmx) 400 mcg In Empty Bag 1 bag @ 0.2 MCG/KG/HR 5.405 mls/hr IV .[id number] [facility] Rx#:[id number] Midazolam HCl 200 mg In 124.666 Sodium Chloride 0.9% 60 ml @ 10 MG/HR 5 mls/hr IV .Q20H [facility] Rx#:[id number] Sodium Chloride 0.9% 200 82.557 ml @ 1 MCG/KG/HR 10.827 mls/hr IV .Q23H6M [facility] with fentaNYL (PF) 2,500 mcg Rx#:[id number] Sodium Chloride 0.9% 80 76.571 34.772 ml @ 1 MCG/KG/HR 10.81 mls/hr IV .Q9H16M [facility] with fentaNYL (PF) 1,000 mcg Rx#:[id number] Output: Urine 1630 630 310 Stool 0 Other: Voiding Method Indwelling Catheter Indwelling Catheter # Bowel Movements 1 ABP, PAP, CO, CI - Last Documented Arterial Blood Pressure 142/61 - Labs CBC & Chem 7: 09/24/22 04:26 09/24/22 04:26 Labs: Abnormal Lab Results - Last 24 Hours (Table) 09/23/22 09/23/22 09/24/22 Range/Units 11:57 23:43 04:26 RBC 3.45 L (4.30-5.90) m/uL Hgb 10.0 L (13.0-17.5) gm/dL Hct 30.0 L (39.0-53.0) % ABG pH (7.35-7.45) ABG pO2 (83-108) mmHg ABG HCO3 (21-25) mmol/L ABG Total CO2 (19-24) mmol/L ABG O2 Saturation (94-97) % Chloride (98-107) mmol/L BUN (9-20) mg/dL Creatinine (0.66-1.25) mg/dL Glucose (74-99) mg/dL POC Glucose (mg/dL) 136 H 138 H (70-110) mg/dL Calcium (8.4-10.2) mg/dL 09/24/22 09/24/22 09/24/22 Range/Units 04:26 05:49 06:11 RBC (4.30-5.90) m/uL Hgb (13.0-17.5) gm/dL Hct (39.0-53.0) % ABG pH 7.48 H (7.35-7.45) ABG pO2 61 L (83-108) mmHg ABG HCO3 28 H (21-25) mmol/L ABG Total CO2 30 H (19-24) mmol/L ABG O2 Saturation 92.2 L (94-97) % Chloride 111 H (98-107) mmol/L BUN 23 H (9-20) mg/dL Creatinine 0.59 L (0.66-1.25) mg/dL Glucose 147 H (74-99) mg/dL POC Glucose (mg/dL) 155 H (70-110) mg/dL Calcium 8.1 L (8.4-10.2) mg/dL Microbiology - Last 24 Hours (Table) 09/22/22 07:07 Blood Culture - Preliminary Blood No Growth after 48 hours 09/20/22 16:25 Blood Culture - Preliminary Blood No Growth after 72 hours Assessment and Plan Plan: Assessment: 1. Hypervolemic hyponatremia status post 3% saline and diuresis this admission. Resolved. Urine sodium less than 20 and urine osmolality 499 dated 09/13/2022. 2. Alcohol abuse. 3. Alcohol liver disease. 4. Volume overload. Improving with diuresis. 5. Hypokalemia from diuresis. Being replaced. Plan: Add Lasix 40 mg IV once daily. Wean FiO2. Receiving tube feeds. Monitor sodium level. If trending higher, will need to increase water flushes.
[2022-09-24 12:07] LABS: Glucose,Whole Blood 148 mg/dL (70-110)
[2022-09-24] MEDS ORDERED: CISATRACURIUM 2 MG/ML 5 ML VIAL IV ONE (12:27)
[2022-09-24] MEDS: INSULIN ASPART (NovoLOG) 100 UNIT/ML VIAL SQ SCH ×2 (12:39→18:18)
[2022-09-24] MEDS: hydrALAZINE HCL 20 MG/ML 1 ML VIAL IVP PRN (12:58)
[2022-09-24] MEDS: ACETAMINOPHEN TAB 325 MG TAB PO PRN (13:04)
--- NOTE | 2022-09-24 13:14 | P.PN ---
Subjective Progress Note Date: 09/24/22 Principal diagnosis: Acute delirium tremens requiring intubation and mechanical ventilation 62-year-old male patient, alcoholic, brought into the hospital on family request. EMS as the patient has not been eating any food for the past 10 days. He has been drinking significantly and he drinks beer and whiskey. He is an alcoholic and has been drinking excessively over the past 2 years at least. He has had multiple falls at home. No injuries to his head or traumatic head in jury. He has bruises over the right cheek. No nausea. No emesis. No aspiration. No seizure activity has been noted. No reported chest pain or shortness of breath. No history of any substance abuse other than alcohol. As the patient was brought into the hospital, the patient was found to be in delirium tremens, increased confusion, agitation and tremors. He was given Ativan on the Route to the hospital. Upon arrival, alcohol level was less than 10, his sodium level was 114, bicarb is 15 with a creatinine of 1.1, normal coagulation profile, his troponin was negative, urine osmolality was 499, urine sodium was less than 20, WBC count at 9.9 with hemoglobin 15.3 and a platelet count of 188. The LFTs are abnormal with an AST of 93, ALT of 79, bilirubin level is at 2.3 and the lactic acid level is down to 1.6. The chest x-ray shows no acute abnormalities. On today's evaluation of 09/14/2022, the patient is intubated on a mechanical ventilator. The patient is, comfortable. Overnight, the patient was becoming progressively more agitated and he has required increased dose of Ativan and he was maximized on Precedex without any adequate control of the situation. Based on that, the patient had to be intubated on placed on a mechanical ventilator. No seizure activity was witnessed. The patient was essentially having delirium tremens. This morning, the patient is intubated on a mechanical ventilator. He is on assist control mode at a rate of 20, tidal volume of 500, FiO2 of 50% with a PEEP of 5. His blood gas from today shows a pH of 7.42 with a pCO2 of 36 and pO2 of 179. His chest x-ray from today shows adequate expansion of both lungs. ET tube is in good location. There is no evidence of any pneumothorax. No areas of any consolidation or airspace disease. No respiratory secretions. The patient is oxygenating and ventilating adequately. Is currently on propofol which is running at 75 mL an hour. His well sedated. He is taken off the hypertonic saline. His sodium gradually improved and this morning is up to 124 and subsequently 125. The rest of the electrolytes show a potassium level of 3.8 and these to be replaced, BUN is at 70 with a creatinine of 0.9. His white cell count is 5.3 with a hemoglobin of 11.4 and a platelet count of 129. Lal cath is in place. Urine output is adequate. He is afebrile. Liver function tests were not obtained. Calcium levels at 7.4. Blood sugars at 96. On today's evaluation of 09/15/2022, seeing the patient for a follow-up. As mentioned, this is a case of DTs, the patient is currently intubated on a mechanical ventilator, sedated with a combination of propofol and is also requiring on enough dose of Ativan throughout the night. The patient this morning is on propofol which is running at 55 mcg/kg/m. He is coming comfortable. The triglyceride levels are elevated and I'm in the process of sw itching the propofol to Precedex. The same time, his mentation will be evaluated. His abdomen is to wean will be also evaluated on a daily basis. He has remained hemodynamically stable over the past 24 hours. He remains on mechanical ventilator on assist control mode with a rate of 20, tidal volume of 500, FiO2 40% with a PEEP of 5. Blood gases from today shows a pH of 7.5 with a pCO2 of 33 and pO2 of 83. His chest x-ray from today shows no acute abnormalities. The orotracheal tube is in a good location. The lungs are adequately expanded and there are no significant infiltration. There may be some small left-sided pleural effusion/atelectasis. His seconds at 5.9 with a hemoglobin 11.1 and a platelet count of 146. Sodium level has gradually come up to 127. Is currently on IV fluids with normal saline at rate of 20 mL an hour. Urine output is adequate for now. He is on enteral feeding and the patient is receiving vital high-protein at the rate of 10 mL an hour. No sei zure activity has been noted. No fever. No significant orotracheal secretions. No other issues for now. His condition is stable. On 09/16/2022, the patient is being seen for a follow-up. We managed to get the patient off the propofol and the patient is currently on Precedex which is running at the highest dose of 1.4 mcg/kg/h and the patient is also on fentanyl at 1 mcg/kg/h. Arousable, lethargic, not consistent in following commands, neurologic exam is nonfocal and he continues to move all 4 extremities. He has a very strong cough reflex patient will being suctioned. He remains on a mechanical ventilator. His urine output was low and he was given a bolus of normal saline yesterday which improved his urine output. His electrolytes today are stable. His sodium level is currently at 129 with a potassium level of 4.2, BUN is at 40 with a creatinine of 0.7. His CBC is also stable with a hemoglobin of 11 and a platelet count of 158. On a separate note, the patient remains on a mechanical ventilator. Is currently on a assist control mode rate of 14, tidal volume of 500, FiO2 40% with a PEEP of 5. There is improvement in his acid base status. His pH is at 7.39 with a pCO2 of 36 and pO2 of 95. Repeat chest x-ray from today shows stable findings. No evidence of any pneumonia. There is left lower lobe atelectasis. ET tube is in a I location an NG tube is in place. Is receiving enteral feeding for nutritional support. Is on vital high-protein at the rate of 10 mL an hour. He did spike a temperature 100.5 today. He has been spiking low-grade fever since yesterday. On 09/17/2022, the patient is being seen for a follow-up. Note that this morning, the patient is on a combination of Precedex 1.4 mcg/kg/h and fentanyl at 2 mcg/kg/h. We were able to discontinue propofol. Yesterday, the patient was arousing on a sedation holiday. Nevertheless, he never got to point where he was following commands and he was getting progressively more agitated. At the same time was having fever and the left lower lobe pneumonia was suspected. Based on that, the sedation holiday was aborted and the patient was kept on a mechanical ventilator. The same will be done today. The patient is on assist control mode at a rate of 14, tidal volume of 500, FiO2 of 40% with a PEEP of 5. The chest x-ray showing cardiac regular and left lower lobe consolidation/infiltrate. The white cell count at 6 with a hemoglobin of 10.05 and the patient is not having any fever at this point. Blood pressure was a pH of 7.34 with a pCO2 of 40 and pO2 of 93. BUN is at 60 with a creatinine of 0.58. Sodiums of 133 and a potassium level of 3.9. He does have some mild transaminitis. He remains on vital high-protein running at the rate of 40 mL an hour. IV fluids are currently in the form of 0.9 saline at the rate of 75 mL an hour. Urine output is adequate at 50 mL an hour. Pro-calcitonin level is at 0.14. 09/18/2022, the patient is being given a sedation holiday. Earlier this morning is at 7 AM, the patient was taken off the fentanyl. Is currently on Precedex running at 0.9 mcg/kg/h. He is following some simple commands. He remains profoundly weak. He has sweating and somewhat diaphoretic. It's possible that there may be some ongoing withdrawals. Nevertheless, he is able to squeeze using his hands upon demand. Is following some simple commands. When the pr ocess of monitoring the patient and weaning of his Precedex slowly. He may need some background Precedex running as were weaning patient off the sedation. Meanwhile, the patient will be kept on a mechanical ventilator. Is on assist control mode at the rate of 40 with a tidal volume of 500 and FiO2 of 40% with a PEEP of 5. Chest x-rays available quality, no new changes. His pH is at 7.46 with a pCO2 of 36 and pO2 of 70. The white cell cause of 4.7 with a hemoglobin of 10.2. BUN is at 80 with a creatinine of 0.6. Sodium is at 136. He remains on IV Zosyn. Sputum Gram stain and culture still pending. The pro-calcitonin level was at 0.14. He is afebrile. He is receiving vital high-protein at the rate of 60 mL an hour. He was noted to have a temperature spike at around 4:00 yesterday afternoon with a T-max of 101.4. His net fluid balance is positive at least 5 L over the past 3 days and over the past 24 hours has been +1.3 L. 4 2022, I'm seeing the patient for a follow-up. Patient was weaned off the fentanyl yesterday and he was kept on a low-dose Precedex. Subsequently, he was able to follow commands and he looks quite comfortable. We gave him a spontaneous breathing trial and he did well and at that point, we decided to go ahead and extubate the patient. The patient was extubated on 09/18/2022. He did well for quite some time and subsequently became more agitated, restless, and continued to have encephalopathy and tremors. He was moving all 4 extremities without any limitation. At that point, the Precedex dose was gradually increased. He was given Haldol. Based on failure to control his agitation, I started him on low-dose Versed drip which is currently running at 4 mg an hour. He is also on Precedex at 1.4 mcg/kg/m. His blood pressure was elevated and he is also on Cleviprex 8 mg an hour. patient is arousable. He is only oriented 1. His breathing is nonlabored. He is on oxygen at 10 L and his pulse ox in the order of 91%. Repeat chest x-ray was done today and the chest x-ray shows or respiratory efforts, cardiomegaly and some mild interstitial edema. IV fluids are currently at 20 mL an hour. BUN is a 50 with a creatinine of 0.5. His sodium level is at 138. The white cell cause of 4.5 with a hemoglobin of 10.5 and a platelet count of 272. Mild transaminitis related to his chronic alcoholic liver disease with a bilirubin level of 1.4. No seizure activity has been noted. No aspiration the patient is currently nothing by mouth. He has an arterial line in his left upper extremity. He is afebrile this morning. He remains on IV Zosyn. Sputum Gram stain is showing gram-negative bacillus. Patient was reevaluated today on 09/20/2022, patient remains in the ICU, intubated and mechanically ventilated. Patient is on assist control rate of 20 tidal volume 450 FiO2 50% and PEEP of 10 ABG showed a pO2 of 74 pCO2 40 pH of 7.44 hence no changes were made in the ventilator settings. Patient is requiring fentanyl at 2 mcg/kg/h is also on Versed and Precedex, he is also on Cleviprex. His a Versed doses 12 mg per hour. And Precedex is 1 mcg/kg/h. Apparently the patient required intubation yesterday by Dr. Scott, although he was on mechanical ventilation before and he was extubated on 09/18/2022, but had to be re intubated yesterday.09/19/2022 his agitation was in extreme and he could not be controlled with the medications and with Haldol, and required intubation and mechanical ventilation again. Patient had sputum cultures showing Serratia marcescens, sensitive to Zosyn. he is maintained on Zosyn. Patient is now on day #7 from his last drink. Chest x-ray is clearly showing significant left lower lobe infiltrate/consolidation and right lower lobe infiltrate/atelectasis. WBC count is 4.6 hemoglobin is 10.3. Rest of the labs including basic metabolic profile renal profile liver profile are unremarkable slightly elevated liver enzymes noted Reevaluated today on 09/21/2022, patient remains in the ICU intubated and mechanically ventilated he is on assist control rate of 20 tidal volume 450 FiO2 50% PEEP is 10 ABG showed a pO2 of 75 pCO2 47 pH of 7.40, I decreased his PEEP from 10-8. Patient remains on Versed, fentanyl, and Precedex, hence I plan to discontinue Precedex and keep the patient for now on Versed and fentanyl. His Versed dose is 15 mg per hour fentanyl is at 2 mcg/kg/h and he was placed on Cleviprex last night for elevated blood pressure. This morning he is off the Cleviprex. Patient is tolerating enteral feedings receiving vital HPI 35 mL per hour. Chest x-ray shows left lower lobe atelectasis/infiltrates, doubt pulmonary edema. WBC count today is 5.1 hemoglobin is 9.4. Basic metabolic profile is normal except for low potassium of 3.4. reevaluated today on 09/22/2022, patient remains in the ICU intubated and mechanically ventilated. He is an assist-control rate of 20, tidal volume 450 FiO2 45% and I cut down from 50% he is also on a PEEP of 8. ABG showed a pO2 of 93 pCO2 of 48 pH of 7.40.patient is requiring fentanyl at 2 mcg/kg/h and he is also on Darvocet at 15 mg per hour. My plan today is discontinue fentanyl if possible and addressed mental status on this patient and decide whether the patient could be considered for weaning. Patient is still receiving vital HPF 35 mL per hour, chest x-ray showed evidence of pneumonia possible interstitial edema, the recommended dose of Lasix 40 mg IV push 1WBC count is 5.1 hemoglobin is 9 hematocrit is 27.3 *Normal, renal profile remains normal. Patient was reevaluated today on 09/23/2022, remains in the ICU, intubated and mechanically ventilated. Patient is on assist control rate of 20, tidal volume 450 FiO2 45% PEEP of 8 remains on vancomycin and cefepime, he does have Serratia marcescens in the sputum and looks like he may have Serratia marcescens pneumonia. And Comycin was added by infectious disease mostly because the patient kept having fevers in spite of good course of antibiotics, he was on Zo syn all along. Today I his chest x-ray showing worsening interstitial edema, I recommended Lasix 40 mg IV push. Patient is on Versed 15 mg per hour he is on vital HPI 35/35 he is also on fentanyl of 0.5 mg/kg/h and I am planning to discontinue fentanyl. ABG showed a pO2 of 95 pCO2 45 pH of 7.43. The plan is to wake of the patient today, cut down on the sedation significantly, addressed mental status, address possibly a weaning trial and if tolerated be even extubate. WBC count is 5 hemoglobin 8.9 lites are normal, renal profile is normal Reevaluated today on , patient remains in the ICU, intubated and mechanically ventilated. He is on assist control rate of 20 tidal volume 450 FiO2 45% and PEEP of 8 his ABG showed a pO2 of 61 pCO2 of 38 pH of 7.48 however his FiO2 was increased to 50% based on the fact that his pO2 level was marginal at 61. Patient was given a trial of weaning today, however he desaturated, and he developed significant tachypnea tachycardia and hypertension clearly he is not tolerating weaning trials. Went back and placed him on his fentanyl, propofol, and I will discontinue his Precedex altogether. He was doing well on Precedex but when time came to weaning , and with the patient fentanyl, patient became extremely restless agitated, desaturating, and had to be placed back on fentanyl and on propofol. Patient remains on antibiotics in the form of vancomycin and cefepime for his Serratia marcescens infection/pneumonia being followed by infectious disease. Today I gave him a dose of Lasix 40 mg IV push as his chest x-ray is showing some mild component of interstitial edema/infiltrates WBC count today is 6.4 hemoglobin is 10, basic metabolic profile is normal renal profile is normal chest x-ray as noted above suspicious for underlying component of interstitial edema. And right basilar airspace disease Objective - Vital Signs Vital signs: Vital Signs Temp 99.1 F 09/24/22 10:25 Pulse 111 H 09/24/22 11:00 Resp 34 H 09/24/22 11:00 BP 152/76 09/24/22 11:00 Pulse Ox 93 L 09/24/22 11:00 FiO2 50 09/24/22 12:01 Intake & Output 09/23/22 09/24/22 09/24/22 18:59 06:59 18:59 Intake Total 1791.854 3271.914 1107.955 Output Total 1630 630 610 Balance -88.401 523.914 497.955 Weight 108.1 kg 112.5 kg 112.5 kg Intake: IV 1306 772 701 0.9 Sodium Chloride 36 172 60 Cefepime 2 gm In Sodium 200 100 100 Chloride 0.9% 100 ml @ 25 mls/hr IVPB Q8HR [facility] Rx# :[id number] Sodium Chloride 0.9% 1, 70 40 000 ml @ 10 mls/hr IV . Q24H [facility] Rx#:[id number] Vancomycin 1,500 mg In 1000 500 501 Sodium Chloride 0.9% 500 ml 500 ml @ 167 mls/hr IVPB Q8HR [facility] Rx#: [id number] Intake, IV Titration 235.599 381.914 406.955 Amount Clevidipine Butyrate 25 78.334 186.334 mg In Empty Bag 1 bag @ 1 MG/HR 2 mls/hr IV .Q24H [facility] Rx#:[id number] Dexmedetomidine/0.9% NaCl 28.376 227.009 181.075 (Pmx) 400 mcg In Empty Bag 1 bag @ 0.2 MCG/KG/HR 5.405 mls/hr IV .[id number] [facility] Rx#:[id number] Midazolam HCl 200 mg In 124.666 Sodium Chloride 0.9% 60 ml @ 10 MG/HR 5 mls/hr IV .Q20H [facility] Rx#:[id number] Sodium Chloride 0.9% 200 82.557 ml @ 1 MCG/KG/HR 10.827 mls/hr IV .Q23H6M [facility] with fentaNYL (PF) 2,500 mcg Rx#:[id number] Sodium Chloride 0.9% 80 76.571 39.546 ml @ 1 MCG/KG/HR 10.81 mls/hr IV .Q9H16M [facility] with fentaNYL (PF) 1,000 mcg Rx#:[id number] Output: Urine 1630 630 610 Stool 0 Other: Voiding Method Indwelling Catheter Indwelling Catheter Indwelling Catheter # Bowel Movements 1 ABP, PAP, CO, CI - Last Documented Arterial Blood Pressure 146/59 - Exam Physical Exam: Revealed a 62-year-old white male obese, intubated, mechanically ventilated, in no distress. Head: Atraumatic, normocephalic, endotracheal tube and orogastric tube are intact. HEENT:[Neck is supple.] [No neck masses.] [No thyromegaly.] [No JVD.] Chest: Crackles and rhonchi noted bilaterally. Cardiac Exam: [Normal S1 and S2, no S3 gallop, no murmur.] Abdomen: [Soft, nontender, no megaly, no rebound, no guarding, normal bowel sounds.] Extremities: [No clubbing, no edema, no cyanosis.] Neurological Exam: Could not assess. Patient is fully sedated. Psychiatric: Could not assess. - Labs CBC & Chem 7: 09/24/22 04:26 09/24/22 11:15 Labs: Abnormal Lab Results - Last 24 Hours (Table) 09/23/22 09/24/22 09/24/22 Range/Units 23:43 04: 04:26 RBC 3.45 L (4.30-5.90) m/uL Hgb 10.0 L (13.0-17.5) gm/dL Hct 30.0 L (39.0-53.0) % ABG pH (7.35-7.45) ABG pO2 (83-108) mmHg ABG HCO3 (21-25) mmol/L ABG Total CO2 (19-24) mmol/L ABG O2 Saturation (94-97) % Chloride 111 H (98-107) mmol/L BUN 23 H (9-20) mg/dL Creatinine 0.59 L (0.66-1.25) mg/dL Glucose 147 H (74-99) mg/dL POC Glucose (mg/dL) 138 H (70-110) mg/dL Calcium 8.1 L (8.4-10.2) mg/dL 09/24/22 09/24/22 09/24/22 Range/Units 05:49 06:11 12:04 RBC (4.30-5.90) m/uL Hgb (13.0-17.5) gm/dL Hct (39.0-53.0) % ABG pH 7.48 H (7.35-7.45) ABG pO2 61 L (83-108) mmHg ABG HCO3 28 H (21-25) mmol/L ABG Total CO2 30 H (19-24) mmol/L ABG O2 Saturation 92.2 L (94-97) % Chloride (98-107) mmol/L BUN (9-20) mg/dL Creatinine (0.66-1.25) mg/dL Glucose (74-99) mg/dL POC Glucose (mg/dL) 155 H 148 H (70-110) mg/dL Calcium (8.4-10.2) mg/dL Microbiology - Last 24 Hours (Table) 09/22/22 07:07 Blood Culture - Preliminary Blood No Growth after 48 hours 09/20/22 16:25 Blood Culture - Preliminary Blood No Growth after 72 hours Assessment and Plan Assessment: Impression: Acute hypoxic respiratory failure secondary to acute delirium tremens and left lower lobe pneumonia secondary to Serratia marcescens Acute delirium tremens Dyslipidemia Altered mental status secondary to alcohol withdrawal well and possibly toxic metabolic encephalopathy History of alcoholism History of alcohol liver disease with bilateral elevated liver enzymes Benign essential hypertension Suspect acute diastolic congestive heart failure Recommendation: Continue ventilatory support , failed weaning trial today. Go back on fentanyl and propofol, discontinue Precedex. Give Lasix daily patient will receive another dose of 40 mg Lasix today.. Continue GI and DVT prophylaxis Continue cefepime and vancomycin for now. As per ID on the case. Continue DVT prophylaxis/Lovenox Continue Protonix. Continue thiamine Continue alcohol withdrawal protocol Patient remains critically ill Prognosis remains quite guarded. Patient is critically ill and critical care time is over 30 minutes Time with Patient: Greater than 30
[2022-09-24] MEDS ORDERED: VANCOMYCIN TROUGH DUE 1 EACH MISC MISCELLANE ONE (15:00)
--- NOTE | 2022-09-24 17:42 | P.PN ---
Subjective Progress Note Date: 09/24/22 Principal diagnosis: Fever/pneumonia Patient is a 62-year-old male presented to the hospital more than a week ago on 09/13/2022 for multiple falls and this patient apparently did have a history of alcohol abuse, patient did have worsening respiratory status requiring intubation sputum has been positive for Serratia marcescens on today's evaluation and that is 09/24/2022, the patient did have low-grade fever 99.9F around noon , the patient is hemodynamically stable not requiring any pressor support no significant purulent secretion through the ET, FiO2 is currently slightly up at 50 %, patient has been tolerating his tube feeds and no diarrhea has been reported by the nursing staff Objective - Vital Signs Vital signs: Vital Signs Temp 99.1 F 09/24/22 10:25 Pulse 111 H 09/24/22 11:00 Resp 34 H 09/24/22 11:00 BP 152/76 09/24/22 11:00 Pulse Ox 93 L 09/24/22 11:00 FiO2 50 09/24/22 12:01 Intake & Output 09/23/22 09/24/22 09/24/22 18:59 06:59 18:59 Intake Total 3928.547 5148.914 1107.955 Output Total 1630 630 610 Balance -88.401 523.914 497.955 Weight 108.1 kg 112.5 kg 112.5 kg Intake: IV 1306 772 701 0.9 Sodium Chloride 36 172 60 Cefepime 2 gm In Sodium 200 100 100 Chloride 0.9% 100 ml @ 25 mls/hr IVPB Q8HR [facility] Rx# :[id number] Sodium Chloride 0.9% 1, 70 40 000 ml @ 10 mls/hr IV . Q24H [facility] Rx#:[id number] Vancomycin 1,500 mg In 1000 500 501 Sodium Chloride 0.9% 500 ml 500 ml @ 167 mls/hr IVPB Q8HR [facility] Rx#: [id number] Intake, IV Titration 235.599 381.914 406.955 Amount Clevidipine Butyrate 25 78.334 186.334 mg In Empty Bag 1 bag @ 1 MG/HR 2 mls/hr IV .Q24H [facility] Rx#:[id number] Dexmedetomidine/0.9% NaCl 28.376 227.009 181.075 (Pmx) 400 mcg In Empty Bag 1 bag @ 0.2 MCG/KG/HR 5.405 mls/hr IV .[id number] [facility] Rx#:[id number] Midazolam HCl 200 mg In 124.666 Sodium Chloride 0.9% 60 ml @ 10 MG/HR 5 mls/hr IV .Q20H [facility] Rx#:[id number] Sodium Chloride 0.9% 200 82.557 ml @ 1 MCG/KG/HR 10.827 mls/hr IV .Q23H6M [facility] with fentaNYL (PF) 2,500 mcg Rx#:[id number] Sodium Chloride 0.9% 80 76.571 39.546 ml @ 1 MCG/KG/HR 10.81 mls/hr IV .Q9H16M [facility] with fentaNYL (PF) 1,000 mcg Rx#:[id number] Output: Urine 1630 630 610 Stool 0 Other: Voiding Method Indwelling Catheter Indwelling Catheter Indwelling Catheter # Bowel Movements 1 ABP, PAP, CO, CI - Last Documented Arterial Blood Pressure 146/59 - Exam GENERAL DESCRIPTION: A middle-age male intubated on the vent RESPIRATORY SYSTEM: Unlabored breathing , decreased breath sounds at bases HEART: S1 S2 regular rate and rhythm , ABDOMEN: Soft , mild distention EXTREMITIES: No edema feet - Labs CBC & Chem 7: 09/24/22 04:26 09/24/22 11:15 Labs: Abnormal Lab Results - Last 24 Hours (Table) 09/23/22 09/24/22 09/24/22 Range/Units 23:43 04:26 04:26 RBC 3.45 L (4.30-5.90) m/uL Hgb 10.0 L (13.0-17.5) gm/dL Hct 30.0 L (39.0-53.0) % ABG pH (7.35-7.45) ABG pO2 (83-108) mmHg ABG HCO3 (21-25) mmol/L ABG Total CO2 (19-24) mmol/L ABG O2 Saturation (94-97) % Chloride 111 H (98-107) mmol/L BUN 23 H (9-20) mg/dL Creatinine 0.59 L (0.66-1.25) mg/dL Glucose 147 H (74-99) mg/dL POC Glucose (mg/dL) 138 H (70-110) mg/dL Calcium 8.1 L (8.4-10.2) mg/dL 09/24/22 09/24/22 09/24/22 Range/Units 05:49 06:11 12:04 RBC (4.30-5.90) m/uL Hgb (13.0-17.5) gm/dL Hct (39.0-53.0) % ABG pH 7.48 H (7.35-7.45) ABG pO2 61 L (83-108) mmHg ABG HCO3 28 H (21-25) mmol/L ABG Total CO2 30 H (19-24) mmol/L ABG O2 Saturation 92.2 L (94-97) % Chloride (98-107) mmol/L BUN (9-20) mg/dL Creatinine (0.66-1.25) mg/dL Glucose (74-99) mg/dL POC Glucose (mg/dL) 155 H 148 H (70-110) mg/dL Calcium (8.4-10.2) mg/dL Microbiology - Last 24 Hours (Table) 09/22/22 07:07 Blood Culture - Preliminary Blood No Growth after 48 hours 09/20/22 16:25 Blood Culture - Preliminary Blood No Growth after 72 hours Assessment and Plan (1) Fever Current Visit: Yes Status: Acute Code(s): R50.9 - FEVER, UNSPECIFIED SNOMED Code(s): 275415302 (2) Pneumonia Current Visit: Yes Status: Acute Code(s): J18.9 - PNEUMONIA, UNSPECIFIED ORGANISM SNOMED Code(s): 231349607 Plan: 1patient with a fever in this patient who do have a history of alcoholism presented to hospital with weakness fall and decreased oral intake with acute respiratory failure requiring intubation concern for possible pneumonia sputum has been Serratia marcescens despite good antibiotic coverage the patient is still running a fever however did not have any elevated white count with a question of possible viral etiology versus DTs 2-patient did have a negative influenza vaccine and COVID testing, negative urine for Legionella antigen 3- blood cultures repeat has been negative, CRP mildly elevated and procalcitonin level is mildly elevated at 0.14 4- ultrasound of the abdomen did not show any acute abnormality 5- patient fever pattern has improved and the patient white count has been normal, with the cultures negative for MRSA we will discontinue vancomycin and continue the patient on cefepime Time with Patient: Less than 30
[2022-09-24] MEDS: SODIUM CHLORIDE 0.9% 1,000 ML IV SCH (17:48)
[2022-09-24 18:16] LABS: Glucose,Whole Blood 161 mg/dL (70-110)
[2022-09-24] MEDS: ATORVASTATIN 80 MG TAB PO SCH (20:54)
[2022-09-24 23:37] LABS: Glucose,Whole Blood 137 mg/dL (70-110)
[2022-09-25] MEDS: INSULIN ASPART (NovoLOG) 100 UNIT/ML VIAL SQ SCH ×4 (00:10→18:46)
[2022-09-25] MEDS: CEFEPIME 2 GM in SODIUM CHLORIDE 0.9% 100 ML IVPB SCH ×4 (00:22→23:43)
[2022-09-25] MEDS: MORPHINE SULFATE 2 MG/ML SYRINGE IVP PRN ×2 (01:39→08:35)
[2022-09-25] MEDS: CLEVIDIPINE BUTYRATE 25 MG in EMPTY BAG 1 BAG IV SCH ×8 (02:39→23:43)
[2022-09-25] MEDS: SODIUM CHLORIDE 0.9% 80 ML with fentaNYL (PF) 1,000 MCG IV SCH ×8 (03:53→21:32)
--- NOTE | 2022-09-25 04:04 | PN ---
PROGRESS NOTE DATE OF SERVICE: 09/24/2022 SUBJECTIVE: This 62-year-old gentleman was admitted with acute delirium tremens and acute hypoxic respiratory failure, on mechanical ventilation. Multiple consults following the patient closely including Nephrology. The most recent chest x-ray showed some left pleural effusion. The vent settings are noted. FiO2 was increased to 50% by Dr. Feliz. The patient failed trial weaning today. PAST MEDICAL HISTORY: Could not be taken. REVIEW OF SYSTEMS: Could not be taken. CURRENT MEDICATIONS: Reviewed include cefepime, doses and rest of medications noted. PHYSICAL EXAMINATION: VITAL SIGNS: Pulse is 102, blood pressure is 152/73, and respirations 13. HEENT: Conjunctivae normal. NECK: No jugular venous distention. CARDIOVASCULAR: S1, S2 muffled. RESPIRATIONS: Bilateral scattered rhonchi, no crackles. ABDOMEN: Soft. NERVOUS SYSTEM: Diffusely weak. LABORATORY DATA: Noted. ASSESSMENT: 1. Acute delirium tremens with acute hypoxic respiratory, on mechanical ventilation. 2. Pneumonia left lower lobe with possible sepsis. Sputum culture shows Serratia marcescens. 3. Alcohol withdrawal symptoms and elevated LFTs. 4. History of alcohol abuse. 5. Hyponatremia. 6. Full code. RECOMMENDATIONS AND DISCUSSION: This 62-year-old gentleman presented with multiple complex medical issues, we will monitor the patient closely. Continue the current management, continue symptomatic treatment, continue the broad-spectrum IV antibiotics. Follow the cultures. The chest x-ray still shows some infiltrates. Closely follow with Dr. Feliz. Discussed with staff and discussed with the family at length at bedside. Further recommendations to follow. MMODL / IJN: [id number] /
[2022-09-25 04:53] LABS: Basophils % (A) 1 %; Eosinophils # (A) 0.2 k/uL (0-0.7); Eosinophils % (A) 3 %; HCT 27.1 % (39.0-53.0); HGB 9.3 gm/dL (13.0-17.5); Lymphocytes # (A) 1.1 k/uL (1.0-4.8); Lymphocytes % (A) 17 %; MCH 29.9 pg (25.0-35.0); MCHC 34.4 g/dL (31.0-37.0); MCV 86.8 fL (80.0-100.0); Mean Platelet Volume 7.6; Monocytes # (A) 0.4 k/uL (0-1.0); Monocytes % (A) 6 %; Neutrophils # (A) 4.6 k/uL (1.3-7.7); Neutrophils % (A) 71 %; Platelet Count 426 k/uL (150-450); RBC 3.12 m/uL (4.30-5.90); RDW 13.3 % (11.5-15.5); WBC 6.4 k/uL (3.8-10.6)
[2022-09-25 05:04] LABS: ALT 129 U/L (4-49); AST 111 U/L (17-59); African American GFR (CKD) >90 (>60 ml/min/1.73 sqM); Albumin 2.6 g/dL (3.5-5.0); Alkaline Phosphatase 101 U/L (38-126); Anion Gap 4 mmol/L; Blood Urea Nitrogen 25 mg/dL (9-20); Calcium 7.7 mg/dL (8.4-10.2); Carbon Dioxide 26 mmol/L (22-30); Chloride 111 mmol/L (98-107); Glucose 138 mg/dL (74-99); Non-African American GFR(CKD) >90 (>60 ml/min/1.73 sqM); Potassium 3.3 mmol/L (3.5-5.1); Sodium 141 mmol/L (137-145); Total Protein 5.3 g/dL (6.3-8.2)
[2022-09-25 05:49] LABS: ABG Base Excess 3.6 mmol/L; ABG HCO3 27 mmol/L (21-25); ABG Oxygen Saturation 94.7 % (94-97); ABG PCO2 38 mmHg (35-45); ABG PH 7.46 (7.35-7.45); ABG PO2 70 mmHg (83-108); ABG TCO2 29 mmol/L (19-24); Allen Test Performed? Yes
[2022-09-25] MEDS: POTASSIUM BICARBONATE/CIT AC 20 MEQ TABLET.EFF NG-TUBE SCH ×4 (06:17→12:02)
--- NOTE | 2022-09-25 06:48 | XR ---
EXAMINATION TYPE: XR chest 1V DATE OF EXAM: 09/25/2022 COMPARISON: 09/24/2022 HISTORY: Mechanical ventilation TECHNIQUE: Single frontal view of the chest is obtained. FINDINGS: ET tube is 5.9 cm above the lorie. The NG tube tip is at the gastroesophageal junction. There is a l eft jugular central venous catheter unchanged in position. There has been no change in the large retrocardiac opacity likely combination of lung consolidation a nd/or atelectasis and pleural effusion. There is diffuse interstitial opacity likely indicating pulmo nary edema which is stable. IMPRESSION: 1. ET tube 5.9 cm above the lorie. 2. ET tube tip at the gastroesophageal junction. 3. No change in the acute cardiopulmonary disease.
[2022-09-25] MEDS: CHLORHEXIDINE GLUCONATE 15 ML CUP MUCOUS MEM SCH ×2 (08:19→20:41)
[2022-09-25] MEDS: ENOXAPARIN 40 MG/0.4 ML SYRINGE SQ SCH (08:19)
[2022-09-25] MEDS: PARoxetine 20 MG TAB PO SCH (08:19)
[2022-09-25] MEDS: PANTOPRAZOLE 40 MG/10 ML VIAL IVP SCH (08:19)
[2022-09-25] MEDS: THIAMINE 100 MG/ML 2 ML VIAL IVP SCH (08:20)
[2022-09-25] MEDS: cloNIDine HCL 0.2 MG TAB PO SCH ×3 (08:20→20:44)
[2022-09-25] MEDS ORDERED: FUROSEMIDE 10 MG/ML 4 ML VIAL IV SCH (09:00)
[2022-09-25 09:56] LABS: African American GFR (CKD) >90 (>60 ml/min/1.73 sqM); Anion Gap 4 mmol/L; Blood Urea Nitrogen 24 mg/dL (9-20); Calcium 7.6 mg/dL (8.4-10.2); Carbon Dioxide 27 mmol/L (22-30); Chloride 112 mmol/L (98-107); Glucose 137 mg/dL (74-99); Non-African American GFR(CKD) >90 (>60 ml/min/1.73 sqM); Potassium 3.4 mmol/L (3.5-5.1); Sodium 143 mmol/L (137-145)
[2022-09-25 09:57] VITALS: BMI 34.4
--- NOTE | 2022-09-25 11:38 | P.PN ---
Progress Note - Text Progress Note Date: 09/25/22 Seen at bedside, Intubated, sedated REVIEW OF SYSTEMS: LIMITED INTUBATED PHYSICAL EXAMINATION: GENERAL: The patient is alert and oriented x0 , not in any acute distress. Well developed, well nourished. HEENT: Pupils are round and equally reacting to light. EOMI. CARDIOVASCULAR: S1 and S2 present. No murmurs, rubs, or gallops. PULMONARY: Chest is clear to auscultation, no wheezing or crackles. INTUBATED ABDOMEN: Soft, nontender, nondistended, normoactive bowel sounds. No palpable organomegaly. MUSCULOSKELETAL: No joint swelling or deformity. EXTREMITIES: No cyanosis, clubbing, or pedal edema. NEUROLOGICAL: Gross neurological examination did not reveal any focal deficits. 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 Continue DVT prophylaxis/Lovenox Continue Protonix. Continue thiamine Continue alcohol withdrawal protocol Patient remains critically ill
[2022-09-25 11:44] LABS: Glucose,Whole Blood 141 mg/dL (70-110)
--- NOTE | 2022-09-25 11:53 | P.PN ---
Subjective Progress Note Date: 09/25/22 Principal diagnosis: Acute delirium tremens requiring intubation and mechanical ventilation 62-year-old male patient, alcoholic, brought into the hospital on family request. EMS as the patient has not been eating any food for the past 10 days. He has been drinking significantly and he drinks beer and whiskey. He is an alcoholic and has been drinking excessively over the past 2 years at least. He has had multiple falls at home. No injuries to his head or traumatic head in jury. He has bruises over the right cheek. No nausea. No emesis. No aspiration. No seizure activity has been noted. No reported chest pain or shortness of breath. No history of any substance abuse other than alcohol. As the patient was brought into the hospital, the patient was found to be in delirium tremens, increased confusion, agitation and tremors. He was given Ativan on the Route to the hospital. Upon arrival, alcohol level was less than 10, his sodium level was 114, bicarb is 15 with a creatinine of 1.1, normal coagulation profile, his troponin was negative, urine osmolality was 499, urine sodium was less than 20, WBC count at 9.9 with hemoglobin 15.3 and a platelet count of 188. The LFTs are abnormal with an AST of 93, ALT of 79, bilirubin level is at 2.3 and the lactic acid level is down to 1.6. The chest x-ray shows no acute abnormalities. On today's evaluation of 09/14/2022, the patient is intubated on a mechanical ventilator. The patient is, comfortable. Overnight, the patient was becoming progressively more agitated and he has required increased dose of Ativan and he was maximized on Precedex without any adequate control of the situation. Based on that, the patient had to be intubated on placed on a mechanical ventilator. No seizure activity was witnessed. The patient was essentially having delirium tremens. This morning, the patient is intubated on a mechanical ventilator. He is on assist control mode at a rate of 20, tidal volume of 500, FiO2 of 50% with a PEEP of 5. His blood gas from today shows a pH of 7.42 with a pCO2 of 36 and pO2 of 179. His chest x-ray from today shows adequate expansion of both lungs. ET tube is in good location. There is no evidence of any pneumothorax. No areas of any consolidation or airspace disease. No respiratory secretions. The patient is oxygenating and ventilating adequately. Is currently on propofol which is running at 75 mL an hour. His well sedated. He is taken off the hypertonic saline. His sodium gradually improved and this morning is up to 124 and subsequently 125. The rest of the electrolytes show a potassium level of 3.8 and these to be replaced, BUN is at 70 with a creatinine of 0.9. His white cell count is 5.3 with a hemoglobin of 11.4 and a platelet count of 129. Lal cath is in place. Urine output is adequate. He is afebrile. Liver function tests were not obtained. Calcium levels at 7.4. Blood sugars at 96. On today's evaluation of 09/15/2022, seeing the patient for a follow-up. As mentioned, this is a case of DTs, the patient is currently intubated on a mechanical ventilator, sedated with a combination of propofol and is also requiring on enough dose of Ativan throughout the night. The patient this morning is on propofol which is running at 55 mcg/kg/m. He is coming comfortable. The triglyceride levels are elevated and I'm in the process of sw itching the propofol to Precedex. The same time, his mentation will be evaluated. His abdomen is to wean will be also evaluated on a daily basis. He has remained hemodynamically stable over the past 24 hours. He remains on mechanical ventilator on assist control mode with a rate of 20, tidal volume of 500, FiO2 40% with a PEEP of 5. Blood gases from today shows a pH of 7.5 with a pCO2 of 33 and pO2 of 83. His chest x-ray from today shows no acute abnormalities. The orotracheal tube is in a good location. The lungs are adequately expanded and there are no significant infiltration. There may be some small left-sided pleural effusion/atelectasis. His seconds at 5.9 with a hemoglobin 11.1 and a platelet count of 146. Sodium level has gradually come up to 127. Is currently on IV fluids with normal saline at rate of 20 mL an hour. Urine output is adequate for now. He is on enteral feeding and the patient is receiving vital high-protein at the rate of 10 mL an hour. No sei zure activity has been noted. No fever. No significant orotracheal secretions. No other issues for now. His condition is stable. On 09/16/2022, the patient is being seen for a follow-up. We managed to get the patient off the propofol and the patient is currently on Precedex which is running at the highest dose of 1.4 mcg/kg/h and the patient is also on fentanyl at 1 mcg/kg/h. Arousable, lethargic, not consistent in following commands, neurologic exam is nonfocal and he continues to move all 4 extremities. He has a very strong cough reflex patient will being suctioned. He remains on a mechanical ventilator. His urine output was low and he was given a bolus of normal saline yesterday which improved his urine output. His electrolytes today are stable. His sodium level is currently at 129 with a potassium level of 4.2, BUN is at 40 with a creatinine of 0.7. His CBC is also stable with a hemoglobin of 11 and a platelet count of 158. On a separate note, the patient remains on a mechanical ventilator. Is currently on a assist control mode rate of 14, tidal volume of 500, FiO2 40% with a PEEP of 5. There is improvement in his acid base status. His pH is at 7.39 with a pCO2 of 36 and pO2 of 95. Repeat chest x-ray from today shows stable findings. No evidence of any pneumonia. There is left lower lobe atelectasis. ET tube is in a I location an NG tube is in place. Is receiving enteral feeding for nutritional support. Is on vital high-protein at the rate of 10 mL an hour. He did spike a temperature 100.5 today. He has been spiking low-grade fever since yesterday. On 09/17/2022, the patient is being seen for a follow-up. Note that this morning, the patient is on a combination of Precedex 1.4 mcg/kg/h and fentanyl at 2 mcg/kg/h. We were able to discontinue propofol. Yesterday, the patient was arousing on a sedation holiday. Nevertheless, he never got to point where he was following commands and he was getting progressively more agitated. At the same time was having fever and the left lower lobe pneumonia was suspected. Based on that, the sedation holiday was aborted and the patient was kept on a mechanical ventilator. The same will be done today. The patient is on assist control mode at a rate of 14, tidal volume of 500, FiO2 of 40% with a PEEP of 5. The chest x-ray showing cardiac regular and left lower lobe consolidation/infiltrate. The white cell count at 6 with a hemoglobin of 10.05 and the patient is not having any fever at this point. Blood pressure was a pH of 7.34 with a pCO2 of 40 and pO2 of 93. BUN is at 60 with a creatinine of 0.58. Sodiums of 133 and a potassium level of 3.9. He does have some mild transaminitis. He remains on vital high-protein running at the rate of 40 mL an hour. IV fluids are currently in the form of 0.9 saline at the rate of 75 mL an hour. Urine output is adequate at 50 mL an hour. Pro-calcitonin level is at 0.14. 09/18/2022, the patient is being given a sedation holiday. Earlier this morning is at 7 AM, the patient was taken off the fentanyl. Is currently on Precedex running at 0.9 mcg/kg/h. He is following some simple commands. He remains profoundly weak. He has sweating and somewhat diaphoretic. It's possible that there may be some ongoing withdrawals. Nevertheless, he is able to squeeze using his hands upon demand. Is following some simple commands. When the pr ocess of monitoring the patient and weaning of his Precedex slowly. He may need some background Precedex running as were weaning patient off the sedation. Meanwhile, the patient will be kept on a mechanical ventilator. Is on assist control mode at the rate of 40 with a tidal volume of 500 and FiO2 of 40% with a PEEP of 5. Chest x-rays available quality, no new changes. His pH is at 7.46 with a pCO2 of 36 and pO2 of 70. The white cell cause of 4.7 with a hemoglobin of 10.2. BUN is at 80 with a creatinine of 0.6. Sodium is at 136. He remains on IV Zosyn. Sputum Gram stain and culture still pending. The pro-calcitonin level was at 0.14. He is afebrile. He is receiving vital high-protein at the rate of 60 mL an hour. He was noted to have a temperature spike at around 4:00 yesterday afternoon with a T-max of 101.4. His net fluid balance is positive at least 5 L over the past 3 days and over the past 24 hours has been +1.3 L. 4 2022, I'm seeing the patient for a follow-up. Patient was weaned off the fentanyl yesterday and he was kept on a low-dose Precedex. Subsequently, he was able to follow commands and he looks quite comfortable. We gave him a spontaneous breathing trial and he did well and at that point, we decided to go ahead and extubate the patient. The patient was extubated on 09/18/2022. He did well for quite some time and subsequently became more agitated, restless, and continued to have encephalopathy and tremors. He was moving all 4 extremities without any limitation. At that point, the Precedex dose was gradually increased. He was given Haldol. Based on failure to control his agitation, I started him on low-dose Versed drip which is currently running at 4 mg an hour. He is also on Precedex at 1.4 mcg/kg/m. His blood pressure was elevated and he is also on Cleviprex 8 mg an hour. patient is arousable. He is only oriented 1. His breathing is nonlabored. He is on oxygen at 10 L and his pulse ox in the order of 91%. Repeat chest x-ray was done today and the chest x-ray shows or respiratory efforts, cardiomegaly and some mild interstitial edema. IV fluids are currently at 20 mL an hour. BUN is a 50 with a creatinine of 0.5. His sodium level is at 138. The white cell cause of 4.5 with a hemoglobin of 10.5 and a platelet count of 272. Mild transaminitis related to his chronic alcoholic liver disease with a bilirubin level of 1.4. No seizure activity has been noted. No aspiration the patient is currently nothing by mouth. He has an arterial line in his left upper extremity. He is afebrile this morning. He remains on IV Zosyn. Sputum Gram stain is showing gram-negative bacillus. Patient was reevaluated today on 09/20/2022, patient remains in the ICU, intubated and mechanically ventilated. Patient is on assist control rate of 20 tidal volume 450 FiO2 50% and PEEP of 10 ABG showed a pO2 of 74 pCO2 40 pH of 7.44 hence no changes were made in the ventilator settings. Patient is requiring fentanyl at 2 mcg/kg/h is also on Versed and Precedex, he is also on Cleviprex. His a Versed doses 12 mg per hour. And Precedex is 1 mcg/kg/h. Apparently the patient required intubation yesterday by Dr. Scott, although he was on mechanical ventilation before and he was extubated on 09/18/2022, but had to be re intubated yesterday.09/19/2022 his agitation was in extreme and he could not be controlled with the medications and with Haldol, and required intubation and mechanical ventilation again. Patient had sputum cultures showing Serratia marcescens, sensitive to Zosyn. he is maintained on Zosyn. Patient is now on day #7 from his last drink. Chest x-ray is clearly showing significant left lower lobe infiltrate/consolidation and right lower lobe infiltrate/atelectasis. WBC count is 4.6 hemoglobin is 10.3. Rest of the labs including basic metabolic profile renal profile liver profile are unremarkable slightly elevated liver enzymes noted Reevaluated today on 09/21/2022, patient remains in the ICU intubated and mechanically ventilated he is on assist control rate of 20 tidal volume 450 FiO2 50% PEEP is 10 ABG showed a pO2 of 75 pCO2 47 pH of 7.40, I decreased his PEEP from 10-8. Patient remains on Versed, fentanyl, and Precedex, hence I plan to discontinue Precedex and keep the patient for now on Versed and fentanyl. His Versed dose is 15 mg per hour fentanyl is at 2 mcg/kg/h and he was placed on Cleviprex last night for elevated blood pressure. This morning he is off the Cleviprex. Patient is tolerating enteral feedings receiving vital HPI 35 mL per hour. Chest x-ray shows left lower lobe atelectasis/infiltrates, doubt pulmonary edema. WBC count today is 5.1 hemoglobin is 9.4. Basic metabolic profile is normal except for low potassium of 3.4. reevaluated today on 09/22/2022, patient remains in the ICU intubated and mechanically ventilated. He is an assist-control rate of 20, tidal volume 450 FiO2 45% and I cut down from 50% he is also on a PEEP of 8. ABG showed a pO2 of 93 pCO2 of 48 pH of 7.40.patient is requiring fentanyl at 2 mcg/kg/h and he is also on Darvocet at 15 mg per hour. My plan today is discontinue fentanyl if possible and addressed mental status on this patient and decide whether the patient could be considered for weaning. Patient is still receiving vital HPF 35 mL per hour, chest x-ray showed evidence of pneumonia possible interstitial edema, the recommended dose of Lasix 40 mg IV push 1WBC count is 5.1 hemoglobin is 9 hematocrit is 27.3 *Normal, renal profile remains normal. Patient was reevaluated today on 09/23/2022, remains in the ICU, intubated and mechanically ventilated. Patient is on assist control rate of 20, tidal volume 450 FiO2 45% PEEP of 8 remains on vancomycin and cefepime, he does have Serratia marcescens in the sputum and looks like he may have Serratia marcescens pneumonia. And Comycin was added by infectious disease mostly because the patient kept having fevers in spite of good course of antibiotics, he was on Zo syn all along. Today I his chest x-ray showing worsening interstitial edema, I recommended Lasix 40 mg IV push. Patient is on Versed 15 mg per hour he is on vital HPI 35/35 he is also on fentanyl of 0.5 mg/kg/h and I am planning to discontinue fentanyl. ABG showed a pO2 of 95 pCO2 45 pH of 7.43. The plan is to wake of the patient today, cut down on the sedation significantly, addressed mental status, address possibly a weaning trial and if tolerated be even extubate. WBC count is 5 hemoglobin 8.9 lites are normal, renal profile is normal Reevaluated today on 09/24/2022, patient remains in the ICU, intubated and mechanically ventilated. He is on assist control rate of 20 tidal volume 450 FiO2 45% and PEEP of 8 his ABG showed a pO2 of 61 pCO2 of 38 pH of 7.48 however his FiO2 was increased to 50% based on the fact that his pO2 level was marginal at 61. Patient was given a trial of weaning today, however he desaturated, and he developed significant tachypnea tachycardia and hypertension clearly he is not tolerating weaning trials. Went back and placed him on his fentanyl, propofol, and I will discontinue his Precedex altogether. He was doing well on Precedex but when time came to weaning , and with the patient fentanyl, patient became extremely restless agitated, desaturating, and had to be placed back on fentanyl and on propofol. Patient remains on antibiotics in the form of vancomycin and cefepime for his Serratia marcescens infection/pneumonia being followed by infectious disease. Today I gave him a dose of Lasix 40 mg IV push as his chest x-ray is showing some mild component of interstitial edema/infiltrates WBC count today is 6.4 hemoglobin is 10, basic metabolic profile is normal renal profile is normal chest x-ray as noted above suspicious for underlying component of interstitial edema. And right basilar airspace disease Reevaluated today on 09/25/2022, patient did poorly yesterday as we were trying to get him off sedation patient became extremely agitated, desaturated, had to be placed back on full sedation including fentanyl at to micrograms per kilo per hour, and he is now on propofol at 75 mcg/kg/m. Patient desaturated hence his FiO2 was increased to 70% today I put him down back to 50% and PEEP of 12. Patient is receiving Cleviprex of 10 mg per hour results on propofol and fentanyl as noted above vital HPF at 10 mL per hour. Antibiotics ponce remains on cefepime. His ABG showed a pO2 of 70 pCO2 38 pH of 7.46. Echocardiogram came back unremarkable. Chest x-ray continues to show left lower lobe consolidation. There is improvement in his bilateral interstitial edema. WBC count is 6.4 hemoglobin is 9.3, basic metabolic profile is normal except slightly low potassium of 3.4 being addressed accordingly. Patient continues to have good urine output, and he is still receiving Lasix on a daily basis. Objective - Vital Signs Vital signs: Vital Signs Temp 99.8 F H 09/25/22 09:00 Pulse 83 09/25/22 11:00 Resp 20 09/25/22 11:00 BP 152/76 09/25/22 07:00 Pulse Ox 97 09/25/22 11:00 FiO2 50 09/25/22 11:38 Intake & Output 09/24/22 09/25/22 09/25/22 18:59 06:59 18:59 Intake Total 2363.572 1840.194 869.542 Output Total 985 600 690 Balance 8393.817 7822.194 179.542 Weight 112.5 kg 115.3 kg 115.3 kg Intake: IV 1401 290 160 0.9 Sodium Chloride 160 190 60 Cefepime 2 gm In Sodium 200 100 100 Chloride 0.9% 100 ml @ 25 mls/hr IVPB Q8HR [facility] Rx# :[id number] Sodium Chloride 0.9% 1, 40 000 ml @ 10 mls/hr IV . Q24H [facility] Rx#:[id number] Vancomycin 1,500 mg In 1001 Sodium Chloride 0.9% 500 ml 500 ml @ 167 mls/hr IVPB Q8HR [facility] Rx#: [id number] Intake, IV Titration 836.572 734.194 470.542 Amount Clevidipine Butyrate 25 358.001 189.1 99.667 mg In Empty Bag 1 bag @ 1 MG/HR 2 mls/hr IV .Q24H [facility] Rx#:[id number] Dexmedetomidine/0.9% NaCl 181.075 (Pmx) 400 mcg In Empty Bag 1 bag @ 0.2 MCG/KG/HR 5.405 mls/hr IV .[id number] [facility] Rx#:[id number] Sodium Chloride 0.9% 80 100.000 ml @ 1 MCG/KG/HR 10.81 mls/hr IV .Q9H16M [facility] with fentaNYL (PF) 1,000 mcg Rx#:[id number] Sodium Chloride 0.9% 80 100 ml @ 1 MCG/KG/HR 10.81 mls/hr IV .Q9H16M [facility] with fentaNYL (PF) 1,000 mcg Rx#:[id number] propofoL 1,000 mg In 197.496 545.094 270.875 Empty Bag 1 bag @ 15 MCG/ KG/MIN 10.125 mls/hr IV . Q9H53M [facility] Rx#:[id number] Tube Feeding 126 756 209 Other 60 30 Output: Urine 985 600 690 Other: Voiding Method Indwelling Catheter Indwelling Catheter Indwelling Catheter ABP, PAP, CO, CI - Last Documented Arterial Blood Pressure 134/63 - Exam Physical Exam: Revealed a 62-year-old white male obese, intubated, mechanically ventilated, in no distress. Head: Atraumatic, normocephalic, endotracheal tube and orogastric tube are intact. HEENT:[Neck is supple.] [No neck masses.] [No thyromegaly.] [No JVD.] Chest: Crackles and rhonchi noted bilaterally. Cardiac Exam: [Normal S1 and S2, no S3 gallop, no murmur.] Abdomen: [Soft, nontender, no megaly, no rebound, no guarding, normal bowel sounds.] Extremities: [No clubbing, no edema, no cyanosis.] Neurological Exam: Could not assess. Patient is fully sedated. Psychiatric: Could not assess. - Labs CBC & Chem 7: 09/25/22 04:28 09/25/22 09:24 Labs: Abnormal Lab Results - Last 24 Hours (Table) 09/24/22 09/24/22 09/24/22 Range/Units 12:04 18:14 23:34 RBC (4.30-5.90) m/uL Hgb (13.0-17.5) gm/dL Hct (39.0-53.0) % ABG pH (7.35-7.45) ABG pO2 (83-108) mmHg ABG HCO3 (21-25) mmol/L ABG Total CO2 (19-24) mmol/L Potassium (3.5-5.1) mmol/L Chloride (98-107) mmol/L BUN (9-20) mg/dL Creatinine (0.66-1.25) mg/dL Glucose (74-99) mg/dL POC Glucose (mg/dL) 148 H 161 H 137 H (70-110) mg/dL Calcium (8.4-10.2) mg/dL AST (17-59) U/L ALT (4-49) U/L Total Protein (6.3-8.2) g/dL Albumin (3.5-5.0) g/dL 09/25/22 09/25/22 09/25/22 Range/Units 04:28 04:28 05:55 RBC 3.12 L (4.30-5.90) m/uL Hgb 9.3 L (13.0-17.5) gm/dL Hct 27.1 L (39.0-53.0) % ABG pH 7.46 H (7.35-7.45) ABG pO2 70 L (83-108) mmHg ABG HCO3 27 H (21-25) mmol/L ABG Total CO2 29 H (19-24) mmol/L Potassium 3.3 L (3.5-5.1) mmol/L Chloride 111 H (98-107) mmol/L BUN 25 H (9-20) mg/dL Creatinine 0.55 L (0.66-1.25) mg/dL Glucose 138 H (74-99) mg/dL POC Glucose (mg/dL) (70-110) mg/dL Calcium 7.7 L (8.4-10.2) mg/dL AST 111 H (17-59) U/L ALT 129 H (4-49) U/L Total Protein 5.3 L (6.3-8.2) g/dL Albumin 2.6 L (3.5-5.0) g/dL 09/25/22 09/25/22 Range/Units 09:24 11:42 RBC (4.30-5.90) m/uL Hgb (13.0-17.5) gm/dL Hct (39.0-53.0) % ABG pH (7.35-7.45) ABG pO2 (83-108) mmHg ABG HCO3 (21-25) mmol/L ABG Total CO2 (19-24) mmol/L Potassium 3.4 L (3.5-5.1) mmol/L Chloride 112 H (98-107) mmol/L BUN 24 H (9-20) mg/dL Creatinine 0.62 L (0.66-1.25) mg/dL Glucose 137 H (74-99) mg/dL POC Glucose (mg/dL) 141 H (70-110) mg/dL Calcium 7.6 L (8.4-10.2) mg/dL AST (17-59) U/L ALT (4-49) U/L Total Protein (6.3-8.2) g/dL Albumin (3.5-5.0) g/dL Microbiology - Last 24 Hours (Table) 09/22/22 07:07 Blood Culture - Preliminary Blood No Growth after 72 hours 09/20/22 16:25 Blood Culture - Preliminary Blood No Growth after 96 hours Assessment and Plan Assessment: Impression: Acute hypoxic respiratory failure secondary to acute delirium tremens and left lower lobe pneumonia secondary to Serratia marcescens Acute delirium tremens Dyslipidemia Altered mental status secondary to alcohol withdrawal well and possibly toxic metabolic encephalopathy History of alcoholism History of alcohol liver disease with bilateral elevated liver enzymes Benign essential hypertension Suspect acute diastolic congestive heart failure Recommendation: Continue ventilatory support , considering the patient is requiring high FiO2 and high PEEP, no plans to try weaning again today. Patient failed weaning yesterday. Continue fentanyl and propofol no need for Precedex at this point Continue GI and DVT prophylaxis Continue cefepime, his vancomycin was discontinued Continue DVT prophylaxis/Lovenox Continue Protonix. Continue thiamine Continue alcohol withdrawal protocol Patient remains critically ill Prognosis remains quite guarded. Patient is critically ill and critical care time is over 30 minutes Time with Patient: Greater than 30
--- NOTE | 2022-09-25 12:38 | P.PN ---
Subjective Progress Note Date: 09/25/22 Principal diagnosis: Physical 61-year-old male followed up with hyponatremia, thought to be initially from all call his him but did not respond to normal saline was given 3% saline. Sodium is improved and actually is going up. He is known with all call his him quite liver disease. Currently he is intubated with pneumonia and possible CHF. Currently on Lasix on a when necessary basis Remains on ventilator out. 50% FiO2. While signs are stable except temperature is 99.8. Blood pressure 130s. Heart rate in the 80s normal sinus rhythm 24-hour intake is 9 and 19 output is 7 40 mL of urine. Creatinine stable at 0.6. Objective - Vital Signs Vital signs: Vital Signs Temp 99.8 F H 09/25/22 12:00 Pulse 80 09/25/22 12:00 Resp 20 09/25/22 12:00 BP 152/76 09/25/22 07:00 Pulse Ox 97 09/25/22 12:00 FiO2 50 09/25/22 12:00 Intake & Output 09/24/22 09/25/22 09/25/22 18:59 06:59 18:59 Intake Total 2363.572 1840.194 919.542 Output Total 985 600 740 Balance 5261.783 5848.194 179.542 Weight 112.5 kg 115.3 kg 115.3 kg Intake: IV 1401 290 170 0.9 Sodium Chloride 160 190 70 Cefepime 2 gm In Sodium 200 100 100 Chloride 0.9% 100 ml @ 25 mls/hr IVPB Q8HR [facility] Rx# :[id number] Sodium Chloride 0.9% 1, 40 000 ml @ 10 mls/hr IV . Q24H [facility] Rx#:[id number] Vancomycin 1,500 mg In 1001 Sodium Chloride 0.9% 500 ml 500 ml @ 167 mls/hr IVPB Q8HR [facility] Rx#: [id number] Intake, IV Titration 836.572 734.194 470.542 Amount Clevidipine Butyrate 25 358.001 189.1 99.667 mg In Empty Bag 1 bag @ 1 MG/HR 2 mls/hr IV .Q24H [facility] Rx#:[id number] Dexmedetomidine/0.9% NaCl 181.075 (Pmx) 400 mcg In Empty Bag 1 bag @ 0.2 MCG/KG/HR 5.405 mls/hr IV .[id number] [facility] Rx#:[id number] Sodium Chloride 0.9% 80 100.000 ml @ 1 MCG/KG/HR 10.81 mls/hr IV .Q9H16M [facility] with fentaNYL (PF) 1,000 mcg Rx#:[id number] Sodium Chloride 0.9% 80 100 ml @ 1 MCG/KG/HR 10.81 mls/hr IV .Q9H16M [facility] with fentaNYL (PF) 1,000 mcg Rx#:[id number] propofoL 1,000 mg In 197.496 545.094 270.875 Empty Bag 1 bag @ 15 MCG/ KG/MIN 10.125 mls/hr IV . Q9H53M [facility] Rx#:[id number] Tube Feeding 126 756 219 Other 60 60 Output: Urine 985 600 740 Other: Voiding Method Indwelling Catheter Indwelling Catheter Indwelling Catheter ABP, PAP, CO, CI - Last Documented Arterial Blood Pressure 130/64 On the vent 50% FiO2 up 100 No JVP noted no facial asymmetry Lungs are clear to auscultation good air entry Heart sounds unremarkable Abdomen soft nontender Extremity exam was 2-3+ edema Neurologically obtunded. - Labs CBC & Chem 7: 09/25/22 04:28 09/25/22 09:24 Labs: Abnormal Lab Results - Last 24 Hours (Table) 09/24/22 09/24/22 09/25/22 Range/Units 18:14 23:34 04:28 RBC 3.12 L (4.30-5.90) m/uL Hgb 9.3 L (13.0-17.5) gm/dL Hct 27.1 L (39.0-53.0) % ABG pH (7.35-7.45) ABG pO2 (83-108) mmHg ABG HCO3 (21-25) mmol/L ABG Total CO2 (19-24) mmol/L Potassium (3.5-5.1) mmol/L Chloride (98-107) mmol/L BUN (9-20) mg/dL Creatinine (0.66-1.25) mg/dL Glucose (74-99) mg/dL POC Glucose (mg/dL) 161 H 137 H (70-110) mg/dL Calcium (8.4-10.2) mg/dL AST (17-59) U/L ALT (4-49) U/L Total Protein (6.3-8.2) g/dL Albumin (3.5-5.0) g/dL 09/25/22 09/25/22 09/25/22 Range/Units 04:28 05:55 09:24 RBC (4.30-5.90) m/uL Hgb (13.0-17.5) gm/dL Hct (39.0-53.0) % ABG pH 7.46 H (7.35-7.45) ABG pO2 70 L (83-108) mmHg ABG HCO3 27 H (21-25) mmol/L ABG Total CO2 29 H (19-24) mmol/L Potassium 3.3 L 3.4 L (3.5-5.1) mmol/L Chloride 111 H 112 H (98-107) mmol/L BUN 25 H 24 H (9-20) mg/dL Creatinine 0.55 L 0.62 L (0.66-1.25) mg/dL Glucose 138 H 137 H (74-99) mg/dL POC Glucose (mg/dL) (70-110) mg/dL Calcium 7.7 L 7.6 L (8.4-10.2) mg/dL AST 111 H (17-59) U/L ALT 129 H (4-49) U/L Total Protein 5.3 L (6.3-8.2) g/dL Albumin 2.6 L (3.5-5.0) g/dL 09/25/22 Range/Units 11:42 RBC (4.30-5.90) m/uL Hgb (13.0-17.5) gm/dL Hct (39.0-53.0) % ABG pH (7.35-7.45) ABG pO2 (83-108) mmHg ABG HCO3 (21-25) mmol/L ABG Total CO2 (19-24) mmol/L Potassium (3.5-5.1) mmol/L Chloride (98-107) mmol/L BUN (9-20) mg/dL Creatinine (0.66-1.25) mg/dL Glucose (74-99) mg/dL POC Glucose (mg/dL) 141 H (70-110) mg/dL Calcium (8.4-10.2) mg/dL AST (17-59) U/L ALT (4-49) U/L Total Protein (6.3-8.2) g/dL Albumin (3.5-5.0) g/dL Microbiology - Last 24 Hours (Table) 09/22/22 07:07 Blood Culture - Preliminary Blood No Growth after 72 hours 09/20/22 16:25 Blood Culture - Preliminary Blood No Growth after 96 hours Assessment and Plan Plan: Impression 1. Hyponatremia, volume depletion resolved. Mildly fluid overloaded with possible CHF. 2. Hypokalemia secondary to diuresis. 3. Ventilator dependent respiratory failure with pneumonia 50% FiO2 4. History of alcoholism, bilirubin is 1 LFTs is mildly elevated AST 111 AST 129 albumin 2.6 Recommendation 1. Continue to diuresis currently on 40 daily was increased to twice a day with careful monitoring of electrolytes and creatinine
[2022-09-25] MEDS: FUROSEMIDE 10 MG/ML 4 ML VIAL IV SCH ×2 (13:54→20:42)
--- NOTE | 2022-09-25 14:50 | P.PN ---
Subjective Progress Note Date: 09/25/22 Principal diagnosis: Fever/pneumonia Patient is a 62-year-old male presented to the hospital more than a week ago on 09/13/2022 for multiple falls and this patient apparently did have a history of alcohol abuse, patient did have worsening respiratory status requiring intubation sputum has been positive for Serratia marcescens on today's evaluation and that is 09/25/2022, the patient has been running a low grade fever 99.9, the patient is hemodynamically stable not requiring any pressor support , no significant purulent secretion through the ET, FiO2 is currently stable at 50 %, patient has been tolerating his tube feeds and no diarrhea or any other changes has been reported by the nursing staff Objective - Vital Signs Vital signs: Vital Signs Temp 99.8 F H 09/25/22 12:00 Pulse 77 09/25/22 14:00 Resp 20 09/25/22 14:00 BP 152/76 09/25/22 07:00 Pulse Ox 97 09/25/22 14:00 FiO2 50 09/25/22 12:00 Intake & Output 09/24/22 09/25/22 09/25/22 18:59 06:59 18:59 Intake Total 2363.572 3667.280 9472.178 Output Total 985 600 865 Balance 8711.209 8837.194 278.178 Weight 112.5 kg 115.3 kg 115.3 kg Intake: IV 1401 290 210 0.9 Sodium Chloride 160 190 110 Cefepime 2 gm In Sodium 200 100 100 Chloride 0.9% 100 ml @ 25 mls/hr IVPB Q8HR [facility] Rx# :[id number] Sodium Chloride 0.9% 1, 40 000 ml @ 10 mls/hr IV . Q24H [facility] Rx#:[id number] Vancomycin 1,500 mg In 1001 Sodium Chloride 0.9% 500 ml 500 ml @ 167 mls/hr IVPB Q8HR [facility] Rx#: [id number] Intake, IV Titration 836.572 734.194 634.178 Amount Clevidipine Butyrate 25 358.001 189.1 171.334 mg In Empty Bag 1 bag @ 1 MG/HR 2 mls/hr IV .Q24H [facility] Rx#:[id number] Dexmedetomidine/0.9% NaCl 181.075 (Pmx) 400 mcg In Empty Bag 1 bag @ 0.2 MCG/KG/HR 5.405 mls/hr IV .[id number] [facility] Rx#:[id number] Sodium Chloride 0.9% 80 100.000 ml @ 1 MCG/KG/HR 10.81 mls/hr IV .Q9H16M [facility] with fentaNYL (PF) 1,000 mcg Rx#:[id number] Sodium Chloride 0.9% 80 100 ml @ 1 MCG/KG/HR 10.81 mls/hr IV .Q9H16M [facility] with fentaNYL (PF) 1,000 mcg Rx#:[id number] propofoL 1,000 mg In 197.496 545.094 362.844 Empty Bag 1 bag @ 15 MCG/ KG/MIN 10.125 mls/hr IV . Q9H53M [facility] Rx#:[id number] Tube Feeding 126 756 239 Other 60 60 Output: Urine 985 600 865 Other: Voiding Method Indwelling Catheter Indwelling Catheter Indwelling Catheter ABP, PAP, CO, CI - Last Documented Arterial Blood Pressure 129/63 - Exam GENERAL DESCRIPTION: A middle-age male intubated on the vent RESPIRATORY SYSTEM: Unlabored breathing , decreased breath sounds at bases HEART: S1 S2 regular rate and rhythm , ABDOMEN: Soft , mild distention EXTREMITIES: No edema feet - Labs CBC & Chem 7: 09/25/22 04:28 09/25/22 09:24 Labs: Abnormal Lab Results - Last 24 Hours (Table) 09/24/22 09/24/22 09/25/22 Range/Units 18:14 23:34 04:28 RBC 3.12 L (4.30-5.90) m/uL Hgb 9.3 L (13.0-17.5) gm/dL Hct 27.1 L (39.0-53.0) % ABG pH (7.35-7.45) ABG pO2 (83-108) mmHg ABG HCO3 (21-25) mmol/L ABG Total CO2 (19-24) mmol/L Potassium (3.5-5.1) mmol/L Chloride (98-107) mmol/L BUN (9-20) mg/dL Creatinine (0.66-1.25) mg/dL Glucose (74-99) mg/dL POC Glucose (mg/dL) 161 H 137 H (70-110) mg/dL Calcium (8.4-10.2) mg/dL AST (17-59) U/L ALT (4-49) U/L Total Protein (6.3-8.2) g/dL Albumin (3.5-5.0) g/dL 09/25/22 09/25/22 09/25/22 Range/Units 04:28 05:55 09:24 RBC (4.30-5.90) m/uL Hgb (13.0-17.5) gm/dL Hct (39.0-53.0) % ABG pH 7.46 H (7.35-7.45) ABG pO2 70 L (83-108) mmHg ABG HCO3 27 H (21-25) mmol/L ABG Total CO2 29 H (19-24) mmol/L Potassium 3.3 L 3.4 L (3.5-5.1) mmol/L Chloride 111 H 112 H (98-107) mmol/L BUN 25 H 24 H (9-20) mg/dL Creatinine 0.55 L 0.62 L (0.66-1.25) mg/dL Glucose 138 H 137 H (74-99) mg/dL POC Glucose (mg/dL) (70-110) mg/dL Calcium 7.7 L 7.6 L (8.4-10.2) mg/dL AST 111 H (17-59) U/L ALT 129 H (4-49) U/L Total Protein 5.3 L (6.3-8.2) g/dL Albumin 2.6 L (3.5-5.0) g/dL 09/25/22 Range/Units 11:42 RBC (4.30-5.90) m/uL Hgb (13.0-17.5) gm/dL Hct (39.0-53.0) % ABG pH (7.35-7.45) ABG pO2 (83-108) mmHg ABG HCO3 (21-25) mmol/L ABG Total CO2 (19-24) mmol/L Potassium (3.5-5.1) mmol/L Chloride (98-107) mmol/L BUN (9-20) mg/dL Creatinine (0.66-1.25) mg/dL Glucose (74-99) mg/dL POC Glucose (mg/dL) 141 H (70-110) mg/dL Calcium (8.4-10.2) mg/dL AST (17-59) U/L ALT (4-49) U/L Total Protein (6.3-8.2) g/dL Albumin (3.5-5.0) g/dL Microbiology - Last 24 Hours (Table) 09/22/22 07:07 Blood Culture - Preliminary Blood No Growth after 72 hours 09/20/22 16:25 Blood Culture - Preliminary Blood No Growth after 96 hours Assessment and Plan (1) Fever Current Visit: Yes Status: Acute Code(s): R50.9 - FEVER, UNSPECIFIED SNOMED Code(s): 026256359 (2) Pneumonia Current Visit: Yes Status: Acute Code(s): J18.9 - PNEUMONIA, UNSPECIFIED OR GANISM SNOMED Code(s): 384375294 Plan: 1patient with a fever in this patient who do have a history of alcoholism presented to hospital with weakness fall and decreased oral intake with acute respiratory failure requiring intubation concern for possible pneumonia sputum has been Serratia marcescens despite good antibiotic coverage the patient is still running a fever however did not have any elevated white count with a question of possible viral etiology versus DTs 2-patient did have a negative influenza vaccine and COVID testing, negative urine for Legionella antigen 3- blood cultures repeat has been negative, CRP mildly elevated and procalcitonin level is mildly elevated at 0.14 4- ultrasound of the abdomen did not show any acute abnormality 5- patient fever pattern has improved and the patient white count has been normal, patient to continue with the cefepime and will monitor his clinical course closely Time with Patient: Less than 30
[2022-09-25] MEDS: SODIUM CHLORIDE 0.9% 1,000 ML IV SCH (16:35)
[2022-09-25 18:47] LABS: Glucose,Whole Blood 130 mg/dL (70-110)
[2022-09-25] MEDS: ATORVASTATIN 80 MG TAB PO SCH (20:41)
[2022-09-26 00:01] LABS: Glucose,Whole Blood 119 mg/dL (70-110)
[2022-09-26] MEDS: INSULIN ASPART (NovoLOG) 100 UNIT/ML VIAL SQ SCH ×4 (00:49→18:20)
[2022-09-26] MEDS: POTASSIUM BICARBONATE/CIT AC 20 MEQ TABLET.EFF NG-TUBE SCH ×2 (00:50→02:26)
[2022-09-26] MEDS: SODIUM CHLORIDE 0.9% 80 ML with fentaNYL (PF) 1,000 MCG IV SCH ×8 (02:27→18:40)
[2022-09-26] MEDS: CLEVIDIPINE BUTYRATE 25 MG in EMPTY BAG 1 BAG IV SCH ×6 (02:53→20:51)
[2022-09-26 05:26] LABS: Basophils % (A) 1 %; Eosinophils # (A) 0.2 k/uL (0-0.7); Eosinophils % (A) 3 %; HGB 8.7 gm/dL (13.0-17.5); Lymphocytes # (A) 0.9 k/uL (1.0-4.8); Lymphocytes % (A) 19 %; MCHC 33.6 g/dL (31.0-37.0); MCV 86.3 fL (80.0-100.0); Mean Platelet Volume 7.4; Monocytes # (A) 0.3 k/uL (0-1.0); Monocytes % (A) 6 %; Neutrophils # (A) 3.5 k/uL (1.3-7.7); Neutrophils % (A) 69 %; Platelet Count 411 k/uL (150-450); RBC 3.01 m/uL (4.30-5.90); RDW 13.5 % (11.5-15.5); WBC 5.1 k/uL (3.8-10.6)
[2022-09-26 05:36] LABS: African American GFR (CKD) >90 (>60 ml/min/1.73 sqM); Anion Gap 3 mmol/L; Blood Urea Nitrogen 23 mg/dL (9-20); Calcium 7.9 mg/dL (8.4-10.2); Carbon Dioxide 29 mmol/L (22-30); Chloride 110 mmol/L (98-107); Glucose 110 mg/dL (74-99); Non-African American GFR(CKD) >90 (>60 ml/min/1.73 sqM); Potassium 3.9 mmol/L (3.5-5.1); Sodium 142 mmol/L (137-145)
[2022-09-26 06:04] LABS: ABG Base Excess 4.3 mmol/L; ABG HCO3 29 mmol/L (21-25); ABG Oxygen Saturation 99.2 % (94-97); ABG PCO2 42 mmHg (35-45); ABG PH 7.44 (7.35-7.45); ABG PO2 110 mmHg (83-108); ABG TCO2 30 mmol/L (19-24); Allen Test Performed? Yes
--- NOTE | 2022-09-26 06:09 | XR ---
EXAMINATION TYPE: XR chest 1V portable DATE OF EXAM: 09/26/2022 COMPARISON: 09/25/2022 HISTORY: Tube placement TECHNIQUE: Single frontal view of the chest is obtained. Tube placement the ET tube is 5.5 cm above the lorie. The tip of the NG tube is unchanged in positio n and is at the gastroesophageal junction. The left jugular central venous catheter is in the SVC/RA junction. The opacity in the left lung base unchanged likely combination of pleural effusion and airspace opaci fication and/or atelectasis. Right lung remains clear. Pulmonary vasculature appears mildly congested unchanged compared to previous. There is no pneumothorax. IMPRESSION: ET tube 5.5 cm above the lorie. Mild to moderate acute cardiopulmonary disease unchanged compared to previous.
[2022-09-26] MEDS ORDERED: POTASSIUM BICARBONATE/CIT AC 20 MEQ TABLET.EFF NG-TUBE SCH (07:00)
[2022-09-26] MEDS: CEFEPIME 2 GM in SODIUM CHLORIDE 0.9% 100 ML IVPB SCH ×2 (07:49→16:11)
[2022-09-26] MEDS: CHLORHEXIDINE GLUCONATE 15 ML CUP MUCOUS MEM SCH ×2 (07:49→20:51)
[2022-09-26] MEDS: ENOXAPARIN 40 MG/0.4 ML SYRINGE SQ SCH (07:49)
[2022-09-26] MEDS: FUROSEMIDE 10 MG/ML 4 ML VIAL IV SCH ×3 (07:49→20:51)
[2022-09-26] MEDS: PANTOPRAZOLE 40 MG/10 ML VIAL IVP SCH (07:49)
[2022-09-26] MEDS: PARoxetine 20 MG TAB PO SCH (07:49)
[2022-09-26] MEDS: cloNIDine HCL 0.2 MG TAB PO SCH ×3 (07:56→21:26)
[2022-09-26] MEDS: THIAMINE 100 MG/ML 2 ML VIAL IVP SCH (07:56)
--- NOTE | 2022-09-26 11:17 | P.PN ---
Subjective Progress Note Date: 09/26/22 Principal diagnosis: Acute delirium tremens requiring intubation and mechanical ventilation 62-year-old male patient, alcoholic, brought into the hospital on family request. EMS as the patient has not been eating any food for the past 10 days. He has been drinking significantly and he drinks beer and whiskey. He is an alcoholic and has been drinking excessively over the past 2 years at least. He has had multiple falls at home. No injuries to his head or traumatic head in jury. He has bruises over the right cheek. No nausea. No emesis. No aspiration. No seizure activity has been noted. No reported chest pain or shortness of breath. No history of any substance abuse other than alcohol. As the patient was brought into the hospital, the patient was found to be in delirium tremens, increased confusion, agitation and tremors. He was given Ativan on the Route to the hospital. Upon arrival, alcohol level was less than 10, his sodium level was 114, bicarb is 15 with a creatinine of 1.1, normal coagulation profile, his troponin was negative, urine osmolality was 499, urine sodium was less than 20, WBC count at 9.9 with hemoglobin 15.3 and a platelet count of 188. The LFTs are abnormal with an AST of 93, ALT of 79, bilirubin level is at 2.3 and the lactic acid level is down to 1.6. The chest x-ray shows no acute abnormalities. On today's evaluation of 09/14/2022, the patient is intubated on a mechanical ventilator. The patient is, comfortable. Overnight, the patient was becoming progressively more agitated and he has required increased dose of Ativan and he was maximized on Precedex without any adequate control of the situation. Based on that, the patient had to be intubated on placed on a mechanical ventilator. No seizure activity was witnessed. The patient was essentially having delirium tremens. This morning, the patient is intubated on a mechanical ventilator. He is on assist control mode at a rate of 20, tidal volume of 500, FiO2 of 50% with a PEEP of 5. His blood gas from today shows a pH of 7.42 with a pCO2 of 36 and pO2 of 179. His chest x-ray from today shows adequate expansion of both lungs. ET tube is in good location. There is no evidence of any pneumothorax. No areas of any consolidation or airspace disease. No respiratory secretions. The patient is oxygenating and ventilating adequately. Is currently on propofol which is running at 75 mL an hour. His well sedated. He is taken off the hypertonic saline. His sodium gradually improved and this morning is up to 124 and subsequently 125. The rest of the electrolytes show a potassium level of 3.8 and these to be replaced, BUN is at 70 with a creatinine of 0.9. His white cell count is 5.3 with a hemoglobin of 11.4 and a platelet count of 129. Lal cath is in place. Urine output is adequate. He is afebrile. Liver function tests were not obtained. Calcium levels at 7.4. Blood sugars at 96. On today's evaluation of 09/15/2022, seeing the patient for a follow-up. As mentioned, this is a case of DTs, the patient is currently intubated on a mechanical ventilator, sedated with a combination of propofol and is also requiring on enough dose of Ativan throughout the night. The patient this morning is on propofol which is running at 55 mcg/kg/m. He is coming comfortable. The triglyceride levels are elevated and I'm in the process of sw itching the propofol to Precedex. The same time, his mentation will be evaluated. His abdomen is to wean will be also evaluated on a daily basis. He has remained hemodynamically stable over the past 24 hours. He remains on mechanical ventilator on assist control mode with a rate of 20, tidal volume of 500, FiO2 40% with a PEEP of 5. Blood gases from today shows a pH of 7.5 with a pCO2 of 33 and pO2 of 83. His chest x-ray from today shows no acute abnormalities. The orotracheal tube is in a good location. The lungs are adequately expanded and there are no significant infiltration. There may be some small left-sided pleural effusion/atelectasis. His seconds at 5.9 with a hemoglobin 11.1 and a platelet count of 146. Sodium level has gradually come up to 127. Is currently on IV fluids with normal saline at rate of 20 mL an hour. Urine output is adequate for now. He is on enteral feeding and the patient is receiving vital high-protein at the rate of 10 mL an hour. No sei zure activity has been noted. No fever. No significant orotracheal secretions. No other issues for now. His condition is stable. On 09/16/2022, the patient is being seen for a follow-up. We managed to get the patient off the propofol and the patient is currently on Precedex which is running at the highest dose of 1.4 mcg/kg/h and the patient is also on fentanyl at 1 mcg/kg/h. Arousable, lethargic, not consistent in following commands, neurologic exam is nonfocal and he continues to move all 4 extremities. He has a very strong cough reflex patient will being suctioned. He remains on a mechanical ventilator. His urine output was low and he was given a bolus of normal saline yesterday which improved his urine output. His electrolytes today are stable. His sodium level is currently at 129 with a potassium level of 4.2, BUN is at 40 with a creatinine of 0.7. His CBC is also stable with a hemoglobin of 11 and a platelet count of 158. On a separate note, the patient remains on a mechanical ventilator. Is currently on a assist control mode rate of 14, tidal volume of 500, FiO2 40% with a PEEP of 5. There is improvement in his acid base status. His pH is at 7.39 with a pCO2 of 36 and pO2 of 95. Repeat chest x-ray from today shows stable findings. No evidence of any pneumonia. There is left lower lobe atelectasis. ET tube is in a I location an NG tube is in place. Is receiving enteral feeding for nutritional support. Is on vital high-protein at the rate of 10 mL an hour. He did spike a temperature 100.5 today. He has been spiking low-grade fever since yesterday. On 09/17/2022, the patient is being seen for a follow-up. Note that this morning, the patient is on a combination of Precedex 1.4 mcg/kg/h and fentanyl at 2 mcg/kg/h. We were able to discontinue propofol. Yesterday, the patient was arousing on a sedation holiday. Nevertheless, he never got to point where he was following commands and he was getting progressively more agitated. At the same time was having fever and the left lower lobe pneumonia was suspected. Based on that, the sedation holiday was aborted and the patient was kept on a mechanical ventilator. The same will be done today. The patient is on assist control mode at a rate of 14, tidal volume of 500, FiO2 of 40% with a PEEP of 5. The chest x-ray showing cardiac regular and left lower lobe consolidation/infiltrate. The white cell count at 6 with a hemoglobin of 10.05 and the patient is not having any fever at this point. Blood pressure was a pH of 7.34 with a pCO2 of 40 and pO2 of 93. BUN is at 60 with a creatinine of 0.58. Sodiums of 133 and a potassium level of 3.9. He does have some mild transaminitis. He remains on vital high-protein running at the rate of 40 mL an hour. IV fluids are currently in the form of 0.9 saline at the rate of 75 mL an hour. Urine output is adequate at 50 mL an hour. Pro-calcitonin level is at 0.14. 09/18/2022, the patient is being given a sedation holiday. Earlier this morning is at 7 AM, the patient was taken off the fentanyl. Is currently on Precedex running at 0.9 mcg/kg/h. He is following some simple commands. He remains profoundly weak. He has sweating and somewhat diaphoretic. It's possible that there may be some ongoing withdrawals. Nevertheless, he is able to squeeze using his hands upon demand. Is following some simple commands. When the pr ocess of monitoring the patient and weaning of his Precedex slowly. He may need some background Precedex running as were weaning patient off the sedation. Meanwhile, the patient will be kept on a mechanical ventilator. Is on assist control mode at the rate of 40 with a tidal volume of 500 and FiO2 of 40% with a PEEP of 5. Chest x-rays available quality, no new changes. His pH is at 7.46 with a pCO2 of 36 and pO2 of 70. The white cell cause of 4.7 with a hemoglobin of 10.2. BUN is at 80 with a creatinine of 0.6. Sodium is at 136. He remains on IV Zosyn. Sputum Gram stain and culture still pending. The pro-calcitonin level was at 0.14. He is afebrile. He is receiving vital high-protein at the rate of 60 mL an hour. He was noted to have a temperature spike at around 4:00 yesterday afternoon with a T-max of 101.4. His net fluid balance is positive at least 5 L over the past 3 days and over the past 24 hours has been +1.3 L. 4 2022, I'm seeing the patient for a follow-up. Patient was weaned off the fentanyl yesterday and he was kept on a low-dose Precedex. Subsequently, he was able to follow commands and he looks quite comfortable. We gave him a spontaneous breathing trial and he did well and at that point, we decided to go ahead and extubate the patient. The patient was extubated on 09/18/2022. He did well for quite some time and subsequently became more agitated, restless, and continued to have encephalopathy and tremors. He was moving all 4 extremities without any limitation. At that point, the Precedex dose was gradually increased. He was given Haldol. Based on failure to control his agitation, I started him on low-dose Versed drip which is currently running at 4 mg an hour. He is also on Precedex at 1.4 mcg/kg/m. His blood pressure was elevated and he is also on Cleviprex 8 mg an hour. patient is arousable. He is only oriented 1. His breathing is nonlabored. He is on oxygen at 10 L and his pulse ox in the order of 91%. Repeat chest x-ray was done today and the chest x-ray shows or respiratory efforts, cardiomegaly and some mild interstitial edema. IV fluids are currently at 20 mL an hour. BUN is a 50 with a creatinine of 0.5. His sodium level is at 138. The white cell cause of 4.5 with a hemoglobin of 10.5 and a platelet count of 272. Mild transaminitis related to his chronic alcoholic liver disease with a bilirubin level of 1.4. No seizure activity has been noted. No aspiration the patient is currently nothing by mouth. He has an arterial line in his left upper extremity. He is afebrile this morning. He remains on IV Zosyn. Sputum Gram stain is showing gram-negative bacillus. Patient was reevaluated today on 09/20/2022, patient remains in the ICU, intubated and mechanically ventilated. Patient is on assist control rate of 20 tidal volume 450 FiO2 50% and PEEP of 10 ABG showed a pO2 of 74 pCO2 40 pH of 7.44 hence no changes were made in the ventilator settings. Patient is requiring fentanyl at 2 mcg/kg/h is also on Versed and Precedex, he is also on Cleviprex. His a Versed doses 12 mg per hour. And Precedex is 1 mcg/kg/h. Apparently the patient required intubation yesterday by Dr. Scott, although he was on mechanical ventilation before and he was extubated on 09/18/2022, but had to be re intubated yesterday.09/19/2022 his agitation was in extreme and he could not be controlled with the medications and with Haldol, and required intubation and mechanical ventilation again. Patient had sputum cultures showing Serratia marcescens, sensitive to Zosyn. he is maintained on Zosyn. Patient is now on day #7 from his last drink. Chest x-ray is clearly showing significant left lower lobe infiltrate/consolidation and right lower lobe infiltrate/atelectasis. WBC count is 4.6 hemoglobin is 10.3. Rest of the labs including basic metabolic profile renal profile liver profile are unremarkable slightly elevated liver enzymes noted Reevaluated today on 09/21/2022, patient remains in the ICU intubated and mechanically ventilated he is on assist control rate of 20 tidal volume 450 FiO2 50% PEEP is 10 ABG showed a pO2 of 75 pCO2 47 pH of 7.40, I decreased his PEEP from 10-8. Patient remains on Versed, fentanyl, and Precedex, hence I plan to discontinue Precedex and keep the patient for now on Versed and fentanyl. His Versed dose is 15 mg per hour fentanyl is at 2 mcg/kg/h and he was placed on Cleviprex last night for elevated blood pressure. This morning he is off the Cleviprex. Patient is tolerating enteral feedings receiving vital HPI 35 mL per hour. Chest x-ray shows left lower lobe atelectasis/infiltrates, doubt pulmonary edema. WBC count today is 5.1 hemoglobin is 9.4. Basic metabolic profile is normal except for low potassium of 3.4. reevaluated today on 09/22/2022, patient remains in the ICU intubated and mechanically ventilated. He is an assist-control rate of 20, tidal volume 450 FiO2 45% and I cut down from 50% he is also on a PEEP of 8. ABG showed a pO2 of 93 pCO2 of 48 pH of 7.40.patient is requiring fentanyl at 2 mcg/kg/h and he is also on Darvocet at 15 mg per hour. My plan today is discontinue fentanyl if possible and addressed mental status on this patient and decide whether the patient could be considered for weaning. Patient is still receiving vital HPF 35 mL per hour, chest x-ray showed evidence of pneumonia possible interstitial edema, the recommended dose of Lasix 40 mg IV push 1WBC count is 5.1 hemoglobin is 9 hematocrit is 27.3 *Normal, renal profile remains normal. Patient was reevaluated today on 09/23/2022, remains in the ICU, intubated and mechanically ventilated. Patient is on assist control rate of 20, tidal volume 450 FiO2 45% PEEP of 8 remains on vancomycin and cefepime, he does have Serratia marcescens in the sputum and looks like he may have Serratia marcescens pneumonia. And Comycin was added by infectious disease mostly because the patient kept having fevers in spite of good course of antibiotics, he was on Zo syn all along. Today I his chest x-ray showing worsening interstitial edema, I recommended Lasix 40 mg IV push. Patient is on Versed 15 mg per hour he is on vital HPI 35/35 he is also on fentanyl of 0.5 mg/kg/h and I am planning to discontinue fentanyl. ABG showed a pO2 of 95 pCO2 45 pH of 7.43. The plan is to wake of the patient today, cut down on the sedation significantly, addressed mental status, address possibly a weaning trial and if tolerated be even extubate. WBC count is 5 hemoglobin 8.9 lites are normal, renal profile is normal Reevaluated today on 09/24/2022, patient remains in the ICU, intubated and mechanically ventilated. He is on assist control rate of 20 tidal volume 450 FiO2 45% and PEEP of 8 his ABG showed a pO2 of 61 pCO2 of 38 pH of 7.48 however his FiO2 was increased to 50% based on the fact that his pO2 level was marginal at 61. Patient was given a trial of weaning today, however he desaturated, and he developed significant tachypnea tachycardia and hypertension clearly he is not tolerating weaning trials. Went back and placed him on his fentanyl, propofol, and I will discontinue his Precedex altogether. He was doing well on Precedex but when time came to weaning , and with the patient fentanyl, patient became extremely restless agitated, desaturating, and had to be placed back on fentanyl and on propofol. Patient remains on antibiotics in the form of vancomycin and cefepime for his Serratia marcescens infection/pneumonia being followed by infectious disease. Today I gave him a dose of Lasix 40 mg IV push as his chest x-ray is showing some mild component of interstitial edema/infiltrates WBC count today is 6.4 hemoglobin is 10, basic metabolic profile is normal renal profile is normal chest x-ray as noted above suspicious for underlying component of interstitial edema. And right basilar airspace disease Reevaluated today on 09/25/2022, patient did poorly yesterday as we were trying to get him off sedation patient became extremely agitated, desaturated, had to be placed back on full sedation including fentanyl at to micrograms per kilo per hour, and he is now on propofol at 75 mcg/kg/m. Patient desaturated hence his FiO2 was increased to 70% today I put him down back to 50% and PEEP of 12. Patient is receiving Cleviprex of 10 mg per hour results on propofol and fentanyl as noted above vital HPF at 10 mL per hour. Antibiotics ponce remains on cefepime. His ABG showed a pO2 of 70 pCO2 38 pH of 7.46. Echocardiogram came back unremarkable. Chest x-ray continues to show left lower lobe consolidation. There is improvement in his bilateral interstitial edema. WBC count is 6.4 hemoglobin is 9.3, basic metabolic profile is normal except slightly low potassium of 3.4 being addressed accordingly. Patient continues to have good urine output, and he is still receiving Lasix on a daily basis. Reevaluated today on 09/26/2022, patient remains in the ICU, intubated and mechanically ventilated. Remains on assist control rate of 20 tidal volume 450 FiO2 50% PEEP is 12 and I cut it down to 10 mostly because ABG showed a pO2 of 110 pCO2 42 pH of 7.44. Patient is still requiring fentanyl 2 mcg/kg/h is also on propofol at 65 mcg/kg/h Cleviprex at 6 mg per hour receiving vital HPI at 10 mL per hour. Patient is being treated for Serratia marcescens pneumonia remains on cefepime. Patient is arousable in spite of his sedation, however considering the patient failed 2 days ago and desaturates significantly upon trial of we cortney, I'm a bit reluctant to consider weaning trials on this patient today. I feel it is better to keep the patient sedated for now, and work on getting the PEEP down lower. He was on PEEP of 12 will cut it down to 10, and hopefully tomorrow could switch him down to a PEEP of 8 or 5. Chest x-ray is showing improvement in his pneumonia and his interstitial edema. Remains on diuretics. Renal functioning remains normal electrolytes are normal CBC is normal, ABG is actually improving. Patient remains on GI and DVT prophylaxis. Objective - Vital Signs Vital signs: Vital Signs Temp 97.6 F 09/26/22 08:30 Pulse 79 09/26/22 10:00 Resp 20 09/26/22 10:00 BP 152/76 09/26/22 05:00 Pulse Ox 96 09/26/22 10:00 FiO2 50 09/26/22 08:35 Intake & Output 09/25/22 09/26/22 09/26/22 18:59 06:59 18:59 Intake Total 8648.433 8432.919 500.600 Output Total 1390 1040 765 Balance 283.823 284.919 -264.400 Weight 115.3 kg 114.6 kg Intake: IV 290 320 160 0.9 Sodium Chloride 190 220 60 Cefepime 2 gm In Sodium 100 100 100 Chloride 0.9% 100 ml @ 25 mls/hr IVPB Q8HR [facility] Rx# :[id number] Intake, IV Titration 1014.823 884.919 280.600 Amount Clevidipine Butyrate 25 199.667 197.2 80.600 mg In Empty Bag 1 bag @ 1 MG/HR 2 mls/hr IV .Q24H [facility] Rx#:[id number] Sodium Chloride 0.9% 80 200 200 100 ml @ 1 MCG/KG/HR 10.81 mls/hr IV .Q9H16M [facility] with fentaNYL (PF) 1,000 mcg Rx#:[id number] propofoL 1,000 mg In 615.156 487.719 100 Empty Bag 1 bag @ 15 MCG/ KG/MIN 10.125 mls/hr IV . Q9H53M [facility] Rx#:[id number] Tube Feeding 279 120 30 Other 90 30 Output: Urine 1390 1040 765 Other: Voiding Method Indwelling Catheter Indwelling Catheter Indwelling Catheter ABP, PAP, CO, CI - Last Documented Arterial Blood Pressure 145/62 - Exam Physical Exam: Revealed a 62-year-old white male obese, intubated, mechanically ventilated, in no distress. Head: Atraumatic, normocephalic, endotracheal tube and orogastric tube are int act. HEENT:[Neck is supple.] [No neck masses.] [No thyromegaly.] [No JVD.] Chest: Good breath sound bilaterally minimal crackles at the bases no rhonchi and no wheezes Cardiac Exam: [Normal S1 and S2, no S3 gallop, no murmur.] Abdomen: [Soft, nontender, no megaly, no rebound, no guarding, normal bowel sounds.] Extremities: [No clubbing, no edema, no cyanosis.] Neurological Exam: Slightly arousable with sedation but does not follow instructions Psychiatric: Could not assess. - Labs CBC & Chem 7: 09/26/22 04:54 09/26/22 04:54 Labs: Abnormal Lab Results - Last 24 Hours (Table) 09/25/22 09/25/22 09/25/22 Range/Units 11:42 18:44 23:59 RBC (4.30-5.90) m/uL Hgb (13.0-17.5) gm/dL Hct (39.0-53.0) % Lymphocytes # (1.0-4.8) k/uL ABG pO2 (83-108) mmHg ABG HCO3 (21-25) mmol/L ABG Total CO2 (19-24) mmol/L ABG O2 Saturation (94-97) % Chloride (98-107) mmol/L BUN (9-20) mg/dL Creatinine (0.66-1.25) mg/dL Glucose (74-99) mg/dL POC Glucose (mg/dL) 141 H 130 H 119 H (70-110) mg/dL Calcium (8.4-10.2) mg/dL 09/26/22 09/26/22 09/26/22 Range/Units 04:54 04:54 06:00 RBC 3.01 L (4.30-5.90) m/uL Hgb 8.7 L (13.0-17.5) gm/dL Hct 26.0 L (39.0-53.0) % Lymphocytes # 0.9 L (1.0-4.8) k/uL ABG pO2 110 H (83-108) mmHg ABG HCO3 29 H (21-25) mmol/L ABG Total CO2 30 H (19-24) mmol/L ABG O2 Saturation 99.2 H (94-97) % Chloride 110 H (98-107) mmol/L BUN 23 H (9-20) mg/dL Creatinine 0.59 L (0.66-1.25) mg/dL Glucose 110 H (74-99) mg/dL POC Glucose (mg/dL) (70-110) mg/dL Calcium 7.9 L (8.4-10.2) mg/dL Microbiology - Last 24 Hours (Table) 09/22/22 07:07 Blood Culture - Preliminary Blood No Growth after 96 hours 09/20/22 16:25 Blood Culture - Preliminary Blood No Growth after 120 hours Assessment and Plan Assessment: Impression: Acute hypoxic respiratory failure secondary to acute delirium tremens and left lower lobe pneumonia secondary to Serratia marcescens Acute delirium tremens Dyslipidemia Altered mental status secondary to alcohol withdrawal well and possibly toxic metabolic encephalopathy History of alcoholism History of alcohol liver disease with bilateral elevated liver enzymes Benign essential hypertension Suspect acute diastolic congestive heart failure Recommendation: Continue ventilatory support , decrease PEEP from 12-10, and hopefully down to 8 or 5 by tomorrow. Continue fentanyl and propofol Continue GI and DVT prophylaxis Continue cefepime, Continue DVT prophylaxis/Lovenox Continue Protonix. Continue thiamine Continue Lasix twice a day. Continue alcohol withdrawal protocol Patient remains critically ill Prognosis remains quite guarded. Patient is critically ill and critical care time is over 30 minutes Time with Patient: Greater than 30
--- NOTE | 2022-09-26 11:55 | P.PN ---
Subjective Progress Note Date: 09/26/22 Principal diagnosis: This is a 61-year-old male followed up with hyponatremia, thought to be initially from alcohol intake, and volume depletion, was given 3% saline. Sodium is improved and actually is going up. He is known with alcoholic liver disease. Currently he is intubated with pneumonia and possible CHF. Currently on Lasix , Lasix dose was increased yesterday to 40 every 12,, because of the significant edema he had as well as the possible congestive heart failure on chest x-ray. Remains on ventilator out. 50% FiO2. 24-hour intake is 2998 and output is 2430 Objective - Vital Signs Vital signs: Vital Signs Temp 97.6 F 09/26/22 08:30 Pulse 79 09/26/22 10:00 Resp 20 09/26/22 10:00 BP 152/76 09/26/22 05:00 Pulse Ox 96 09/26/22 10:00 FiO2 50 09/26/22 11:37 Intake & Output 09/25/22 09/26/22 09/26/22 18:59 06:59 18:59 Intake Total 9270.950 1223.919 501.467 Output Total 1390 1040 765 Balance 283.823 284.919 -263.533 Weight 115.3 kg 114.6 kg Intake: IV 290 320 160 0.9 Sodium Chloride 190 220 60 Cefepime 2 gm In Sodium 100 100 100 Chloride 0.9% 100 ml @ 25 mls/hr IVPB Q8HR [facility] Rx# :[id number] Intake, IV Titration 1014.823 884.919 281.467 Amount Clevidipine Butyrate 25 199.667 197.2 81.467 mg In Empty Bag 1 bag @ 1 MG/HR 2 mls/hr IV .Q24H [facility] Rx#:[id number] Sodium Chloride 0.9% 80 200 200 100 ml @ 1 MCG/KG/HR 10.81 mls/hr IV .Q9H16M [facility] with fentaNYL (PF) 1,000 mcg Rx#:[id number] propofoL 1,000 mg In 615.156 487.719 100 Empty Bag 1 bag @ 15 MCG/ KG/MIN 10.125 mls/hr IV . Q9H53M [facility] Rx#:[id number] Tube Feeding 279 120 30 Other 90 30 Output: Urine 1390 1040 765 Other: Voiding Method Indwelling Catheter Indwelling Catheter Indwelling Catheter ABP, PAP, CO, CI - Last Documented Arterial Blood Pressure 145/62 No JVP noted no facial asymmetry Lungs are clear to auscultation good air entry Heart sounds unremarkable Abdomen soft nontender Extremity exam was 2-3+ edema Neurologically obtunded. - Labs CBC & Chem 7: 09/26/22 04:54 09/26/22 04:54 Labs: Abnormal Lab Results - Last 24 Hours (Table) 09/25/22 09/25/22 09/25/22 Range/Units 11:42 18:44 23:59 RBC (4.30-5.90) m/uL Hgb (13.0-17.5) gm/dL Hct (39.0-53.0) % Lymphocytes # (1.0-4.8) k/uL ABG pO2 (83-108) mmHg ABG HCO3 (21-25) mmol/L ABG Total CO2 (19-24) mmol/L ABG O2 Saturation (94-97) % Chloride (98-107) mmol/L BUN (9-20) mg/dL Creatinine (0.66-1.25) mg/dL Glucose (74-99) mg/dL POC Glucose (mg/dL) 141 H 130 H 119 H (70-110) mg/dL Calcium (8.4-10.2) mg/dL 09/26/22 09/26/22 09/26/22 Range/Units 04:54 04:54 06:00 RBC 3.01 L (4.30-5.90) m/uL Hgb 8.7 L (13.0-17.5) gm/dL Hct 26.0 L (39.0-53.0) % Lymphocytes # 0.9 L (1.0-4.8) k/uL ABG pO2 110 H (83-108) mmHg ABG HCO3 29 H (21-25) mmol/L ABG Total CO2 30 H (19-24) mmol/L ABG O2 Saturation 99.2 H (94-97) % Chloride 110 H (98-107) mmol/L BUN 23 H (9-20) mg/dL Creatinine 0.59 L (0.66-1.25) mg/dL Glucose 110 H (74-99) mg/dL POC Glucose (mg/dL) (70-110) mg/dL Calcium 7.9 L (8.4-10.2) mg/dL Microbiology - Last 24 Hours (Table) 09/22/22 07:07 Blood Culture - Preliminary Blood No Growth after 96 hours 09/20/22 16:25 Blood Culture - Preliminary Blood No Growth after 120 hours Assessment and Plan Plan: Impression 1. Hyponatremia, volume depletion resolved. Mildly fluid overloaded with possible CHF. Currently on Lasix 40 every 12 2. Hypokalemia secondary to diuresis. Resolved 3. Ventilator dependent respiratory failure with pneumonia 50% FiO2 4. History of alcoholism, with liver dysfunction total bilirubin 7.9 Recommendation 1. Increase the Lasix to 40 mg every 8 hours and watch labs and urine output. Lasix dose was increased because his in positive fluid balance
[2022-09-26 12:01] LABS: Glucose,Whole Blood 120 mg/dL (70-110)
--- NOTE | 2022-09-26 12:37 | P.PN ---
Progress Note - Text Progress Note Date: 09/26/22 Subjective: Patient seen and evaluated bedside, patient intubated and sedated continue to remain critically and REVIEW OF SYSTEMS: LIMITED INTUBATED GENERAL: The patient is alert and oriented x0 , not in any acute distress. CARDIOVASCULAR: S1 and S2 present. No murmurs, rubs, or gallops. PULMONARY: Chest is clear to auscultation, no wheezing or crackles. INTUBATED ABDOMEN: Soft, nontender, nondistended, normoactive bowel sounds. No palpable organomegaly. MUSCULOSKELETAL: No joint swelling or deformity. EXTREMITIES: No cyanosis, clubbing, or pedal edema. NEUROLOGICAL: Intubated and sedated exam limited Assessment and plan Acute hypoxic respiratory failure secondary to acute delirium tremens and left lower lobe pneumonia secondary to Serratia marcescens Acute encephalopathy secondary to alcohol withdrawal toxic metabolic encephalopathy History of alcoholism History of alcohol liver disease with bilateral elevated liver enzymes Benign essential hypertension Suspect acute diastolic congestive heart failure Recommendation: Continue ventilatory support , sedation with fentanyl and propofol On Sedation managed by ICU Continue cefepime and vancomycin per ID on the case. Continue DVT prophylaxis/Lovenox Continue Protonix. Continue thiamine Continue alcohol withdrawal protocol Patient remains critically ill
[2022-09-26] MEDS: SODIUM CHLORIDE 0.9% 1,000 ML IV SCH (16:11)
--- NOTE | 2022-09-26 16:46 | P.PN ---
Subjective Progress Note Date: 09/26/22 Principal diagnosis: Fever/pneumonia Patient is a 62-year-old male presented to the hospital more than a week ago on 09/13/2022 for multiple falls and this patient apparently did have a history of alcohol abuse, patient did have worsening respiratory status requiring intubation sputum has been positive for Serratia marcescens on today's evaluation and that is 09/26/2022, the patient is afebrile today, the patient is hemodynamically stable not requiring any pressor support , no significant purulent secretion through the ET, FiO2 is currently stable at 50 %, patient has been tolerating his tube feeds and no diarrhea has been reported by the nursing staff, mentation remains to be an issue Objective - Vital Signs Vital signs: Vital Signs Temp 99.0 F 09/26/22 12:00 Pulse 70 09/26/22 15:00 Resp 20 09/26/22 15:00 BP 152/76 09/26/22 14:00 Pulse Ox 96 09/26/22 15:00 FiO2 50 09/26/22 15:33 Intake & Output 09/25/22 09/26/22 09/26/22 18:59 06:59 18:59 Intake Total 5744.525 0995.919 819.467 Output Total 1390 1040 1015 Balance 283.823 284.919 -195.533 Weight 115.3 kg 114.6 kg Intake: IV 290 320 200 0.9 Sodium Chloride 190 220 100 Cefepime 2 gm In Sodium 100 100 100 Chloride 0.9% 100 ml @ 25 mls/hr IVPB Q8HR [facility] Rx# :[id number] Intake, IV Titration 1014.823 884.919 489.467 Amount Clevidipine Butyrate 25 199.667 197.2 89.467 mg In Empty Bag 1 bag @ 1 MG/HR 2 mls/hr IV .Q24H [facility] Rx#:[id number] Sodium Chloride 0.9% 80 200 200 200 ml @ 1 MCG/KG/HR 10.81 mls/hr IV .Q9H16M [facility] with fentaNYL (PF) 1,000 mcg Rx#:[id number] propofoL 1,000 mg In 615.156 487.719 200 Empty Bag 1 bag @ 15 MCG/ KG/MIN 10.125 mls/hr IV . Q9H53M [facility] Rx#:[id number] Tube Feeding 279 120 70 Other 90 60 Output: Urine 1390 1040 1015 Other: Voiding Method Indwelling Catheter Indwelling Catheter Indwelling Catheter ABP, PAP, CO, CI - Last Documented Arterial Blood Pressure 134/59 - Exam GENERAL DESCRIPTION: A middle-age male intubated on the vent RESPIRATORY SYSTEM: Unlabored breathing , decreased breath sounds at bases HEART: S1 S2 regular rate and rhythm , ABDOMEN: Soft , mild distention EXTREMITIES: No edema feet - Labs CBC & Chem 7: 09/26/22 04:54 09/26/22 04:54 Labs: Abnormal Lab Results - Last 24 Hours (Table) 09/25/22 09/25/22 09/26/22 Range/Units 18:44 23:59 04:54 RBC (4.30-5.90) m/uL Hgb (13.0-17.5) gm/dL Hct (39.0-53.0) % Lymphocytes # (1.0-4.8) k/uL ABG pO2 (83-108) mmHg ABG HCO3 (21-25) mmol/L ABG Total CO2 (19-24) mmol/L ABG O2 Saturation (94-97) % Chloride 110 H (98-107) mmol/L BUN 23 H (9-20) mg/dL Creatinine 0.59 L (0.66-1.25) mg/dL Glucose 110 H (74-99) mg/dL POC Glucose (mg/dL) 130 H 119 H (70-110) mg/dL Calcium 7.9 L (8.4-10.2) mg/dL 09/26/22 09/26/22 09/26/22 Range/Units 04:54 06:00 11:59 RBC 3.01 L (4.30-5.90) m/uL Hgb 8.7 L (13.0-17.5) gm/dL Hct 26.0 L (39.0-53.0) % Lymphocytes # 0.9 L (1.0-4.8) k/uL ABG pO2 110 H (83-108) mmHg ABG HCO3 29 H (21-25) mmol/L ABG Total CO2 30 H (19-24) mmol/L ABG O2 Saturation 99.2 H (94-97) % Chloride (98-107) mmol/L BUN (9-20) mg/dL Creatinine (0.66-1.25) mg/dL Glucose (74-99) mg/dL POC Glucose (mg/dL) 120 H (70-110) mg/dL Calcium (8.4-10.2) mg/dL Microbiology - Last 24 Hours (Table) 09/22/22 07:07 Blood Culture - Preliminary Blood No Growth after 96 hours 09/20/22 16:25 Blood Culture - Preliminary Blood No Growth after 120 hours Assessment and Plan (1) Fever Current Visit: Yes Status: Acute Code(s): R50.9 - FEVER, UNSPECIFIED SNOMED Code(s): 788535884 (2) Pneumonia Current Visit: Yes Status: Acute Code(s): J18.9 - PNEUMONIA, UNSPECIFIED ORGANISM SNOMED Code(s): 354711438 Plan: 1patient with a fever in this patient who do have a history of alcoholism presented to hospital with weakness fall and decreased oral intake with acute respiratory failure requiring intubation concern for possible pneumonia sputum has been Serratia marcescens despite good antibiotic coverage the patient is still running a fever however did not have any elevated white count with a question of possible viral etiology versus DTs 2-patient did have a negative influenza vaccine and COVID testing, negative urine for Legionella antigen 3- blood cultures repeat has been negative, CRP mildly elevated and procalcitonin level is mildly elevated at 0.14 4- ultrasound of the abdomen did not show any acute abnormality 5- patient fever has resolved and the patient white count has been normal, pa tient to continue with the cefepime and continue supportive care Time with Patient: Less than 30
[2022-09-26 18:21] LABS: Glucose,Whole Blood 125 mg/dL (70-110)
[2022-09-26] MEDS: ATORVASTATIN 80 MG TAB PO SCH (20:51)
[2022-09-26 23:42] LABS: Glucose,Whole Blood 121 mg/dL (70-110)
[2022-09-27] MEDS: INSULIN ASPART (NovoLOG) 100 UNIT/ML VIAL SQ SCH ×3 (00:07→11:34)
[2022-09-27] MEDS: CEFEPIME 2 GM in SODIUM CHLORIDE 0.9% 100 ML IVPB SCH ×2 (00:08→08:17)
[2022-09-27] MEDS ORDERED: Potassium Replacement Protocol 1 EACH MISC MISCELLANE PRN (00:21)
[2022-09-27] MEDS: SODIUM CHLORIDE 0.9% 80 ML with fentaNYL (PF) 1,000 MCG IV SCH ×4 (00:59→06:11)
[2022-09-27] MEDS: POTASSIUM BICARBONATE/CIT AC 20 MEQ TABLET.EFF NG-TUBE SCH ×2 (01:01→02:16)
[2022-09-27] MEDS: CLEVIDIPINE BUTYRATE 25 MG in EMPTY BAG 1 BAG IV SCH ×4 (02:13→12:29)
[2022-09-27] MEDS: FUROSEMIDE 10 MG/ML 4 ML VIAL IV SCH ×2 (04:08→13:41)
[2022-09-27 04:47] LABS: HCT 25.4 % (39.0-53.0); HGB 8.7 gm/dL (13.0-17.5); MCH 29.4 pg (25.0-35.0); MCHC 34.1 g/dL (31.0-37.0); Mean Platelet Volume 7.4; Platelet Count 477 k/uL (150-450); RBC 2.95 m/uL (4.30-5.90); RDW 13.7 % (11.5-15.5); WBC 5.5 k/uL (3.8-10.6)
[2022-09-27 04:55] LABS: African American GFR (CKD) >90 (>60 ml/min/1.73 sqM); Anion Gap 3 mmol/L; Blood Urea Nitrogen 22 mg/dL (9-20); Calcium 8.1 mg/dL (8.4-10.2); Carbon Dioxide 30 mmol/L (22-30); Chloride 107 mmol/L (98-107); Glucose 107 mg/dL (74-99); Magnesium 2.1 mg/dL (1.6-2.3); Non-African American GFR(CKD) >90 (>60 ml/min/1.73 sqM); Potassium 3.9 mmol/L (3.5-5.1); Sodium 140 mmol/L (137-145)
[2022-09-27 05:44] LABS: ABG Base Excess 6.2 mmol/L; ABG HCO3 30 mmol/L (21-25); ABG Oxygen Saturation 97.9 % (94-97); ABG PCO2 44 mmHg (35-45); ABG PH 7.45 (7.35-7.45); ABG PO2 96 mmHg (83-108); ABG TCO2 32 mmol/L (19-24); Allen Test Performed? Yes
[2022-09-27] MEDS ORDERED: POTASSIUM BICARBONATE/CIT AC 20 MEQ TABLET.EFF NG-TUBE SCH (07:00)
[2022-09-27] MEDS: PANTOPRAZOLE 40 MG/10 ML VIAL IVP SCH (08:18)
[2022-09-27] MEDS: CHLORHEXIDINE GLUCONATE 15 ML CUP MUCOUS MEM SCH (08:18)
[2022-09-27] MEDS: ACETAMINOPHEN TAB 325 MG TAB PO PRN (08:19)
[2022-09-27] MEDS: cloNIDine HCL 0.2 MG TAB PO SCH (08:19)
[2022-09-27] MEDS: THIAMINE 100 MG/ML 2 ML VIAL IVP SCH (08:19)
[2022-09-27] MEDS: PARoxetine 20 MG TAB PO SCH (08:19)
[2022-09-27] MEDS: ENOXAPARIN 40 MG/0.4 ML SYRINGE SQ SCH (08:20)
--- NOTE | 2022-09-27 09:29 | XR ---
EXAMINATION TYPE: XR chest 1V portable DATE OF EXAM: 09/27/2022 COMPARISON: 10/06/2022 INDICATION: Tube placement TECHNIQUE: Single frontal view of the chest is obtained. FINDINGS: The heart size is enlarged. The pulmonary vasculature is normal. Mild right lower lobe infiltrate has developed. Small left pleural effusion appears stable. Endotracheal tube and nasogastric tube are present. Left central venous catheter is present with tip in distal superior vena cava region. IMPRESSION: 1. Small left pleural effusion, stable. 2. Mild developing right lower lobe infiltrate. 3. Lines and catheters discussed above.
--- NOTE | 2022-09-27 10:24 | P.PN ---
Subjective Progress Note Date: 09/27/22 Principal diagnosis: Hypoxemic respiratory failure. Patient was reevaluated today on 09/23/2022, remains in the ICU, intubated and mechanically ventilated. Patient is on assist control rate of 20, tidal volume 450 FiO2 45% PEEP of 8 remains on vancomycin and cefepime, he does have Serratia marcescens in the sputum and looks like he may have Serratia marcescens pneumonia. And Comycin was added by infectious disease mostly because the patient kept having fevers in spite of good course of antibiotics, he was on Zosyn all along. Today I his chest x-ray showing worsening interstitial edema, I recommended Lasix 40 mg IV push. Patient is on Versed 15 mg per hour he is on vital HPI 35/35 he is also on fentanyl of 0.5 mg/kg/h and I am planning to discontinue fentanyl. ABG showed a pO2 of 95 pCO2 45 pH of 7.43. The plan is to wake of the patient today, cut down on the sedation significantly, addressed mental status, address possibly a weaning trial and if tolerated be even extubate. WBC count is 5 hemoglobin 8.9 lites are normal, renal profile is normal Reevaluated today on 09/24/2022, patient remains in the ICU, intubated and mechanically ventilated. He is on assist control rate of 20 tidal volume 450 FiO2 45% and PEEP of 8 his ABG showed a pO2 of 61 pCO2 of 38 pH of 7.48 however his FiO2 was increased to 50% based on the fact that his pO2 level was marginal at 61. Patient was given a trial of weaning today, however he desaturated, and he developed significant tachypnea tachycardia and hypertension clearly he is not tolerating weaning trials. Went back and placed him on his fentanyl, propofol, and I will discontinue his Precedex altogether. He was doing well on Precedex but when time came to weaning , and with the patient fentanyl, patient became extremely restless agitated, desaturating, and had to be placed back on fentanyl and on propofol. Patient remains on antibiotics in the form of vancomycin and cefepime for his Serratia marcescens infection/pneumonia being followed by infectious disease. Today I gave him a dose of Lasix 40 mg IV push as his chest x-ray is showing some mild component of interstitial edema/infiltrates WBC count today is 6.4 hemoglobin is 10, basic metabolic profile is normal renal profile is normal chest x-ray as noted above suspicious for underlying component of interstitial edema. And right basilar airspace dis ease Reevaluated today on 09/25/2022, patient did poorly yesterday as we were trying to get him off sedation patient became extremely agitated, desaturated, had to be placed back on full sedation including fentanyl at to micrograms per kilo per hour, and he is now on propofol at 75 mcg/kg/m. Patient desaturated hence his FiO2 was increased to 70% today I put him down back to 50% and PEEP of 12. P atient is receiving Cleviprex of 10 mg per hour results on propofol and fentanyl as noted above vital HPF at 10 mL per hour. Antibiotics ponce remains on cefepime. His ABG showed a pO2 of 70 pCO2 38 pH of 7.46. Echocardiogram came back unremarkable. Chest x-ray continues to show left lower lobe consolidation. There is improvement in his bilateral interstitial edema. WBC count is 6.4 hemoglobin is 9.3, basic metabolic profile is normal except slightly low potassium of 3.4 being addressed accordingly. Patient continues to have good urine output, and he is still receiving Lasix on a daily basis. Reevaluated today on 09/26/2022, patient remains in the ICU, intubated and mechanically ventilated. Remains on assist control rate of 20 tidal volume 450 FiO2 50% PEEP is 12 and I cut it down to 10 mostly because ABG showed a pO2 of 110 pCO2 42 pH of 7.44. Patient is still requiring fentanyl 2 mcg/kg/h is also on propofol at 65 mcg/kg/h Cleviprex at 6 mg per hour receiving vital HPI at 10 mL per hour. Patient is being treated for Serratia marcescens pneumonia remains on cefepime. Patient is arousable in spite of his sedation, however considering the patient failed 2 days ago and desaturates significantly upon trial of weaning, I'm a bit reluctant to consider weaning trials on this patient today. I feel it is better to keep the patient sedated for now, and work on getting the PEEP down lower. He was on PEEP of 12 will cut it down to 10, and hopefully tomorrow could switch him down to a PEEP of 8 or 5. Chest x-ray is showing improvement in his pneumonia and his interstitial edema. Remains on diuretics. Renal functioning remains normal electrolytes are normal CBC is normal, ABG is actually improving. Patient remains on GI and DVT prophylaxis. Progress note dated 09/27/2022. This is a 62-year-old male who was admitted to the hospital on September 13 for alcohol withdrawal, mental status changes, and hyponatremia. The patient apparently was intubated the following day on the , was extubated successfully initially on September 18, and unfortunately required reintubation on September 19. The patient remains in the intensive care unit on the ventilator. The patient is seen today in room 264. Current ventilator settings include the volume assist control, rate 20, tidal volume 450, FiO2 50%, and PEEP of 10. Blood gases show pO2 of 96, pCO2 44, and pH is 7.45. The patient is currently on a fentanyl drip at 2 mcg/kg/h, propofol at 75 mcg/kg/m, saline at 10 mL an hour, Cleveprex at 6 mg an hour, and the patient's receiving cefepime for Serratia in his sputum. White count 5.5, hemoglobin 8.7, hematocrit 25.4, and platelet count normal. Sodium 140, potassium 3.9, chlorides 107, CO2 30, BUN 22, creatinine 0.65. Chest x-ray shows patchy infiltrates at the right lower lobe, and a left-sided small effusion. Objective - Vital Signs Vital signs: Vital Signs Temp 99.1 F 09/27/22 08:00 Pulse 76 09/27/22 08:00 Resp 23 09/27/22 08:00 BP 152/76 09/26/22 14:00 Pulse Ox 94 L 09/27/22 08:48 FiO2 50 09/27/22 08:49 Intake & Output 09/26/22 09/27/22 09/27/22 18:59 06:59 18:59 Intake Total 2204.127 2615.458 177 Output Total 1150 2080 215 Balance 208.307 -831.542 -38 Weight 114 kg Intake: IV 340 250 140 0.9 Sodium Chloride 140 150 40 Cefepime 2 gm In Sodium 200 100 100 Chloride 0.9% 100 ml @ 25 mls/hr IVPB Q8HR [facility] Rx# :[id number] Intake, IV Titration 818.307 878.458 17 Amount Clevidipine Butyrate 25 131.467 119.833 17 mg In Empty Bag 1 bag @ 1 MG/HR 2 mls/hr IV .Q24H [facility] Rx#:[id number] Sodium Chloride 0.9% 80 286.84 200 ml @ 1 MCG/KG/HR 10.81 mls/hr IV .Q9H16M [facility] with fentaNYL (PF) 1,000 mcg Rx#:[id number] propofoL 1,000 mg In 400 558.625 Empty Bag 1 bag @ 15 MCG/ KG/MIN 10.125 mls/hr IV . Q9H53M [facility] Rx#:[id number] Tube Feeding 110 120 20 Other 90 Output: Urine 1150 2080 215 Other: Voiding Method Indwelling Catheter Indwelling Catheter ABP, PAP, CO, CI - Last Documented Arterial Blood Pressure 135/57 - Exam No acute distress, sedated, with an orally placed endotracheal tube and NG tube. HEENT examination is grossly unremarkable. Neck supple. Full range of motion. No adenopathy thyromegaly or neck vein distention. Cardiovascular examination reveals regular rhythm rate. S1-S2 normal. No S3 or S4. No discernible murmur noted. Heart sounds are distant. Heart rate 76 bpm. Lungs reveal scattered bilateral rhonchi. No wheezes. No crackles. Breath sounds equal bilaterally. Saturations are 94-95%. Abdomen soft, with bowel sounds. No masses or tenderness. Extremities are intact. No cyanosis clubbing or edema. Skin is without rash or lesion. Neurologic examination cannot be adequately assessed. - Labs CBC & Chem 7: 09/27/22 04:20 09/27/22 04:20 Labs: Abnormal Lab Results - Last 24 Hours (Table) 09/26/22 09/26/22 09/26/22 Range/Units 11:59 18:20 23:41 RBC (4.30-5.90) m/uL Hgb (13.0-17.5) gm/dL Hct (39.0-53.0) % Plt Count (150-450) k/uL ABG HCO3 (21-25) mmol/L ABG Total CO2 (19-24) mmol/L ABG O2 Saturation (94-97) % BUN (9-20) mg/dL Creatinine (0.66-1.25) mg/dL Glucose (74-99) mg/dL POC Glucose (mg/dL) 120 H 125 H 121 H (70-110) mg/dL Calcium (8.4-10.2) mg/dL 09/27/22 09/27/22 09/27/22 Range/Units 04:20 04:20 05:50 RBC 2.95 L (4.30-5.90) m/uL Hgb 8.7 L (13.0-17.5) gm/dL Hct 25.4 L (39.0-53.0) % Plt Count 477 H (150-450) k/uL ABG HCO3 30 H (21-25) mmol/L ABG Total CO2 32 H (19-24) mmol/L ABG O2 Saturation 97.9 H (94-97) % BUN 22 H (9-20) mg/dL Creatinine 0.65 L (0.66-1.25) mg/dL Glucose 107 H (74-99) mg/dL POC Glucose (mg/dL) (70-110) mg/dL Calcium 8.1 L (8.4-10.2) mg/dL Microbiology - Last 24 Hours (Table) 09/22/22 07:07 Blood Culture - Preliminary Blood No Growth after 120 hours 09/20/22 16:25 Blood Culture - Final Blood No Growth after 144 hours Assessment and Plan Assessment: Acute hypoxemic respiratory failure secondary to acute delirium tremens, and left lower lobe pneumonia secondary to Serratia marcescens, status post intubation and mechanical ventilation on September 14. Patient has had failure to wean from mechanical ventilation. History of alcoholism. Alcoholic liver disease. Essential hypertension. Suspect acute diastolic CHF. Hyperlipidemia. Acute alcohol withdrawal syndrome/delirium tremens. Plan: Plan dated 09/27/2022. Currently, the patient is receiving fentanyl, propofol, and Cleveprex. The patient is receiving vital high protein at 10 mL an hour. The patient was initially intubated on the , extubated on the first, and reintubated a day later on the second. He's had no meaningful movement towards extubation. Hence, surgical consult will be placed for possible tracheostomy and PEG tube placement. Labs, x-rays, and medications are reviewed. The patient is receiving cefepime for his Serratia pneumonia. Prognosis is guarded. We will continue to follow and make recommendations along the way. Time with Patient: Greater than 30
[2022-09-27 10:29] VITALS: TEMP 98.9
[2022-09-27] MEDS ORDERED: FENTANYL IV SCH ×2 (11:00)
[2022-09-27] MEDS ORDERED: SODIUM CHLORIDE 0.9% IV SCH ×2 (11:00)
[2022-09-27 11:23] LABS: Glucose,Whole Blood 113 mg/dL (70-110)
[2022-09-27] MEDS ORDERED: GLYCOPYRROLATE 0.2 MG/ML 2 ML VIAL IVP PRN (11:47)
[2022-09-27] MEDS ORDERED: ATROPINE OPHTH SOLN 1% 5ML BTL SUBLINGUAL PRN (11:47)
[2022-09-27] MEDS ORDERED: MORPHINE SULFATE 4 MG/ML SYRINGE IVP ONE (11:47)
[2022-09-27] MEDS ORDERED: LORazepam 2 MG/ML INJ IV PRN (11:47)
[2022-09-27] MEDS ORDERED: MORPHINE SULFATE 4 MG/ML SYRINGE IV PRN (11:47)
[2022-09-27] MEDS ORDERED: ARTIFICIAL TEARS-HYPROMELLOSE DROPS 15 ML BTL BOTH EYES PRN (11:47)
[2022-09-27] MEDS ORDERED: MORPHINE SULFATE 2 MG/ML SYRINGE IV PRN (11:47)
--- NOTE | 2022-09-27 11:51 | P.PN ---
Subjective Patient is seen for follow-up for hyponatremia associated with excessive alcohol intake as well as a hypovolemic component on initial admission. Status post 3% saline Patient remains intubated. Being considered for trach and PEG Hemodynamically stable. Maintained on IV Lasix every 8 hours for volume overload. Sodium is 140 today Objective - Vital Signs Vital signs: Vital Signs Temp 98.9 F 09/27/22 10:28 Pulse 69 09/27/22 11:00 Resp 20 09/27/22 11:00 BP 152/76 09/26/22 14:00 Pulse Ox 95 09/27/22 11:00 FiO2 50 09/27/22 11:33 Intake & Output 09/26/22 09/27/22 09/27/22 18:59 06:59 18:59 Intake Total 5551.123 1580.458 237 Output Total 1150 2080 1260 Balance 208.307 -831.542 -1023 Weight 114 kg Intake: IV 340 250 170 0.9 Sodium Chloride 140 150 70 Cefepime 2 gm In Sodium 200 100 100 Chloride 0.9% 100 ml @ 25 mls/hr IVPB Q8HR [facility] Rx# :[id number] Intake, IV Titration 818.307 878.458 17 Amount Clevidipine Butyrate 25 131.467 119.833 17 mg In Empty Bag 1 bag @ 1 MG/HR 2 mls/hr IV .Q24H [facility] Rx#:[id number] Sodium Chloride 0.9% 80 286.84 200 ml @ 1 MCG/KG/HR 10.81 mls/hr IV .Q9H16M [facility] with fentaNYL (PF) 1,000 mcg Rx#:[id number] propofoL 1,000 mg In 400 558.625 Empty Bag 1 bag @ 15 MCG/ KG/MIN 10.125 mls/hr IV . Q9H53M [facility] Rx#:[id number] Tube Feeding 110 120 50 Other 90 Output: Urine 1150 2080 1260 Other: Voiding Method Indwelling Catheter Indwelling Catheter Indwelling Catheter ABP, PAP, CO, CI - Last Documented Arterial Blood Pressure 124/54 - Exam Patient is sedated and on the vent Examination of the heart S1 and S2 Examination of the lungs bilateral breath sounds are heard Abdomen is soft nontender Examination of the lower extremities shows 2+ edema FINGER WAVER exam could not be performed - Labs CBC & Chem 7: 09/27/22 04:20 09/27/22 04:20 Labs: Abnormal Lab Results - Last 24 Hours (Table) 09/26/22 09/26/22 09/26/22 Range/Units 11:59 18:20 23:41 RBC (4.30-5.90) m/uL Hgb (13.0-17.5) gm/dL Hct (39.0-53.0) % Plt Count (150-450) k/uL ABG HCO3 (21-25) mmol/L ABG Total CO2 (19-24) mmol/L ABG O2 Saturation (94-97) % BUN (9-20) mg/dL Creatinine (0.66-1.25) mg/dL Glucose (74-99) mg/dL POC Glucose (mg/dL) 120 H 125 H 121 H (70-110) mg/dL Calcium (8.4-10.2) mg/dL 09/27/22 09/27/22 09/27/22 Range/Units 04:20 04:20 05:50 RBC 2.95 L (4.30-5.90) m/uL Hgb 8.7 L (13.0-17.5) gm/dL Hct 25.4 L (39.0-53.0) % Plt Count 477 H (150-450) k/uL ABG HCO3 30 H (21-25) mmol/L ABG Total CO2 32 H (19-24) mmol/L ABG O2 Saturation 97.9 H (94-97) % BUN 22 H (9-20) mg/dL Creatinine 0.65 L (0.66-1.25) mg/dL Glucose 107 H (74-99) mg/dL POC Glucose (mg/dL) (70-110) mg/dL Calcium 8.1 L (8.4-10.2) mg/dL 09/27/22 Range/Units 11:22 RBC (4.30-5.90) m/uL Hgb (13.0-17.5) gm/dL Hct (39.0-53.0) % Plt Count (150-450) k/uL ABG HCO3 (21-25) mmol/L ABG Total CO2 (19-24) mmol/L ABG O2 Saturation (94-97) % BUN (9-20) mg/dL Creatinine (0.66-1.25) mg/dL Glucose (74-99) mg/dL POC Glucose (mg/dL) 113 H (70-110) mg/dL Calcium (8.4-10.2) mg/dL Microbiology - Last 24 Hours (Table) 09/22/22 07:07 Blood Culture - Preliminary Blood No Growth after 120 hours 09/20/22 16:25 Blood Culture - Final Blood No Growth after 144 hours Assessment and Plan Assessment: 1. Hyponatremia associated with excessive beer/alcohol intake. Status post 3% saline on initial admission. Currently resolved. Patient is currently hypervolemic and being diuresed. 2. EtOH abuse 3. Alcoholic liver disease with mildly elevated liver enzymes 4. Hypertension currently maintained on Cleviprex 5. DTs Plan: Continue with IV Lasix. Repeat labs in a.m.
[2022-09-27] MEDS ORDERED: SODIUM CHLORIDE 0.9% 1,000 ML IV SCH (12:00)
[2022-09-27] MEDS ORDERED: SCOPOLAMINE 1 MG/72 HR PATCH TRANSDERM SCH (12:00)
--- NOTE | 2022-09-27 12:09 | P.PN ---
Progress Note - Text Progress Note Date: 09/27/22 Subjective: Patient seen and evaluated bedside, patient intubated and sedated continue to remain critically Goals of care discussed with mother and sister at bedside Patient did not want a trach and PEG we'll consult palliative. Asthma REVIEW OF SYSTEMS: LIMITED INTUBATED GENERAL: The patient is alert and oriented x0 , not in any acute distress. Intubated and sedated CARDIOVASCULAR: S1 and S2 present. No murmurs, rubs, or gallops. PULMONARY: Decreased breath sounds bilaterally. INTUBATED ABDOMEN: Soft, nontender, nondistended, normoactive bowel sounds. No palpable organomegaly. MUSCULOSKELETAL: Anasarca noted EXTREMITIES: No cyanosis, clubbing, or pedal edema. 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 Continue thiamine Continue alcohol withdrawal protocol Patient remains critically ill
[2022-09-27] MEDS: MORPHINE SULFATE (100 MG/2 ML) 100 MG in SODIUM CHLORIDE 0.9% 100 ML IV SCH ×2 (13:41→17:38)
[2022-09-27] MEDS: MORPHINE SULFATE 2 MG/ML SYRINGE IVP PRN (14:29)
[2022-09-27] MEDS: LORazepam 2 MG/ML INJ IV PRN ×2 (16:13→19:07)
[2022-09-27] MEDS ORDERED: LACTATED RINGERS 1,000 ML IV SCH (19:02)
[2022-09-27] MEDS ORDERED: LIDOCAINE 1% (10MG/ML) FOR IV START INTRADERMA PRN (19:02)
[2022-09-27 19:03] VITALS: RESP 18
[2022-09-27 21:18] VITALS: PULSE 125
[2022-09-28] MEDS ORDERED: HYDROmorphone 0.5 MG/0.5 ML SYRINGE IVP PRN (07:00)
[2022-09-28] MEDS ORDERED: ONDANSETRON 4 MG/2 ML VIAL IVP PRN (07:00)
--- NOTE | 2022-09-28 09:00 | P.DS ---
Providers Date of admission: 09/13/22 09:07 Attending physician: Estephania Peralta Consults: 09/13/22 09:07 Consult Physician Stat Consulting Provider: Taylor Scott Consult Reason/Comments: delirium tremons, hyponatremia Do you want consulting provider notified?: Yes [facility] care [facility] [place] [facility] Course: This is a 62-year-old male who was admitted to the hospital on September 13 for alcohol withdrawal, mental status changes, and hyponatremia. The patient apparently was intubated the following day on the , was extubated successfully initially on September 18, and unfortunately required reintubation on September 19. The patient remains in the intensive care unit on the ventilator. The patient is seen today in room 264. Current ventilator settings include the volume assist control, rate 20, tidal volume 450, FiO2 50%, and PEEP of 10. Blood gases show pO2 of 96, pCO2 44, and pH is 7.45. The patient is currently on a fentanyl drip at 2 mcg/kg/h, propofol at 75 mcg/kg/m, saline at 10 mL an hour, Cleveprex at 6 mg an hour, and the patient's receiving cefepime for Serratia in his sputum. White count 5.5, hemoglobin 8.7, hematocrit 25.4, and platelet count normal. Sodium 140, potassium 3.9, chlorides 107, CO2 30, BUN 22, creatinine 0.65. Chest x-ray shows patchy infiltrates at the right lower lobe, and a left-sided small effusion.Patient was reevaluated today on 09/23/2022, remains in the ICU, intubated and mechanically ventilated. Patient is on assist control rate of 20, tidal volume 450 FiO2 45% PEEP of 8 remains on vancomycin and cefepime, he does have Serratia marcescens in the sputum and looks like he may have Serratia marcescens pneumonia. And Comycin was added by infectious disease mostly because the patient kept having fevers in spite of good course of antibiotics, he was on Zosyn all along. Today I his chest x-ray showing worsening interstitial edema, I recommended Lasix 40 mg IV push. Patient is on Versed 15 mg per hour he is on vital HPI 35/35 he is also on fentanyl of 0.5 mg/kg/h and I am planning to discontinue fentanyl. ABG showed a pO2 of 95 pCO2 45 pH of 7.43. The plan is to wake of the patient today, cut down on the sedation significantly, addressed mental status, address possibly a weaning trial and if tolerated be even extubate. WBC count is 5 hemoglobin 8.9 lites are normal, renal profile is normal Reevaluated today on 09/24/2022, patient remains in the ICU, intubated and mechanically ventilated. He is on assist control rate of 20 tidal volume 450 FiO2 45% and PEEP of 8 his ABG showed a pO2 of 61 pCO2 of 38 pH of 7.48 however his FiO2 was increased to 50% based on the fact that his pO2 level was marginal at 61. Patient was given a trial of weaning today, however he desaturated, and he developed significant tachypnea tachycardia and hypertension clearly he is not tolerating weaning trials. Went back and placed him on his fentanyl, propofol, and I will discontinue his Precedex altogether. He was doing well on Precedex but when time came to weaning , and with the patient fentanyl, patient became extremely restless agitated, desaturating, and had to be placed back on fentanyl and on propofol. Patient remains on antibiotics in the form of vancomycin and cefepime for his Serratia marcescens infection/pneumonia being followed by infectious disease. Today I gave him a dose of Lasix 40 mg IV push as his chest x-ray is showing some mild component of interstitial edema/infiltrates WBC count today is 6.4 hemoglobin is 10, basic metabolic profile is normal renal profile is normal chest x-ray as noted above suspicious for underlying component of interstitial edema. And right basilar airspace disease Reevaluated today on 09/25/2022, patient did poorly yesterday as we were trying to get him off sedation patient became extremely agitated, desaturated, had to be placed back on full sedation including fentanyl at to micrograms per kilo per hour, and he is now on propofol at 75 mcg/kg/m. Patient desaturated hence his FiO2 was increased to 70% today I put him down back to 50% and PEEP of 12. Patient is receiving Cleviprex of 10 mg per hour results on propofol and fentanyl as noted above vital HPF at 10 mL per hour. Antibiotics ponce remains on cefepime. His ABG showed a pO2 of 70 pCO2 38 pH of 7.46. Echocardiogram came back unremarkable. Chest x-ray continues to show left lower lobe consolidation. There is improvement in his bilateral interstitial edema. WBC count is 6.4 hemoglobin is 9.3, basic metabolic profile is normal except slightly low potassium of 3.4 being addressed accordingly. Patient continues to have good urine output, and he is still receiving Lasix on a daily basis. Reevaluated today on 09/26/2022, patient remains in the ICU, intubated and mechanically ventilated. Remains on assist control rate of 20 tidal volume 450 FiO2 50% PEEP is 12 and I cut it down to 10 mostly because ABG showed a pO2 of 110 pCO2 42 pH of 7.44. Patient is still requiring fentanyl 2 mcg/kg/h is also on propofol at 65 mcg/kg/h Cleviprex at 6 mg per hour receiving vital HPI at 10 mL per hour. Patient is being treated for Serratia marcescens pneumonia remains on cefepime. Patient is arousable in spi te of his sedation, however considering the patient failed 2 days ago and desaturates significantly upon trial of weaning, I'm a bit reluctant to consider weaning trials on this patient today. I feel it is better to keep the patient sedated for now, and work on getting the PEEP down lower. He was on PEEP of 12 will cut it down to 10, and hopefully tomorrow could switch him down to a PEEP of 8 or 5. Chest x-ray is showing improvement in his pneumonia and his interstitial edema. Remains on diuretics. Renal functioning remains normal electrolytes are normal CBC is normal, ABG is actually improving. Patient remains on GI and DVT prophylaxis. 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 Benign essential hypertension acute diastolic congestive heart failure Patient after prolonged hospitalization for 2 weeks Patient Condition at Discharge: Undetermined Plan - Discharge Summary Discharge Rx Participant: No New Discharge Prescriptions: Discontinued Naloxone HCl [Narcan] 4 mg NASAL DIRECTED PRN PRN Reason: OVERDOSE lisinopriL [Zestril] 10 mg PO DAILY hydrOXYzine HCL [Atarax] 25 - 50 mg PO HS PARoxetine HCL [Paxil] 20 mg PO DAILY HYDROcodone/APAP 7.5-325MG [[place] 7.5-325] 1 tab PO QID Fenofibrate Nanocrystallized [Fenofibrate] 145 mg PO DAILY Atorvastatin Calcium [Lipitor] 80 mg PO HS Discharge Disposition: - Preliminary Cause of Preliminary Cause of : respiratory failure, pneumonia
== END 2022-09-28 01:09 | disposition expired | DRG 896 ==
LOC: EC 07:05 → 2SICU 09:07
PROVIDERS: ADMIT Hospitalist; ATTEND Hospitalist
PROC: 0D9670Z Drainage of Stomach with Drainage Device, Via Natural or Artificial Opening (ICD-10-PCS; principal; 2022-09-13)
PROC: 0BH17EZ Insertion of Endotracheal Airway into Trachea, Via Natural or Artificial Opening (ICD-10-PCS; principal; 2022-09-13)
PROC: 5A1955Z Respiratory Ventilation, Greater than 96 Consecutive Hours (ICD-10-PCS; principal; 2022-09-13)
PROC: 3E0G76Z Introduction of Nutritional Substance into Upper GI, Via Natural or Artificial Opening (ICD-10-PCS; 2022-09-14)
PROC: 03HY32Z Insertion of Monitoring Device into Upper Artery, Percutaneous Approach (ICD-10-PCS; 2022-09-14)
PROC: 4A133B1 Monitoring of Arterial Pressure, Peripheral, Percutaneous Approach (ICD-10-PCS; 2022-09-14)
PROC: 4A133J1 Monitoring of Arterial Pulse, Peripheral, Percutaneous Approach (ICD-10-PCS; 2022-09-14)
PROC: 0BH17EZ Insertion of Endotracheal Airway into Trachea, Via Natural or Artificial Opening (ICD-10-PCS; 2022-09-19)
PROC: 02HV33Z Insertion of Infusion Device into Superior Vena Cava, Percutaneous Approach (ICD-10-PCS; 2022-09-19)
PROC: 5A1955Z Respiratory Ventilation, Greater than 96 Consecutive Hours (ICD-10-PCS; 2022-09-19)
DX: F10.231 Alcohol dependence with withdrawal delirium (principal); A41.53 Sepsis due to Serratia; J96.01 Acute respiratory failure with hypoxia; J15.6 Pneumonia due to other Gram-negative bacteria; G92.8 Other toxic encephalopathy; I50.31 Acute diastolic (congestive) heart failure; E87.20 Acidosis, unspecified; E87.1 Hypo-osmolality and hyponatremia; E87.6 Hypokalemia; E87.8 Other disorders of electrolyte and fluid balance, not elsewhere classified; T50.1X5A Adverse effect of loop [high-ceiling] diuretics, initial encounter; E86.1 Hypovolemia; R31.29 Other microscopic hematuria; Y95 Nosocomial condition; Z66 Do not resuscitate; K70.10 Alcoholic hepatitis without ascites; Z20.822 Contact with and (suspected) exposure to COVID-19; R32 Unspecified urinary incontinence; R74.01 Elevation of levels of liver transaminase levels; E78.5 Hyperlipidemia, unspecified; Z51.5 Encounter for palliative care; I11.0 Hypertensive heart disease with heart failure; S00.83XA Contusion of other part of head, initial encounter; G47.33 Obstructive sleep apnea (adult) (pediatric); E78.1 Pure hyperglyceridemia; T41.295A Adverse effect of other general anesthetics, initial encounter; R29.6 Repeated falls; Z91.81 History of falling; Z79.899 Other long term (current) drug therapy; Z71.3 Dietary counseling and surveillance
CPT/HCPCS: 36415; 36600; 71045; 76700; 80048; 80053; 80202; 80320; 81001; 81003; 82805; 83605; 83735; 83880; 83930; 83935; 84132; 84145; 84295; 84300; 84478; 84484; 85025; 85027; 85610; 85730; 86140; 87040; 87070; 87077; 87186; 87205; 87449; 87636; 93005; 93306; 94002; 94003; 96361; 96372; 96374; 96375; 99291